=== PATIENT | male | born 1940 | race Caucasian/White ===

== ENCOUNTER 2019-11-17 10:37 | Outpatient (REF) | payer MEDICARE, SELFPAY ==
--- NOTE | 2019-11-17 10:36 | CT_ITS ---
EXAMINATION: CT LUMBAR SPINE WITHOUT CONTRAST CLINICAL INFORMATION: Spinal stenosis. COMPARISON: None available. TECHNIQUE: Multidetector CT acquisition of the lumbar spine is obtained without contrast. This CT examination was performed using dose optimization techniques as appropriate, variously including the following: *Automated exposure control *Adjustment of mA and/or kV according to patient size (this includes techniques or standardized protocols for targeted exams where dose is matched to indication/reason for exam; i.e. extremities or head) *Use of iterative reconstruction technique FINDINGS: There are 5 nonrib-bearing lumbar-type vertebral bodies. There is grade 1 retrolisthesis of T12 on L1 and L1 on L2. There is a rightward convex scoliotic curvature of the upper lumbar spine and a leftward convex scoliotic curvature at the lumbosacral junction. The vertebral body heights are maintained. There is severe disc volume loss at L4-L5 and L5-S1. There is moderate disc volume loss at L2-L3. There is vacuum phenomenon at all lumbar levels and at the lower thoracic levels. There are no acute fractures and there are no acute subluxations. Degenerative endplate changes throughout the lumbar spine. No suspicious intraosseous lesions. There is bilateral perinephric stranding. There is aortoiliac atherosclerotic calcification. L1-L2: There is grade 1 retrolisthesis. Diffuse annular disc bulge and mild bilateral facet arthropathy. There is no central canal stenosis. There is mild foraminal encroachment bilaterally. L2-L3: There is a diffuse annular disc bulge and there is severe bilateral facet arthropathy and ligamentum flavum thickening. Findings in concert result in suspected moderate to severe central canal stenosis as well as severe bilateral subarticular zone stenosis and mild bilateral foraminal encroachment. L3-L4: Diffuse annular disc bulge and severe bilateral facet arthropathy and ligamentum flavum thickening. Findings in concert result in suspected severe central canal stenosis and mild to moderate right foraminal stenosis. L4-L5: Diffuse disc osteophyte complex and severe bilateral facet arthropathy and ligamentum flavum thickening. Findings in concert result in suspected moderate to severe central canal stenosis, severe bilateral subarticular zone stenosis, and severe right foraminal stenosis. L5-S1: There is a broad-based central disc protrusion that likely results in mass effect on the traversing S1 nerve roots within the subarticular zones bilaterally and mild narrowing of the central canal. Disc osteophyte and facet arthropathy result in severe bilateral foraminal stenosis. IMPRESSION: - Lumbar scoliosis superimposed on advanced multilevel degenerative disc disease and facet arthropathy. - Advanced spondylitic changes result in suspected severe central canal stenosis at L3-L4 and moderate to severe central canal stenosis and severe bilateral subarticular zone stenosis at L2-L3 and L4-L5. At L5-S1, a broad-based central disc protrusion likely in mass effect on the traversing S1 nerve roots within the subarticular zones bilaterally. Severe right foraminal stenosis at L4-L5 and severe bilateral foraminal stenosis at L5-S1.
== END 2019-11-17 10:38 | disposition home or self-care (01) ==
LOC: HO.CT 10:37
PROVIDERS: PCP Internal Medicine; Visit Provider Internal Medicine
DX: M48.062 Spinal stenosis, lumbar region with neurogenic claudication (principal)
CPT/HCPCS: 72131

== ENCOUNTER 2019-12-05 11:14 | Outpatient (REF) | payer MEDICARE, SELFPAY ==
[2019-12-05 13:55] LABS: Glucose Urine UA NEG (NEG); Leukocyte Esterase Urine NEG (NEG); Nitrite Urine NEG (NEG); PH 5.5 (5.0-8.0); Urine Blood NEG (NEG); Urine Ketones NEG (NEG); Urine Protein NEG (NEG-TRACE)
[2019-12-05 14:06] LABS: Appearance Urine CLEAR; Color Urine YELLOW
== END 2019-12-05 11:15 | disposition home or self-care (01) ==
LOC: HO.HMGCLDS 11:14
PROVIDERS: PCP Internal Medicine; Visit Provider Internal Medicine
DX: R35.0 Frequency of micturition (principal)
CPT/HCPCS: 81003; 87086

== ENCOUNTER 2019-12-28 08:49 | Outpatient (REF) | payer MEDICARE, SELFPAY ==
[2019-12-28 11:32] LABS: Hemoglobin 13.9 g/dl (14.0-18.0); Mean Corpuscular HGB Conc 33.1 g/dl (31.0-36.0); Mean Corpuscular Hemoglobin 34.1 pg (27.0-33.0); Mean Corpuscular Volume 102.9 fL (80-98); Mean Platelet Volume 10.7 fL (9.4-12.4); Platelet Count 179 X10*3/uL (160-400); Red Blood Count 4.08 X10*6/uL (4.60-5.80); Red Cell Distribution Width 14.5 % (11.0-16.0); White Blood Count 6.1 X10*3/uL (4.8-10.8)
[2019-12-28 12:25] LABS: Anion Gap 14 (12-20); Blood Urea Nitrogen 23 mg/dL (9-16); Calcium 8.6 mg/dL (8.4-10.2); Carbon Dioxide 25 mmol/L (22-29); Chloride 106 mmol/L (96-108); Estimated Glomerular Filt Rate 58; Glucose Random 98 mg/dL (60-115); Potassium 4.3 mmol/l (3.3-5.1); Sodium 141 mmol/L (135-145)
== END 2019-12-28 08:50 | disposition home or self-care (01) ==
LOC: HO.HMGCLDS 08:49
PROVIDERS: PCP Internal Medicine; Visit Provider Nurse Practitioner Family
DX: Z79.01 Long term (current) use of anticoagulants (principal)
CPT/HCPCS: 36415; 80048; 85027

== ENCOUNTER → 2020-01-31 09:10 | Outpatient (REF) | payer MEDICARE, SELFPAY ==
--- NOTE | 2020-01-31 09:30 | CA_ITS ---
Transthoracic Echocardiogram Patient (Last, First, Middle): Chilango Castaneda G Gender: Male Date of : 1940 Age: 79 Procedure Date: 01/31/2020 Procedure Type: Transthoracic Echocardiogram Location: OP Height: 177.8 cm Weight: 95.26 kg BSA: 2.13 m2 Heart Rate: bpm BP: 124 / 70 mmHg Otr Driver: Referring MD: Alvaro Marinelli MD Poultry Farmer Meat: Nato Ridley MD Symptoms: I48.0 PAF, I42.9 CMP, R60.0 EDEMA I51.9 DIASTOLIC DYSFUNCTIO Study Quality: Fair ECG Rhythm: Sinus Conclusions: - 1. Normal LV systolic function with impaired relaxation filling pattern 2. Mildly dilated left atrium 3. Trivial aortic regurgitation 4. Normal RV systolic pressure 5. No pericardial effusion Findings Left Ventricle Normal left ventricular size, thickness, and systolic function. The visually estimated ejection fraction is between 60-65%. Spectral Doppler is indicative of an impaired relaxation filling pattern. E/E prime ratio is between 8 and 15 consistent with indeterminate filling pressures. Right Ventricle Normal right ventricular cavity size and systolic function. Atria The left atrium is mildly dilated. There is no evidence of interatrial shunt. The right atrium is likely dilated. Aortic Valve Normal aortic valve structure and function. There is no aortic valve stenosis. There is trace (trivial) aortic valve regurgitation. Mitral Valve Likely normal mitral valve structure and function. There is trace mitral valve regurgitation. There is no mitral valve stenosis. Pulmonic Valve The pulmonic valve was not well visualized. Tricuspid Valve The right ventricular systolic pressure is normal. The right ventricular systolic pressure is 13 mmHg. There is no evidence of pulmonary hypertension. Great Vessels All visible segments of the aorta are normal in size. The pulmonary artery was not well visualized. Venous The inferior vena cava is normal in size. Pericardium/Pleural There is no evidence of pericardial effusion. Prior Study Comparison Changes noted compared to prior study dated: 07/13/2018. Diastolic function seems to have improved Measurements 2D Linear Measurements IVSd: 1.09 0.6-0.9/0.6-1.0 cm LVIDd: 5.30 3.9-5.3/4.2-5.9 cm LVIDd Index: 2.49 2.4-3.2/2.2-3.1 cm/m2 LVIDs: 3.41 2.0-3.6 cm LVPWd: 1.09 0.7-1.1 cm Ao Root: 3.60 2.1-3.5 cm LA Diam: 5.00 2.7-3.8/3.0-4.0 cm LAIDs Index: 2.35 1.5-2.3 cm/m2 LV Mass: 363.79 67-162/88-224 g LV Mass Index: 170.79 43-95/49-115 g/m2 LVOT Diam: 2.30 3.0+(-)1.3 cm 2D Systolic Function EF 4C: 72.00 >55% EF 2C: 67.00 >55% EF BiP: 70.60 >55% Mitral Valve MV Pk E: 0.81 MV PK A: 1.13 MV Decel Time: 248.00 E/A: 0.70 E'Lateral: 9.28 E'Medial: 7.74 E/E' Med: 10.40 E/E' Lat: 8.70 PHT: 73.00 MVA PHT: 3.01 Decel [place]: 3.25 Aortic Valve AoV Pk Nathanael: 1.67 AoV Mn Nathanael: 1.04 AoV VTI: 0.42 AoV Pk Grad: 11.00 Aov Mn Grad: 5.00 CHARITO Cont.VTI: 2.55 LVOT LVOT Pk Nathanael: 1.04 LVOT Mn Nathanael: 0.66 LVOT VTI: 0.26 LVOT Pk Grad: 4.00 LVOT Mn Grad: 2.00 LVOT Diam: 2.30 LVOT Area: 4.15 Diastolic Function MV Pk E: 0.81 MV Pk A: 1.13 E/A: 0.70 E'Medial: 7.74 E/E' Med: 10.40 E' Laterial: 9.28 E/E' Lat: 8.70 Tricuspid Valve TR Pk Nathanael: 1.58 TR Pk Grad: 10.00 RA Press: 3.00 RVSP: 13.00 Great Vessels Aorta Ao Root-2D: 3.60 2.0-3.7 cm Ao Asc: 4.00 2.1-3.4 cm Pulmonary Valve PV Pk Nathanael: 1.10 Peak PV Grad: 5.00 Updated in Other Vendor System with Status of Final Nato Ridley MD electronically signed on 02/01/2020 2:35:52 PM with status of Final
== END ==
LOC: HO.CARD 09:10
PROVIDERS: Visit Provider Internal Medicine
DX: I48.0 Paroxysmal atrial fibrillation (principal); I42.9 Cardiomyopathy, unspecified; R60.0 Localized edema; I51.9 Heart disease, unspecified
CPT/HCPCS: 93306

== ENCOUNTER → 2020-03-05 08:47 | Outpatient (BNVA) | payer MEDICARE, SELFPAY | PROVIDERS: PCP Internal Medicine; Visit Provider Internal Medicine | DX: I48.0 Paroxysmal atrial fibrillation (principal); I42.8 Other cardiomyopathies; I10 Essential (primary) hypertension; I51.89 Other ill-defined heart diseases; R60.0 Localized edema; Z51.81 Encounter for therapeutic drug level monitoring; Z79.899 Other long term (current) drug therapy | CPT/HCPCS: 93005; 99212 ==

== ENCOUNTER 2020-03-06 07:46 | Outpatient (REF) | payer MEDICARE, SELFPAY ==
[2020-03-06 11:12] LABS: MANUAL DIFF FLAG NO
[2020-03-06 11:15] LABS: Basophils Percent Auto 0.6 % (0-2); Eosinophils Absolute Auto 0.1 X10*3/uL (0.0-0.4); Hematocrit 43.3 % (42-52); Hemoglobin 14.9 g/dl (14.0-18.0); Imm Gran Abs Auto 0.03 X10*3/uL (0.00-0.03); Imm Gran Pct Auto 0.6 % (0.0-0.4); Lymphocytes Absolute Auto 1.7 X10*3/uL (1.2-4.9); Lymphocytes Percent Auto 32.9 % (20-40); Mean Corpuscular HGB Conc 34.4 g/dl (31.0-36.0); Mean Corpuscular Hemoglobin 35.1 pg (27.0-33.0); Mean Corpuscular Volume 102.1 fL (80-98); Mean Platelet Volume 10.4 fL (9.4-12.4); Monocytes Absolute Auto 0.5 X10*3/uL (0.1-1.2); Monocytes Percent Auto 9.6 % (2-11); Neutrophils Absolute Auto 2.8 X10*3/uL (2.0-8.3); Neutrophils Percent Auto 55.3 % (45-73); Platelet Count 137 X10*3/uL (160-400); Red Blood Count 4.24 X10*6/uL (4.60-5.80); Red Cell Distribution Width 13.8 % (11.0-16.0); White Blood Count 5.1 X10*3/uL (4.8-10.8)
[2020-03-06 11:25] LABS: Alanine Aminotransferase 19 U/L (0-40); Albumin Level 4.1 g/dL (3.5-5.0); Alkaline Phosphatase 64 U/L (39-117); Anion Gap 12 (12-20); Aspartate Amino Transferase 17 U/L (5-37); Blood Urea Nitrogen 27 mg/dL (9-16); Calcium 9.1 mg/dL (8.4-10.2); Carbon Dioxide 28 mmol/L (22-29); Chloride 105 mmol/L (96-108); Cholesterol 177 mg/dL; Estimated Glomerular Filt Rate 49; Glucose Fasting 88 mg/dL (60-99); HDL Cholesterol 50 mg/dL; LDL Cholesterol Calculated 95 mg/dl; Potassium 4.4 mmol/l (3.3-5.1); Sodium 141 mmol/L (135-145); Total Protein 6.3 g/dL (6.5-8.0); Triglycerides 164 mg/dL
[2020-03-06 11:28] LABS: Glucose Urine UA NEG (NEG); Leukocyte Esterase Urine NEG (NEG); Nitrite Urine NEG (NEG); Urine Blood NEG (NEG); Urine Ketones NEG (NEG); Urine Protein NEG (NEG-TRACE)
[2020-03-06 11:29] LABS: Appearance Urine CLEAR; Color Urine YELLOW
[2020-03-06 11:32] LABS: Estimated Average Glucose 97 mg/dL
[2020-03-06 11:49] LABS: Prostate Specific Antigen Scr 4.35 ng/mL (<0.05-4.0)
[2020-03-06 12:09] LABS: Creatinine Urine 110.52 mg/dL; Microalbumin Urine < 5.0 mg/L
== END 2020-03-06 07:47 | disposition home or self-care (01) ==
LOC: HO.HMGCLDS 07:46
PROVIDERS: PCP Internal Medicine; Visit Provider Internal Medicine
DX: Z00.00 Encounter for general adult medical examination without abnormal findings (principal); D69.6 Thrombocytopenia, unspecified; R79.89 Other specified abnormal findings of blood chemistry; I10 Essential (primary) hypertension; R73.03 Prediabetes; R97.20 Elevated prostate specific antigen [PSA]; Z86.79 Personal history of other diseases of the circulatory system; Z12.5 Encounter for screening for malignant neoplasm of prostate
CPT/HCPCS: 36415; 80053; 80061; 81003; 82043; 83036; 84153; 85025

== ENCOUNTER → 2020-08-20 08:08 | Outpatient (BNVA) | payer MEDICARE, SELFPAY | PROVIDERS: PCP Internal Medicine; Referring Provider Internal Medicine; Visit Provider Internal Medicine | DX: I48.0 Paroxysmal atrial fibrillation (principal); I42.8 Other cardiomyopathies; I11.0 Hypertensive heart disease with heart failure; R60.0 Localized edema; Z51.81 Encounter for therapeutic drug level monitoring; Z79.899 Other long term (current) drug therapy | CPT/HCPCS: 93005; 99212 ==

== ENCOUNTER 2020-09-19 10:22 | Outpatient (REF) | payer MEDICARE, SELFPAY ==
[2020-09-19 10:57] LABS: Blood Urea Nitrogen 20 mg/dL (9-16); Estimated Glomerular Filt Rate 52
== END 2020-09-19 10:23 | disposition home or self-care (01) ==
LOC: HO.LNP 10:22
PROVIDERS: Visit Provider Internal Medicine
DX: R79.9 Abnormal finding of blood chemistry, unspecified (principal)
CPT/HCPCS: 82565; 84520

== ENCOUNTER → 2021-02-11 08:08 | Outpatient (BNVA) | payer MEDICARE, SELFPAY | PROVIDERS: PCP Internal Medicine; Referring Provider Internal Medicine; Visit Provider Internal Medicine | DX: I42.8 Other cardiomyopathies (principal); I10 Essential (primary) hypertension; I51.89 Other ill-defined heart diseases; R60.0 Localized edema | CPT/HCPCS: 93005; 99212 ==

== ENCOUNTER 2021-03-20 11:13 | Outpatient (REF) | payer MEDICARE, SELFPAY ==
[2021-03-20 11:18] LABS: MANUAL DIFF FLAG NO
[2021-03-20 12:01] LABS: Basophils Percent Auto 0.3 % (0-2); Eosinophils Absolute Auto 0.1 X10*3/uL (0.0-0.4); Eosinophils Percent Auto 1.7 % (0-4); Hematocrit 42.7 % (42.0-52.0); Hemoglobin 14.3 g/dl (14.0-18.0); Imm Gran Abs Auto 0.04 X10*3/uL (0.00-0.03); Imm Gran Pct Auto 0.7 % (0.0-0.4); Lymphocytes Absolute Auto 2.1 X10*3/uL (1.2-4.9); Lymphocytes Percent Auto 35.3 % (20-40); Mean Corpuscular HGB Conc 33.5 g/dl (31.0-36.0); Mean Corpuscular Volume 101.4 fL (80.0-98.0); Mean Platelet Volume 10.8 fL (9.4-12.4); Monocytes Absolute Auto 0.5 X10*3/uL (0.1-1.2); Monocytes Percent Auto 8.3 % (2-11); Neutrophils Absolute Auto 3.2 x10*3/uL (2.0-8.3); Neutrophils Percent Auto 53.7 % (45-73); Platelet Count 151 X10*3/uL (160-400); Red Blood Count 4.21 X10*6/uL (4.60-5.80); Red Cell Distribution Width 13.2 % (11.0-16.0)
[2021-03-20 12:12] LABS: Estimated Average Glucose 100 mg/dL; Hemoglobin A1c % 5.1 %
[2021-03-20 12:13] LABS: Appearance Urine CLEAR; Color Urine YELLOW; Glucose Urine UA NEG (NEG); Leukocyte Esterase Urine NEG (NEG); Nitrite Urine NEG (NEG); PH 6.5 (5.0-8.0); Specific Gravity - Urine 1.015 (1.005-1.025); Urine Blood NEG (NEG); Urine Ketones NEG (NEG); Urine Protein NEG (NEG-TRACE)
[2021-03-20 12:17] LABS: Alanine Aminotransferase 17 U/L (0-40); Albumin Level 3.8 g/dL (3.5-5.0); Alkaline Phosphatase 88 U/L (39-117); Anion Gap 12 (12-20); Aspartate Amino Transferase 17 U/L (5-37); Bilirubin Total 0.9 mg/dL (0.0-1.0); Blood Urea Nitrogen 25 mg/dL (9-16); Calcium 8.9 mg/dL (8.4-10.2); Carbon Dioxide 27 mmol/L (22-29); Chloride 106 mmol/L (96-108); Cholesterol 173 mg/dL; Estimated Glomerular Filt Rate 51; Glucose Fasting 98 mg/dL (60-99); HDL Cholesterol 46 mg/dL; LDL Cholesterol Calculated 103 mg/dl; Potassium 4.1 mmol/L (3.3-5.1); Sodium 141 mmol/L (135-145); Triglycerides 124 mg/dL
[2021-03-20 12:41] LABS: Creatinine Urine 134.04 mg/dL; Microalbumin Urine < 5.0 mg/L
[2021-03-20 13:07] LABS: PSA,Total (Free>4and<10) 4.08 ng/mL (0.00-4.00)
[2021-03-24 12:51] LABS: Free Prostate Spec Ag 0.9 ng/mL; Percent Free Prostate Spec Ag 24 % (calc) (>25); Prostate Specific Ag Total 3.8 ng/mL (< OR = 4.0)
== END 2021-03-20 11:14 | disposition home or self-care (01) ==
LOC: HO.LNP 11:13
PROVIDERS: Visit Provider Internal Medicine
DX: Z00.00 Encounter for general adult medical examination without abnormal findings (principal); Z12.5 Encounter for screening for malignant neoplasm of prostate; D69.6 Thrombocytopenia, unspecified; I10 Essential (primary) hypertension; R73.03 Prediabetes; R97.20 Elevated prostate specific antigen [PSA]
CPT/HCPCS: 80053; 80061; 81003; 82043; 83036; 84153; 84154; 85025

== ENCOUNTER → 2021-08-12 08:08 | Outpatient (BNVA) | payer MEDICARE, SELFPAY | PROVIDERS: PCP Internal Medicine; Referring Provider Internal Medicine; Visit Provider Internal Medicine | DX: I48.0 Paroxysmal atrial fibrillation (principal); I42.8 Other cardiomyopathies; I11.9 Hypertensive heart disease without heart failure; R60.0 Localized edema; Z79.01 Long term (current) use of anticoagulants; Z79.899 Other long term (current) drug therapy | CPT/HCPCS: 93005; 99212 ==

== ENCOUNTER → 2021-11-25 08:47 | Outpatient (BNVA) | payer MEDICARE, SELFPAY | PROVIDERS: PCP Internal Medicine; Referring Provider Internal Medicine; Visit Provider Internal Medicine | DX: R00.1 Bradycardia, unspecified (principal); R94.31 Abnormal electrocardiogram [ECG] [EKG] | CPT/HCPCS: 93005 ==

== ENCOUNTER → 2021-12-22 07:21 | Outpatient (REF) | payer MEDICARE, SELFPAY ==
--- NOTE | 2021-12-22 07:32 | HM_ITS ---
Conclusion: 1. Patient was monitored for total period of 3 days 2. Baseline was normal sinus rhythm with average heart rate of 45 beats per minute 3. Frequent sinus bradycardia with 82% of time heart rate below 60 beats per minute with lowest heart rate of 30 beats per minute during sleep hours 4. Multiple pauses with longest pause of 3.2 seconds noted at 05:34 on day 4 5. Rare ectopy 6. No patient reported symptoms MTDD
== END ==
LOC: HO.CARD 07:21
PROVIDERS: PCP Internal Medicine; Visit Provider Internal Medicine
DX: I48.0 Paroxysmal atrial fibrillation (principal); R00.1 Bradycardia, unspecified
CPT/HCPCS: 93242

== ENCOUNTER → 2022-02-24 08:26 | Outpatient (BNVA) | payer MEDICARE, SELFPAY | PROVIDERS: PCP Internal Medicine; Referring Provider Internal Medicine; Visit Provider Internal Medicine | DX: I48.0 Paroxysmal atrial fibrillation (principal); Z51.81 Encounter for therapeutic drug level monitoring; I42.8 Other cardiomyopathies; I10 Essential (primary) hypertension; R60.0 Localized edema; Z79.899 Other long term (current) drug therapy; Z79.01 Long term (current) use of anticoagulants | CPT/HCPCS: 93005; 99212 ==

== ENCOUNTER 2022-03-19 11:25 | Outpatient (REF) | payer MEDICARE, SELFPAY ==
[2022-03-19 11:32] LABS: MANUAL DIFF FLAG NO
[2022-03-19 12:10] LABS: Basophils Percent Auto 0.5 % (0-2); Eosinophils Absolute Auto 0.2 X10*3/uL (0.0-0.4); Eosinophils Percent Auto 2.9 % (0-4); Hematocrit 43.3 % (42.0-52.0); Hemoglobin 14.7 g/dl (14.0-18.0); Imm Gran Abs Auto 0.03 X10*3/uL (0.00-0.03); Imm Gran Pct Auto 0.5 % (0.0-0.4); Lymphocytes Percent Auto 35.7 % (20-40); Mean Corpuscular HGB Conc 33.9 g/dl (31.0-36.0); Mean Corpuscular Hemoglobin 32.7 pg (27.0-33.0); Mean Corpuscular Volume 96.4 fL (80.0-98.0); Mean Platelet Volume 11.2 fL (9.4-12.4); Monocytes Absolute Auto 0.5 X10*3/uL (0.1-1.2); Monocytes Percent Auto 8.8 % (2-11); Neutrophils Absolute Auto 2.9 x10*3/uL (2.0-8.3); Neutrophils Percent Auto 51.6 % (45-73); Platelet Count 130 X10*3/uL (160-400); Red Blood Count 4.49 X10*6/uL (4.60-5.80); Red Cell Distribution Width 13.4 % (11.0-16.0); White Blood Count 5.6 X10*3/uL (4.8-10.8)
[2022-03-19 12:26] LABS: Alanine Aminotransferase 12 U/L (0-40); Albumin Level 3.8 g/dL (3.5-5.0); Alkaline Phosphatase 106 U/L (39-117); Anion Gap 13 (12-20); Aspartate Amino Transferase 14 U/L (5-37); Bilirubin Total 1.1 mg/dL (0.0-1.0); Blood Urea Nitrogen 24 mg/dL (9-16); Calcium 8.9 mg/dL (8.4-10.2); Carbon Dioxide 25 mmol/L (22-29); Chloride 107 mmol/L (96-108); Cholesterol 154 mg/dL; Estimated Glomerular Filt Rate 57; Glucose Fasting 99 mg/dL (60-99); HDL Cholesterol 48 mg/dL; LDL Cholesterol Calculated 91 mg/dl; Sodium 141 mmol/L (135-145); Total Protein 6.1 g/dL (6.5-8.0); Triglycerides 79 mg/dL
[2022-03-19 12:41] LABS: PSA,Total (Free>4and<10) 1.98 ng/mL (0.00-4.00)
[2022-03-19 12:44] LABS: Appearance Urine Clear; Color Urine Yellow; Glucose Urine UA Negative (Negative); Leukocyte Esterase Urine Negative (Negative); Nitrite Urine Negative (Negative); Specific Gravity - Urine 1.015 (1.005-1.025); Urine Blood Negative (Negative); Urine Ketones Negative (Negative); Urine Protein Negative (Neg-Trace)
[2022-03-19 12:51] LABS: Bacteria Urine None Seen (None Seen); Hyaline Casts Urine 0-2 /LPF (0-2); RBC Urine 0-2 /HPF (0-2); Squamous Epithelial Cell Urine 0-2 /HPF (0-2); WBC Urine 0-5 /HPF (0-5)
[2022-03-19 12:54] LABS: Estimated Average Glucose 97 mg/dL
[2022-03-19 13:36] LABS: Creatinine Urine 106.98 mg/dL; Microalbumin Urine < 5.0 mg/L
== END 2022-03-19 11:26 | disposition home or self-care (01) ==
LOC: HO.LNP 11:25
PROVIDERS: Visit Provider Internal Medicine
DX: Z00.00 Encounter for general adult medical examination without abnormal findings (principal); I10 Essential (primary) hypertension; D69.6 Thrombocytopenia, unspecified; R73.09 Other abnormal glucose; R97.20 Elevated prostate specific antigen [PSA]; Z12.5 Encounter for screening for malignant neoplasm of prostate
CPT/HCPCS: 80053; 80061; 81001; 82043; 83036; 84153; 85025

== ENCOUNTER → 2022-05-21 08:11 | Outpatient (BNVA) | payer MEDICARE, SELFPAY | PROVIDERS: PCP Internal Medicine; Referring Provider Internal Medicine; Visit Provider Internal Medicine | DX: R94.31 Abnormal electrocardiogram [ECG] [EKG] (principal) | CPT/HCPCS: 93005 ==

== ENCOUNTER 2022-08-27 08:09 | Outpatient (AMB) | payer MEDICARE, SELFPAY ==
[2022-08-27 08:16] VITALS: BP 122/72; PULSE 94; BMI 34.2
--- NOTE | 2022-08-27 08:16 | A.OFFVIS_ITS ---
Intake Vital Signs 08/27/22 08:16 Height 5 ft 3 in Weight 193 lb 1.999 oz BMI 34.2 BP 122/72 Blood Pressure Location Lt brachial Position Sitting Pulse 94 Intake Visit Reasons: 6 mth fu with ekg Intake Note: 6 month follow up w/ EKG Projects Manager Required: No Accompanied by: Self / Same As Patient Allergies Penicillins [PCN] Allergy (Unknown, Verified 08/27/22 08:26) RASH Sulfamethoxazole-TMP DS Allergy (Unknown, Uncoded 08/27/22 08:26) rash Medication List - Last Reconciled 08/27/22 by Alvaro Marinelli MD allopurinol 300 mg PO DAILY amlodipine 5 mg PO DAILY doxazosin 2 mg PO BEDTIME dronedarone (Multaq) 400 mg PO BID finasteride 5 mg PO DAILY furosemide 80 mg (2 x 40 mg) PO DAILY irbesartan 300 mg PO DAILY rivaroxaban (Xarelto) 15 mg PO QPM HPI HPI Comments History of Present Illness Details Chilango returns for follow-up regarding atrial fibrillation. Overall, generally getting along fine from cardiac. No new issues. No chest pain or palpitations or in fact anything cardiac related. Breathing seems fine too. [facility] Medical History (Updated 11/25/21 @ 16:25 by Alvaro Marinelli MD) Current use of correction anticoagulation Diastolic dysfunction Essential hypertension Localized edema Nonischemic cardiomyopathy PAF (paroxysmal atrial fibrillation) Surgical History (Updated 08/27/22 @ 08:28 by Azucena Duke) History of back surgery History of cardioversion (~2015) Family History Father CHF (congestive heart failure) Mother Cancer Social History Alcohol intake: never Patient Tobacco Use Status: Never used Tobacco Review of Systems Const Denies weakness ENT Denies dizziness Card Denies chest pain, Denies chest pain with activity, Denies syncope, Denies rapid heart rate, Denies pedal edema, Denies edema, Denies leg edema, Denies lightheadedness, Denies palpitations, Denies dyspnea, Denies dyspnea on exertion and Denies orthopnea Resp Denies cough, Denies dyspnea and Denies dyspnea on exertion GI Denies hematochezia and Denies change in stool character Musc Denies abnormal gait, Denies muscle cramps, Denies muscle weakness, Denies numbness, Denies radiating pain into limb and Denies tingling Neuro Denies abnormal gait, Denies dizziness, Denies syncope, Denies numbness, Denies tingling and Denies weakness Endo Denies palpitations Physical Exam Vital Signs: Last Vital Signs Pulse 94 08/27/22 08:16 BP 122/72 08/27/22 08:16 BMI result Body Mass Index 34.2 Const General: comfortable and no acute distress Orientation/consciousness: patient oriented x3 HEENT Other: Unremarkable Head: Yes normal to inspection Neck Neck: Yes normal visual inspection Chest Chest palpation & inspection: normal inspection of the chest Resp Auscultation: clear to auscultation bilaterally Cardio Palpation: normal PMI Heart sounds: S1 normal heart sound present, S2 normal heart sound present, no gallops, no murmurs and no rubs GI Palpation (GI): Soft to palpation Back/Spine/Pelvis Other: unremarkable Skin General skin exam: no rashes or lesions noted Neuro General: patient oriented x3 Extrem General: Yes normal to inspection Psych Mental Status: mental status grossly normal Office Procedures EKG Details: EKG today with atrial flutter, 94/min; PVC vs aberrant conduction. 59251-[id number], Complete Assessment & Plan Assessment & Plan (1) PAF (paroxysmal atrial fibrillation): Code(s): I48.0 - Paroxysmal atrial fibrillation Plan: Today, he is in atrial flutter by EKG. Clinically, he has got absolutely no symptoms. We can stop the Multaq. Probably try rate control with beta- blockers. Dog avoid lowering the blood pressure too much, hold off on the amlodipine. If there is any symptoms of heart failure in the future, may need to consider cardioversion again. If able, he would rather avoid it. Otherwise, continue Xarelto. We can use 20 mg dose. Last year for is 57. (2) Encounter for monitoring anti-arrhythmic therapy: Code(s): Z51.81 - Encounter for therapeutic drug level monitoring; Z79.899 - Other correction (current) drug therapy Plan: Stop Multaq. Discussed with patient. (3) Nonischemic cardiomyopathy: Code(s): I42.8 - Other cardiomyopathies Plan: Most recent echocardiogram with LVEF of 60-65%. In the past, it has been lowish into the 30s. 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 Last stress test is from 2017. At that time, perfusion imaging showed no ischemia. Probable small old infarct apical inferior wall. He does not have any heart failure symptoms or signs. Now that he is back in atrial flutter, will need to monitor the cardiac function. (4) Essential hypertension: Code(s): I10 - Essential (primary) hypertension Plan: Hold amlodipine. Start Toprol-XL. If blood pressure goes up, may have to reintroduce a small dose of amlodipine. (5) Localized edema: Code(s): R60.0 - Localized edema Plan: Suspected venous insufficiency. Seems stable. No swelling today. Orders: Orders ECG 3 day holter monitor 4 Weeks I48.0 - Paroxysmal atrial fibrillation Medications: New metoprolol succinate ER (Toprol XL) 50 mg PO DAILY 90 tabs 3RF rivaroxaban (Xarelto) must administer with evening meal 20 mg PO QPM 90 tabs 3RF I48.0 - Paroxysmal atrial fibrillation Discontinued rivaroxaban (Xarelto) Discontinued Reason: Doctor's Order 15 mg PO QPM 90 tabs 3RF dronedarone (Multaq) Discontinued Reason: Doctor's Order 400 mg PO BID 60 tabs 5RF Coding Level of Care Code Est Pt Level 4 (78671) Diagnoses PAF (paroxysmal atrial fibrillation) I48.0 Encounter for monitoring anti-arrhythmic therapy Z51.81; Z79.899 Nonischemic cardiomyopathy I42.8 Essential hypertension I10 Localized edema R60.0 CPT Codes EKG - CPT: 22489-[id number], Complete ([id number])
== END 2022-08-27 08:45 | disposition home or self-care (01) ==
PROVIDERS: Visit Provider Internal Medicine
DX: I48.0 Paroxysmal atrial fibrillation (principal); Z51.81 Encounter for therapeutic drug level monitoring; Z79.899 Other long term (current) drug therapy; I42.8 Other cardiomyopathies; I10 Essential (primary) hypertension; R60.0 Localized edema
CPT/HCPCS: 93010; 99214

== ENCOUNTER → 2022-08-27 08:09 | Outpatient (BNVA) | payer MEDICARE, SELFPAY | PROVIDERS: Visit Provider Internal Medicine | DX: I48.0 Paroxysmal atrial fibrillation (principal); I42.8 Other cardiomyopathies; I10 Essential (primary) hypertension; R60.0 Localized edema; Z79.01 Long term (current) use of anticoagulants | CPT/HCPCS: 93005; 99212 ==

== ENCOUNTER → 2022-09-09 09:22 | Outpatient (REF) | payer MEDICARE, SELFPAY ==
--- NOTE | 2022-09-09 09:26 | HM_ITS ---
Conclusion: 1. Patient was monitored for total period of 3 days 2. Baseline is atrial fibrillation with average heart of 93 beats per minute 3. No significant pauses noted 4. Frequent mostly isolated PVCs noted with total burden of 14.5% 5. There was 6 salvos of nonsustained VT noted longest lasting 5 beats and the fastest at 163 beats per minute 6. No patient reported symptoms MTDD
== END ==
LOC: HO.CARD 09:22
PROVIDERS: PCP Internal Medicine; Visit Provider Internal Medicine
DX: I48.0 Paroxysmal atrial fibrillation (principal)
CPT/HCPCS: 93242

== ENCOUNTER → 2022-09-09 09:26 | Outpatient (BNV) | payer MEDICARE, SELFPAY | PROVIDERS: PCP Internal Medicine; Visit Provider Internal Medicine Cardiovascular Disease | DX: I49.3 Ventricular premature depolarization (principal) | CPT/HCPCS: 93244 ==

== ENCOUNTER 2022-12-07 08:10 | Outpatient (AMB) | payer MEDICARE, SELFPAY ==
--- NOTE | 2022-12-07 08:25 | MHC.OFFVIS ---
Intake Vital Signs 12/07/22 08:28 Height 5 ft 3 in Weight 194 lb 14.218 oz BMI 34.5 BP 118/60 Blood Pressure Location Lt brachial Position Sitting Pulse 85 Intake Visit Reasons: 3 month follow up Intake Note: 3 month follow up Lead Php Developer Required: No Accompanied by: Self / Same As Patient Allergies Penicillins [PCN] Allergy (Unknown, Verified 12/07/22 08:28) RASH Sulfamethoxazole-TMP DS Allergy (Unknown, Uncoded 12/07/22 08:28) rash Medication List - Last Reconciled 12/07/22 by Alvaro Marinelli MD allopurinol 300 mg PO DAILY doxazosin 2 mg PO BEDTIME finasteride 5 mg PO DAILY furosemide 80 mg (2 x 40 mg) PO DAILY irbesartan 300 mg PO DAILY metoprolol succinate ER (Toprol XL) 50 mg PO DAILY rivaroxaban (Xarelto) 20 mg PO QPM HPI HPI Comments History of Present Illness Details Chilango returns for follow-up regarding atrial fibrillation. He states that he is doing okay. No complaints like angina or shortness of breath or in fact anything cardiac sounding. Some nonspecific tiredness. 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 Surgical History History of back surgery History of cardioversion (~2015) Family History Father CHF (congestive heart failure) Mother Cancer Social History Alcohol intake: never Patient Tobacco Use Status: Never used Tobacco Review of Systems Const Denies weakness ENT Denies dizziness Card Denies chest pain, Denies chest pain with activity, Denies syncope, Denies rapid heart rate, Denies pedal edema, Denies edema, Denies leg edema, Denies lightheadedness, Denies palpitations, Denies dyspnea, Denies dyspnea on exertion and Denies orthopnea Resp Denies cough, Denies dyspnea and Denies dyspnea on exertion GI Denies hematochezia and Denies change in stool character Musc Denies abnormal gait, Denies muscle cramps, Denies muscle weakness, Denies numbness, Denies radiating pain into limb and Denies tingling Neuro Denies abnormal gait, Denies dizziness, Denies syncope, Denies numbness, Denies tingling and Denies weakness Endo Denies palpitations Physical Exam Vital Signs: Last Vital Signs Pulse 85 12/07/22 08:28 BP 118/60 12/07/22 08:28 BMI result Body Mass Index 34.5 Const General: comfortable and no acute distress Orientation/consciousness: patient oriented x3 HEENT Other: Unremarkable Head: Yes normal to inspection Neck Neck: Yes normal visual inspection Chest Chest palpation & inspection: normal inspection of the chest Resp Auscultation: clear to auscultation bilaterally Cardio Palpation: normal PMI Heart sounds: S1 normal heart sound present, S2 normal heart sound present, no gallops, no murmurs and no rubs GI Palpation (GI): Soft to palpation Back/Spine/Pelvis Other: unremarkable Skin General skin exam: no rashes or lesions noted Neuro General: patient oriented x3 Extrem General: Yes normal to inspection Psych Mental Status: mental status grossly normal Assessment & Plan Assessment & Plan (1) Persistent atrial fibrillation: Code(s): I48.19 - Other persistent atrial fibrillation Plan: Failed Multaq. Continue beta-blockers. We will reassess heart rate control with a Holter monitor. Continue anticoagulation with Xarelto. (2) Nonischemic cardiomyopathy: Code(s): I42.8 - Other cardiomyopathies Plan: Most recent echocardiogram with LVEF of 60-65%. In the past, it has been lowish into the 30s. 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 Last stress test is from 2017. At that time, perfusion imaging showed no ischemia. Probable small old infarct apical inferior wall. He does not have any heart failure symptoms or signs. (3) Essential hypertension: Code(s): I10 - Essential (primary) hypertension Plan: Stable. No changes. (4) Localized edema: Code(s): R60.0 - Localized edema Plan: Suspected venous insufficiency. Seems stable. No swelling today. Orders: Orders ECG 3 day holter monitor Today I48.91 - Unspecified atrial fibrillation CA echo transthoracic complete Today I48.19 - Other persistent atrial fibrillation Coding Level of Care Code Est Pt Level 4 (67086) Diagnoses Persistent atrial fibrillation I48.19 Nonischemic cardiomyopathy I42.8 Essential hypertension I10 Localized edema R60.0
[2022-12-07 08:28] VITALS: BP 118/60; PULSE 85; BMI 34.5
== END 2022-12-07 08:44 | disposition home or self-care (01) ==
PROVIDERS: PCP Internal Medicine; Visit Provider Internal Medicine
DX: I48.19 Other persistent atrial fibrillation (principal); I42.8 Other cardiomyopathies; I10 Essential (primary) hypertension; R60.0 Localized edema
CPT/HCPCS: 99214

== ENCOUNTER → 2022-12-07 08:10 | Outpatient (BNVA) | payer MEDICARE, SELFPAY | PROVIDERS: PCP Internal Medicine; Visit Provider Internal Medicine | DX: I48.19 Other persistent atrial fibrillation (principal); I42.8 Other cardiomyopathies; I10 Essential (primary) hypertension; R60.0 Localized edema | CPT/HCPCS: 99212 ==

== ENCOUNTER → 2022-12-30 07:48 | Outpatient (REF) | payer MEDICARE, SELFPAY ==
--- NOTE | 2022-12-30 07:52 | HM_ITS ---
* Total monitoring time 3 days. * Underlying rhythm is atrial fibrillation. Average ventricular rate 79/Min. Range 48 to 132/Min. Most rates are in acceptable range. * Frequent PVCs with a burden of 10%. Evidence of couplets, triplets, bigeminy, trigeminy. 5 brief runs. Longest 11 beats. Monomorphic. * No significant pauses or AV blocks. * No patient markers or events in diary. MTDD
--- NOTE | 2022-12-30 07:52 | CA_ITS ---
Transthoracic Echocardiogram Patient (Last, First, Middle): Chilango Castaneda G Gender: Male Date of : 1940 Age: 82 Procedure Date: 12/30/2022 Procedure Type: Transthoracic Echocardiogram Location: OP Height: 172.72 cm Weight: 88.45 kg BSA: 2.02 m2 Heart Rate: bpm School Guard: SB Referring MD: Alvaro Marinelli MD Symptoms: I48.19 - Other persistent atrial fibrillation Study Quality: Fair but adequate ECG Rhythm: Atrial Fibrillation Conclusions: - The left ventricular systolic function is mildly decreased. The calculated ejection fraction is 44% by biplane method. - Moderately increased right ventricular cavity size. There is mildly decreased right ventricular systolic function. - No obvious valvular pathology seen on this study. - There is mild dilatation of the ascending aorta measuring 4.10 cm. Findings Left Ventricle Mildly increased left ventricular cavity size. The left ventricular systolic function is mildly decreased. The calculated ejection fraction is 44% by biplane method. There is mild global hypokinesis. Diastolic function is indeterminate on the basis of available data. There is mild septal asymmetric hypertrophy. Right Ventricle Moderately increased right ventricular cavity size. There is mildly decreased right ventricular systolic function. Atria The left atrium is moderately dilated. The right atrium is normal in size. Aortic Valve There is a normal trileaflet aortic valve. There is mild calcification of the aortic valve. There is no aortic valve stenosis. There is no aortic valve regurgitation. Mitral Valve The mitral valve appears normal. There is trace mitral valve regurgitation. There is no mitral valve stenosis. Pulmonic Valve The pulmonic valve is likely normal. Tricuspid Valve There is trace tricuspid valve regurgitation. There is no evidence of pulmonary hypertension. Great Vessels There is mild dilatation of the ascending aorta measuring 4.10 cm. Venous The inferior vena cava was not well visualized. Pericardium/Pleural There is a trivial pericardial effusion. Prior Study Comparison Changes noted compared to prior study dated: 01/31/2020. Decrease in LVEF. Recommendations, Care & Conclusions No obvious valvular pathology seen on this study. Measurements 2D Linear Measurements IVSd: 1.11 0.6-0.9/0.6-1.0 cm LVIDd: 5.75 3.9-5.3/4.2-5.9 cm LVIDd Index: 2.85 2.4-3.2/2.2-3.1 cm/m2 LVIDs: 4.51 2.0-3.6 cm LVPWd: 0.88 0.7-1.1 cm LA Diam: 5.50 2.7-3.8/3.0-4.0 cm LAIDs Index: 2.72 1.5-2.3 cm/m2 LV Mass: 284.89 67-162/88-224 g LV Mass Index: 141.04 43-95/49-115 g/m2 LVOT Diam: 2.30 3.0+(-)1.3 cm 2D Systolic Function EF 4C: 35.30 >55% EF 2C: 50.20 >55% EF BiP: 43.90 >55% Mitral Valve MV Pk E: 1.07 Aortic Valve AoV Pk Nathanael: 1.03 AoV Pk Grad: 4.00 CHARITO: 3.17 LVOT LVOT Pk Nathanael: 0.79 LVOT Mn Nathanael: 0.54 LVOT VTI: 0.14 LVOT Pk Grad: 2.00 LVOT Mn Grad: 1.00 LVOT Diam: 2.30 LVOT Area: 4.15 Diastolic Function MV Pk E: 1.07 Right Ventricle TAPSE (mm): 14.70 TVS' Nathanael: 9.70 Tricuspid Valve TR Pk Nathanael: 2.25 TR Pk Grad: 20.00 Great Vessels Aorta Sinus of Valsalva: 3.70 2.0-3.5 cm Ao Asc: 4.10 2.1-3.4 cm Pulmonary Veins Pulm Vein S/D 0.60 Pulmonary Valve PV Pk Nathanael: 0.78 Peak PV Grad: 2.00 Updated in Other Vendor System with Status of Final Alvaro Marinelli MD electronically signed on 12/30/2022 1:47:32 PM with status of Final
== END ==
LOC: HO.CARD 07:48
PROVIDERS: PCP Internal Medicine; Visit Provider Internal Medicine
DX: I48.19 Other persistent atrial fibrillation (principal)
CPT/HCPCS: 93242; 93306

== ENCOUNTER → 2022-12-30 07:52 | Outpatient (BNV) | payer MEDICARE, SELFPAY | PROVIDERS: PCP Internal Medicine; Visit Provider Internal Medicine | DX: I48.19 Other persistent atrial fibrillation (principal) | CPT/HCPCS: 93244; 93306 ==

== ENCOUNTER 2023-01-06 12:22 | Outpatient (AMB) | payer MEDICARE, SELFPAY ==
--- NOTE | 2023-01-06 12:39 | A.OFFVIS_ITS ---
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 Accompanied by: Self / Same As Patient Allergies Penicillins [PCN] Allergy (Unknown, Verified 01/06/23 12:42) RASH Sulfamethoxazole-TMP DS Allergy (Unknown, Uncoded 01/06/23 12:42) rash Medication List - Last Reconciled 01/06/23 by Alvaro Marinelli MD allopurinol 300 mg PO DAILY amlodipine 5 mg PO DAILY doxazosin 2 mg PO BEDTIME finasteride 5 mg PO DAILY furosemide 80 mg (2 x 40 mg) PO DAILY irbesartan 300 mg PO DAILY metoprolol succinate ER (Toprol XL) 50 mg PO DAILY rivaroxaban (Xarelto) 20 mg PO QPM HPI HPI Comments History of Present Illness Details Chilango returns for follow-up regarding atrial fibrillation. He states that he is doing okay. No complaints like angina or shortness of breath or in fact anything cardiac sounding. [facility] Medical History (Updated 12/07/22 @ 08:51 by Alvaro Marinelli MD) Persistent atrial fibrillation Diastolic dysfunction Localized edema Essential hypertension Nonischemic cardiomyopathy Current use of long-term anticoagulation Surgical History History of back surgery History of cardioversion (~2015) Family History Father CHF (congestive heart failure) Mother Cancer Social History Alcohol intake: never Patient Tobacco Use Status: Never used Tobacco Review of Systems Const Denies weakness ENT Denies dizziness Card Denies chest pain, Denies chest pain with activity, Denies syncope, Denies rapid heart rate, Denies pedal edema, Denies edema, Denies leg edema, Denies palpitations, Denies dyspnea, Denies dyspnea on exertion and Denies orthopnea Resp Denies cough, Denies dyspnea and Denies dyspnea on exertion GI Denies hematochezia and Denies change in stool character Musc Denies abnormal gait, Denies muscle cramps, Denies muscle weakness, Denies numbness, Denies radiating pain into limb and Denies tingling Neuro Denies abnormal gait, Denies dizziness, Denies syncope, Denies numbness, Denies tingling and Denies weakness Endo Denies palpitations Physical Exam Vital Signs: Last Vital Signs Pulse 53 01/06/23 12:41 BP 102/56 L 01/06/23 12:41 BMI result Body Mass Index 34.0 Const General: comfortable and no acute distress Orientation/consciousness: patient oriented x3 HEENT Other: Unremarkable Head: Yes normal to inspection Neck Neck: Yes normal visual inspection Chest Chest palpation & inspection: normal inspection of the chest Resp Auscultation: clear to auscultation bilaterally Cardio Palpation: normal PMI Heart sounds: S1 normal heart sound present, S2 normal heart sound present, no gallops, no murmurs and no rubs GI Palpation (GI): Soft to palpation Back/Spine/Pelvis Other: unremarkable Skin General skin exam: no rashes or lesions noted Neuro General: patient oriented x3 Extrem Other: Trace edema General: Yes normal to inspection Psych Mental Status: mental status grossly normal Assessment & Plan Assessment & Plan (1) Persistent atrial fibrillation: Code(s): I48.19 - Other persistent atrial fibrillation Plan: Failed Multaq. Continue beta-blockers. Continue anticoagulation. Discussed about another cardioversion, but he is not interested. He would rather not do it at this time. He states he will tell us definitively next time. (2) Nonischemic cardiomyopathy: Code(s): I42.8 - Other cardiomyopathies Plan: Most recent echocardiogram with LVEF of 44%. Prior to that, 60-65%. Few years back, it was as low in the 30s. Cardiomyopathy related probably atrial fibrillation. Not known to have any obstructive CAD and he does not have any angina either. Clinically, no overt heart failure. As above, if and when agreeable can consider cardioversion which should hopefully help in recovery of LVEF. (3) Essential hypertension: Code(s): I10 - Essential (primary) hypertension Plan: Stable. No changes. (4) Localized edema: Code(s): R60.0 - Localized edema Plan: Suspected venous insufficiency. Seems stable. Orders: Orders CA echo limited 4 Months I42.8 - Other cardiomyopathies Coding Level of Care Code Est Pt Level 4 (96114) Diagnoses Persistent atrial fibrillation I48.19 Nonischemic cardiomyopathy I42.8 Essential hypertension I10 Localized edema R60.0
[2023-01-06 12:41] VITALS: BP 102/56; PULSE 53; BMI 34.0
== END 2023-01-06 12:57 | disposition home or self-care (01) ==
PROVIDERS: PCP Internal Medicine; Visit Provider Internal Medicine
DX: I48.19 Other persistent atrial fibrillation (principal); I42.8 Other cardiomyopathies; I10 Essential (primary) hypertension; R60.0 Localized edema
CPT/HCPCS: 99214

== ENCOUNTER → 2023-01-06 12:22 | Outpatient (BNVA) | payer MEDICARE, SELFPAY | PROVIDERS: PCP Internal Medicine; Visit Provider Internal Medicine | DX: I48.19 Other persistent atrial fibrillation (principal); I42.8 Other cardiomyopathies; I10 Essential (primary) hypertension; R60.0 Localized edema | CPT/HCPCS: 99212 ==

== ENCOUNTER 2023-03-22 10:59 | Outpatient (REF) | payer MEDICARE, SELFPAY ==
[2023-03-22 11:04] LABS: MANUAL DIFF FLAG NO
[2023-03-22 11:17] LABS: Appearance Urine Clear; Color Urine Yellow; Glucose Urine UA Negative (Negative); Leukocyte Esterase Urine Negative (Negative); Nitrite Urine Negative (Negative); PH 6.5 (5.0-9.0); Urine Blood Negative (Negative); Urine Ketones Negative (Negative); Urine Protein Negative (Neg-Trace)
[2023-03-22 11:21] LABS: Basophils Absolute Auto 0.1 X10*3/uL (0.0-0.2); Basophils Percent Auto 0.8 % (0-2); Eosinophils Absolute Auto 0.2 X10*3/uL (0.0-0.4); Eosinophils Percent Auto 2.9 % (0-4); Hematocrit 45.2 % (42.0-52.0); Hemoglobin 15.3 g/dl (14.0-18.0); Imm Gran Abs Auto 0.07 X10*3/uL (0.00-0.03); Imm Gran Pct Auto 1.1 % (0.0-0.4); Lymphocytes Absolute Auto 2.4 X10*3/uL (1.2-4.9); Lymphocytes Percent Auto 36.9 % (20-40); Mean Corpuscular HGB Conc 33.8 g/dl (31.0-36.0); Mean Corpuscular Hemoglobin 34.2 pg (27.0-33.0); Mean Corpuscular Volume 100.9 fL (80.0-98.0); Mean Platelet Volume 11.1 fL (9.4-12.4); Monocytes Absolute Auto 0.5 X10*3/uL (0.1-1.2); Monocytes Percent Auto 8.3 % (2-11); Neutrophils Absolute Auto 3.3 x10*3/uL (2.0-8.3); Platelet Count 119 X10*3/uL (160-400); Red Blood Count 4.48 X10*6/uL (4.60-5.80); Red Cell Distribution Width 13.6 % (11.0-16.0); White Blood Count 6.5 X10*3/uL (4.8-10.8)
[2023-03-22 11:23] LABS: Bacteria Urine None Seen (None Seen); Hyaline Casts Urine 0-2 /LPF (0-2); RBC Urine 0-2 /HPF (0-2); Squamous Epithelial Cell Urine 0-2 /HPF (0-2); WBC Urine 0-5 /HPF (0-5)
[2023-03-22 11:27] LABS: Alanine Aminotransferase 14 U/L (0-40); Albumin Level 3.6 g/dL (3.5-5.0); Alkaline Phosphatase 88 U/L (39-117); Anion Gap 11 (12-20); Aspartate Amino Transferase 14 U/L (5-37); Bilirubin Total 0.9 mg/dL (0.0-1.0); Blood Urea Nitrogen 20 mg/dL (9-16); Calcium 8.7 mg/dL (8.4-10.2); Carbon Dioxide 27 mmol/L (22-29); Chloride 110 mmol/L (96-108); Cholesterol 151 mg/dL (<200); Estimated Glomerular Filt Rate > 60; Glucose Fasting 99 mg/dL (60-99); HDL Cholesterol 47 mg/dL (>40); LDL Cholesterol Calculated 90 mg/dL (<100); Potassium 4.3 mmol/L (3.3-5.1); Sodium 144 mmol/L (135-145); Total Protein 6.3 g/dL (6.5-8.0); Triglycerides 71 mg/dL (<150)
[2023-03-22 11:29] LABS: Estimated Average Glucose 91 mg/dL; Hemoglobin A1c % 4.8 % (<6.0)
[2023-03-22 11:51] LABS: PSA,Total (Free>4and<10) 0.95 ng/mL (0.00-4.00)
[2023-03-22 12:41] LABS: Creatinine Urine 125.95 mg/dL
== END 2023-03-22 11:00 | disposition home or self-care (01) ==
LOC: HO.LNP 10:59
PROVIDERS: Visit Provider Internal Medicine
DX: I10 Essential (primary) hypertension (principal); R73.09 Other abnormal glucose; R97.20 Elevated prostate specific antigen [PSA]; Z12.5 Encounter for screening for malignant neoplasm of prostate
CPT/HCPCS: 80053; 80061; 81001; 82043; 82570; 83036; 84153; 85025

== ENCOUNTER 2023-04-20 11:18 | Outpatient (REF) | payer MEDICARE, SELFPAY ==
[2023-04-20 11:21] LABS: MANUAL DIFF FLAG NO
[2023-04-20 11:39] LABS: Basophils Percent Auto 0.4 % (0-2); Eosinophils Absolute Auto 0.1 X10*3/uL (0.0-0.4); Eosinophils Percent Auto 1.7 % (0-4); Hematocrit 47.6 % (42.0-52.0); Hemoglobin 16.1 g/dl (14.0-18.0); Imm Gran Abs Auto 0.05 X10*3/uL (0.00-0.03); Imm Gran Pct Auto 0.6 % (0.0-0.4); Lymphocytes Absolute Auto 2.6 X10*3/uL (1.2-4.9); Lymphocytes Percent Auto 31.7 % (20-40); Mean Corpuscular HGB Conc 33.8 g/dl (31.0-36.0); Mean Corpuscular Volume 100.4 fL (80.0-98.0); Mean Platelet Volume 10.8 fL (9.4-12.4); Monocytes Absolute Auto 0.5 X10*3/uL (0.1-1.2); Monocytes Percent Auto 6.6 % (2-11); Neutrophils Absolute Auto 4.8 x10*3/uL (2.0-8.3); Platelet Count 111 X10*3/uL (160-400); Red Blood Count 4.74 X10*6/uL (4.60-5.80); Red Cell Distribution Width 12.8 % (11.0-16.0); White Blood Count 8.2 X10*3/uL (4.8-10.8)
== END 2023-04-20 11:19 | disposition home or self-care (01) ==
LOC: HO.LNP 11:18
PROVIDERS: Visit Provider Internal Medicine
DX: D69.6 Thrombocytopenia, unspecified (principal)
CPT/HCPCS: 85025

== ENCOUNTER → 2023-05-06 08:04 | Outpatient (REF) | payer MEDICARE, SELFPAY ==
--- NOTE | 2023-05-06 08:07 | CA_ITS ---
Transthoracic Echocardiogram Patient (Last, First, Middle): Chilango Castaneda G Gender: Male Date of : 1940 Age: 82 Procedure Date: 05/06/2023 Procedure Type: Transthoracic Echocardiogram Location: OP Height: 175. cm Weight: 86.18 kg BSA: 2.02 m2 Heart Rate: 102 bpm BP: 130 / 70 mmHg Tube Handler: JORGE Samano MD: Alvaro Marinelli MD Life Science Research Assistant: Nato Ridley MD Symptoms: I42.8 - Other cardiomyopathies Study Quality: Fair. Limited by order ECG Rhythm: Atrial Fibrillation Conclusions: - Mildly dilated left ventricle with normal LV ejection fraction 55-60% Findings Left Ventricle Mildly increased left ventricular cavity size. The left ventricular systolic function is normal. The visually estimated ejection fraction is between 55 60%. Diastolic function is indeterminate on the basis of available data. Prior Study Comparison Changes noted compared to prior study dated: 12/30/2022. LV ejection fraction is measured to be within normal range on this study Measurements 2D Linear Measurements IVSd: 0.93 0.6-0.9/0.6-1.0 cm LVIDd: 6.00 3.9-5.3/4.2-5.9 cm LVIDd Index: 2.97 2.4-3.2/2.2-3.1 cm/m2 LVIDs: 3.92 2.0-3.6 cm LVPWd: 1.15 0.7-1.1 cm LA Diam: 5.30 2.7-3.8/3.0-4.0 cm LAIDs Index: 2.62 1.5-2.3 cm/m2 LV Mass: 324.18 67-162/88-224 g LV Mass Index: 160.48 43-95/49-115 g/m2 LVOT Diam: 2.20 3.0+(-)1.3 cm 2D Systolic Function EF 4C: 59.20 >55% EF 2C: 57.60 >55% EF BiP: 58.20 >55% Mitral Valve MV Pk E: 0.95 MV Decel Time: 212.00 E'Lateral: 7.62 E'Medial: 7.40 E/E' Med: 12.90 E/E' Lat: 12.50 PHT: 62.00 MVA PHT: 3.55 Decel [place]: 4.48 LVOT LVOT Pk Nathanael: 1.41 LVOT Mn Nathanael: 0.96 LVOT VTI: 0.26 LVOT Pk Grad: 8.00 LVOT Mn Grad: 4.00 LVOT Diam: 2.20 LVOT Area: 3.80 Diastolic Function MV Pk E: 0.95 E'Medial: 7.40 E/E' Med: 12.90 E' Laterial: 7.62 E/E' Lat: 12.50 Updated in Other Vendor System with Status of Final Nato Ridley MD electronically signed on 05/07/2023 1:58:06 PM with status of Final
== END ==
LOC: HO.CARD 08:04
PROVIDERS: PCP Internal Medicine; Visit Provider Internal Medicine
DX: I42.8 Other cardiomyopathies (principal)
CPT/HCPCS: 93308

== ENCOUNTER → 2023-05-06 08:07 | Outpatient (BNV) | payer MEDICARE, SELFPAY | PROVIDERS: PCP Internal Medicine; Visit Provider Internal Medicine Cardiovascular Disease | DX: I42.8 Other cardiomyopathies (principal) | CPT/HCPCS: 93308 ==

== ENCOUNTER 2023-05-13 07:54 | Outpatient (AMB) | payer MEDICARE, SELFPAY ==
--- NOTE | 2023-05-13 08:41 | MHC.OFFVIS ---
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 Accompanied by: Self / Same As Patient Allergies Penicillins [PCN] Allergy (Unknown, Verified 05/13/23 08:43) RASH Sulfamethoxazole-TMP DS Allergy (Unknown, Uncoded 05/13/23 08:43) rash Medication List - Last Reconciled 05/13/23 by Alvaro Marinelli MD allopurinol 300 mg PO DAILY amlodipine 5 mg PO DAILY doxazosin 2 mg PO BEDTIME finasteride 5 mg PO DAILY furosemide 80 mg (2 x 40 mg) PO DAILY irbesartan 300 mg PO DAILY metoprolol succinate ER (Toprol XL) 50 mg PO DAILY rivaroxaban (Xarelto) 20 mg PO QPM HPI HPI Comments History of Present Illness Details Chilango returns for follow-up regarding atrial fibrillation. According to him, no concerns like angina or shortness of breath or palpitations or in fact anything cardiac sounding at all. He seems to be getting along fine. [facility] Medical History (Updated 12/07/22 @ 08:51 by Alvaro Marinelli MD) Persistent atrial fibrillation Diastolic dysfunction Localized edema Essential hypertension Nonischemic cardiomyopathy Current use of half-way anticoagulation Surgical History History of back surgery History of cardioversion (~2015) Family History Father CHF (congestive heart failure) Mother Cancer Social History Alcohol intake: never Patient Tobacco Use Status: Never used Tobacco Review of Systems Const All systems reviewed & are unremarkable except as noted in HPI and below Reports as per HPI and Reports no additional complaints Eyes Reports as per HPI and Denies no additional complaints ENT Denies no additional complaints and Reports as per HPI Card Reports as per HPI, Reports no additional complaints, Denies acrocyanosis, Denies chest pain, Denies leg edema, Denies lightheadedness, Denies palpitations and Denies dyspnea Resp Reports as per HPI, Denies no additional complaints and Denies dyspnea GI Reports as per HPI and Denies no additional complaints Reports no additional complaints and Reports as per HPI Musc Reports no additional complaints and Reports as per [facility] Skin/Breast Reports system reviewed and no additional complaints, except as documented Neuro Reports no additional complaints and Reports as per HPI Psych Reports no additional complaints and Reports as per HPI Endo Reports no additional complaints, Reports as per HPI and Denies palpitations Kevin/Lymph Reports no additional complaints and Reports as per HPI Aller/Immun Reports no additional complaints and Reports as per HPI Physical Exam Vital Signs: Last Vital Signs Pulse 56 05/13/23 08:43 BP 150/62 H 05/13/23 08:43 BMI result Body Mass Index 35.5 Const General: comfortable and no acute distress Orientation/consciousness: patient oriented x3 HEENT Other: Unremarkable Head: Yes normal to inspection Neck Neck: Yes normal visual inspection Chest Chest palpation & inspection: normal inspection of the chest Resp Auscultation: clear to auscultation bilaterally Cardio Palpation: normal PMI Heart sounds: S1 normal heart sound present, S2 normal heart sound present, no gallops, no murmurs and no rubs GI Palpation (GI): Soft to palpation Back/Spine/Pelvis Other: unremarkable Skin General skin exam: no rashes or lesions noted Neuro General: patient oriented x3 Extrem General: Yes normal to inspection Psych Mental Status: mental status grossly normal Assessment & Plan Assessment & Plan (1) Persistent atrial fibrillation: Code(s): I48.19 - Other persistent atrial fibrillation Plan: Failed Multaq. Continue beta-blockers. Continue anticoagulation. Check Holter for adequacy of rate control. Patient not inclined towards another cardioversion. (2) Nonischemic cardiomyopathy: Code(s): I42.8 - Other cardiomyopathies Plan: In the most recent echocardiogram, LVEF is 55-60%. Prior to that, variable readings. It was 44% but before that in the normal range. Several years ago, in the 30s. Could be cardiomyopathy related to atrial fibrillation/tachycardia mediated. Improvement could be because of better rate control. Clinically, does not have any active heart failure symptoms or signs. (3) Essential hypertension: Code(s): I10 - Essential (primary) hypertension Plan: Borderline high blood pressure today but he states BP at PCP's office last week was completely normal. No changes made today. (4) Localized edema: Code(s): R60.0 - Localized edema Plan: Suspected venous insufficiency. Seems stable. Orders: Orders ECG 3 day holter monitor Today I48.19 - Other persistent atrial fibrillation Coding Level of Care Code Est Pt Level 4 (93594) Diagnoses Persistent atrial fibrillation I48.19 Nonischemic cardiomyopathy I42.8 Essential hypertension I10 Localized edema R60.0
[2023-05-13 08:43] VITALS: BP 150/62; PULSE 56; BMI 35.5
== END 2023-05-13 09:15 | disposition home or self-care (01) ==
PROVIDERS: PCP Internal Medicine; Visit Provider Internal Medicine
DX: I48.19 Other persistent atrial fibrillation (principal); I42.8 Other cardiomyopathies; I10 Essential (primary) hypertension; R60.0 Localized edema
CPT/HCPCS: 99214

== ENCOUNTER → 2023-05-13 07:54 | Outpatient (BNVA) | payer MEDICARE, SELFPAY | PROVIDERS: PCP Internal Medicine; Visit Provider Internal Medicine | DX: I48.19 Other persistent atrial fibrillation (principal); I42.8 Other cardiomyopathies; I10 Essential (primary) hypertension; R60.0 Localized edema | CPT/HCPCS: 99212 ==

== ENCOUNTER → 2023-05-21 09:05 | Outpatient (REF) | payer MEDICARE, SELFPAY ==
--- NOTE | 2023-05-21 09:08 | HM_ITS ---
Conclusion: 1. Patient was monitored for total period of 3 days 2. Baseline was atrial fibrillation with average heart of 79 beats per minute with good rate control 3. No significant pauses noted 4. Frequent wide complex is noted which could represent aberrant conduction versus PVCs 5. No patient reported events MTDD
== END ==
LOC: HO.CARD 09:05
PROVIDERS: PCP Internal Medicine; Visit Provider Internal Medicine
DX: I48.19 Other persistent atrial fibrillation (principal)
CPT/HCPCS: 93242

== ENCOUNTER → 2023-05-21 09:08 | Outpatient (BNV) | payer MEDICARE, SELFPAY | PROVIDERS: PCP Internal Medicine; Visit Provider Internal Medicine Cardiovascular Disease | DX: I48.91 Unspecified atrial fibrillation (principal) | CPT/HCPCS: 93244 ==

== ENCOUNTER → 2023-06-30 07:43 | Outpatient (REF) | payer MEDICARE, SELFPAY ==
--- NOTE | ~2023-06-30 | NM_ITS ---
Myocardial perfusion study Indication: Precordial chest pain to evaluate for myocardial ischemia Technique: The patient was brought in for a Lexiscan perfusion study on 06/30/2023. Patient performed low-level exercise and was injected 0.4 mg of Lexiscan intravenously. Within a minute of injection, 30 mCi of sestamibi was given intravenously. Images were obtained using the SPECT gamma camera interlaced with the gating device. Images were obtained in supine position. Resting perfusion study was performed on 07/01/2023. Patient was administered 30 mCi of sestamibi intravenously at rest. Images were then obtained in supine position. Images obtained with and without CT attenuation. Total DLP 104 mGy-cm. Images were processed with the software and compared side to side in short axis, horizontal long axis and vertical long axis views. Findings: The stress perfusion study showed non attenuated images show severely reduced uptake in the small area of inferoapical and apical segment of the LV myocardium. There is also mildly reduced uptake in the distal lateral wall of the LV myocardium. Remainder of the LV myocardium is normally perfused. Attenuated corrected images show moderately reduced uptake in the inferoapical and adjacent apical wall of the LV myocardium.. The gated study shows low normal LV systolic function with calculated LVEF of 50%. LV cavity is mildly to moderately dilated size. The gated study shows normal wall thickening and contraction of segments. Resting study shows no significant change in perfusion pattern compared to stress perfusion study. Gating at rest reveals normal systolic wall motion with ejection fraction at 41%. The findings are consistent with fixed inferoapical and apical defect without any clear reversibility suggestive of possible transmural infarct of that segment. Severe ischemia is also likely.. NM/NM cardiolite stress test Impression: 1. Myocardial perfusion imaging study shows small area of fixed inferoapical and apical defect consistent with nontransmural infarct 2. Gated LVEF is 50% 3. Transient ischemic dilatation not present but LV cavity is dilated EKG is nondiagnostic for ischemia
--- NOTE | 2023-06-30 07:47 | CA_ITS ---
Acquisition Time: 2023-06-30 07:49:29 Total Exercise Time: 00:02:00 Test Indications: AFIB Medications: SEE H Protocol: LEXISCAN Max HR: 104 BPM 77% of Pred: 135 BPM Max BP: 142/088 mmHG Max Work Load: 1.0 METS Pharmacological stress test with Lexiscan injection while sitting, without anginal symptoms, with isolated PVCs, ventricular bigeminy and cuplets, with normotensive response to injection, with nondiagnoisitic EKGs. Aminophylline 75mg IVP given to reverse Lexiscan. Nuclear images pending. Test reviewed with Dr. Dumont. Referred By: Alvaro Marinelli Overread By: Lona Bishop
== END ==
LOC: HO.CARD 07:43
PROVIDERS: PCP Internal Medicine; Visit Provider Internal Medicine
DX: R07.2 Precordial pain (principal); I20.9 Angina pectoris, unspecified
CPT/HCPCS: 78452; 93017; A9500; J0280; J2785

== ENCOUNTER → 2023-06-30 07:47 | Outpatient (BNV) | payer MEDICARE, SELFPAY | PROVIDERS: PCP Internal Medicine; Visit Provider Nurse Practitioner | DX: R07.2 Precordial pain (principal) | CPT/HCPCS: 78452; 93016; 93018 ==

== ENCOUNTER 2023-08-04 13:22 | Outpatient (AMB) | payer MEDICARE, SELFPAY ==
[2023-08-04 13:50] VITALS: BP 138/78; PULSE 48; BMI 34.4
--- NOTE | 2023-08-04 13:50 | MHC.OFFVIS ---
Vital Signs 08/04/23 13:50 Height 5 ft 3 in Weight 194 lb 0.108 oz BMI 34.4 BP 138/78 Blood Pressure Location Lt brachial Position Sitting Pulse 48 L Pulse Source Pulse Oximeter Intake Visit Reasons: 4 mth fu/ abnormal stress test Allergies Penicillins [PCN] Allergy (Unknown, Verified 05/13/23 08:43) RASH Sulfamethoxazole-TMP DS Allergy (Unknown, Uncoded 05/13/23 08:43) rash Medication List - Last Reconciled 08/04/23 by Alvaro Marinelli MD allopurinol 300 mg PO DAILY amlodipine 5 mg PO DAILY doxazosin 2 mg PO BEDTIME finasteride 5 mg PO DAILY furosemide 80 mg (2 x 40 mg) PO DAILY irbesartan 300 mg PO DAILY metoprolol succinate ER 50 mg PO DAILY rivaroxaban (Xarelto) 20 mg PO QPM HPI Comments Details: Chilango returns for follow-up regarding atrial fibrillation. He states he is feeling fine. No specific complaints. [facility] Medical History (Updated 08/04/23 @ 14:05 by Alvaro Marinelli MD) Persistent atrial fibrillation Diastolic dysfunction Localized edema Essential hypertension Nonischemic cardiomyopathy Current use of skilled nursing anticoagulation Surgical History History of back surgery History of cardioversion (~2015) Family History Father CHF (congestive heart failure) Mother Cancer Social History Alcohol intake: never Patient Tobacco Use Status: Never used Tobacco Review of Systems Const Denies weakness ENT Denies dizziness Card Denies chest pain, Denies chest pain with activity, Denies syncope, Denies rapid heart rate, Denies pedal edema, Denies edema, Denies leg edema, Denies lightheadedness, Denies palpitations, Denies dyspnea, Denies dyspnea on exertion and Denies orthopnea Resp Denies cough, Denies dyspnea and Denies dyspnea on exertion GI Denies hematochezia and Denies change in stool character Musc Denies abnormal gait, Denies muscle cramps, Denies muscle weakness, Denies numbness, Denies radiating pain into limb and Denies tingling Neuro Denies abnormal gait, Denies dizziness, Denies syncope, Denies numbness, Denies tingling and Denies weakness Endo Denies palpitations Physical Exam Vital Signs: Last Vital Signs Pulse 48 L 08/04/23 13:50 BP 138/78 08/04/23 13:50 BMI result Body Mass Index 34.4 Const General: comfortable and no acute distress Orientation/consciousness: patient oriented x3 HEENT Other: Unremarkable Head: Yes normal to inspection Neck Neck: Yes normal visual inspection Chest Chest palpation & inspection: normal inspection of the chest Resp Auscultation: clear to auscultation bilaterally Cardio Palpation: normal PMI Heart sounds: S1 normal heart sound present, S2 normal heart sound present, no gallops, no murmurs and no rubs GI Palpation (GI): Soft to palpation Back/Spine/Pelvis Other: unremarkable Skin General skin exam: no rashes or lesions noted Neuro General: patient oriented x3 Extrem General: Yes normal to inspection Psych Mental Status: mental status grossly normal Office Procedures EKG Details: EKG with atrial fibrillation at a rate of 89/Min; PVCs noted. [id number], Complete Assessment & Plan Assessment & Plan (1) Persistent atrial fibrillation: Code(s): I48.19 - Other persistent atrial fibrillation Category: Medical Plan: Failed Multaq. Continue beta-blockers. Continue anticoagulation. Holter shows adequate rate control. Patient not inclined towards another cardioversion. (2) PVC (premature ventricular contraction): Code(s): I49.3 - Ventricular premature depolarization Category: Medical Plan: Frequent PVCs on Holter. [place] of 29%. As burden is very high and he has a propensity for cardiomyopathy, try Amiodarone to reduce the burden. Baseline TSH. We will reassess PVC burden on Holter in 3 months or so. EKG in two weeks. (3) Nonischemic cardiomyopathy: Code(s): I42.8 - Other cardiomyopathies Category: Medical Plan: In the most recent echocardiogram, LVEF is 55-60%. Prior to that, variable readings. It was 44% but before that in the normal range. Several years ago, in the 30s. Could be cardiomyopathy related to atrial fibrillation/tachycardia mediated. Improvement could be because of better rate control. In the perfusion imaging study, small fixed inferior apical/apical defect thought to be from nontransmural infarct. Clinically, does not have any active heart failure symptoms or signs. (4) Essential hypertension: Code(s): I10 - Essential (primary) hypertension Category: Medical Plan: No changes made today. Stable. (5) Localized edema: Code(s): R60.0 - Localized edema Category: Medical Plan: Suspected venous insufficiency. Seems stable. Orders: Orders TSH reflex Free T4 Today I48.0 - Paroxysmal atrial fibrillation ECG 3 day holter monitor 3 Months I48.19 - Other persistent atrial fibrillation, I49.3 - Ventricular premature depolarization Medications: New amiodarone 400 mg (2 x 200 mg) PO BID 56 tabs 0RF 2 weeks amiodarone Start after 2 weeks loading dose. 200 mg PO DAILY 90 tabs 3RF 90 days Coding Level of Care Code Est Pt Level 4 (61101) Diagnoses Persistent atrial fibrillation I48.19 PVC (premature ventricular contraction) I49.3 Nonischemic cardiomyopathy I42.8 Essential hypertension I10 Localized edema R60.0 CPT Codes EKG - CPT: 33022-[id number], Complete ([id number])
== END 2023-08-04 14:41 | disposition home or self-care (01) ==
PROVIDERS: PCP Internal Medicine; Visit Provider Internal Medicine
DX: I48.19 Other persistent atrial fibrillation (principal); I49.3 Ventricular premature depolarization; I42.8 Other cardiomyopathies; I10 Essential (primary) hypertension; R60.0 Localized edema
CPT/HCPCS: 93010; 99214

== ENCOUNTER → 2023-08-04 13:22 | Outpatient (BNVA) | payer MEDICARE, SELFPAY | PROVIDERS: PCP Internal Medicine; Visit Provider Internal Medicine | DX: I48.19 Other persistent atrial fibrillation (principal); I48.0 Paroxysmal atrial fibrillation; I49.3 Ventricular premature depolarization; I42.8 Other cardiomyopathies; I10 Essential (primary) hypertension; R60.0 Localized edema | CPT/HCPCS: 93005; 99212 ==

== ENCOUNTER 2023-08-18 09:35 | Outpatient (AMB) | payer MEDICARE, SELFPAY ==
--- NOTE | 2023-08-18 10:07 | AM.OFFVISNUR ---
Intake Visit Reasons: ekg Allergies Penicillins [PCN] Allergy (Unknown, Verified 05/13/23 08:43) RASH Sulfamethoxazole-TMP DS Allergy (Unknown, Uncoded 05/13/23 08:43) rash Nursing Note PT IS IS HERE FOR NURSE VISIT WITH EKG EKG LEFT ON ROUNDING DR LINDA BUTLER FOR REVIEW Office Procedures EKG [id number], Complete
== END 2023-08-18 10:11 | disposition home or self-care (01) ==
PROVIDERS: PCP Internal Medicine; Visit Provider Internal Medicine
DX: R94.31 Abnormal electrocardiogram [ECG] [EKG] (principal)
CPT/HCPCS: 93010

== ENCOUNTER → 2023-08-18 09:35 | Outpatient (BNVA) | payer MEDICARE, SELFPAY | PROVIDERS: PCP Internal Medicine; Visit Provider Internal Medicine | DX: I48.19 Other persistent atrial fibrillation (principal) | CPT/HCPCS: 93005 ==

== ENCOUNTER → 2023-11-01 07:39 | Outpatient (REF) | payer MEDICARE, SELFPAY ==
--- NOTE | 2023-11-01 08:00 | HM_ITS ---
* Total monitoring time 3 days. * Underlying rhythm is atrial flutter with an average rate of 65/Min. * Rare PVCs. * No significant pauses or high-grade AV blocks. * No patient markers or diary events. MTDD
[2023-11-01 09:12] LABS: TSH reflex Free T4 1.43 uIU/mL (0.32-4.0)
== END ==
LOC: HO.CARD 07:39
PROVIDERS: PCP Internal Medicine; Visit Provider Internal Medicine
DX: I49.3 Ventricular premature depolarization (principal); I48.0 Paroxysmal atrial fibrillation
CPT/HCPCS: 36415; 84443; 93242

== ENCOUNTER → 2023-11-01 08:00 | Outpatient (BNV) | payer MEDICARE, SELFPAY | PROVIDERS: PCP Internal Medicine; Visit Provider Internal Medicine | DX: I48.92 Unspecified atrial flutter (principal) | CPT/HCPCS: 93244 ==

== ENCOUNTER 2023-11-08 10:06 | Outpatient (AMB) | payer MEDICARE, SELFPAY ==
--- NOTE | 2023-11-08 10:17 | MHC.OFFVIS ---
Vital Signs 11/08/23 10:18 Height 5 ft 3 in Weight 198 lb 6.656 oz BMI 35.1 BP 142/62 H Blood Pressure Location Lt brachial Position Sitting Pulse 44 L Pulse Source Pulse Oximeter Intake Visit Reasons: 3 mth f/up s/p holter Recruitment And Outreach Assistant Required: No Accompanied by: Self / Same As Patient Allergies Penicillins [PCN] Allergy (Unknown, Verified 05/13/23 08:43) RASH Sulfamethoxazole-TMP DS Allergy (Unknown, Uncoded 05/13/23 08:43) rash Medication List - Last Reconciled 11/08/23 by Alvaro Marinelli MD allopurinol 300 mg PO DAILY amiodarone 200 mg PO DAILY 90 days amlodipine 5 mg PO DAILY doxazosin 2 mg PO BEDTIME finasteride 5 mg PO DAILY furosemide 40 mg PO DAILY PRN irbesartan 300 mg PO DAILY metoprolol succinate ER 50 mg PO DAILY rivaroxaban (Xarelto) 20 mg PO QPM HPI Comments Details: Chilango returns for follow-up regarding atrial fibrillation. He states he is feeling fine. No specific complaints. 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 Surgical History History of back surgery History of cardioversion (~2015) Family History Father CHF (congestive heart failure) Mother Cancer Social History Alcohol intake: never Patient Tobacco Use Status: Never used Tobacco Review of Systems Const Denies chills, Denies fatigue, Denies fever(s), Denies weight gain and Denies weight loss ENT Denies dizziness Card Denies chest pain, Denies leg edema, Denies lightheadedness, Denies palpitations, Reports dyspnea on exertion, Denies orthopnea and Denies other Resp Denies cough and Reports dyspnea on exertion GI Denies hematochezia and Denies change in stool character Musc Denies abnormal gait, Denies muscle weakness, Denies numbness, Denies radiating pain into limb and Denies tingling Neuro Denies abnormal gait, Denies dizziness, Denies numbness and Denies tingling Endo Denies fatigue and Denies palpitations Physical Exam Vital Signs: Last Vital Signs Pulse 44 L 11/08/23 10:18 BP 142/62 H 11/08/23 10:18 BMI result Body Mass Index 35.1 Const General: comfortable and no acute distress Orientation/consciousness: patient oriented x3 HEENT Other: Unremarkable Head: Yes normal to inspection Neck Neck: Yes normal visual inspection Chest Chest palpation & inspection: normal inspection of the chest Resp Auscultation: clear to auscultation bilaterally Cardio Palpation: normal PMI Heart sounds: S1 normal heart sound present, S2 normal heart sound present, no gallops, no murmurs and no rubs GI Palpation (GI): Soft to palpation Back/Spine/Pelvis Other: unremarkable Skin General skin exam: no rashes or lesions noted Neuro General: patient oriented x3 Extrem Other: 1+ edema General: Yes normal to inspection Psych Mental Status: mental status grossly normal Office Procedures EKG Details: EKG with sinus bradycardia, 37/Min; no significant ST-T changes; low-voltage QRS; [place] [id number], Complete Assessment & Plan Assessment & Plan (1) Persistent atrial fibrillation: Code(s): I48.19 - Other persistent atrial fibrillation Category: Medical Plan: Previously failed Multaq. Was on beta-blockers but amiodarone was started rather for high PVC burden. In the recent Holter he was on atrial flutter but today, he is in sinus bradycardia. We can just keep on amiodarone only and stop the metoprolol. Repeat EKG in 1 week due to sinus bradycardia. Possibly smaller dose of beta-aubrey. Continue anticoagulation. (2) PVC (premature ventricular contraction): Code(s): I49.3 - Ventricular premature depolarization Category: Medical Plan: In a prior Holter, PVC burden of almost 29%. He was started on amiodarone. May continue that. In the most recent Holter, seems improved. (3) Nonischemic cardiomyopathy: Code(s): I42.8 - Other cardiomyopathies Category: Medical Plan: In the most recent echocardiogram, LVEF is 55-60%. Prior to that, variable readings. It was 44% but before that in the normal range. Several years ago, in the 30s. Could be cardiomyopathy related to atrial fibrillation/tachycardia mediated. Improvement could be because of better rate control. In the perfusion imaging study, small fixed inferior apical/apical defect thought to be from nontransmural infarct. Clinically, does not have any active heart failure symptoms or signs. (4) Essential hypertension: Code(s): I10 - Essential (primary) hypertension Category: Medical Plan: Continue current meds. (5) Localized edema: Code(s): R60.0 - Localized edema Category: Medical Plan: Suspected venous insufficiency. Seems stable. Medications: Changed From furosemide 80 mg (2 x 40 mg) PO DAILY 180 tabs 1RF To furosemide 40 mg PO DAILY PRN Coding Level of Care Code Est Pt Level 4 (65231) Diagnoses Persistent atrial fibrillation I48.19 PVC (premature ventricular contraction) I49.3 Nonischemic cardiomyopathy I42.8 Essential hypertension I10 Localized edema R60.0 CPT Codes EKG - CPT: 99420-[id number], Complete ([id number])
[2023-11-08 10:18] VITALS: BP 142/62; PULSE 44; BMI 35.1
== END 2023-11-08 10:41 | disposition home or self-care (01) ==
PROVIDERS: PCP Internal Medicine; Visit Provider Internal Medicine
DX: I48.19 Other persistent atrial fibrillation (principal); I49.3 Ventricular premature depolarization; I42.8 Other cardiomyopathies; I10 Essential (primary) hypertension; R60.0 Localized edema
CPT/HCPCS: 93010; 99214

== ENCOUNTER → 2023-11-08 10:06 | Outpatient (BNVA) | payer MEDICARE, SELFPAY | PROVIDERS: PCP Internal Medicine; Visit Provider Internal Medicine | DX: I48.19 Other persistent atrial fibrillation (principal); I49.3 Ventricular premature depolarization; I42.8 Other cardiomyopathies; I10 Essential (primary) hypertension; R60.0 Localized edema | CPT/HCPCS: 93005; 99212 ==

== ENCOUNTER → 2023-11-15 08:05 | Outpatient (BNVA) | payer MEDICARE, SELFPAY | PROVIDERS: PCP Internal Medicine; Visit Provider Internal Medicine ==

== ENCOUNTER 2024-02-23 07:53 | Outpatient (AMB) | payer MEDICARE, SELFPAY ==
--- OUTSIDE RECORDS SUMMARY | 2024-02-23 07:55 | XMS_ITS | Data Portability ---
Author Organization [facility] Pain [facility], PAIN OFFICE Address [address] [facility] [address] [place] [address] Care Team Providers Care Client Relation Specialist Name Role Phone JACKIE VIGIL Primary Care Provider JOSE NOLASCO Referring Provider Assessment Encounter Date Assessment Date Assessment LastModified by Organization Details LastModified Time 11/17/2022 11/17/2022 Chilango Castaneda is a 82 year old man with low back pain radiating into both lower extremities. He is S/P Lumbar decompression bilateral L3-5 in 08/2021 . On exam ,he has pain on flexion. MRI Lumbar spine shows Spondylotic and degenerative disc changes of the lumbar spine are present . He is here for a repeat Lumbar epidural steroid injection at L5-S1 level under fluoroscopic guidance . The risks and benefits of the procedure were discussed in detail. He wishes to proceed. He is on Xarelto and he can restart tomorrow. He will follow up in three months as needed. [email or web address] Not available 11/17/2022 14:50:39 01/12/2023 01/12/2023 Chilango Castaneda is a 82 year old man with left sided low back pain . He is S/P Lumbar decompression bilateral L3-5 in 08/2021 . On exam ,he has pain on flexion. MRI Lumbar spine shows Spondylotic and degenerative disc changes of the lumbar spine are present . He is here for a left sacroiliac joint injection under fluoroscopic guidance . The risks and benefits of the procedure were discussed in detail. He wishes to proceed. He is on Xarelto and he can restart tomorrow. He will follow up as needed. [email or web address] Not available 01/12/2023 16:30:16 04/06/2023 04/06/2023 Chilango Castaneda is a 82 year old man with left sided low back pain . He is S/P Lumbar decompression bilateral L3-5 in 08/2021 . On exam ,he has pain on flexion. MRI Lumbar spine shows Spondylotic and degenerative disc changes of the lumbar spine are present . He is here for a left sacroiliac joint injection under fluoroscopic guidance . The risks and benefits of the procedure were discussed in detail. He wishes to proceed. He is on Xarelto and he can restart tomorrow. He will follow up as needed. [email or web address] Not available 04/06/2023 14:18:32 07/21/2023 07/21/2023 Chilango Castaneda is a 83 year old man with left sided low back pain . He is S/P Lumbar decompression bilateral L3-5 in 08/2021 . On exam ,he has pain on flexion. MRI Lumbar spine shows Spondylotic and degenerative disc changes of the lumbar spine are present . He is here for a left sacroiliac joint injection under fluoroscopic guidance . The risks and benefits of the procedure were discussed in detail. He wishes to proceed. He is on Xarelto and he can restart tomorrow. He will follow up as needed. His heart rate is 37-44/min. 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 [email or web address] Not available 07/21/2023 14:05:47 10/27/2023 10/27/2023 Chilango Castaneda is a 83 year old man with left sided low back pain . He is S/P Lumbar decompression bilateral L3-5 in 08/2021 . On exam ,he has pain on flexion. MRI Lumbar spine shows Spondylotic and degenerative disc changes of the lumbar spine are present . He is here for a bilateral sacroiliac joint injection under fluoroscopic guidance . The risks and benefits of the procedure were discussed in detail. He wishes to proceed. He is on Xarelto and he can restart tomorrow. He will follow up as needed. [email or web address] Not available 10/27/2023 14:29:22 Plan of Treatment Reminders Order Date Submit Date Provider Last Modified By Organization Details Last Modified Time Details Appointments PROCEDURE 2024 02:30P M Gelacio dao MD Not available Not available Not available Lab None recorded. Referral None recorded. Procedures None recorded. Surgeries None recorded. Imaging None recorded. Medication Orders None recorded. Patient TargetsNo targets recorded. Patient InstructionsNo instructions recorded. Reason for Referral None Reported. Problems Name Problem SNOMED Code Status Onset Date Resolution Date Notes Provider Name and Address Organization Details Recorded Time Spinal stenosis of lumbar region 29502868 Active Gelacio dao MD [address] , [address], [place], [address], [place] [facility] 0 12:43:58 Lumbosacral spondylosis without myelopathy 91602087 Active Gelacio dao MD [address] , [address], [place], [address], [place] [facility] 0 12:43:52 Lumbosacral radiculopathy 6851497 Active Gelacio dao MD [address] [facility] , [address], [place], [address], [place] [facility] 0 12:43:45 Degeneration of lumbar intervertebral disc 59486525 Active Gelacio dao MD [address] , [address], [place], [address], [place] [facility] 0 12:43:39 Problem Notes None recorded. Procedures Surgical History Date Name Laterality Status Provider Name and Address Organization Details Recorded Time 10/27/19 24 Sacroiliac Joint Steroid Injections, using Fluoroscopy completed Gelacio Brandon MD [address] , [address], [place], [address], [place] [facility] 10/27/2023 14:28:18 07/21/19 24 Sacroiliac Joint Steroid Injections, using Fluoroscopy completed Gelacio Brandon MD [address] , [address], [place], [address], [place] [facility] 07/21/2023 14:04:50 04/06/19 24 Sacroiliac Joint Steroid Injections, using Fluoroscopy completed Gelacio Brandon MD [address] , [address], [place], [address], [place] [facility] 04/06/2023 14:20:11 01/13/20 23 Sacroiliac Joint Steroid Injections, using Fluoroscopy completed Gelacio Brandon MD [address] , [address], [place], [address], [place] [facility] 01/12/2023 16:28:52 11/18/19 23 Lumbar Epidural steroid injection under fluoroscopic guidance completed Gelacio Brandon MD [address] , [address], [place], [address], [place] [facility] 11/17/2022 14:51:27 08/13/19 23 Lumbar Epidural steroid injection under fluoroscopic guidance completed Gelacio Brandon MD [address] , [address], [place], [address], [place] [facility] 08/12/2022 14:25:49 08/09/19 22 Back Surgery completed Gelacio Brandon MD [address] , [address], [place], [address], [place] [facility] 07/20/2022 14:13:28 06/11/19 22 Lumbar Epidural steroid injection under fluoroscopic guidance completed Gelacio Brandon MD [address] , [address], [place], [address], [place] [facility] 2021 14:03:14 04/23/19 22 Lumbar median branch block under fluroscopic guidance completed Gelacio Brandon MD [address] , [address], [place], [address], [place] [facility] 04/22/2021 10:48:55 02/06/20 21 Lumbar Epidural steroid injection under fluoroscopic guidance completed Gelacio Brandon MD [address] , [address], [place], [address], [place] [facility] 02/05/2021 14:32:09 10/24/19 21 Lumbar Epidural steroid injection under fluoroscopic guidance completed Gelacio Brandon MD [address] , [address], [place], [address], [place] [facility] 10/23/2020 09:22:59 07/18/19 21 Lumbar Epidural steroid injection under fluoroscopic guidance completed Gelacio Brandon MD [address] [facility] , [address], [place], [address], [facility] 07/17/2020 10:24:07 04/17/19 21 Lumbar Epidural steroid injection under fluoroscopic guidance completed Gelacio Brandon MD [address] [facility] [address], [place], [address], [facility] 04/16/2020 09:56:53 01/16/20 20 Lumbar Epidural steroid injection under fluoroscopic guidance completed Gelacio Brandon MD [address] [facility] , [address], [place], [address], [facility] 01/16/2020 16:07:28 Imaging Results None recorded. Procedure Notes None recorded. Medical Equipment None Reported. Allergies Allergen ID Allergen Name Allergen Category Reaction Reaction Severity Criticality Documentation Date Start Date Code Code System Note Provider Name and Address Organization Details Recorded Time 79554 Medicinal product containin g penicilli n and acting as antibacte rial agent (product) medicatio n rash Not available Not available 12/22/2019 33715 05 SNOMED Gelacio dao MD [address] [facility] , [address], [place], [address], [facility] 0 10:42:41 Medications Name Sig Start Date Stop Date Status Note LastModified by Organization Details LastModified Time furosemid e 40 mg tablet TAKE 2 TABLETS BY MOUTH EVERY DAY active Not Available Not Available No t Available doxycycli ne hyclate 100 mg capsule TAKE 1 CAPSULE BY MOUTH TWICE DAILY WITH FOOD X5 DAYS 04/16 completed Not Available Not Available Not Available tizanidin e 4 mg tablet TAKE 1 TABLET BY MOUTH 3 TIMES A DAY 07/20 completed Not Available Not Available Not Available amiodaron e 200 mg tablet TAKE 1 TABLET BY MOUTH EVERY DAY, STARTING AFTER 2 WEEKS LOADING DOSE active Not Available Not Available No t Available metoprolo l succinate ER 50 mg tablet,ex tended release 24 hr TAKE 1 TABLET BY MOUTH EVERY DAY active Not Available Not Available No t Available hydrocodo ne 5 mg-acetam inophen 325 mg tablet TAKE 1 TABLET BY MOUTH 4 TIMES A DAY, NEEDED FOR SEVERE PAIN 07/20 completed Not Available Not Available Not Available clobetaso l 0.05 % topical cream APPLY TO AFFECTED AREA OF ECZEMA 2 TIMES A DAY active Not Available Not Available No t Available amlodipin e 5 mg tablet TAKE 1 TABLET BY MOUTH EVERY DAY active Not Available Not Available No t Available triamcino lone acetonide 0.1 % topical cream 07/17 completed Not Available Not Available Not Available amlodipin e 10 mg tablet TAKE 1 TABLET BY MOUTH EVERY DAY 07/20 completed Calcium Channel Saranya. For HTN and angina Not Available Not Available Not Available dexametha sone 2 mg tablet TAKE 1 TABLET BY MOUTH 3 TIMES A DAY FOR 3 DAYS 01/15 completed Not Available Not Available Not Available valsartan 320 mg tablet 07/20 completed Antihype rtensive medicati on. HTN Not Available Not Available Not Available gabapenti n 300 mg capsule Take 1 capsule every day by oral route at bedtime for 30 days. 07/20 completed Anticonv ulsant and treats nerve pain. Not Available Not Available Not Available allopurin ol 300 mg tablet TAKE 1 TABLET BY MOUTH EVERY DAY active Not Available Not Available No t Available mupirocin 2 % topical ointment 10/19 completed Not Available Not Available Not Available metoprolo l succinate ER 25 mg tablet,ex tended release 24 hr TAKE 1/2 TABLET BY MOUTH EVERY DAY 11/17 completed Not Available Not Available Not Available finasteri de 5 mg tablet TAKE 1 TABLET BY MOUTH EVERY DAY active Not Available Not Available No t Available irbesarta n 300 mg tablet TAKE 1 TABLET BY MOUTH EVERY DAY active Not Available Not Available No t Available doxazosin 2 mg tablet TAKE 1 TABLET BY MOUTH EVERYDAY AT BEDTIME active Not Available Not Available No t Available cyclobenz aprine 5 mg tablet TAKE 1 TABLET AT BEDTIME NEEDED TWICE A DAY 10 DAYS 01/15 completed Not Available Not Available Not Available nitrofura ntoin monohydra te/macroc rystals 100 mg capsule TAKE ONE CAPSULE BY MOUTH TWICE A DAY X 7 DAYS 07/20 completed Not Available Not Available Not Available pregabali n 75 mg capsule Take 1 capsule twice a day by oral route for 30 days. 07/20 completed Treats nerve and muscle pain; fibromya lgia Not Available Not Available Not Available Multaq 400 mg tablet TAKE 1 TABLET BY MOUTH TWICE A DAY active Not Available Not Available No t Available Xarelto 15 mg tablet TAKE 1 TABLET BY MOUTH EVERY EVENING 01/12 completed Not Available Not Available Not Available Xarelto 20 mg tablet TAKE 1 TABLET BY MOUTH EVERY EVENING MUST ADMINIST ER WITH EVENING MEAL active Not Available Not Available No t Available Fluarix Quad (PF) 60 mcg (15 mcg x 4)/0.5 mL IM syringe 12/21 completed Not Available Not Available Not Available Fluad Quad (65yr up)(PF) 60 mcg (15 mcg x 4)/0.5mL IM syringe PHARMACY ADMINIST ERED 12/21 completed Not Available Not Available Not Available Vitals Date Recorded Body height Heart rate Oxygen saturation Oxygen saturation in Arterial blood by Pulse oximetry Systolic blood pressure Diastolic blood pressure Provider Name and Address Organization Details Last Updated DateTime 3 177.8 cm 44 /min 97 % 97 % 125 mm[Hg] 67 mm[Hg] Gelacio dao MD [facility] , [address], [place], [address], [place] [facility] 3 14:27:24 Date Recorded Body height Heart rate Oxygen saturation Oxygen saturation in Arterial blood by Pulse oximetry Systolic blood pressure Diastolic blood pressure Provider Name and Address Organization Details Last Updated DateTime 3 177.8 cm 82 /min 97 % 97 % 120 mm[Hg] 67 mm[Hg] Destiny Nicholson PA - [facility] 3 14:26:05 Date Recorded Body height Oxygen saturation Oxygen saturation in Arterial blood by Pulse oximetry Heart rate Systolic blood pressure Diastolic blood pressure Provider Name and Address Organization Details Last Updated DateTime 4 177.8 cm 97 % 97 % 64 /min 122 mm[Hg] 56 mm[Hg] Destiny Nicholson [facility] 4 13:54:33 Date Recorded Body height Oxygen saturation Oxygen saturation in Arterial blood by Pulse oximetry Heart rate Systolic blood pressure Diastolic blood pressure Provider Name and Address Organization Details Last Updated DateTime 4 177.8 cm 97 % 97 % 42 /min 138 mm[Hg] 58 mm[Hg] Maricel navas [place] - [facility] 4 13:32:24 Date Recorded Body height Heart rate Oxygen saturation Oxygen saturation in Arterial blood by Pulse oximetry Systolic blood pressure Diastolic blood pressure Provider Name and Address Organization Details Last Updated DateTime 4 177.8 cm 74 /min 99 % 99 % 113 mm[Hg] 66 mm[Hg] Anika Vaughn [facility] 4 14:06:34 Social History Question Answer Notes LastModified by Organizat ion Details LastModified Time Tobacco Smoking Status Never Smoker Gelacio Brandon MD [address] , [address], [place], [address], [place] [facility] 12/22/2019 10:48:57 What Is Your Level Of Alcohol Consumption? None Information not available 12/22/2019 Which Illicit Or Recreational Drugs Have You Used? None Information not available 12/22/2019 Education 2 Year College Information not available 12/22/2019 What Is Your Occupation? Retired [employer] Information not available 12/22/2019 Live Alone Or With Others? With Others Information not available 12/22/2019 Marital Status Informati on not available 12/22/2019 Sex: Unknown Functional Status None recorded. Mental Status None recorded. Family History Relationship Description Onset Age of this Age Resolved Age Notes LastModified by Organization Details LastModified Time Father Heart disease [email or web address] Not available 12/09 10:48:15 Mother Malignant neoplastic disease Uterus [email or web address] Not available 12/09 10:48:42 Medical History Condition Response Hypertension Y Past Encounters Encounter ID Performer Location Encounter Start Date Encounter Closed Date Diagnosis/Indication Diagnosis SNOMED-CT Code Diagnosis ICD10 Code Diagnosis Note [id number] Gelacio Brandon MD PAIN OFFICE [address] [place] [address] 12/22/2019 10:26:41 12/22/2019 12:54:56 Spinal stenosis of lumbar region 51042244 M48.061 Lumbosacra l spondylosis without myelopathy 21542534 M47.817 Lumbosacra l radiculopathy 8408510 M54.17 Degenerati on of lumbar intervertebral disc 38226627 M51.36 [id number] Gelacio Brandon MD [facility] [address] [facility] [place] [address] 01/16/2020 15:30:08 01/16/2020 16:18:00 Spinal stenosis of lumbar region 55837654 M48.061 Lumbosacra l spondylosis without myelopathy 92833046 M47.817 Lumbosacra l radiculopathy 6078401 M54.17 Degenerati on of lumbar intervertebral disc 03511615 M51.36 [id number] Gelacio Brandon MD [facility] PA[facility] [address] [facility] [place] [address] 02/15/2020 08:55:41 02/15/2020 09:35:48 Spinal stenosis of lumbar region 43761032 M48.061 Lumbosacra l spondylosis without myelopathy 09279817 M47.817 Lumbosacra l radiculopathy 8288198 M54.17 Degenerati on of lumbar intervertebral disc 37018514 M51.36 [id number] Gelacio Brandon MD [facility] PA[facility] [address] [facility] [place] [address] 04/16/2020 08:51:32 04/16/2020 10:00:18 Spinal stenosis of lumbar region 67415372 M48.061 Lumbosacra l spondylosis without myelopathy 87890837 M47.817 Lumbosacra l radiculopathy 8414476 M54.17 Degenerati on of lumbar intervertebral disc 33268734 M51.36 [id number] Gelacio Brandon MD [facility] [address] [facility] [place] [address] 07/17/2020 08:52:47 07/17/2020 11:00:32 Spinal stenosis of lumbar region 38953897 M48.061 Lumbosacra l spondylosis without myelopathy 83524420 M47.817 Lumbosacra l radiculopathy 6918515 M54.17 Degenerati on of lumbar intervertebral disc 08357217 M51.36 [id number] Gelacio Brandon MD [facility] [address] [place] [address] 08/16/2020 09:32:35 08/16/2020 09:41:40 Spinal stenosis of lumbar region 94586399 M48.061 Lumbosacra l spondylosis without myelopathy 14585090 M47.817 Lumbosacra l radiculopathy 1150672 M54.17 Degenerati on of lumbar intervertebral disc 03939754 M51.36 [id number] Gelacio Brandon MD PAIN OFFICE [address] [place] [address] 10/23/2020 08:52:07 10/23/2020 11:25:37 Spinal stenosis of lumbar region 11984494 M48.061 Lumbosacra l spondylosis without myelopathy 67506493 M47.817 Lumbosacra l radiculopathy 5879370 M54.17 Degenerati on of lumbar intervertebral disc 41195690 M51.36 [id number] Gelacio Brandon MD PAIN OFFICE [address] [place] [address] 02/05/2021 12:44:25 02/05/2021 14:38:17 Spinal stenosis of lumbar region 46373813 M48.061 Lumbosacra l spondylosis without myelopathy 29107332 M47.817 Lumbosacra l radiculopathy 5909599 M54.17 Degenerati on of lumbar intervertebral disc 18081516 M51.36 [id number] Gelacio Brandon MD [facility] [address] [place] [address] 04/22/2021 10:15:07 04/22/2021 11:14:54 Spinal stenosis of lumbar region 13745568 M48.061 Lumbosacra l spondylosis without myelopathy 73892323 M47.817 Lumbosacra l radiculopathy 7463958 M54.17 Degenerati on of lumbar intervertebral disc 91368385 M51.36 [id number] Gelacio Brandon MD PAIN OFFICE [address] [place] [address] 2021 13:12:15 2021 15:44:49 Spinal stenosis of lumbar region 47829159 M48.061 Lumbosacra l spondylosis without myelopathy 00764328 M47.817 Lumbosacra l radiculopathy 1036668 M54.17 Degenerati on of lumbar intervertebral disc 19688725 M51.36 [id number] Gelacio Brandon MD [facility] [address] [place] [address] 07/20/2022 13:52:43 07/21/2022 11:02:56 Spinal stenosis of lumbar region 84481219 M48.061 Lumbosacra l spondylosis without myelopathy 42060610 M47.817 Lumbosacra l radiculopathy 2632150 M54.17 Degenerati on of lumbar intervertebral disc 76513491 M51.36 Lumbar post-laminectomy syndrome 237784142 M96.1 [id number] Gelacio Brandon MD PAIN OFFICE [address] [place] [address] 08/12/2022 13:41:25 08/12/2022 16:11:11 Spinal stenosis of lumbar region 36930706 M48.061 Lumbosacra l spondylosis without myelopathy 81826337 M47.817 Lumbosacra l radiculopathy 3715523 M54.17 Degenerati on of lumbar intervertebral disc 02526667 M51.36 Lumbar post-laminectomy syndrome 493064143 M96.1 [id number] Gelacio Brandon MD PAIN OFFICE [address] [place] [address] 11/17/2022 14:12:49 11/17/2022 15:29:44 Spinal stenosis of lumbar region 23539018 M48.061 Lumbosacra l spondylosis without myelopathy 78674932 M47.817 Lumbosacra l radiculopathy 2808919 M54.17 Degenerati on of lumbar intervertebral disc 83164644 M51.36 Lumbar post-laminectomy syndrome 591304099 M96.1 [id number] Gelacio Brandon MD [facility] [address] [facility] [place] [address] 01/12/2023 14:15:32 01/12/2023 16:57:12 Lumbar post-laminectomy syndrome 827285935 M96.1 Inflammati on of sacroiliac joint 61815950 M46.1 [id number] Gelacio Brandon MD [facility] [address] [facility] [place] [address] 04/06/2023 13:47:13 04/06/2023 16:05:21 Lumbar post-laminectomy syndrome 568447568 M96.1 Inflammati on of sacroiliac joint 09692158 M46.1 [id number] Gelacio Brandon MD [facility] PA[facility] [address] [facility] [place] [address] 07/21/2023 13:12:16 07/21/2023 15:50:06 Lumbar post-laminectomy syndrome 377288337 M96.1 Inflammati on of sacroiliac joint 54755422 M46.1 [id number] Gelacio Brandon MD [facility] [address] [place] [address] 10/27/2023 13:52:49 10/27/2023 16:08:33 Lumbar post-laminectomy syndrome 559372294 M96.1 Inflammati on of sacroiliac joint 27208366 M46.1 Health Concerns Section Related Observation LastModified by Organization Detai ls LastModified Time None Recorded Concern Status LastModified by Organization Details LastModified Time None Recorded Advance Directives Directive None Recorded Payers Encounter Date Sequence Insurance Name Policy Number Policy Jhaveri Covered Member ID Jhaveri Member ID Guarantor Name 11/17/2022 1 [employer] MED[employer]ARE ADV[employer]AGE PLAN (MEDICARE REPLACEMENT HMO) [id number] 1 Chilango Castaneda [id number] Chilango Castaneda 01/12/2023 1 [employer] MED[employer]AGE PLAN (MEDICARE REPLACEMENT HMO) [id number] 1 Chilango Castaneda [id number] Chilango Castaneda 04/06/2023 1 [employer]AGE PLAN (MEDICARE REPLACEMENT HMO) [id number] 1 Chilango Castaneda [id number] Chilango Castaneda 07/21/2023 1 [employer] MED[employer]AGE PLAN (MEDICARE REPLACEMENT HMO) [id number] 1 Chilango Castaneda [id number] Chilango Castaneda 10/27/2023 1 [employer]AGE PLAN (MEDICARE REPLACEMENT HMO) [id number] 1 Chilango Dunneney [id number] Chilango Castaneda Notes Date Note Type Note Provider Name and Address Organization Details Recorded Time 11/17/2022 text/html He is here today for a lumbar epidural steroid injection under fluoroscopic guidance. He has stopped Xarelto three days prior to the procedure Gelacio Brandon MD [address] [facility] , [address], [place], [address], [place] [facility] 11/17/2022 16:22:21 01/12/2023 text/html He is here for a left sacroiliac joint injection under fluoroscopic guidance Gelacio Brandon MD [address] [facility] , [address], [place], [address], [place] [facility] 01/13/2023 08:46:43 04/06/2023 text/html He is here for a left sacroiliac joint injection under fluoroscopic guidance. He had one month of 90% pain relief with last injection with a slow return of pain. He does home bicycling and sees Jose Kelvin regularly for maintenance PT Gelacio Brandon MD [address] [facility] , [address], [place], [address], [place] [facility] 04/06/2023 16:17:13 07/21/2023 text/html He is here for a left sacroiliac joint injection under fluoroscopic guidance. He had one month of 90% pain relief with last injection with a slow return of pain. 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
--- NOTE | 2024-02-23 08:18 | A.OFFVIS_ITS ---
Vital Signs 02/23/24 08:19 Height 5 ft 3 in Weight 205 lb 0.478 oz BMI 36.3 BP 146/60 H Blood Pressure Location Lt brachial Position Sitting Pulse 43 L Intake Visit Reasons: 3 mth f/up Certified Registered Dental Assistant Required: No Accompanied by: Self / Same As Patient Allergies Penicillins [PCN] Allergy (Unknown, Verified 05/13/23 08:43) RASH Sulfamethoxazole-TMP DS Allergy (Unknown, Uncoded 05/13/23 08:43) rash Medication List - Last Reconciled 02/23/24 by Alvaro Marinelli MD allopurinol 300 mg PO DAILY amiodarone 200 mg PO DAILY 90 days amlodipine 5 mg PO DAILY doxazosin 2 mg PO BEDTIME finasteride 5 mg PO DAILY furosemide 80 mg PO DAILY irbesartan 300 mg PO DAILY metoprolol succinate ER (Toprol XL) 25 mg PO DAILY rivaroxaban (Xarelto) 20 mg PO QPM HPI Comments Details: Chilango returns for follow-up regarding atrial fibrillation. No specific concerns. He does not have any anginal symptoms of shortness of breath or in fact anything concerning. Longstanding leg swelling just about the same as before. 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 Surgical History History of back surgery History of cardioversion (~2015) Family History Father CHF (congestive heart failure) Mother Cancer Social History Alcohol intake: never Patient Tobacco Use Status: Never used Tobacco Review of Systems Const Denies chills, Denies fatigue, Denies fever(s), Denies weight gain and Denies weight loss ENT Denies dizziness Card Denies chest pain, Reports leg edema, Denies lightheadedness, Denies palpitations, Denies dyspnea on exertion, Denies orthopnea and Denies other Resp Denies cough and Denies dyspnea on exertion GI Denies hematochezia and Denies change in stool character Musc Denies abnormal gait, Denies muscle weakness, Denies numbness, Denies radiating pain into limb and Denies tingling Neuro Denies abnormal gait, Denies dizziness, Denies numbness and Denies tingling Endo Denies fatigue and Denies palpitations Physical Exam Vital Signs: Last Vital Signs Pulse 43 L 02/23/24 08:19 BP 146/60 H 02/23/24 08:19 BMI result Body Mass Index 36.3 Const General: comfortable and no acute distress Orientation/consciousness: patient oriented x3 HEENT Other: Unremarkable Head: Yes normal to inspection Neck Neck: Yes normal visual inspection Chest Chest palpation & inspection: normal inspection of the chest Resp Auscultation: clear to auscultation bilaterally Cardio Palpation: normal PMI Heart sounds: S1 normal heart sound present, S2 normal heart sound present, no gallops, no murmurs and no rubs GI Palpation (GI): Soft to palpation Back/Spine/Pelvis Other: unremarkable Skin General skin exam: no rashes or lesions noted Neuro General: patient oriented x3 Extrem Other: 1-2+ edema General: Yes normal to inspection Psych Mental Status: mental status grossly normal Office Procedures EKG Details: EKG with sinus bradycardia at 43/Min; sinus arrhythmias; low-voltage QRS c omplexes; IA interval 202 milliseconds; [place]. [id number], Complete Assessment & Plan Assessment & Plan (1) Persistent atrial fibrillation: Code(s): I48.19 - Other persistent atrial fibrillation Category: Medical Plan: Previously failed Multaq. Was on beta-blockers but Amiodarone was started rather for high PVC burden. In the recent Holter he was on atrial flutter but then converted to sinus bradycardia. Continue Amiodarone. As he is still bradycardic, stopped the beta-blockers completely. Continue anticoagulation. (2) PVC (premature ventricular contraction): Code(s): I49.3 - Ventricular premature depolarization Category: Medical Plan: In a prior Holter, PVC burden of almost 29%. He was started on amiodarone. May continue that. In the most recent Holter, seems improved. (3) Nonischemic cardiomyopathy: Code(s): I42.8 - Other cardiomyopathies Category: Medical Plan: In the most recent echocardiogram, LVEF is 55-60%. Prior to that, variable readings. It was 44% but before that in the normal range. Several years ago, in the 30s. Could be cardiomyopathy related to atrial fibrillation/tachycardia mediated. Improvement could be because of better rate control. In the perfusion imaging study, small fixed inferior apical/apical defect thought to be from nontransmural infarct. He has some leg swelling that is likely multifactorial. Otherwise, no clinical symptoms or signs of congestive heart failure. (4) Essential hypertension: Code(s): I10 - Essential (primary) hypertension Category: Medical Plan: Run slightly on the higher side. On irbesartan 300 mg daily. He is also on some amlodipine but difficult to increase dose as he also has leg swelling. Due to bradycardia, can not use beta-blockers. (5) Localized edema: Code(s): R60.0 - Localized edema Category: Medical Plan: Suspected venous insufficiency. Less likely heart failure. He has states that he is taking Lasix 40 mg x 2 tablets daily. He can take an extra tablet in the afternoon. Check labs. With compression stockings apparently he gets a rash. Try foot elevation. Orders: Orders B Type Natriuretic Peptide Today R60.0 - Localized edema Basic Metabolic Panel Today R60.0 - Localized edema TSH reflex Free T4 Today I48.19 - Other persistent atrial fibrillation, R60.0 - Localized edema Coding Level of Care Code Est Pt Level 4 (46890) Diagnoses Persistent atrial fibrillation I48.19 PVC (premature ventricular contraction) I49.3 Nonischemic cardiomyopathy I42.8 Essential hypertension I10 Localized edema R60.0 CPT Codes EKG - CPT: 61513-[id number], Complete ([id number])
[2024-02-23 08:19] VITALS: BP 146/60; PULSE 43; BMI 36.3
== END 2024-02-23 08:40 | disposition home or self-care (01) ==
PROVIDERS: PCP Internal Medicine; Visit Provider Internal Medicine
DX: I48.19 Other persistent atrial fibrillation (principal); I49.3 Ventricular premature depolarization; I42.8 Other cardiomyopathies; I10 Essential (primary) hypertension; R60.0 Localized edema
CPT/HCPCS: 93010; 99214

== ENCOUNTER 2024-02-23 07:53 | Outpatient (REF) | payer MEDICARE, SELFPAY ==
[2024-02-23 10:06] LABS: B Type Natriuretic Peptide 126 pg/mL (<100)
[2024-02-23 10:12] LABS: Anion Gap 10 (12-20); Blood Urea Nitrogen 26 mg/dL (9-16); Calcium 8.7 mg/dL (8.4-10.2); Carbon Dioxide 24 mmol/L (22-29); Chloride 112 mmol/L (96-108); Estimated Glomerular Filt Rate > 60; Glucose Random 97 mg/dL (60-115); Potassium 4.1 mmol/L (3.3-5.1); Sodium 142 mmol/L (135-145)
[2024-02-23 10:21] LABS: TSH reflex Free T4 1.03 uIU/mL (0.32-4.0)
== END 2024-02-23 07:54 | disposition home or self-care (01) ==
LOC: HO.LAB 07:53
PROVIDERS: PCP Internal Medicine; Visit Provider Internal Medicine
DX: R60.0 Localized edema (principal); I48.19 Other persistent atrial fibrillation
CPT/HCPCS: 36415; 80048; 83880; 84443; 93005; 99212

== ENCOUNTER 2024-03-28 11:15 | Outpatient (REF) | payer MEDICARE, SELFPAY ==
[2024-03-28 11:25] LABS: MANUAL DIFF FLAG NO
[2024-03-28 11:36] LABS: Appearance Urine Clear; Color Urine Yellow; Glucose Urine UA Negative (Negative); Leukocyte Esterase Urine Negative (Negative); Nitrite Urine Negative (Negative); Urine Blood Negative (Negative); Urine Ketones Negative (Negative); Urine Protein Negative (Neg-Trace)
[2024-03-28 11:39] LABS: Bacteria Urine None Seen (None Seen); Basophils Percent Auto 0.4 % (0-2); Eosinophils Absolute Auto 0.1 X10*3/uL (0.0-0.4); Eosinophils Percent Auto 1.6 % (0-4); Hematocrit 42.7 % (42.0-52.0); Hemoglobin 14.8 g/dl (14.0-18.0); Hyaline Casts Urine 0-2 /LPF (0-2); Imm Gran Abs Auto 0.02 X10*3/uL (0.00-0.03); Imm Gran Pct Auto 0.4 % (0.0-0.4); Lymphocytes Absolute Auto 1.8 X10*3/uL (1.2-4.9); Lymphocytes Percent Auto 32.3 % (20-40); Mean Corpuscular HGB Conc 34.7 g/dl (31.0-36.0); Mean Corpuscular Hemoglobin 34.2 pg (27.0-33.0); Mean Corpuscular Volume 98.6 fL (80.0-98.0); Mean Platelet Volume 10.9 fL (9.4-12.4); Monocytes Absolute Auto 0.4 X10*3/uL (0.1-1.2); Monocytes Percent Auto 7.6 % (2-11); Neutrophils Absolute Auto 3.3 x10*3/uL (2.0-8.3); Neutrophils Percent Auto 57.7 % (45-73); Platelet Count 100 X10*3/uL (160-400); RBC Urine 0-2 /HPF (0-2); Red Blood Count 4.33 X10*6/uL (4.60-5.80); Red Cell Distribution Width 13.1 % (11.0-16.0); Squamous Epithelial Cell Urine 0-2 /HPF (0-2); WBC Urine 0-5 /HPF (0-5); White Blood Count 5.6 X10*3/uL (4.8-10.8)
[2024-03-28 12:12] LABS: Creatinine Urine 133.89 mg/dL; Microalbumin Urine < 5.0 mg/L
[2024-03-28 12:21] LABS: Estimated Average Glucose 100 mg/dL; Hemoglobin A1C 123.1322 umol/L; Hemoglobin A1c % 5.1 % (<6.0); Total Hemoglobin (HGBA1C) 3771.3889 umol/L
[2024-03-28 12:27] LABS: PSA,Total (Free>4and<10) 1.15 ng/mL (0.00-4.00)
--- OUTSIDE RECORDS SUMMARY | 2024-03-28 12:31 | XMS_ITS ---
Author Organization [facility] Address [address] [place] [address] Care Team Providers Care Waiter/Waitress Third Class Name Role Phone Gorge Mahmood MD Primary Care Provider Nida Carnes [phone] Camacho Medications Medication SIG (Take, Route, Frequency, Duration) Notes Start Date End Date Status Finasteride 5 MG 1 tablet Orally Once a day Active Amlodipine & Diet Manage Prod 5 mg Active Doxazosin Mesylate 2 MG 1 tablet Orally Once a day for 30 day(s) Active Allopurinol 300 MG 1 tablet Orally Once a day for 30 day(s) Active Xarelto 20 MG 1 tablet Orally Once a day Active Metoprolol Succinate 50 MG 1 capsule Orally Once a day Not-Taking Irbesartan 300 MG 1 tablet Orally Once a day Active Amiodarone HCl 200 MG 1 tablet Orally On ce a day Active Furosemide 40mg Active Losartan Potassium N ot-Taking Encounters Encounter Location Date Provider Diagnosis [facility] [address] [place] [address] 02/25/2024 Nida Lilly Plan Of Treatment Next Appt Details Provider Name:Nida serrano, 04/26/2024 09:00:00 AM, [address] [place], [address], Progress Notes * Chilango CASTANEDADOB: [birth year] (83 yo M)Acc No.[id number]:02/25/2024 Progress Note Patient:?Chilango CASTANEDA Provider:?Nida Lilly DPM :1940???Age:83 Y???Sex:Male Nahum e:02/25/2024 Address:[address] [place], [place] Pcp:Gorge Mahmood MD Subjective: * Chief Complaints: * ???1. Dr Camacho. * HPI: ???At Risk footcare:?Pt States Last PCP Visit:?Date?11/09/2023 * Medical History:? * Medications:?Taking Irbesart an 300 MG Tablet 1 tablet Orally Once [...] day , Not-Taking/PRN Losartan Potassium Objective: * Vitals:? Assessment: Plan: * Treatment: * Images: * The named appointment provid er may or may not be the originator of this progress note, and it is not deemed complete until electronically signed by the appointment provider. Sign off status: Pending * Provider:?Nida Lilly DPM Date:? Generated for Danial montez/[place]/eTransmitting on:?03/28/2024 12:31 PM EST History and Physical Notes * HPI (History of Present Illness) Category Sub-Category Detail Notes Category Not es At Risk footcare Pt States Last PCP Visit: Date: 4
--- OUTSIDE RECORDS SUMMARY | 2024-03-28 12:31 | XMS_ITS | Patient Health Record ---
[facility] Address [address] [facility] [place] [address] [address] Team Prov[address] Care [address] Usher Name Role Phone Gorge Mahmood MD Primary Care Provider Nida Carnes Unavailable [phone] Allergies Allergen (clinical drug ingredient) Drug/Non Drug Allergy documented on EMR Reaction Allergy Type Onset Date Status Penicillin rash Drug Allergy Active Reason For Referral No Information Medications Medication SIG (Take, Route, Frequency, Duration) Notes Start Date End Date Status Finasteride 5 MG 1 tablet Orally Once a day Active Amlodipine & Diet Manage Prod 5 mg Active Doxazosin Mesylate 2 MG 1 tablet Orally Once a day for 30 day(s) Active Allopurinol 300 MG 1 tablet Orally Once a day for 30 day(s) Active Metoprolol Succinate 50 MG 1 capsule Orally Once a day Not-Taking Irbesartan 300 MG 1 tablet Orally Once a day Active Amiodarone HCl 200 MG 1 tablet Orally On ce a day Active Furosemide 40mg Active Losartan Potassium N ot-Taking Xarelto 20 MG 1 tablet Orally Once a day Active Social History Tobacco Use: Social History Observation Description Date Details (start date - stop date) Never Smoker NA - NA Tobacco Use/Smoking Question Answer Notes Are you a: nonsmoker Alcohol Screen Question Answer Notes Did you have a drink containing alcohol in the p ast year? No Points 0 Interpretation Negative Tobacco use other than smoking: Question Answer Notes Are you an other tobacco user? No Problems Problem Type SNOMED Code ICD Code Onset Dates Problem Status W/U Status Risk Notes Problem Atherosclerosis of [place] artery of both lower extremities, with unspecified presence of clinical manifestation (I70.203) Active confirmed Vital Signs Blood pressure diastolic 82 mm Hg 12/03/2023 Height 5 ft 9 in in 12/03/2023 Blood pressure systolic 170 mm Hg 12/03/2023 Weight 190 lbs 12/03/2023 BMI 28.06 kg/m2 12/03/2023 Encounters Encounter Location Date Provider Diagnosis [address] [address] 09/15/2023 Nida Perica Pain in left foot M79.672 ; Metatarsalgia, left foot M77.42 ; Atherosclerosis of [place] artery of both lower extremities, with unspecified presence of clinical manifestation I70.203 ; Tinea unguium B35.1 ; Pain in right toe(s) M79.674 ; Pain in left toe(s) M79.675 and Pain in left ankle and joints of left foot M25.[address] [facility] [address] 12/03/2023 Nida Perica Pain in left foot M79.672 ; Metatarsalgia, left foot M77.42 ; Atherosclerosis of [place] artery of both lower extremities, with unspecified presence of clinical manifestation I70.203 ; Tinea unguium B35.1 ; Pain in right toe(s) M79.674 ; Pain in left toe(s) M79.675 and Pain in left ankle and joints of left foot M25.572 Assessments Encounter Date Diagnosis (ICD Code) Assessment Notes Treatment Notes Treatment Clinical Notes Section Notes 09/15/2023 Metatarsalgia, left foot (ICD-10 - M77.42) 09/15/2023 Pain in left foot (ICD-10 - M79.672) 12/03/2023 Pain in left foot (ICD-10 - M79.672) 09/15/2023 Atherosclerosis of [place] artery of both lower extremities, with unspecified presence of clinical manifestation (ICD-10 - I70.203) 12/03/2023 Metatarsalgia, left foot (ICD-10 - M77.42) 09/15/2023 Tinea unguium (ICD-10 - B35.1) 12/03/2023 Atherosclerosis of [place] artery of both lower extremities, with unspecified presence of clinical manifestation (ICD-10 - I70.203) 12/03/2023 Tinea unguium (ICD-10 - B35.1) 09/15/2023 Pain in right toe(s) (ICD-10 - M79.674) 12/03/2023 Pain in right toe(s) (ICD-10 - M79.674) 09/15/2023 Pain in left toe(s) (ICD-10 - M79.675) 09/15/2023 Pain in left ankle and joints of left foot (ICD-10 - M25.572) 12/03/2023 Pain in left toe(s) (ICD-10 - M79.675) 12/03/2023 Pain in left ankle and joints of left foot (ICD-10 - M25.572) Plan Of Treatment Next Appt Details Provider Name:Nida serrano, 04/26/2024 09:00:00 AM, [address] [place], [address], Insurance Providers Payer Name Payer Address Payer Phone Subscriber Number Group Number Insured Name Patient Relationship to Insured Coverage Start Date Coverage End Date [employer] [place] [employer]age [facility] [address] [place] [address] [id number] Chilango Castaneda Self - patient is the insured Medical (General) History Medical History History ICD Code Back,Hip,and Knee pain Gout Heart disease High blood pressure Psoriasis/eczema Surgical History Surgery Date(Month/Year) spine surgery 2021 appendectomy
--- OUTSIDE RECORDS SUMMARY | 2024-03-28 12:32 | XMS_ITS | Data Portability ---
Author Organization [facility] Address [address] [facility] [place] [address] Care Team Providers Care Section Leader Name Role Phone JACKIE VIGIL Primary Care Provider [phone] JOSE NOLASCO Referring Provider Assessment Encounter Date Assessment Date Assessment LastModified by Organization Details LastModified Time 01/12/2023 01/12/2023 Chilango Castaneda is a 82 [...] rate is 37-44/min. 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 [email or web address] Not available 07/21/2023 [...] as needed. [email or web address] Not available 10/27/2023 14:29:22 03/07/2024 03/07/2024 Chilango Castaneda is a 83 year old man with low back pain [...] three months as needed. [email or web address] Not available 03/07/2024 14:43:14 Plan of Treatment Reminders Order Date Submit [...] Recorded Time Spinal stenosis of lumbar region 96786385 Active Gelacio dao MD [address] , [address], [place], [address], [place] [facility] 0 12:43:58 Lumbosacral spondylosis without myelopathy 03496921 Active Gelacio dao MD [address] [facility] , [address], [place], [address], [place] [facility] 0 12:43:52 Lumbosacral radiculopathy 8689119 Active Gelacio dao MD [address] [facility] [facility] , [address], [place], [address], [place] [facility] 0 12:43:45 Degeneration of lumbar intervertebral disc 06484808 Active Gelacio dao MD [address] [facility] , [address], [place], [address], [place] [facility] 0 12:43:39 Problem Notes None recorded. Procedures Surgical History Date Name Laterality Status Provider Name and Address Organization Details Recorded Time 03/07/19 25 Lumbar Epidural steroid injection under fluoroscopic guidance completed Gelacio Brandon MD [address] , [address], [place], [address], [place] [facility] 03/07/2024 14:42:43 10/27/19 24 Sacroiliac Joint Steroid Injections, using Fluoroscopy completed Gelacio Brandon MD [address] , [address], [place], [address], [place] [facility] 10/27/2023 14:28:18 07/21/19 24 Sacroiliac Joint Steroid Injections, using Fluoroscopy completed Gelacio Brandon MD [address] , [address], [place], [address], [place] [facility] 07/21/2023 14:04:50 04/06/19 24 Sacroiliac Joint Steroid Injections, using Fluoroscopy completed Gelacio Brandon MD [address] , [address], [place], [address], [place] [facility] 04/06/2023 14:20:11 01/13/20 23 Sacroiliac Joint Steroid Injections, using Fluoroscopy completed Gelacio Brandon MD [address] , [address], [place], [address], [place] [facility] 01/12/2023 16:28:52 11/18/19 23 Lumbar Epidural steroid injection under fluoroscopic guidance completed Gelacio Brandon MD [address] , [address], [place], [address], [place] [facility] 11/17/2022 14:51:27 08/13/19 23 Lumbar Epidural steroid injection under fluoroscopic guidance completed Gelacio Brandon MD [address] , [address], [place], [address], [place] [facility] 08/12/2022 14:25:49 08/09/19 22 Back Surgery completed Gelacio Brandon MD [address] , [address], [place], [address], [place] [facility] 07/20/2022 14:13:28 06/11/19 22 Lumbar Epidural steroid injection under fluoroscopic guidance completed Gelacio Brandon MD [address] , [address], [place], [address], [place] [facility] 2021 14:03:14 04/23/19 22 Lumbar median branch block under fluroscopic guidance completed Gelacio Brandno MD [address] , [address], [place], [address], [place] [facility] 04/22/2021 10:48:55 02/06/20 21 Lumbar Epidural steroid injection under fluoroscopic guidance completed Gelacio Brandon MD [address] , [address], [place], [address], [place] [facility] 02/05/2021 14:32:09 10/24/19 21 Lumbar Epidural steroid injection under fluoroscopic guidance completed Gelacio Brandon MD [address] , [address], [place], [address], [facility] - Pain Management 10/23/2020 09:22:59 07/18/19 21 Lumbar Epidural steroid injection under fluoroscopic guidance completed Gelacio Brandon MD [address] , [address], [place], [address], [facility] - Pain Management 07/17/2020 10:24:07 04/17/19 21 Lumbar Epidural steroid injection under fluoroscopic guidance completed Gelacio Brandon MD [address] , [address], [place], [address], [facility] - Pain Management 04/16/2020 09:56:53 01/16/20 20 Lumbar Epidural steroid injection under fluoroscopic guidance completed Gelacio Brandon MD [address] [facility] , [address], [place], [address], [facility] - Pain Management 01/16/2020 16:07:28 Imaging Results None recorded. Procedure Notes None recorded. Medical Equipment None Reported. Allergies Allergen ID Allergen Name Allergen Category Reaction Reaction Severity Criticality Documentation Date Start Date Code Code System Note Provider Name and Address Organization Details Recorded Time 02214 Product containin g penicilli n (product) medicatio n rash Not available Not available 12/22/2019 17939 8001 SNOMED Gelacio dao MD [address] [facility] [facility] , [address], [place], [address], [facility] - Pain Management 0 10:42:41 Medications Name Sig [...] e 200 mg tablet TAKE 1 TABLET (200 MG) BY MOUTH DAILY. START AFTER 2 WEEKS LOADING DOSE. active Not Available Not Available No t Available metoprolo l succinate ER 50 mg tablet,ex tended release 24 hr TAKE 1 TABLET BY MOUTH EVERY DAY 03/07 completed Not Available Not Available Not Available hydrocodo ne 5 mg-acetam inophen 325 mg tablet TAKE 1 TABLET BY MOUTH 4 TIMES A DAY, NEEDED FOR SEVERE PAIN 07/20 completed Not Available Not Available Not Available clobetaso l 0.05 % topical cream APPLY TO AFFECTED AREA OF ECZEMA TWICE DAILY active Not Available Not Available No t [...] TAKE 1 TABLET BY MOUTH EVERY DAY 03/07 completed Not Available Not Available Not Available [...] % 120 mm[Hg] 67 mm[Hg] Destiny Nicholson [place] [facility] 3 14:26:05 Date [...] % 113 mm[Hg] 66 mm[Hg] Anika Vaughn [facility] 4 14:06:34 Date Recorded Body height Heart rate Oxygen saturation Oxygen saturation in Arterial blood by Pulse oximetry Systolic blood pressure Diastolic blood pressure Provider Name and Address Organization Details Last Updated DateTime 5 177.8 cm 77 /min 95 % 95 % 134 mm[Hg] 67 mm[Hg] Destiny Nicholson [facility] 5 14:21:39 Social History Question Answer Notes LastModified by Organizat ion Details LastModified Time Tobacco Smoking Status Never Smoker Gelacio Brandon MD [address] , [address], [place], [address], [facility] - Pain Management 12/22/2019 10:48:57 What Is Your Level Of Alcohol Consumption? None Information not available 12/22/2019 Which Illicit Or Recreational Drugs Have You Used? None Information not available 12/22/2019 Education 2 Year College Information not available 12/22/2019 What Is Your Occupation? Retired [employer] Information not available 12/22/2019 Live Alone Or [...] SNOMED-CT Code Diagnosis ICD10 Code Diagnosis Note [id number] Gelacio Brandon MD PAIN OFFICE [address] [place] [address] 12/22/2019 10:26:41 12/22/2019 12:54:56 Spinal stenosis of lumbar region 04210778 M48.061 Lumbosacra l spondylosis without myelopathy 30023278 M47.817 Lumbosacra l radiculopathy 8998907 M54.17 Degenerati on of lumbar intervertebral disc 43079886 M51.36 00028 Gelacio Brandon MD PAIN OFFICE [address] [place] [address] 01/16/2020 15:30:08 01/16/2020 16:18:00 Spinal stenosis of lumbar region 15243549 M48.061 Lumbosacra l spondylosis without myelopathy 93898372 M47.817 Lumbosacra l radiculopathy 7979943 M54.17 Degenerati on of lumbar intervertebral disc 55454476 M51.36 73865 Gelacio Brandon MD PAIN OFFICE [address] [place] [address] 02/15/2020 08:55:41 02/15/2020 09:35:48 Spinal stenosis of lumbar region 69528759 M48.061 Lumbosacra l spondylosis without myelopathy 36151458 M47.817 Lumbosacra l radiculopathy 1808409 M54.17 Degenerati on of lumbar intervertebral disc 77654875 M51.36 97517 Gelacio Brandon MD PAIN OFFICE [address] [place] [address] 04/16/2020 08:51:32 04/16/2020 10:00:18 Spinal stenosis of lumbar region 76632883 M48.061 Lumbosacra l spondylosis without myelopathy 93794622 M47.817 Lumbosacra l radiculopathy 2599312 M54.17 Degenerati on of lumbar intervertebral disc 45741392 M51.36 52052 Gelacio Brandon MD PAIN OFFICE [address] [place] [address] 07/17/2020 08:52:47 07/17/2020 11:00:32 Spinal stenosis of lumbar region 66649072 M48.061 Lumbosacra l spondylosis without myelopathy 25716518 M47.817 Lumbosacra l radiculopathy 8830607 M54.17 Degenerati on of lumbar intervertebral disc 91575698 M51.36 71205 Gelacio Brandon MD [facility] PA[facility] OFF[facility] [address] [facility] [place] [address] 08/16/2020 09:32:35 08/16/2020 09:41:40 Spinal stenosis of lumbar region 18304789 M48.061 Lumbosacra l spondylosis without myelopathy 30795343 M47.817 Lumbosacra l radiculopathy 7905504 M54.17 Degenerati on of lumbar intervertebral disc 93268573 M51.36 22590 Gelacio Brandon MD PAIN OFFICE [address] [place] [address] 10/23/2020 08:52:07 10/23/2020 11:25:37 Spinal stenosis of lumbar region 89232110 M48.061 Lumbosacra l spondylosis without myelopathy 58036611 M47.817 Lumbosacra l radiculopathy 6989453 M54.17 Degenerati on of lumbar intervertebral disc 87896566 M51.36 78909 Gelacio Brandon MD PAIN OFFICE [address] [place] [address] 02/05/2021 12:44:25 02/05/2021 14:38:17 Spinal stenosis of lumbar region 98704359 M48.061 Lumbosacra l spondylosis without myelopathy 80678921 M47.817 Lumbosacra l radiculopathy 5447334 M54.17 Degenerati on of lumbar intervertebral disc 41328560 M51.36 77728 Gelacio Brandon MD [facility] PAIN OFFICE [address] [place] [address] 04/22/2021 10:15:07 04/22/2021 11:14:54 Spinal stenosis of lumbar region 94548536 M48.061 Lumbosacra l spondylosis without myelopathy 42457109 M47.817 Lumbosacra l radiculopathy 5547310 M54.17 Degenerati on of lumbar intervertebral disc 13749042 M51.36 05627 Gelacio Brandon MD [facility] PA[facility] OFFICE [address] [facility] [address] 2021 13:12:15 2021 15:44:49 Spinal stenosis of lumbar region 15665358 M48.061 Lumbosacra l spondylosis without myelopathy 99039673 M47.817 Lumbosacra l radiculopathy 7495274 M54.17 Degenerati on of lumbar intervertebral disc 26061547 M51.36 45589 Gelacio Brandon MD [facility] PAIN OFFICE [address] [facility] [place] [address] 07/20/2022 13:52:43 07/21/2022 11:02:56 Spinal stenosis of lumbar region 56518807 M48.061 Lumbosacra l spondylosis without myelopathy 47186784 M47.817 Lumbosacra l radiculopathy 7482825 M54.17 Degenerati on of lumbar intervertebral disc 22132117 M51.36 Lumbar post-laminectomy syndrome 012018903 M96.1 14241 Gelacio Brandon MD [facility] PA[facility] OFF[facility] [address] [facility] [place] [address] 08/12/2022 13:41:25 08/12/2022 16:11:11 Spinal stenosis of lumbar region 25990228 M48.061 Lumbosacra l spondylosis without myelopathy 85586940 M47.817 Lumbosacra l radiculopathy 7700159 M54.17 Degenerati on of lumbar intervertebral disc 44972324 M51.36 Lumbar post-laminectomy syndrome 644264012 M96.1 70001 Gelacio Brandon MD [facility] PAIN OFF[facility] [address] [facility] [place] [address] 11/17/2022 14:12:49 11/17/2022 15:29:44 Spinal stenosis of lumbar region 91109303 M48.061 Lumbosacra l spondylosis without myelopathy 03869205 M47.817 Lumbosacra l radiculopathy 9596898 M54.17 Degenerati on of lumbar intervertebral disc 34929125 M51.36 Lumbar post-laminectomy syndrome 553784542 M96.1 81858 Gelacio Brandon MD [facility] PAIN OFF[facility] [address] [place] [address] 01/12/2023 14:15:32 01/12/2023 16:57:12 Lumbar post-laminectomy syndrome 550339965 M96.1 Inflammati on of sacroiliac joint 56410924 M46.1 28176 Gelacio Brandon MD [facility] PAIN OFF[facility] [address] [place] [address] 04/06/2023 13:47:13 04/06/2023 16:05:21 Lumbar post-laminectomy syndrome 121295937 M96.1 Inflammati on of sacroiliac joint 01344663 M46.1 95451 Gelacio Brandon MD [facility] PAIN OFFICE [address] [place] [address] 07/21/2023 13:12:16 07/21/2023 15:50:06 Lumbar post-laminectomy syndrome 259147886 M96.1 Inflammati on of sacroiliac joint 40908631 M46.1 11889 Gelacio Brandon MD [facility] PAIN OFFICE [address] [place] [address] 10/27/2023 13:52:49 10/27/2023 16:08:33 Lumbar post-laminectomy syndrome 498749744 M96.1 Inflammati on of sacroiliac joint 11020498 M46.1 38352 Gelacio Brandon MD [facility] PAIN OFFICE [address] [place] [address] 03/07/2024 14:14:46 03/07/2024 14:54:15 Spinal stenosis of lumbar region 09636695 M48.061 M48.062 Lumbosacra l spondylosis without myelopathy 02388710 M47.817 Lumbosacra l radiculopathy 4083666 M54.17 Degenerati on of lumbar intervertebral disc 19831019 M51.362 Lumbar post-laminectomy syndrome 260262815 M96.1 Health Concerns Section Related Observation LastModified by Organization Detai ls LastModified Time None Recorded Concern Status LastModified by Organization Details LastModified Time None Recorded Advance Directives Directive None Recorded Payers Encounter Date Sequence Insurance Name Policy Number Policy Jhaveri Covered Member ID Jhaveri Member ID Guarantor Name 01/12/2023 1 [employer] - MEDICARE ADVANTAGE PLAN (MEDICARE REPLACEMENT HMO) [id number] 1 Chilango Castaneda [id number] Chilango Castaneda 04/06/2023 1 [facility] MEDICARE ADVANTAGE PLAN (MEDICARE REPLACEMENT HMO) [id number] 1 Chilango Castaneda [id number] Chilango Castaneda 07/21/2023 1 [employer] - MEDICARE ADVANTAGE PLAN (MEDICARE REPLACEMENT HMO) [id number] 1 Chilango Castaneda [id number] Chilango Dunneney 10/27/2023 1 [facility] MEDICARE ADVANTAGE PLAN (MEDICARE REPLACEMENT HMO) [id number] 1 Chilango Dunneney [id number] Chilango Dunneney 03/07/2024 1 [facility] MEDICARE ADVANTAGE PLAN (MEDICARE REPLACEMENT HMO) [id number] 1 Chilango Dunneney [id number] Chilango Castaneda Notes Date Note Type Note Provider Name and Address Organization Details Recorded Time 01/12/2023 text/html He is here for a left sacroiliac joint injection under fluoroscopic guidance Gelacio Brandon MD [address] [place] [address] , [address], [address], [place] [facility] 01/13/2023 08:46:43 04/06/2023 text/html He is here for a left sacroiliac joint injection under fluoroscopic guidance. He had one month of 90% pain relief with last injection with a slow return of pain. He does home bicycling and sees Jose Nolasco regularly for maintenance PT Gelacio Brandon MD [address] [place] [address] , [facility] [address], [place], [address], [place] [facility] 04/06/2023 16:17:13 07/21/2023 text/html He is here for a left sacroiliac joint injection under fluoroscopic guidance. He had one month of 90% pain relief with last injection with a slow return of pain. 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 , [address], [place], [address], [facility] Pain Management 07/22/2023 08:35:00 10/27/2023 text/html He is here for a bilateral sacroiliac joint injection under fluoroscopic guidance Gelacio Brandon MD [address] [facility] , [address], [place], [address], [facility] Pain Management 10/27/2023 16:17:49 03/07/2024 text/html He is here today for a lumbar epidural steroid injection under fluoroscopic guidance. He has stopped Xarelto three days prior to the procedure Gelacio Brandon MD [address] [facility] , [address], [place], [address], [facility] - Pain Management 03/07/2024 15:19:39
--- OUTSIDE RECORDS SUMMARY | 2024-03-28 12:32 | XMS_ITS ---
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 Name Role Phone Gorge Mahmood Primary Care Provider REASON FOR VISIT HDF Immunizations Vaccine Route Administration Date Status Comme nts Influenza High Dose IM Intramuscular 11/29/2023 Administer ed Encounters Encounter Location Date Provider Diagnosis Gorge Mahmood MD [address] [place] [phone] 11/29/2023 Gorge Mahmood Encounter for administration of vaccine Z23 Assessments Encounter Date Diagnosis (ICD Code) Assessment Notes Treatment Notes Treatment Clinical Notes Section Notes 11/29/2023 Encounter for administration of vaccine (ICD-10 - Z23) Plan Of Treatment Next Appt Details Provider Name:Gorge anaya, 04/04/2024 08:30:00 AM, [address], Suite [facility], [place], [place], [id number], Progress Notes * Chilango CASTANEDA GDOB: [birth year] (83 yo M)Acc No.[id number]:11/29/2023 Progress Note Patient:?Chilango Castaneda Provider:?Gorge Mahmood MD :1940???Age:83 Y???Sex:Male Nahum e:11/29/2023 Address:[address] [place] [address] Jorge [facility] Subjective: * Chief Complaints: * ???HDF * Medical History:? * Surgical History:? * Hospitalization/Major Diagno stic Procedure:? * Medications:? Objective: Assessment: * Assessment: 1.?Encounter for administrat ion of vaccine - Z23 (Primary)? Plan: * Treatment: * Immunizations:? Influenza High Dose : 0.5 mL (Dose No:1) (Route: Intramuscular) given by Shannan Alcaraz on Left Deltoid * Procedure Codes:?80892 FLU V ACC PRSV FREE INC [id number] ADMN FLU VAC NO FEE SCHED SAME DAY * * Sign off status: Completed true * Provider:?Gorge Mahmood MD Date:?1 Generated for Danial montez/[place]/eTransmitting on:?03/28/2024 12:31 PM EST
--- OUTSIDE RECORDS SUMMARY | 2024-03-28 12:32 | XMS_ITS ---
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 Name Role Phone Gorge Mahmood Primary Care Provider Results Component Value Reference Range Notes Complete Blood Count Auto Di ff (Not yet reviewed by provider) Interpretation: Performing Lab:[facility], [address] [place] [phone] Notes/Report: White Blood Count 5.6 4.8-10.8 X10*3/uL Red Blood Count 4.33 4.60-5.80 X10*6/uL Hemoglobin 14.8 14.0-18.0 g/dl Hematocrit 42.7 42.0-52.0 % Mean Corpuscular Volume 98.6 80.0-98.0 fL Mean Corpuscular Hemoglobin 34.2 27.0-33.0 pg Mean Corpuscular HGB Conc 34.7 31.0-36.0 g/dl Red Cell Distribution Width 13.1 11.0-16.0 % Platelet Count 100 160-400 X10*3/uL Mean Platelet Volume 10.9 9.4-12.4 fL Neutrophils Percent Auto 57.7 45-73 % Imm Gran Pct Auto 0.4 0.0-0.4 % Lymphocytes Percent Auto 32.3 20-40 % Monocytes Percent Auto 7.6 2-11 % Eosinophils Percent Auto 1.6 0-4 % Basophils Percent Auto 0.4 0-2 % NRBC Pct Auto 0.0 0.0-0.2 /100WBC Neutrophils Absolute Auto 3.3 2.0-8.3 x10*3/u L Imm Gran Abs Auto 0.02 0.00-0.03 X10*3/uL Lymphocytes Absolute Auto 1.8 1.2-4.9 X10*3/u L Monocytes Absolute Auto 0.4 0.1-1.2 X10*3/uL Eosinophils Absolute Auto 0.1 0.0-0.4 X10*3/u L Basophils Absolute Auto 0.0 0.0-0.2 X10*3/uL NRBC Abs Auto 0.000 0.0-0.012 X10*3/uL PSA,Total (Free>4and<10) (No t yet reviewed by provider) Interpretation: Performing Lab:[address] [phone] Notes/Report: PSA,Total (Free>4and<10) 1.15 0.00-4.00 ng/mL A Free PSA was not performed: The percentage of Free PSA can be used to enhance the differentiation of prostate cancer from benign prostatic disease in subjects whose PSA levels are between 4.0 and 10.0 ng/mL. For subjects whose PSA levels are below 4.0 or above 10.0 ng/mL, the risk of prostate cancer is determined on the basis of the PSA alone. Therefore the % Free PSA is recommended only for those subjects whose PSA levels are between 4.0 and 10.0 ng/mL. PSA methodology: Merino Alinity i Chemiluminescent Microparticle Immunoassay (CMIA) Microalbumin, Random (Not ye t reviewed by provider) Interpretation: Performing Lab:[address] [phone] Notes/Report: Creatinine Urine 133.89 Microalbumin Urine < 5.0 Microalbum/Creatinine Ratio Ur TNP <30 ug/mg cr Unable to calculate albumin/creatinine ratio due to low microalbumin or creatinine result. Hemoglobin A1c (Not yet revi ewed by provider) Interpretation: Performing Lab:[facility], [address] [place] [phone] Notes/Report: Hemoglobin A1c % 5.1 <6.0 % Hemoglobin A1C Reference Range Adults: 4.8 - 6.0 % Non diabetic: < 6.0 % Goal: < 7.0 % Additional Action Suggested: > 8.0 % Note: Hemoglobin A1c results are invalid for patients with abnormal amounts of HbF. Blood transfusions may impact the HbA1c concentration in the patient sample. Estimated Average Glucose 100 eAG = Estimated average glucose which is %A1C expressed as average glucose, using the formula of the O3Y-Lynndos Average Glucose study (ADAG), Diabetes Care, Vol.31,#8, 2007 UA ClnCatch+Micro w/rflx Cul t (Not yet reviewed by provider) Interpretation: Performing Lab:[facility], [address] [place] [phone] Notes/Report: [id number] Urine, Clean Catch Color Urine Yellow Appearance Urine Clear PH 6.0 5.0-9.0 Glucose Urine UA Negative Negative mg/dL Urine Blood Negative Negative Specific [place] - Urine 1.020 1.005-1.025 Urine Protein Negative Neg-Trace mg/dL Urine Ketones Negative Negative mg/dL Nitrite Urine Negative Negative Leukocyte Esterase Urine Negative Negative RBC Urine 0-2 0-2 /HPF WBC Urine 0-5 0-5 /HPF Squamous Epithelial Cell Urine 0-2 0-2 /HPF Bacteria Urine None Seen None Seen Hyaline Casts Urine 0-2 0-2 /LPF REASON FOR VISIT yearly fasting labs Encounters Encounter Location Date Provider Diagnosis Gorge Mahmood MD [address] [place] [address] Drive [address] [place], [place] [phone] 03/28/2024 Gorge Mahmood Blood tests for rout ine general physical examination Z00.00 ; Thrombocytopenia D69.6 ; Prediabetes R73.09 and Elevated PSA R97.20 Assessments Encounter Date Diagnosis (ICD Code) Assessment Notes Treatment Notes Treatment Clinical Notes Section Notes 03/28/2024 Blood tests for routine general physical examination (ICD-10 - Z00.00) 03/28/2024 Thrombocytopenia (ICD-10 - D69.6) 03/28/2024 Prediabetes (ICD-10 - R73.09) 03/28/2024 Elevated PSA (ICD-10 - R97.20) Plan Of Treatment Pending Test Test Name Order Date Complete Blood Count Auto Diff Comprehensive [place]. Panel Fast 5 Lipid Panel 03/28/2024 PSA,Total (Free>4and<10) 03/28/2024 Microalbumin, Random 03/28/2024 Hemoglobin A1c 03/28/2024 UA ClnCatch+Micro w/rflx Cult 03/28/2024 Next Appt Details Provider Name:Gorge Boothe ier, 04/04/2024 08:30:00 AM, [address] [place] [address], [address], [place], [place], [id number], Progress Notes * Chilango CASTANEDA GDOB: [birth year] (83 yo M)Acc No.[id number]:03/28/2024 Progress Note Patient:?CASTANEDAChilango Alexys Provider:?Gorge Mahmood MD :1940???Age:83 Y???Sex:Male Nahum e:03/28/2024 Address:[address] [place], [place] [phone] Subjective: * Chief Complaints: * ???1. Yearly fasting labs. * Medical History:? Objective: * Vitals:? Assessment: * Assessment: 1.?Blood tests for routine g eneral physical examination - Z00.00 (Primary)???2.?Thrombocytopenia - D69.6???3.?Prediabetes - R73.09???4.?Elevated PSA - R97.20??? Plan: * Treatment: 2.?Thrombocytopenia?LAB: Complete Blood Count Auto Diff (Collection Date & Time - 03/28/2024 08:00 AM) ?LAB: [facility] [place]. Panel Fast ?LAB: Lipid Panel ?LAB: PSA,Total (Free>4and<10) (Collection Date & Time - 03/28/2024 08:00 AM) ?LAB: Microalbumin, Random (Collection Date & Time - 03/28/2024 08:00 AM) ?LAB: Hemoglobin A1c (Collection Date & Time - 03/28/2024 08:00 AM) ?LAB: UA ClnCatch+Micro w/rflx Cult (Collection Date & Time - 03/28/2024 08:00 AM) 3.?Prediabetes?LAB: Complete Blood Count Auto Diff (Collection Date & Time - 03/28/2024 08:00 AM) ?LAB: [facility] [place]. Panel Fast ?LAB: Lipid Panel ?LAB: PSA,Total (Free>4and<10) (Collection Date & Time - 03/28/2024 08:00 AM) ?LAB: Microalbumin, Random (Collection Date & Time - 03/28/2024 08:00 AM) ?LAB: Hemoglobin A1c (Collection Date & Time - 03/28/2024 08:00 AM) ?LAB: UA ClnCatch+Micro w/rflx Cult (Collection Date & Time - 03/28/2024 08:00 AM) 4.?Elevated PSA?LAB: Complete Blood Count Auto Diff (Collection Date & Time - 03/28/2024 08:00 AM) ?LAB: [facility] [place]. Panel Fast ?LAB: Lipid Panel ?LAB: PSA,Total (Free>4and<10) (Collection Date & Time - 03/28/2024 08:00 AM) ?LAB: Microalbumin, Random (Collection Date & Time - 03/28/2024 08:00 AM) ?LAB: Hemoglobin A1c (Collection Date & Time - 03/28/2024 08:00 AM) ?LAB: UA ClnCatch+Micro w/rflx Cult (Collection Date & Time - 03/28/2024 08:00 AM) * Procedure Codes:?12099 VENIP UNCT, ROUTINE* * * The named appointment provid er may or may not be the originator of this progress note, and it is not deemed complete until electronically signed by the appointment provider. Sign off status: Pending * Provider:?Gorge Mahmood MD Date:?0 03/28/2024 Generated for Danial montez/[place] on:?03/28/2024 12:32 PM EST
--- OUTSIDE RECORDS SUMMARY | 2024-03-28 12:32 | XMS_ITS ---
Author Organization Gorge Mahmood MD Address [address] [place], [place] [phone] Care Team Providers Care Conservation Or Heritage Architect Name Role Phone Gorge Mahmood Primary Care Provider [phone] Allergies Allergen (clinical drug ingredient) Drug/Non Drug Allergy documented on EMR Reaction Allergy Type Onset Date Status sulfamethoxazole / trimethoprim Sulfamethoxazole- Trimethoprim swelling and redness Drug Allergy Active penicillin (uncoded) rash Allergy Active REASON FOR VISIT 6 month Medications Medication SIG (Take, Route, Frequency, Duration) Notes Start Date End Date Status Ibuprofen 800 MG 1 tablet Orally Thre e times a day for 30 day(s) 10/27/2011 Not-Taking Triamcinolone Acetonide 0.1 % APPLY TWICE DAILY TO TRUNK,ARMS,AND LEGS *APPLY MOISTURIZER AFTER *AVOID FACE/GROIN* External for 25 Not-Taking Cortisporin 0.5-0.5-81867 1 application to affected area Externally Twice a day for 30 days 01/10/2015 Not-Taking dexAMETHasone 2 MG TAKE 1 TABLET BY GUILLERMINA THREE TIMES A DAY FOR 5 DAYS Oral Three times a day for 3 days 11/13/2019 Not-Takin g Cyclobenzaprine HCl 5 MG 1 tablet at bed time as needed Orally twice a day for 10 days 11/13/2019 Not-Taking amLODIPine Besylate 5 MG TAKE 1 TABLET B Y MOUTH EVERY DAY Active Furosemide 40 MG [id number] alternating with 2 tablets Orally Once a day Active Amiodarone HCl 200 MG 1 tablet Orally On ce a day Active Irbesartan 300 MG TAKE [address] [facility] EVERY DAY for 30 Not-Taking Allopurinol 300 MG TAKE [address] [facility] EVERY DAY for 90 Active Xarelto 20 MG 1 tablet with food Orally Once a day 01/10/2015 Active Finasteride 5 MG 1 tablet Orally Once a day Active Doxazosin Mesylate 2 MG 1 tablet Orally Once a day for 30 day(s) Active Problems Problem Type SNOMED Code ICD Code Onset Dates Problem Status W/U Status Risk Notes Problem [id number] PVC's (premature ventricular contractions) (I49.3) Active confirmed Vital Signs Blood pressure systolic 118 mm Hg 09/30/19 24 Blood pressure diastolic 60 mm Hg 024 Height 68.25 in 09/30/2023 Weight 202 lbs 09/30/2023 BMI 30.49 kg/m2 09/30/2023 weight is up 12 pounds since 04-02-23 Encounters Encounter Location Date Provider Diagnosis Gorge Mahmood MD [address] [place] [address] [address] [place], [place] [phone] 09/30/2023 Gorge Mahmood PVC's (premature ventricular contractions) I49.3 and Essential hypertension I10 Assessments Encounter Date Diagnosis (ICD Code) Assessment Notes Treatment Notes Treatment Clinical Notes Section Notes 09/30/2023 PVC's (premature ventricular contractions) (ICD-10 - I49.3) was started on amiodorone 09/30/2023 Essential hypertension (ICD-10 - I10) doing well on meds, will continue current regiment Plan Of Treatment Medication Medication Name Sig Start Date Stop Date Notes amLODIPine Besylate 5 MG TAKE 1 TABLET BY MOUTH EVERY DAY Furosemide 40 MG [id number] alternating with 2 tablets Orally Once a day Amiodarone HCl 200 MG 1 tablet Orally Once a day Treatment Notes Assessment Notes PVC's (premature ventricular contraction s) was started on amiodorone Essential hypertension doing well on med s, will continue current regiment Next Appt Details Provider Name:Gorge Boothe ier, 04/04/2024 08:30:00 AM, [address], [address], [place], [id number], Progress Notes * Chilango CASTANEDA GDOB: [birth year] (83 yo M)Acc No.[id number]:09/30/2023 Progress Notes Patient:?Chilango Castaneda Provider:?Gorge Mahmood MD :1940???Age:83 Y???Sex:Male Nahum e:09/30/2023 [facility] Subjective: * Chief Complaints: * ???6 month * HPI: ???Symptom(s):? patient is a 83 yo male here for 6month follow up visit, still with swelling in feet. * ROS:?General/Constitutional:?Denies?Chills.?Denies?Fatigue.?Denies?Fever.?Denies?Headache.?ENT:?Patient denies?decreased sense of smell , any loss of taste , sore throat.?Denies?Sore throat.?Respiratory:?Denies?Cough.?Denies?Shortness of breath at rest.?Denies?Shortness of breath with exertion.?Cardiovascular:?Denies?Chest pain at rest.?Denies?Chest pain with exertion.?Denies?Dizziness.?Admits?Palpitations.?Admits?Shortness of breath.?Gastrointestinal:?Denies?Diarrhea.?Denies?Nausea.?Musculoskeletal:?Patient denies?muscle aches.?Peripheral Vascular:?Patient denies?red and blue toes.? * Medical History:? * Surgical History:? * Hospitalization/Major Diagno stic Procedure:? * Medications:?TakingAmiodaron e HCl 200 MG Tablet 1 tablet Orally Once a dayDoxazosin Mesylate 2 MG Tablet 1 tablet Orally Once a dayFurosemide 40 MG Tablet [id number] alternating with 2 tablets Orally Once a dayFinasteride 5 MG Tablet 1 tablet Orally Once a dayXarelto 20 MG Tablet 1 tablet with food Orally Once a dayamLODIPine Besylate 5 MG Tablet TAKE 1 TABLET BY MOUTH EVERY DAY Allopurinol 300 MG Tablet TAKE 1 TABLET BY MOUTH EVERY DAY Taking Amiodarone HCl 200 MG Tablet 1 tablet Orally Once a dayTaking Doxazosin Mesylate 2 MG Tablet 1 tablet Orally Once a dayTaking Furosemide 40 MG Tablet [id number] alternating with 2 tablets Orally Once a dayTaking Finasteride 5 MG Tablet 1 tablet Orally Once a dayTaking Xarelto 20 MG Tablet 1 tablet with food Orally Once a dayTaking amLODIPine Besylate 5 MG Tablet TAKE 1 TABLET BY MOUTH EVERY DAY Taking Allopurinol 300 MG Tablet TAKE 1 TABLET BY MOUTH EVERY DAY Not-Taking/PRNIrbesartan 300 MG Tablet TAKE 1 TABLET BY MOUTH EVERY DAY Triamcinolone Acetonide 0.1 % Cream APPLY TWICE DAILY TO TRUNK,ARMS,AND LEGS *APPLY MOISTURIZER AFTER *AVOID FACE/GROIN* External Cortisporin 0.5-0.5-05520 Cream 1 application to affected area Externally Twice a dayCyclobenzaprine HCl 5 MG Tablet 1 tablet at bedtime as needed Orally twice a daydexAMETHasone 2 MG Tablet TAKE 1 TABLET BY MOUTH THREE TIMES A DAY FOR 5 DAYS Oral Three times a dayIbuprofen 800 MG Tablet 1 tablet Orally Three times a dayMedication List reviewed and reconciled with the patientNot-Taking/PRN Irbesartan 300 MG Tablet TAKE 1 TABLET BY MOUTH EVERY DAY Not-Taking/PRN Triamcinolone Acetonide 0.1 % Cream APPLY TWICE DAILY TO TRUNK,ARMS,AND LEGS *APPLY MOISTURIZER AFTER *AVOID FACE/GROIN* External Not-Taking/PRN Cortisporin 0.5-0.5-17517 Cream 1 application to affected area Externally Twice a dayNot-Taking/PRN Cyclobenzaprine HCl 5 MG Tablet 1 tablet at bedtime as needed Orally twice a dayNot-Taking/PRN dexAMETHasone 2 MG Tablet TAKE 1 TABLET BY MOUTH THREE TIMES A DAY FOR 5 DAYS Oral Three times a dayNot- Taking/PRN Ibuprofen 800 MG Tablet 1 tablet Orally Three times a dayMedication List reviewed and reconciled with the patient * Allergies:?penicillin: rashS ulfamethoxazole-Trimethoprim: swelling and rednessyes[Allergies Verified] Objective: * Vitals:?Ht: 68.25, Wt:202, B MT:30.49, BP:118/60 weight is up 12 pounds since 04-02-23. * Examination: ???General Examination: ?GENERAL APPEARANCE:? alert, well hydrated, in no distress , male.?HEAD:? normocephalic.?SKIN:? good turgor.?HEART:? no murmurs, rubs, gallops, regular rate and rhythm.?LUNGS:? no wheezes, rales, rhonchi, good air movement, clear to auscultation bilaterally.?EXTREMITIES:? 3+ pitting edema lower extremities.? Assessment: * Assessment: 1.?PVC's (premature ventricu lar contractions) - I49.3 (Primary)?2.?Essential hypertension - I10? Plan: * Treatment: 2.?Essential hypertension? Continue Furosemide Tablet, 40 MG, [id number] alternating with 2 tablets, Orally, Once a day;?Continue amLODIPine Besylate Tablet, 5 MG, TAKE 1 TABLET BY MOUTH EVERY DAY.?? Notes: doing well on meds, will continue current regiment.?? * Procedure Codes:? * * Sign off status: Completed true * Provider:?Gorge Mahmood MD Date:?0 09/30/2023 Generated for Danial montez/[place]/Sonyaitting on:?03/28/2024 12:32 PM EST History and Physical Notes * HPI (History of Present Illness) Category Sub-Category Detail Notes Category Not es Symptom(s) patient is a 83 yo male here for 6month follow up visit, still with swelling in feet. Examination Category Sub-Category Detail Notes Category Not es General Examination GENERAL APPEARANCE: alert, w ell hydrated, in no distress , male HEAD: normocephalic HEART: no murmurs, rubs, ga llops, regular rate and rhythm LUNGS: no wheezes, rales, r honchi, good air movement, clear to auscultation bilaterally SKIN: good turgor EXTREMITIES: 3+ pitting edema low er extremities
--- OUTSIDE RECORDS SUMMARY | 2024-03-28 12:33 | XMS_ITS | Continuity of Care Document ---
Author Organization [facility] Pain Managem ent, PAIN OFFICE Address [address] [facility] [place] [address] Care Team Providers Care Geophysics Teacher Name Role Phone MUSADAVIDN Primary Care Provider [phone] JOSE NOLASCO Referring Provider Assessment Encounter Date Assessment Date Assessment LastModified by Organization Details LastModified Time 03/07/2024 03/07/2024 Chilango Castaneda is a 83 [...] Recorded Time Spinal stenosis of lumbar region 64207223 Active Gelacio dao MD [address] [facility] , [address], [place], [address], [place] [facility] 0 12:43:58 Lumbosacral spondylosis without myelopathy 41749449 Active Gelacio dao MD [address] [facility] , [address], [place], [address], [place] [facility] 0 12:43:52 Lumbosacral radiculopathy 6183572 Active Gelacio dao MD [address] [facility] , [address], [place], [address], [place] [facility] 0 12:43:45 Degeneration of lumbar intervertebral disc 91990043 Active Gelacio dao MD [address] [facility] , [address], [place], [address], [place] [facility] 0 12:43:39 Problem Notes None recorded. Procedures Surgical History Date Name Laterality Status Provider Name and Address Organization Details Recorded Time 03/07/19 25 Lumbar Epidural steroid injection under fluoroscopic guidance completed Gelacio Brandon MD [address] [facility] , [address], [place], [address], [place] [facility] 03/07/2024 14:42:43 10/27/19 24 Sacroiliac Joint Steroid Injections, using Fluoroscopy completed Gelacio Brandon MD [address] [facility] , [address], [place], [address], [place] [facility] 10/27/2023 14:28:18 07/21/19 24 Sacroiliac Joint Steroid Injections, using Fluoroscopy completed Gelacio Brandon MD [address] [facility] , [address], [place], [address], [place] [facility] 07/21/2023 14:04:50 04/06/19 24 Sacroiliac Joint Steroid Injections, using Fluoroscopy completed Gelacio Brandon MD [address] [facility] , [address], [place], [address], [place] [facility] 04/06/2023 14:20:11 01/13/20 23 Sacroiliac Joint Steroid Injections, using Fluoroscopy completed Gelacio Brandon MD [address] [facility] , [address], [place], [address], [place] [facility] 01/12/2023 16:28:52 11/18/19 23 Lumbar Epidural steroid injection under fluoroscopic guidance completed Gelacio Brandon MD [address] , [address], [place], [address], [place] [facility] 11/17/2022 14:51:27 08/13/19 23 Lumbar Epidural steroid injection under fluoroscopic guidance completed Gelacio Brandon MD [address] [facility] , [address], [place], [address], [place] [facility] 08/12/2022 14:25:49 08/09/19 22 Back Surgery completed Gelacio Brandon MD [address] [facility] , [address], [place], [address], [place] [facility] 07/20/2022 14:13:28 06/11/19 22 Lumbar Epidural steroid injection under fluoroscopic guidance completed Gelacio Brandon MD [address] [facility] , [address], [place], [address], [place] [facility] 2021 14:03:14 04/23/19 22 Lumbar median branch block under fluroscopic guidance completed Gelacio Brandon MD [address] [facility] , [address], [place], [address], [place] [facility] 04/22/2021 10:48:55 02/06/20 21 Lumbar Epidural steroid injection under fluoroscopic guidance completed Gelacio Brandon MD [address] [facility] , [address], [place], [address], [place] [facility] 02/05/2021 14:32:09 10/24/19 21 Lumbar Epidural steroid injection under fluoroscopic guidance completed Gelacio Brandon MD [address] [facility] , [address], [place], [address], [place] [facility] 10/23/2020 09:22:59 07/18/19 21 Lumbar Epidural steroid injection under fluoroscopic guidance completed Gelacio Brandon MD [address] [facility] , [address], [place], [address], [place] [facility] 07/17/2020 10:24:07 04/17/19 21 Lumbar Epidural steroid injection under fluoroscopic guidance completed Gelacio Brandon MD [address] [facility] [address], [place], [address], [facility] Pain Management 04/16/2020 09:56:53 01/16/20 20 Lumbar Epidural steroid injection under fluoroscopic guidance completed Gelacio Brandon MD [address] [facility] , [address], [place], [address], [facility] Pain Management 01/16/2020 16:07:28 Imaging Results None recorded. Procedure Notes None recorded. Medical Equipment None Reported. Allergies Allergen ID Allergen Name Allergen Category Reaction Reaction Severity Criticality Documentation Date Start Date Code Code System Note Provider Name and Address Organization Details Recorded Time 38655 Product containin g penicilli n (product) medicatio n rash Not available Not available 12/22/2019 57990 8001 SNOMED Gelacio dao MD [address] [facility] , [address], [place], [address], [facility] Pain Management 0 10:42:41 Medications Name Sig [...] % 134 mm[Hg] 67 mm[Hg] Destiny Nicholson [place] [facility] 5 14:21:39 Social History Question Answer Notes LastModified by Organizat ion Details LastModified Time Tobacco Smoking Status Never Smoker Gelacio Brandon MD [address] [place] [address] , [address], [place], [address] [place] [facility] 12/22/2019 10:48:57 What Is Your Level Of Alcohol Consumption? None Information not available 12/22/2019 Which Illicit Or Recreational Drugs Have You Used? None Information not available 12/22/2019 Education 2 Year College Information not available 12/22/2019 What Is Your Occupation? Retired [employer] Information not available 12/22/2019 Live Alone [...] SNOMED-CT Code Diagnosis ICD10 Code Diagnosis Note [id number] Gelacio Brandon MD PAIN OFFICE [address] [facility],[address] [place] [address] 03/07/2024 14:14:46 03/07/2024 14:54:15 Spinal stenosis of lumbar region 84336732 M48.061 M48.062 Lumbosacra l spondylosis without myelopathy 08272738 M47.817 Lumbosacra l radiculopathy 2569907 M54.17 Degenerati on of lumbar intervertebral disc 46620822 M51.362 Lumbar post-laminectomy syndrome 963208376 M96.1 Health Concerns Section Related Observation LastModified by Organization Detai ls LastModified Time None Recorded Concern Status LastModified by Organization Details LastModified Time None Recorded Payers Encounter Date Sequence Insurance Name Policy Number Policy Jhaveri Covered Member ID Jhaveri Member ID Guarantor Name 03/07/2024 1 [employer] - MEDICARE ADVANTAGE PLAN (MEDICARE REPLACEMENT HMO) [id number] 1 Chilango Castaneda [id number] Chilango Castaneda Notes Date Note Type Note Provider Name and Address Organization Details Recorded Time 03/07/2024 text/html He is here today for a lumbar epidural steroid injection under fluoroscopic guidance. He has stopped Xarelto three days prior to the procedure Gelacio Brandon MD [address] , [address], [place], [address], [facility] Pain Management 03/07/2024 15:19:39
--- OUTSIDE RECORDS SUMMARY | 2024-03-28 12:33 | XMS_ITS ---
Author Organization [facility] CenteriatrGeorge [facility]alkar lydia Tutor Key Address [address] [facility] [place] [address] Care Team Providers Care Customer Support Manager Name Role Phone Timoteo SERRA, Gorge Primary Care Provider Nida Carnes Unavailable [phone] Allergies Allergen (clinical drug ingredient) Drug/Non Drug Allergy documented on EMR Reaction Allergy Type Onset Date Status Penicillin rash Drug Allergy Active REASON FOR VISIT Pcp-08/01, At Risk Footcare, Painful Nail(s) aggravated by shoes and causing difficulty standing/walking., Foot pain Medications Medication SIG (Take, Route, Frequency, Duration) Notes Start Date End Date Status Amiodarone HCl 200 MG 1 tablet Orally On ce a day Active Finasteride 5 MG 1 tablet Orally Once a day Active Amlodipine & Diet Manage Prod 5 mg Active Doxazosin Mesylate 2 MG 1 tablet Orally Once a day for 30 day(s) Active Allopurinol 300 MG 1 tablet Orally Once a day for 30 day(s) Active Losartan Potassium N ot-Taking Xarelto 20 MG 1 tablet Orally Once a day Active Furosemide 40mg Active Metoprolol Succinate 50 MG 1 capsule Orally Once a day Active Irbesartan 300 MG 1 tablet Orally Once [...] W/U Status Risk Notes Problem Atherosclerosis of nikolai artery of both lower extremities, with unspecified presence of clinical manifestation (I70.203) Active confirmed Vital Signs Height 5 ft 9 in in 09/15/2023 Weight 190 lbs 09/15/2023 BMI 28.06 kg/m2 09/15/2023 Blood pressure systolic 170 mm Hg 09/15/19 24 Blood pressure diastolic 82 mm Hg 024 Encounters Encounter Location Date Provider Diagnosis [facility] [address] [place] [address] 09/15/2023 Nida Lilly Pain in left foot M79.672 ; Metatarsalgia, left foot M77.42 ; Atherosclerosis of nikolai artery of both lower extremities, with unspecified presence of clinical manifestation I70.203 ; Tinea unguium B35.1 ; Pain in right toe(s) M79.674 ; Pain in left toe(s) M79.675 and Pain in left ankle and joints of left foot M25.572 Assessments Encounter Date Diagnosis (ICD Code) Assessment Notes Treatment Notes Treatment Clinical Notes Section Notes 09/15/2023 Pain in left foot (ICD-10 - M79.672) 09/15/2023 Metatarsalgia, left foot (ICD-10 - M77.42) 09/15/2023 Atherosclerosis of nikolai artery of both lower extremities, with unspecified presence of clinical manifestation (ICD-10 - I70.203) 09/15/2023 Tinea unguium (ICD-10 - B35.1) 09/15/2023 Pain in right toe(s) (ICD-10 - M79.674) 09/15/2023 Pain in left toe(s) (ICD-10 - M79.675) 09/15/2023 Pain in left ankle and joints of left foot (ICD-10 - M25.572) Plan Of Treatment Next Appt Details Follow Up: 2 Months, Reason: Provider Name:Nida serrano, 04/26/2024 09:00:00 AM, [address] [place], [address], Procedure Notes * Category Sub-Category Detail Notes Debride Nail 6-10 Nail debridement Nail debridem ent performed extensively to reduce/remove overall nail length, girth, thickness, subungual debris, and necrotic tissue, by manual and electrical means through the use of a nail nipper and/or dremel, to more viable healthy nail plate or bed tissue 6-10. Silver nitrate used for any petechial bleeding as necessary. Patient chooses, no pharmaceutical tx (26446) Keratoma Treatment Parring or Cutting o f Benign Hyperkeratotic Lesion(s) 10320 ( 2-4 Lesions ) - The Benign hyperkeratotic lesions, as described above were pared, and/or cut utilizing a sterile 15 blade, tissue nippers, and/or dremel, Q8 Progress Notes * Chilango CASTANEDADOB: [birth year] (83 yo M)Acc No.[id number]:09/15/2023 Progress Notes Patient:?Chilango Castaneda Provider:?Nida Lilly DPM :1940???Age:83 Y???Sex:Male Nahum e:09/15/2023 Address:[address] [place] [address], [facility]. [id number] Pcp:Gorge Mahmood MD Subjective: * Chief Complaints: * ???Pcp-08/01At Risk Footcare Painful Nail(s) aggravated by shoes and causing difficulty standing/walking.Foot pain * HPI: ???At Risk footcare:?Pt States Last PCP Visit:?Date?07/21/2023 ???Foot Pain:?Location:?Bottom, Forefoot, LEFT.?Course:?worse.?Treatments:?rest/alter normal daily activity.? * ROS:?General/Constitutional:?Nausea?denies.?Vomiting?denies.?Hunger Thirst?denies.?Loss appetite?denies.?Chills?denies.?Fatigue?denies.?Fever?denies.?Night Sweats?denies.?Unexplained weight loss?denies.?Unexplained weight gain?denies.?HEENTM:?Dentures?denies.?Dizziness?denies.?Glasses/contacts?denies.?Retinopathy?de nies.?Blurred/double vision?denies.?TMJ?denies.?Discharge/drainage?denies.?Implants?denies.?Sore throat?denies.?Dental implants?denies.?Hard of hearing ?denies.?Difficulty chewing/swallowing/speaking?denies.?Nose bleeds?denies.?Sore mouth?denies.?Respiratory:?On Oxygen?denies.?Pneumonia/pleurisy?denies.?Bronchitis?denies.?Emphysema?denies.?C oughing?denies.?Cough blood?denies.?Shortness of breath?denies.?Wheezing?denies.?Cardiovascular:?Pacemaker?denies.?MVP?denies.?WPW?denies.?CHF?denies.?Heart attack?denies.?Septal defect?denies.?Rapid beat?denies.?Chest pain ?denies.?Atrial Fib.?admits.?Murmur/Palpitations?denies.?Gastrointestinal:?Hemorrhoids?denies.?Stomach/Abdominal pain?denies.?Dark blood stool?denies.?Irritable bowel ?denies.?Constipation?denies.?Diarrhea?denies.?Hematology:?Swelling?denies.?Clots?denies.?Varicose Veins?denies.?Bruising?denies.?Bleeding problem?denies.?Genitourinary:?Blood urine?denies.?Frequent/Painfu/urination/bladder control?denies.?Kidney stones?denies.?Infection (UTI)?denies.?Nephropathy?denies.?sex trans dis (STD)?denies.?Prostate?denies.?Musculoskeletal:?Hammertoes?denies.?Bunions?denies.?Back Pain?admits.?Muscle Cramps/ Resting?denies.?Muscle cramps / walking?denies.?Generalized aches and pains?denies.?Weakness?denies.?Integ.:?Lopez?denies.?Scars?denies.?Corns/calluses?admits.?Ingrown nails?denies.?Painful nails?denies.?Open Sores?denies.?Rashes?denies.?Neurologic:?Difficulty sleeping?denies.?Brain disorder?denies.?Numbness?denies.?Balance trouble?denies.?Confusion?denies.?Fainting/blackouts?denies.?Tingling?denies.?Tr emors?denies.? * Medical History:? * Surgical History:?spine surg bernadette 2appendectomy * Hospitalization/Major Diagno stic Procedure:?Denies Past Hospitalization * Family History:?Mother: dece ased, cancer.? * Social History:?Tobacco Use:?Tobacco Use/Smoking?Are you a:?nonsmoker ?Tobacco use other than smoking?Are you an other tobacco user??No ???Drugs/Alcohol:?Drugs?Have you used drugs other than those for medical reasons in the past 12 months??No ?Alcohol Screen?Did you have a drink containing alcohol in the past year??No ?Points?0 ?Interpretation?Negative ???Miscellaneous:?Caffeine: yes, frequency:, 2-3 cups per day. ?Children: yes. ?no Exercise. ?Marital status: . ?Occupation: Retired. * Medications:?TakingMetoprolo l Succinate 50 MG Capsule ER 24 Hour Sprinkle 1 capsule Orally Once a dayIrbesartan 300 MG Tablet 1 tablet Orally Once a dayAmiodarone HCl 200 MG Tablet 1 tablet Orally Once a dayFinasteride 5 MG Tablet 1 tablet Orally Once a dayAmlodipine & Diet Manage Prod , Notes: 5 mgDoxazosin Mesylate 2 MG Tablet 1 tablet Orally Once a dayAllopurinol 300 MG Tablet 1 tablet Orally Once a dayXarelto 20 MG Tablet 1 tablet Orally Once a dayFurosemide , Notes: 40mgTaking Metoprolol Succinate 50 MG Capsule ER 24 Hour Sprinkle 1 capsule Orally Once a dayTaking Irbesartan 300 MG Tablet 1 tablet Orally Once a dayTaking Amiodarone HCl 200 MG Tablet 1 tablet Orally Once a dayTaking Finasteride 5 MG Tablet 1 tablet Orally Once a dayTaking Amlodipine & Diet Manage Prod , Notes: 5 mgTaking Doxazosin Mesylate 2 MG Tablet 1 tablet Orally Once a dayTaking Allopurinol 300 MG Tablet 1 tablet Orally Once a dayTaking Xarelto 20 MG Tablet 1 tablet Orally Once a dayTaking Furosemide , Notes: 40mgNot-Taking/PRNLosartan Potassium Medication List reviewed and reconciled with the patientNot-Taking/PRN Losartan Potassium Medication List reviewed and reconciled with the patient * Allergies:?Penicillin: rashy es[Allergies Verified] Objective: * Vitals:?Ht: 5 ft 9 in, Wt:19 0, BMI:28.06, Shoe size:9.5, BP: 170/82 mm Hg. * Examination: ???Vascular: ?DP PULSES:? 0/4, B/L.?PT PULSES:? 0/4, B/L.?CAPILLARY FILL TIME:? delayed, all digits, B/L.?SKIN TEMPERTURE GRADIENT OF THE LOWER EXTERMITIES:? decreased, cool to cool, proximal to distal, B/L.?HAIR GROWTH/TEXTURE/ELASTICITY/TURGOR:? decreased, B/L.?CLAUDICATION:?denies, B/L.?REST PAIN:?denies, B/L.?Nails: ?NAILS are:? Elongated, overgrown, dystrophic, lytic, greater than 3mm thick, discolored and friable with crumbly malodorous subungual debris, with pain on palpation, 1-5 B/L.?Dermatologic: ?SKIN FINDINGS:? Skin exam reveals Keratotic lesion(s) located at, SUB MTH (s), 5, Left, Heel(s), , B/L.?Orthopedic: ?MUSCLE STRENGTH:?5/5 all groups in a symmetrical fashion, B/L.?MPJ PATHOLOGY:? Plantarflexed MT/MPJ, Atrophied anterior fat pad, 5th, LEFT.?Neurological: ?SENSORY:?Neurological exam reveals intact sensorium, pain sensation normal, vibration sensation intact, pinprick sensation is normal in the lower extremities, Pt denies, anesthesia, burning, paresthesia, tingling, B/L.?TINEL'S COMPRESSION:? Negative tarsal tunnel, brian pedis, and medial calcaneal nerves, Left.?General Examination: ?GENERAL APPEARANCE:?Reveals a pleasant, alert, well nourished, well- developed, well hydrated individual, who demonstrates proper attention to hygiene/body habitus, and is in no acute distress, Pt serves as own historian for office visit today.?ORIENTED:?person, place, and time.?Neuroma Pain: ?PALPATION:?No interspace pain noted on palpation, LEFT.? Assessment: * Assessment: 1.?Metatarsalgia, left foot - M77.42 (Primary)?2.?Pain in left foot - M79.672?3.?Atherosclerosis of nikolai artery of both lower extremities, with unspecified presence of clinical manifestation - I70.203?4.?Tinea unguium - B35.1?5.?Pain in right toe(s) - M79.674?6.?Pain in left toe(s) - M79.675?7.?Pain in left ankle and joints of left foot - M25.572? Plan: * Treatment: * Procedures:?Debride Nail 6-10:?Nail debridement?Nail debridement performed extensively to reduce/remove overall nail length, girth, thickness, subungual debris, and necrotic tissue, by manual and electrical means through the use of a nail nipper and/or dremel, to more viable healthy nail plate or bed tissue 6-10. Silver nitrate used for any petechial bleeding as necessary. Patient chooses, no pharmaceutical tx ([id number]).?Keratoma Treatment:?Parring or Cutting of Benign Hyperkeratotic Lesion(s)?73714 ( 2-4 Lesions ) - The Benign hyperkeratotic lesions, as described above were pared, and/or cut utilizing a sterile 15 blade, tissue nippers, and/or dremel, Q8.? * Procedure Codes:?18616 DEBRI DE NAIL, 6 OR MORE, Modifiers: XS 77509 TRIM SKIN LESIONS, 2 TO 4, Modifiers: XS , Q8 * Preventive Medicine:? ??Counseling:?Discussion:?-03: Office or other outpatient visit for the evaluation and management of a new patient, which required a medically appropriate history and/or examination and LOW level of DECISION MAKING for: 1 STABLE ACUTE UNCOMPLICATED PROBLEM, 2 OR MORE MINOR PROBLEMS, OR 1 STABLE CHRONIC PROBLEM, THAT POSE(S) A LOW RISK FOR MORBIDITY/MORTALITY. The visit on the day of the encounter encompassed interpreting the data and educating the patient as to the nature of their condition, treatment options available according to their individual PMH, meds, allergies, and overall health/living conditions, as well as any potential risks or complications that may occur from a failure to adhere to, and participate in, the recommended course of therapy. The discussion included a complete verbal, and/or written explanation of the examination results, any x-rays taken, the proposed diagnosis, and outline of the treatment plan. A schedule for future care needs was also explained. The patient verbalized an understanding of the instructions at this time and agreed to be an active participant in their treatment. If the patient should think of any questions or concerns after the visit, I have encouraged the patient to call the office.?Metatarsalgea:?I explained to the patient the possible etiologies of their Metatarsalgea Foot pain, including foot type/shoegear/activity level/exercise routine and the risks/benefits of all the different treatment options for pain including: No treatment at all, Rest, Ice, NSAIDs(only if well tolerated after meals), New/supportive Shoegear, Strappings and Tapings, Foot/Ankle AFO Bracing, Stretching exercises, Deep Tissue Massage, Arch support/shoe inserts, Custom orthoses, Topical analgesics including Aspercream/Voltaren gel, Physical Therapy, Cortisone injection therapy, EPAT/ESWT. Advantages and disadvantages of each option were discussed and the patients questions re: shoegear, custom vs prefabricated inserts, activity level, PO vs Topical medications (and their respective potential complications/drug interactions/side effects), and consistency in home treatment regimens for optimal success were answered to their verbally confirmed satisfaction.?Orthotics:?I explained to the patient the benefits of OT use. I explained that orthoses are medically necessary to decrease the foot pain through proper mechanical control, support of their foot.?P.R.I.C.E.:?The patient was counseled on the use of P.R.I.C.E. and NSAIDS (if well tolerated) to aid in the recovery from their painful condition.?Shoe Gear Counseling:?The patient and I reviewed the types of shoes they should be wearing. My recommendation included obtaining a well-fitted shoe with a good supportive, non-foldable nor twistable sole, plenty of toe/room for the forefoot, and proper arch support. Based on todays examination, I recommended the patient look for new shoes, by having their feet professionally measured. We discussed that generally the best time of the day for a shoe fitting is the afternoon. Different shoes types and brands to best match the patients occupation and vocation were discussed. Specific brand selection will be up to the patient, their individual foot condition/deformities, and fit. The patient and I reviewed the standard new shoe break in period by wearing them for a few hours a day while checking for redness or sores as wear time is increased. The patient verbally confirmed to understanding the information discussed.? * Follow Up:?2 Months * Images: * Sign off status: Completed true * Provider:Jarad Lilly, DPZach Date:?08/2023 Generated for Danial montez/[place]/eTransmitting on:?03/28/2024 12:32 PM EST History and Physical Notes * HPI (History of Present Illness) Category Sub-Category Detail Notes Category Not es At Risk footcare Pt States Last PCP Visit: Date: 4 Foot Pain Location: Bottom, Forefoot, LEFT Course: worse Treatments: rest/alter normal da martha activity Examination Category Sub-Category Detail Notes Category Not es Neuroma Pain PALPATION: No interspace pain noted on palpation, LEFT Neurological SENSORY: Neurological exa m reveals intact sensorium, pain sensation normal, vibration sensation intact, pinprick sensation is normal in the lower extremities, Pt denies, anesthesia, burning, paresthesia, tingling, B/L TINEL'S COMPRESSION: Negative tarsal lonny agnes, brian pedis, and medial calcaneal nerves, Left Dermatologic SKIN FINDINGS: Skin exam reveal s Keratotic lesion(s) located at, SUB MTH (s), 5, Left, Heel(s), , B/L Orthopedic MPJ PATHOLOGY: Plantarflexed MT /MPJ, Atrophied anterior fat pad, 5th, LEFT MUSCLE STRENGTH: 5/5 all groups in a symmetrical fashion, B/L General Examination GENERAL APPEARANCE: Reveals a pleasant, alert, well nourished, well-developed, well hydrated individual, who demonstrates proper attention to hygiene/body habitus, and is in no acute distress, Pt serves as own historian for office visit today ORIENTED: person, place, and t arthur Vascular DP PULSES (B): 0/4, B/L PT PULSES (B): 0/4, B/L CAPILLARY FILL TIME: delayed, all digits , B/L TEMPERTURE GRADIENT (C): decreased, cool to cool, proximal to distal, B/L TROPHIC CONDITION-TEXTURE/ELASTICITY/TURGOR/HAIR GROWTH (B): decreased, B/L CLAUDICATION (C): denies, B/L REST PAIN: denies, B/L Nails NAILS are: Elongated, overg rown, dystrophic, lytic, greater than 3mm thick, discolored and friable with crumbly malodorous subungual debris, with pain on palpation, 1-5 B/L
--- OUTSIDE RECORDS SUMMARY | 2024-03-28 12:33 | XMS_ITS ---
Author Organization [facility] lydia Wales Address [address] [place] [address] Care Team Providers Care Breakfast Supervisor Name Role Phone Timoteo SERRA, Gorge Primary Care Provider Nida Carnes Unavailable [phone] Allergies Allergen (clinical drug ingredient) Drug/Non Drug Allergy documented on EMR Reaction Allergy Type Onset Date Status Penicillin rash Drug Allergy Active REASON FOR VISIT At Risk Footcare, Painful Nail(s) aggravated by shoes and causing difficulty standing/walking., Foot pain Medications Medication SIG (Take, Route, Frequency, Duration) Notes Start Date End Date Status Furosemide 40mg Active Xarelto 20 MG 1 tablet Orally Once a day Active Allopurinol 300 MG 1 tablet Orally Once a day for 30 day(s) Active Doxazosin Mesylate 2 MG 1 tablet Orally Once a day for 30 day(s) Active Losartan Potassium N ot-Taking Amlodipine & Diet Manage Prod 5 mg Active Irbesartan 300 MG 1 tablet Orally Once a day Active Metoprolol Succinate 50 MG 1 capsule Orally Once a day Not-Taking Finasteride 5 MG 1 tablet Orally Once a day Active Amiodarone HCl 200 MG 1 tablet Orally On ce a day Active Social History Tobacco Use: [...] Are you an other tobacco user? No Vital Signs Height 5 ft 9 in in 12/03/2023 Weight 190 lbs 12/03/2023 BMI 28.06 kg/m2 12/03/2023 Blood pressure systolic 170 mm Hg 12/03/19 24 Blood pressure diastolic 82 mm Hg 024 Encounters Encounter Location Date Provider Diagnosis [facility] [address] [address] 12/03/2023 Nida Lilly Pain in left foot M79.672 ; Metatarsalgia, left foot M77.42 ; Atherosclerosis of [place] artery of both lower extremities, with unspecified presence of clinical manifestation I70.203 ; Tinea unguium B35.1 ; Pain in right toe(s) M79.674 ; Pain in left toe(s) M79.675 and Pain in left ankle and joints of left foot M25.572 Assessments Encounter Date Diagnosis (ICD Code) Assessment Notes Treatment Notes Treatment Clinical Notes Section Notes 12/03/2023 Pain in left foot (ICD-10 - M79.672) 12/03/2023 Metatarsalgia, left foot (ICD-10 - M77.42) 12/03/2023 Atherosclerosis of [place] band artery of both lower extremities, with unspecified presence of clinical manifestation (ICD-10 - I70.203) 12/03/2023 Tinea unguium (ICD-10 - B35.1) 12/03/2023 Pain in right toe(s) (ICD-10 - M79.674) 12/03/2023 Pain in left toe(s) (ICD-10 - M79.675) 12/03/2023 Pain in left ankle and joints of left foot (ICD-10 - M25.572) Plan Of Treatment Next Appt Details Follow Up: 2 Months, Reason: Provider Name:Nida serrano, 04/26/2024 09:00:00 AM, [address] [place] [address], [id number], Procedure Notes * Category Sub-Category Detail Notes [...] as necessary. Patient chooses, no pharmaceutical tx (33329) Keratoma Treatment Parring or Cutting o f Benign Hyperkeratotic Lesion(s) 42781 ( 2-4 Lesions ) - The Benign hyperkeratotic lesions, as described above were pared, and/or cut utilizing a sterile 15 blade, tissue nippers, and/or jg, Q8 Progress Notes * Chilango CASTANEDADOB: [birth year] (83 yo M)Acc No.[id number]:12/03/2023 Progress Note Patient:?Chilango Castaneda Provider:?Nida Lilly DPM :1940???Age:83 Y???Sex:Male Nahum e:12/03/2023 Address:[address] [place], [place] [id number] Pcp:Gorge Mahmood MD Subjective: * Chief Complaints: * ???At Risk FootcarePainful N ail(s) aggravated by shoes and causing difficulty standing/walking.Foot pain * HPI: ???At Risk footcare:?Pt States Last PCP Visit:?Date?11/09/2023 ???Foot Pain:?Location:?Bottom, Forefoot, LEFT.?Treatments:?rest/alter normal daily activity , change in shoes-New Balance , innersoles , padding.? * ROS:?General/Constitutional:?Nausea?denies.?Vomiting?denies.?Hunger Thirst?denies.?Loss appetite?denies.?Chills?denies.?Fatigue?denies.?Fever?denies.?Night Sweats?denies.?Unexplained weight loss?denies.?Unexplained weight gain?denies.?HEENTM:?Dentures?denies.?Dizziness?denies.?Glasses/contacts?denies.?Retinopathy?de nies.?Blurred/double vision?denies.?TMJ?denies.?Discharge/drainage?denies.?Implants?denies.?Sore throat?denies.?Dental implants?denies.?Hard of hearing ?denies.?Difficulty chewing/swallowing/speaking?denies.?Nose bleeds?denies.?Sore mouth?denies.?Respiratory:?On Oxygen?denies.?Pneumonia/pleurisy?denies.?Bronchitis?denies.?Emphysema?denies.?C oughing?denies.?Cough blood?denies.?Shortness of breath?denies.?Wheezing?denies.?Cardiovascular:?Pacemaker?denies.?MVP?denies.?WPW?denies.?CHF?denies.?Heart attack?denies.?Septal defect?denies.?Rapid beat?denies.?Chest pain ?denies.?Atrial Fib.?admits.?Murmur/Palpitations?denies.?Gastrointestinal:?Hemorrhoids?denies.?Stomach/Abdominal pain?denies.?Dark blood stool?denies.?Irritable bowel ?denies.?Constipation?denies.?Diarrhea?denies.?Hematology:?Swelling?denies.?Clots?denies.?Varicose Veins?denies.?Bruising?denies.?Bleeding problem?denies.?Genitourinary:?Blood urine?denies.?Frequent/Painfu/urination/bladder control?denies.?Kidney stones?denies.?Infection (UTI)?denies.?Nephropathy?denies.?sex trans dis (STD)?denies.?Prostate?denies.?Musculoskeletal:?Hammertoes?denies.?Bunions?denies.?Back Pain?admits.?Muscle Cramps/ Resting?denies.?Muscle cramps / walking?admits.?Generalized aches and pains?admits.?Weakness?denies.?Integ.:?Lopez?denies.?Scars?denies.?Corns/calluses?admits.?Ingrown nails?denies.?Painful nails?denies.?Open Sores?denies.?Rashes?denies.?Neurologic:?Difficulty sleeping?denies.?Brain disorder?denies.?Numbness?denies.?Balance trouble?denies.?Confusion?denies.?Fainting/blackouts?denies.?Tingling?denies.?Tr emors?denies.? * Medical History:? * Surgical History:?spine surg bernadette ppendectomy * Hospitalization/Major Diagno stic Procedure:?Denies Past Hospitalization [...] Exercise. ?Marital status: . ?Occupation: Retired. * Medications:?TakingIrbesarta n 300 MG Tablet 1 tablet Orally Once [...] Orally Once a dayFurosemide , Notes: 40mgTaking Irbesartan 300 MG Tablet 1 tablet Orally [...] Orally Once a dayTaking Furosemide , Notes: 40mgNot-Taking/PRNMetoprolol Succinate 50 MG Capsule ER 24 Hour Sprinkle 1 capsule Orally Once a dayLosartan Potassium Medication List reviewed and reconciled with the patientNot-Taking/PRN Metoprolol Succinate 50 MG Capsule ER 24 Hour Sprinkle 1 capsule Orally Once a dayNot-Taking/PRN Losartan Potassium Medication List reviewed and reconciled with the patient * Allergies:?Penicillin: rashy es[Allergies Verified] Objective: * Vitals:?Ht: 5 ft 9 in, Wt: 1 90, BMI: 28.06, Shoe size: 9.5, BP: 170/82 mm Hg, Wt-k.18 kg. * Examination: ???Vascular: ?DP PULSES(B):? 0/4, B/L.?PT PULSES(B):? 0/4, B/L.?CAPILLARY FILL TIME:? delayed, all digits, B/L.?TROPHIC CONDITION-TEXTURE/ELASTICITY/TURGOR/HAIR GROWTH(B):? decreased, B/L.?TEMPERTURE GRADIENT(C):? decreased, cool to cool, proximal to distal, B/L.?CLAUDICATION(C):?denies, B/L.?REST PAIN:?denies, B/L.?Nails: ?NAILS are:? Elongated, overgrown, dystrophic, lytic, greater than 3mm thick, discolored and friable with crumbly malodorous subungual debris, with pain on palpation, 1-5 B/L.?Dermatologic: ?SKIN FINDINGS:? Skin exam reveals Keratotic lesion(s) located at, SUB MTH (s), 5, Left, Heel(s), , B/L.?Orthopedic: ?MUSCLE STRENGTH:?5/5 all groups in a symmetrical fashion, B/L.?MPJ PATHOLOGY:? Plantarflexed MT/MPJ, Atrophied anterior fat pad, 5th, LEFT.?FOOTWEAR:?good condition, exhibit proper fit and accommodation for pedal deformities. OT were inspected and noted to be worn, but in good condition giving proper support at the present time.?Neurological: ?SENSORY:?Neurological exam reveals intact sensorium, pain sensation [...] noted on palpation, LEFT.? Assessment: * Assessment: 1.?Pain in left foot - M79.6 72?2.?Metatarsalgia, left foot - M77.42 (Primary)?3.?Atherosclerosis of [place] band artery of both lower extremities, with unspecified [...] as necessary. Patient chooses, no pharmaceutical tx (65378).?Keratoma Treatment:?Parring or Cutting of Benign Hyperkeratotic Lesion(s)?32700 ( 2-4 Lesions ) - The Benign hyperkeratotic lesions, as described above were pared, and/or cut utilizing a sterile 15 blade, tissue nippers, and/or dremel, Q8.? * Procedure Codes:?72994 DEBRI DE NAIL, 6 OR MORE, Modifiers: XS 64827 TRIM SKIN LESIONS, 2 TO 4, Modifiers: XS , Q8 * Preventive Medicine:? ??Counseling:?Discussion:?-13: Office or other outpatient visit for the evaluation and management of an established patient, which required a medically appropriate history [...] * Sign off status: Completed true * Provider:?Nida Lilly, DPZach Date:? Generated for Printi melida/[place]/eTransmitting on:?03/28/2024 12:32 PM EST History and Physical Notes * HPI (History of Present Illness) Category Sub-Category Detail Notes Category Not es At Risk footcare Pt States Last PCP Visit: Date: Foot Pain Location: Bottom, Forefoot, LEFT Treatments: rest/alter normal da martha activity , change in shoes-New Balance , innersoles , padding Examination Category Sub-Category Detail Notes Category Not [...] (s), 5, Left, Heel(s), , B/L Orthopedic FOOTWEAR: good condition, exhibit proper fit and accommodation for pedal deformities. OT were inspected and noted to be worn, but in good condition giving proper support at the present time MPJ PATHOLOGY: Plantarflexed MT/MPJ , Atrophied anterior fat pad, 5th, LEFT MUSCLE [...]
[2024-03-28 12:34] LABS: Alanine Aminotransferase 14 U/L (0-40); Albumin Level 3.6 g/dL (3.5-5.0); Alkaline Phosphatase 95 U/L (39-117); Anion Gap 12 (12-20); Aspartate Amino Transferase 18 U/L (5-37); Blood Urea Nitrogen 27 mg/dL (9-16); Calcium 8.4 mg/dL (8.4-10.2); Carbon Dioxide 23 mmol/L (22-29); Chloride 110 mmol/L (96-108); Cholesterol 143 mg/dL (<200); Estimated Glomerular Filt Rate 48; Glucose Fasting 97 mg/dL (60-99); HDL Cholesterol 56 mg/dL (>40); LDL Cholesterol Calculated 73 mg/dL (<100); Sodium 141 mmol/L (135-145); Total Protein 6.2 g/dL (6.5-8.0); Triglycerides 72 mg/dL (<150)
== END 2024-03-28 11:16 | disposition home or self-care (01) ==
LOC: HO.LNP 11:15
PROVIDERS: Visit Provider Internal Medicine
DX: Z00.00 Encounter for general adult medical examination without abnormal findings (principal); Z12.5 Encounter for screening for malignant neoplasm of prostate; D69.6 Thrombocytopenia, unspecified; R73.03 Prediabetes; R97.20 Elevated prostate specific antigen [PSA]; Z13.6 Encounter for screening for cardiovascular disorders
CPT/HCPCS: 80053; 80061; 81001; 82043; 82570; 83036; 84153; 85025

== ENCOUNTER 2024-06-20 09:48 | Outpatient (REF) | payer MEDICARE, SELFPAY ==
[2024-06-20 09:51] LABS: MANUAL DIFF FLAG NO
[2024-06-20 10:13] LABS: Basophils Percent Auto 0.4 % (0-2); Eosinophils Absolute Auto 0.1 X10*3/uL (0.0-0.4); Eosinophils Percent Auto 1.3 % (0-4); Hematocrit 42.1 % (42.0-52.0); Hemoglobin 14.4 g/dl (14.0-18.0); Imm Gran Abs Auto 0.06 X10*3/uL (0.00-0.03); Imm Gran Pct Auto 0.8 % (0.0-0.4); Lymphocytes Absolute Auto 2.1 X10*3/uL (1.2-4.9); Lymphocytes Percent Auto 27.5 % (20-40); Mean Corpuscular HGB Conc 34.2 g/dl (31.0-36.0); Mean Corpuscular Hemoglobin 34.4 pg (27.0-33.0); Mean Corpuscular Volume 100.5 fL (80.0-98.0); Mean Platelet Volume 11.1 fL (9.4-12.4); Monocytes Absolute Auto 0.5 X10*3/uL (0.1-1.2); Monocytes Percent Auto 6.7 % (2-11); Neutrophils Absolute Auto 4.9 x10*3/uL (2.0-8.3); Neutrophils Percent Auto 63.3 % (45-73); Platelet Count 124 X10*3/uL (160-400); Red Blood Count 4.19 X10*6/uL (4.60-5.80); Red Cell Distribution Width 13.3 % (11.0-16.0); White Blood Count 7.8 X10*3/uL (4.8-10.8)
--- OUTSIDE RECORDS SUMMARY | 2024-06-20 10:34 | XMS_ITS | Patient Health Record ---
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 Sheet Metal Worker Name Role Phone Gorge Mahmood MD Primary Care Provider Nida Carnes Unavailable [phone] Allergies Allergen (clinical drug ingredient) Drug/Non Drug [...] 1 capsule Orally Once a day Not-Taking Losartan Potassium N ot-Taking Amiodarone HCl 200 MG 1 tablet Orally On ce a day Active Irbesartan 300 MG 1 tablet Orally Once a day Active Amlodipine & Diet Manage Prod 5 mg Active Finasteride 5 MG 1 tablet Orally Once a day Active Allopurinol 300 MG 1 tablet Orally Once a day for 30 day(s) Active Doxazosin Mesylate 2 MG 1 tablet Orally Once a day for 30 day(s) Active Social History Tobacco Use: Social History Observation Description Date Details (start date - stop date) Never Smoker NA - NA Tobacco use other than smoking: Question Answer Notes Are you an other tobacco user? No Tobacco Control (Standard) Question Answer Notes Tobacco use: Nonsmoker Additional Findings: Tobacco non-user Current no nsmoker AUDIT-C (Standard) Question Answer Notes Did you have a drink containing alcohol in the p ast year? No Points 0 Interpretation Negative Problems Problem Type SNOMED Code ICD Code Onset Dates Problem Status W/U Status Risk Notes Problem Atherosclerosis of [place] artery of both lower extremities, with unspecified presence of clinical manifestation (I70.203) Active confirmed Vital Signs Blood pressure diastolic 80 mm Hg 04/26/2024 Height 5 ft 9 in in 04/26/2024 Blood pressure systolic 170 mm Hg 04/26/2024 Weight 195 lbs 04/26/2024 BMI 28.79 kg/m2 04/26/2024 Encounters Encounter Location Date Provider Diagnosis [address] [address] 09/15/2023 Nida Perica Pain in left foot M79.672 ; Metatarsalgia, left foot M77.42 ; Atherosclerosis of [place] artery of both lower extremities, with unspecified presence of clinical manifestation I70.203 ; Tinea unguium B35.1 ; Pain in right toe(s) M79.674 ; Pain in left toe(s) M79.675 and Pain in left ankle and joints of left foot M25.[address] [address] 12/03/2023 Nida Perica Pain in left foot M79.672 ; Metatarsalgia, left foot M77.42 ; Atherosclerosis of [place] artery of both lower extremities, with unspecified presence of clinical manifestation I70.203 ; Tinea unguium B35.1 ; Pain in right toe(s) M79.674 ; Pain in left toe(s) M79.675 and Pain in left ankle and joints of left foot M25.[address] [address] 04/26/2024 Nida Perica Pain in left foot M79.672 ; Metatarsalgia, left foot M77.42 ; Atherosclerosis of [place] artery of both lower extremities, with unspecified [...] Pain in left foot (ICD-10 - M79.672) 04/26/2024 Pain in left foot (ICD-10 - M79.672) 04/26/2024 Metatarsalgia, left foot (ICD-10 - M77.42) 09/15/2023 Atherosclerosis of [place] artery of both lower extremities, with unspecified presence of clinical manifestation (ICD-10 - I70.203) 12/03/2023 Metatarsalgia, left foot (ICD-10 - M77.42) 09/15/2023 Tinea unguium (ICD-10 - B35.1) 12/03/2023 Atherosclerosis of [place] artery of both lower extremities, with unspecified presence of clinical manifestation (ICD-10 - I70.203) 04/26/2024 Atherosclerosis of [place] artery of both lower extremities, with unspecified presence of clinical manifestation (ICD-10 - I70.203) 04/26/2024 Tinea unguium (ICD-10 - B35.1) 12/03/2023 Tinea unguium (ICD-10 - B35.1) 09/15/2023 Pain in right toe(s) (ICD-10 - M79.674) 12/03/2023 Pain in right toe(s) (ICD-10 - M79.674) 09/15/2023 Pain in left toe(s) (ICD-10 - M79.675) 04/26/2024 Pain in right toe(s) (ICD-10 - M79.674) 04/26/2024 Pain in left toe(s) (ICD-10 - M79.675) 09/15/2023 Pain in left ankle and joints of left foot (ICD-10 - M25.572) 12/03/2023 Pain in left toe(s) (ICD-10 - M79.675) 04/26/2024 Pain in left ankle and joints of left foot (ICD-10 - M25.572) 12/03/2023 Pain in left ankle and joints of left foot (ICD-10 - M25.572) Plan Of Treatment Next Appt Details Provider Name:Nida serrano, 07/26/2024 09:00:00 AM, [address] [place], [address], Insurance Providers Payer Name Payer Address Payer Phone Subscriber Number Group Number Insured Name Patient Relationship to Insured Coverage Start Date Coverage End Date [employer] [address] [place] [address] [id number] Chilango Castaneda Self - patient is the insured 4 Medical (General) History Medical History History ICD Code Back,Hip,and Knee pain Gout Heart disease High blood pressure Psoriasis/eczema Surgical History Surgery Date(Month/Year) spine surgery 2021 appendectomy
--- OUTSIDE RECORDS SUMMARY | 2024-06-20 10:35 | XMS_ITS ---
Author Organization [facility] lydia [place] Address [address] [facility] [place] [address] Care Team Providers Care Coke Worker Name Role Phone Timoteo SERRA, Gorge Primary Care Provider Nida Carnes Unavailable [phone] Allergies Allergen (clinical drug ingredient) Drug/Non Drug [...] a day Not-Taking Losartan Potassium N ot-Taking Allopurinol 300 MG 1 tablet Orally Once a day for 30 day(s) Active Amiodarone HCl 200 MG 1 tablet [...] ast year? No Points 0 Interpretation Negative Vital Signs Height 5 ft 9 in in 04/26/2024 Weight 195 lbs 04/26/2024 BMI 28.79 kg/m2 04/26/2024 Blood pressure systolic 170 mm Hg 04/27/19 25 Blood pressure diastolic 80 mm Hg 025 Encounters Encounter Location Date Provider Diagnosis [facility] [address] [place] [address] 04/26/2024 Nida Aiyanazach Pain in left foot M79.672 ; Metatarsalgia, left foot M77.42 ; Atherosclerosis of [place] artery of both lower extremities, with unspecified presence of clinical manifestation I70.203 ; Tinea unguium B35.1 ; Pain in right toe(s) M79.674 ; Pain in left toe(s) M79.675 and Pain in left ankle and joints of left foot M25.572 Assessments Encounter Date Diagnosis (ICD Code) Assessment Notes Treatment Notes Treatment Clinical Notes Section Notes 04/26/2024 Pain in left foot (ICD-10 - M79.672) 04/26/2024 Metatarsalgia, left foot (ICD-10 - M77.42) 04/26/2024 Atherosclerosis of [place] artery of both lower extremities, with unspecified presence of clinical manifestation (ICD-10 - I70.203) 04/26/2024 Tinea unguium (ICD-10 - B35.1) 04/26/2024 Pain in right toe(s) (ICD-10 - M79.674) 04/26/2024 Pain in left toe(s) (ICD-10 - M79.675) 04/26/2024 Pain in left ankle and joints of left foot (ICD-10 - M25.572) Plan Of Treatment Next Appt Details Follow Up: 2.5 Months, Reaso n: Provider Name:Nida serrano, 07/26/2024 09:00:00 AM, [address] [place], [address], Procedure Notes * Category Sub-Category Detail Notes Debride Nail 6-10 Nail debridement Due to the cl inical pathology outlined in the exam findings, performance of this nail treatment is medically necessary as its management by an unskilled/untrained nonprofessional would put this patients foot and overall health at risk. Therefore, debridement to affected nail(s), as described in exam ( TA, T1, T2, T3, T4, T5, T6, T7, T8, T9, ), was performed exclusively by the physician of record to reduce/remove overall nail length, girth, thickness, subungual debris, and necrotic tissue, by manual and/or electrical means through the use of a nail nipper and/or dremel-type horseradish grinder, to a more viable healthy nail plate or bed tissue 6-10 nails in total. Silver nitrate was used for any petechial bleeding as necessary. Definitive antifungal treatment options, both pharmaceutical and surgical, have been reviewed and discussed with the patient. The patient solely prefers the use of intermittent/as needed professional debridement services for their nail condition and understands the need for additional periodic treatments to maintain effectiveness in symptomatic relief - 83913 Keratoma Treatment Parring or Cutting o f Benign Hyperkeratotic Lesion(s) (-57) More than 4 Lesions - Due to the at risk nature of the patients medical condition as documented in the exam findings, performance of this keratoderma treatment is medically necessary as its management by an unskilled/untrained nonprofessional would put this patients foot and overall health at risk. Therefore, the benign hyperkeratotic lesions, ( 6 ) in total, locations as stated and described in the exam ( SUB MTH (s), 5, Heel(s), , B/L , Medial plantar,TA,T5), were pared, and/or cut utilizing a sterile 15 blade, tissue nippers, and/or power dremel instrumentation by the physician of record - 32914 Progress Notes * CASTANEDA, ChilangoDOB: 9 (83 yo M)Acc No.[id number]:04/26/2024 Progress Note Patient:?Chilango CASTANEDA Provider:?Nida Lilly DPM :1940???Age:83 Y???Sex:Male Nahum e:04/26/2024 Address:[address] [place], [place] [address] [facility]. [id number] Pcp:Gorge Mahmood MD Subjective: * Chief Complaints: [...] Medical History:? * Surgical History:?spine surg bernadette 2022appendectomy * Hospitalization/Major Diagno stic Procedure:?Denies Past Hospitalization * Family History:?Mother: dece ased, cancer.? * Social History:?Tobacco Use:?Tobacco use other than smoking?Are you an other tobacco user??No ?Tobacco Control (Standard)?Tobacco use:?Nonsmoker ?Additional Findings: Tobacco non-user?Current nonsmoker ???Drugs/Alcohol:?Drugs?Have you used drugs other than those for medical reasons in the past 12 months??No ???Miscellaneous:?Caffeine: yes, frequency:, 2-3 cups per day. ?Children: yes. ?Exercise: no. ?Marital status: . ?Occupation: Retired. ???Drug/Alcohol:?AUDIT-C (Standard)?Did you have a drink containing alcohol in the past year??No ?Points?0 ?Interpretation?Negative * Medications:?TakingIrbesarta n 300 MG Tablet 1 tablet Orally Once a day Amiodarone HCl 200 MG Tablet 1 tablet Orally Once a day Finasteride 5 MG Tablet 1 tablet Orally Once a day Amlodipine & Diet Manage Prod , Notes to Pharmacist: 5 mgDoxazosin Mesylate 2 MG Tablet 1 tablet Orally Once a day Allopurinol 300 MG Tablet 1 tablet Orally Once a day Xarelto 20 MG Tablet 1 tablet Orally Once a day Furosemide , Notes to Pharmacist: 40mgTaking Irbesartan 300 MG Tablet 1 tablet Orally Once a day Taking Amiodarone HCl 200 MG Tablet 1 tablet Orally Once a day Taking Finasteride 5 MG Tablet 1 tablet Orally Once a day Taking Amlodipine & Diet Manage Prod , Notes to Pharmacist: 5 mgTaking Doxazosin Mesylate 2 MG Tablet 1 tablet Orally Once a day Taking Allopurinol 300 MG Tablet 1 tablet Orally Once a day Taking Xarelto 20 MG Tablet 1 tablet Orally Once a day Taking Furosemide , Notes to Pharmacist: 40mgNot-Taking/PRNMetoprolol Succinate 50 MG Capsule ER 24 Hour Sprinkle 1 capsule Orally Once a day Losartan Potassium Medication List reviewed and reconciled with the patientNot-Taking/PRN Metoprolol Succinate 50 MG Capsule ER 24 Hour Sprinkle 1 capsule Orally Once a day Not-Taking/PRN Losartan Potassium Medication List reviewed and reconciled with the patient * Allergies:?Penicillin: rashy es[Allergies Verified] Objective: * Vitals:?Ht: 5 ft 9 in, Wt:19 5, BMI: 28.79, Shoe size:9.5, BP:170/80mm Hg, Wt-k.45 kg. * Examination: ???Vascular: ?DP PULSES (B):? 0/4, B/L.?PT PULSES (B):? 0/4, B/L.?CAPILLARY FILL TIME:? delayed, all digits, B/L.?TROPHIC CONDITION-TEXTURE/ELASTICITY/TURGOR/HAIR GROWTH (B):? decreased, B/L.?TEMPERTURE GRADIENT (C):? decreased, cool to cool, proximal to distal, B/L.?CLAUDICATION (C):?denies, B/L.?REST PAIN:?denies, B/L.?Nails: ?NAILS are:? Elongated, overgrown, dystrophic, lytic, greater than 3mm thick, discolored and friable with crumbly malodorous subungual debris, with pain on palpation, TA, T1, T2, T3, T4, T5, T6, T7, T8, T9.?Dermatologic: ?SKIN FINDINGS:? Skin exam reveals Keratotic lesion(s) located at, SUB MTH (s), 5, Heel(s), , B/L , Medial plantar,TA,T5.?Orthopedic: ?MUSCLE STRENGTH:?5/5 all groups in a symmetrical [...] Assessment: 1.?Pain in left foot - M79.6 72???2.?Metatarsalgia, left foot - M77.42 (Primary)???3.?Atherosclerosis of [place] artery of both lower extremities, with unspecified presence of clinical manifestation - I70.203???4.?Tinea unguium - B35.1 ??5.?Pain in right toe(s) - M79.674???6.?Pain in left toe(s) - M79.675???7.?Pain in left ankle and joints of left foot - M25.572??? Plan: * Treatment: * Procedures:?Debride Nail 6-10:?Nail debridement?Due to the clinical pathology outlined in the exam findings, performance of this nail treatment is medically necessary as its management by an unskilled/untrained nonprofessional would put this patients foot and overall health at risk. Therefore, debridement to affected nail(s), as described in exam ( TA, T1, T2, T3, T4, T5, T6, T7, T8, T9, ), was performed exclusively by the physician of record to reduce/remove overall nail length, girth, thickness, subungual debris, and necrotic tissue, by manual and/or electrical means through the use of a nail nipper and/or dremel-type horseradish grinder, to a more viable healthy nail plate or bed tissue 6- 10 nails in total. Silver nitrate was used for any petechial bleeding as necessary. Definitive antifungal treatment options, both pharmaceutical and surgical, have been reviewed and discussed with the patient. The patient solely prefers the use of intermittent/as needed professional debridement services for their nail condition and understands the need for additional periodic treatments to maintain effectiveness in symptomatic relief - 22746.?Keratoma Treatment:?Parring or Cutting of Benign Hyperkeratotic Lesion(s)?(-57) More than 4 Lesions - Due to the at risk nature of the patients medical condition as documented in the exam findings, performance of this keratoderma treatment is medically necessary as its management by an unskilled/untrained nonprofessional would put this patients foot and overall health at risk. Therefore, the benign hyperkeratotic lesions, ( 6 ) in total, locations as stated and described in the exam (?SUB MTH (s),?5,?Heel(s),?,?B/L?,?Medial plantar,TA,T5), were pared, and/or cut utilizing a sterile 15 blade, tissue nippers, and/or power dremel instrumentation by the physician of record - 64299.? * Procedure Codes:?14216 DEBRI DE NAIL, 6 OR MORE, Modifiers: XS 31055 TRIM SKIN LESIONS, OVER 4, Modifiers: XS , Q8 * Preventive [...] success were answered to their verbally confirmed satisfaction.? * Follow Up:?2.5 Months * Images: * Sign off status: Completed true * Provider:?Nida Lilly DPM Date:? Generated for Danial montez/[place] on:?06/20/2024 10:35 AM EDT History and Physical Notes * HPI (History of Present Illness) Category Sub-Category Detail Notes Category Not es At Risk footcare Pt States Last PCP Visit: Date: 4 Foot Pain Location: Bottom, Forefoot, LEFT Treatments: [...] lesion(s) located at, SUB MTH (s), 5, Heel(s), , B/L , Medial plantar,TA,T5 Orthopedic FOOTWEAR EVALUATION: good condit ion, exhibit proper fit and accommodation for pedal [...] malodorous subungual debris, with pain on palpation, TA, T1, T2, T3, T4, T5, T6, T7, T8, T9
--- OUTSIDE RECORDS SUMMARY | 2024-06-20 10:35 | XMS_ITS ---
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 Name Role Phone Goreg Mahmood Primary Care Provider REASON FOR VISIT [facility] Risk Codes 10/02 Encounters Encounter Location Date Provider Diagnosis Gorge Mahmood MD [address] [place] [phone] 04/24/2024 Gorge Mahmood Plan Of Treatment Next Appt Details Provider Name:Gorge anaya, 10/02/2024 09:00:00 AM, [address] [place] [address], [address] [facility], [place], [place], [phone], Provider Name:Gorge anaya, 03/30/2025 07:30:00 AM, [address] [place] [address], [address] [facility], [place], [place], [phone], Provider Name:Gorge anaya, 04/06/2025 08:30:00 AM, [address], [address], [place], [phone], Progress Notes * Chilango CASTANEDA GDOB: [birth year] (84 yo M)Acc No.[id number]:04/24/2024 Patient:?Chilango CASTANEDA :1940???Age:83 Y???Sex:Male Address:[address] [place] [address] [place] [address] * * Date:?
--- OUTSIDE RECORDS SUMMARY | 2024-06-20 10:35 | XMS_ITS | Patient Health Record ---
Author Organization Gorge Mahmood MD Address [address] [place], [place] [id number] Care Team Providers Care Skydiving Instructor Name Role Phone Gorge Mahmood Primary Care Provider [phone] Allergies Allergen (clinical drug ingredient) Drug/Non Drug Allergy documented on EMR Reaction Allergy Type Onset Date Status sulfamethoxazole / trimethoprim Sulfamethoxazole- Trimethoprim swelling and redness Drug Allergy Active penicillin (uncoded) rash Allergy Active Results Component Value Reference Range Notes Complete Blood Count Auto Di ff Reviewed date:03/30/2024 09:56:33 AM Interpretation: Performing Lab:[facility], [address] [place] [phone] Notes/Report: White Blood Count 5.6 4.8-10.8 X10*3/uL [...] X10*3/uL NRBC Abs Auto 0.000 0.0-0.012 X10*3/uL Comprehensive [place]. Panel Fa st Reviewed date:03/28/2024 05:01:16 PM Interpretation: Performing Lab:[facility], [address] [place] [phone] Notes/Report: Sodium 141 135-145 mmol/L Potassium 4.0 3.3-5.1 mmol/L Chloride 110 96-108 mmol/L Carbon Dioxide 23 22-29 mmol/L Anion Gap 12 12-20 Blood Urea Nitrogen 27 9-16 mg/dL Creatinine 1.40 0.5-1.4 mg/dL Estimated Glomerular Filt Rate 48 Chronic Kidney Disease: Estimated GFR < 60 mL/min/1.73m2 Severe Kidney Disease: Estimated GFR < 15 mL/min/1.73m2 Glucose Fasting 97 60-99 mg/dL Calcium 8.4 8.4-10.2 mg/dL Bilirubin Total 1.0 0.0-1.0 mg/dL Aspartate Amino Transferase 18 5-37 U/L Alanine Aminotransferase 14 0-40 U/L Total Protein 6.2 6.5-8.0 g/dL Albumin Level 3.6 3.5-5.0 g/dL Alkaline Phosphatase 95 39-117 U/L Lipid Panel Reviewed date:03/28/2024 12:36:21 PM Interpretation: Performing Lab:[facility], [address] [place] [phone] Notes/Report: Triglycerides 72 <150 mg/dL Desirable Triglyceride: less than 150 mg/dL Borderline High Triglyceride 150-199 mg/dL High Triglyceride: 200-499 mg/dL Very High Triglyceride: greater than or equal to 5OO mg/dL Cholesterol 143 <200 mg/dL Desirable Cholesterol: less than 200 mg/dL Borderline High Cholesterol: 200-239 mg/dL High Cholesterol: greater than 239 mg/dL LDL Cholesterol Calculated 73 <100 mg/dL Desirable LDL: less than 100 mg/dL Near Optimal/Above Optimal LDL: 110-129 mg/dL Borderline High LDL: 130-159 mg/dL High LDL: 160-189 mg/dL Very High LDL: greater than or equal to 190 mg/dL HDL Cholesterol 56 >40 mg/dL Desirable HDL: greater than 40 mg/dL Note: This HDL assay may give artificially low results in patients with liver disease. PSA,Total (Free>4and<10) Reviewed date:03/28/2024 12:38:01 PM Interpretation: Performing Lab:[facility], [address] [place] [phone] Notes/Report: PSA,Total (Free>4and<10) 1.15 0.00-4.00 ng/mL A [...] i Chemiluminescent Microparticle Immunoassay (CMIA) Microalbumin, Random Reviewed date:03/28/2024 12:37:41 PM Interpretation: Performing Lab:[facility], [address] [place] [phone] Notes/Report: Creatinine Urine 133.89 Microalbumin Urine < 5.0 Microalbum/Creatinine Ratio Ur TNP <30 ug/mg cr Unable to calculate albumin/creatinine ratio due to low microalbumin or creatinine result. Hemoglobin A1c Reviewed date:03/28/2024 12:44:45 PM Interpretation: Performing Lab:[facility], [address] [place] [phone] Notes/Report: Hemoglobin A1c % 5.1 <6.0 % [...] average glucose, using the formula of the U6Y-[place] Average Glucose study (ADAG), Diabetes Care, Vol.31,#8, Sep. 2007 UA ClnCatch+Micro w/rflx Cul t Reviewed date:03/28/2024 05:01:31 PM Interpretation: Performing Lab:[facility], [address] [place] [phone] Notes/Report: [id number] Urine, Clean Catch Color Urine Yellow Appearance Urine Clear PH 6.0 5.0-9.0 Glucose Urine UA Negative Negative mg/dL Urine Blood Negative Negative Specific [place] - Urine 1.020 1.005-1.025 Urine Protein Negative Neg-Trace mg/dL Urine Ketones Negative Negative mg/dL Nitrite Urine Negative Negative Leukocyte Esterase Urine Negative Negative RBC Urine 0-2 0-2 /HPF WBC Urine 0-5 0-5 /HPF Squamous Epithelial Cell Urine 0-2 0-2 /HPF Bacteria Urine None Seen None Seen Hyaline Casts Urine 0-2 0-2 /LPF Complete Blood Count Auto Di ff (Not yet reviewed by provider) Interpretation: Performing Lab:[facility], [address] [place] [phone] Notes/Report: White Blood Count 7.8 4.8-10.8 X10*3/uL Red Blood Count 4.19 4.60-5.80 X10*6/uL Hemoglobin 14.4 14.0-18.0 g/dl Hematocrit 42.1 42.0-52.0 % Mean Corpuscular Volume 100.5 80.0-98.0 fL Mean Corpuscular Hemoglobin 34.4 27.0-33.0 pg Mean Corpuscular HGB Conc 34.2 31.0-36.0 g/dl Red Cell Distribution Width 13.3 11.0-16.0 % Platelet Count 124 160-400 X10*3/uL Mean Platelet Volume 11.1 9.4-12.4 fL Neutrophils Percent Auto 63.3 45-73 % Imm Gran Pct Auto 0.8 0.0-0.4 % Lymphocytes Percent Auto 27.5 20-40 % Monocytes Percent Auto 6.7 2-11 % Eosinophils Percent Auto 1.3 0-4 % Basophils Percent Auto 0.4 0-2 % NRBC Pct Auto 0.0 0.0-0.2 /100WBC Neutrophils Absolute Auto 4.9 2.0-8.3 x10*3/u L Imm Gran Abs Auto 0.06 0.00-0.03 X10*3/uL Lymphocytes Absolute Auto 2.1 1.2-4.9 X10*3/u L Monocytes Absolute Auto 0.5 0.1-1.2 X10*3/uL Eosinophils Absolute Auto 0.1 0.0-0.4 X10*3/u L Basophils Absolute Auto 0.0 0.0-0.2 X10*3/uL NRBC Abs Auto 0.000 0.0-0.012 X10*3/uL Occult Blood, Stool, Guaiac (Not yet reviewed by provider) Interpretation:Negative Performing Lab: Notes/Report: Negative Occult Blood, Stool, Guaiac Neg NM cardiolite stress test Reviewed date:07/01/2023 07:14:27 PM Interpretation: Performing Lab: Notes/Report: [address] [address] Nuclear Medicine Report Signed Patient: Chilango Castaneda MR#: [id number] : 1940 Acct:[id number] Age/Sex: 83 / M ADM Date: 06/30/23 Loc: .CARD Attending Dr: Alvaro Pepper MD Ordering Physician: Alvaro Pepper MD Date of Service: 06/30/23 Procedure(s): NM cardiolite stress test Accession Number(s): [id number] cc: Gorge Mahmood MD; Alvaro Pepper MD Myocardial perfusion study Indication: Precordial chest pain to evaluate for myocardial ischemia Technique: The patient was brought in for a Lexiscan perfusion study on 06/30/2023. Patient performed low-level exercise and was injected 0.4 mg of Lexiscan intravenously. Within a minute of injection, 30 mCi of sestamibi was given intravenously. Images were obtained using the SPECT gamma camera interlaced with the gating device. Images were obtained in supine position. Resting perfusion study was performed on 07/01/2023. Patient was administered 30 mCi of sestamibi intravenously at rest. Images were then obtained in supine position. Images obtained with and without CT attenuation. Total DLP 104 mGy-cm. Images were processed with the software and compared side to side in short axis, horizontal long axis and vertical long axis views. Findings: The stress perfusion study showed non attenuated images show severely reduced uptake in the small area of inferoapical and apical segment of the LV myocardium. There is also mildly reduced uptake in the distal lateral wall of the LV myocardium. Remainder of the LV myocardium is normally perfused. Attenuated corrected images show moderately reduced uptake in the inferoapical and adjacent apical wall of the LV myocardium.. The gated study shows low normal LV systolic function with calculated LVEF of 50%. LV cavity is mildly to moderately dilated size. The gated study shows normal wall thickening and contraction of segments. Resting study shows no significant change in perfusion pattern compared to stress perfusion study. Gating at rest reveals normal systolic wall motion with ejection fraction at 41%. The findings are consistent with fixed inferoapical and apical defect without any clear reversibility suggestive of possible transmural infarct of that segment. Severe ischemia is also likely.. NM/ID cardiolite stress test Impression: 1. Myocardial perfusion imaging study shows small area of fixed inferoapical and apical defect consistent with nontransmural infarct 2. Gated LVEF is 50% 3. Transient ischemic dilatation not present but LV cavity is dilated EKG is nondiagnostic for ischemia Dictated By: Khai,Nato MD Signed By: <Electronically signed by Nato Ridley MD in OV> 07/01/23 1221 DD/ 0900 TD/TT: Welder Fitter: [address] [address] Nuclear Medicine Report Signed Patient: Chilango Castaneda MR#: [id number] : 1940 Acct:[id number] Age/Sex: 83 / M ADM Date: 06/30/23 Loc: .[facility] Attending Dr: Alvaro Pepper MD Ordering Physician: Alvaro Pepper MD Date of Service: 06/30/23 Procedure(s): NM cardiolite stress test Accession Number(s): [id number] cc: Gorge Mahmood MD; Alvaro Pepper MD Myocardial perfusion study Indication: Precordial chest angela n to evaluate for myocardial ischemia Technique: The patient was brought in for a Lexiscan perfusion study on 06/30/2023. Patient performed low-level exercise and was injected 0.4 mg of Lexiscan intravenously. Within a minute of injection, 30 mCi of sestamibi was given intravenously. Images were obtained using the SPECT gamma camera interlaced with the gating device. Images were obtained in supine position. Resting perfusion study was performed on 07/01/2023. Patient was administered 30 mCi of sestamibi intravenously at rest. Images were then obtained in supine position. Images obtained with and without CT attenuation. Total DLP 104 mGy-cm. Images were processe d with the software and compared side to side in short axis, horizont al long axis and vertical long axis views. Findings: The stress perfusion study showed non attenuated images show severely reduced uptake in th e small area of inferoapical and apical segment of the LV myocardium. There is also mildly reduced uptake in the distal lateral wall of the LV myocardium. Remainder of the LV myocardium is normally perfused. Attenuated corrected images show moderately reduced uptake in the inferoapical and adjacent apical wall of the LV myocardium.. The gat ed study shows low normal LV systolic function with calculated LVEF of 50%. LV cavity is mildly to moderately dilated size. The gated study show s normal wall thickening and contraction of segments. Resting study shows no significant change in perfusion pattern compared to stress perfusion study. Gating at rest reveals normal systolic wall motion with ejection fraction at 41%. The findings are consistent with fixed inferoapical and apical defect without any clear reversibility suggestive of possible transmural infarct of that segment. Severe ischemia is also likely.. NM/NM cardiolite stress test Impression: 1. Myocardial perfusion imaging study shows small area of fixed inferoapical and apical defect consistent with nontransmural infarct 2. Gated LVEF is 50% 3. Transient ischemi c dilatation not present but LV cavity is dilated EKG is nondiagnostic for ischemia Dictated By: Nato Ridley MD Signed By: <Electronically signed by Nato Ridley MD in OV> 07/01/23 1221 DD/ 0900 TD/TT: Welder Fitter: TSH reflex Free T4 Reviewed date:11/01/2023 12:34:29 PM Interpretation: Performing Lab:[facility], [address] [place] [phone] Notes/Report: TSH reflex Free T4 1.43 0.32-4.0 uIU/mL Basic Metabolic Panel Reviewed date:02/25/2024 02:48:48 PM Interpretation: Performing Lab:[facility], [address] [place] [phone] Notes/Report: Sodium 142 135-145 mmol/L Potassium 4.1 3.3-5.1 mmol/L Chloride 112 96-108 mmol/L Carbon Dioxide 24 22-29 mmol/L Anion Gap 10 12-20 Blood Urea Nitrogen 26 9-16 mg/dL Creatinine 1.13 0.5-1.4 mg/dL Estimated Glomerular Filt Rate > 60 Chronic Kidney Disease: Estimated GFR < 60 mL/min/1.73m2 Severe Kidney Disease: Estimated GFR < 15 mL/min/1.73m2 Glucose Random 97 60-115 mg/dL Calcium 8.7 8.4-10.2 mg/dL B Type Natriuretic Peptide Reviewed date:02/23/2024 10:11:20 AM Interpretation: Performing Lab:[facility], [address] [place] [phone] Notes/Report: B Type Natriuretic Peptide 126 <100 pg/mL For those patients who are being treated with Natrecor (nesiritide, recombinant BNP), BNP testing should be performed at least two hours post treatment in order to ensure that only endogenous levels of BNP are detected. TSH reflex Free T4 Reviewed date:02/24/2024 05:28:58 PM Interpretation: Performing Lab:[facility], [address] [place] [phone] Notes/Report: TSH reflex Free T4 1.03 0.32-4.0 uIU/mL Reason For Referral No Information Medications Medication SIG (Take, Route, Frequency, Duration) Notes Start Date End Date Status Xarelto 20 MG 1 tablet with food Orally Once a day 01/10/2015 Active Allopurinol 300 MG TAKE 1 TABLET BY GUILLERMINA TH EVERY DAY for 90 Active Doxazosin Mesylate 2 MG 1 tablet Orally Once a day for 30 day(s) Active Furosemide 40 MG [id number] alternating with 2 tablets Orally Once a day Active Finasteride 5 MG 1 tablet Orally Once a day Active amLODIPine Besylate 5 MG TAKE 1 TABLET B Y MOUTH EVERY DAY for 30 Active Irbesartan 300 MG TAKE 1 TABLET BY GUILLERMINA TH EVERY DAY for 30 Not-Taking Triamcinolone Acetonide 0.1 % APPLY TWICE DAILY TO TRUNK,ARMS,AND LEGS *APPLY MOISTURIZER AFTER *AVOID FACE/GROIN* External for 25 Not-Taking Cortisporin 0.5-0.5-14351 1 application to affected area Externally Twice a day for 30 days 01/10/2015 Not-Taking Ibuprofen 800 MG 1 tablet Orally Thre e times a day for 30 day(s) 10/27/2011 Not-Taking Amiodarone HCl 200 MG 1 tablet Orally On ce a day Active Cyclobenzaprine HCl 5 MG 1 tablet at bed time as needed Orally twice a day for 10 days 11/13/2019 Not-Taking dexAMETHasone 2 MG TAKE 1 TABLET BY GUILLERMINA TH THREE TIMES A DAY FOR 5 DAYS Oral Three times a day for 3 days 11/13/2019 Not-Jennifer whitman Immunizations Vaccine Route Administration Date Status Comme nts PPSV23 (Pnemovax) IM Intramuscular 04/04/2012 Administered Flu Vaccine IM Intramuscular 10/24/2012 Administered Prevnar 13 IM Intramuscular 10/31/2012 Administered Flu Vaccine IM Intramuscular 12/04/2013 Administered zFluzone Quadrivalent IM Intramuscular 12/07/2014 Administ ered Fluarix Quadrivalent IM Intramuscular 12/05/2015 Administe red Fluarix Quadrivalent IM Intramuscular 12/21/2016 Administe red PPSV23 (Pnemovax) IM Intramuscular 04/30/2017 Administered Fluarix Quadrivalent Unknown 12/20/2017 Administered Bi g Y Fluarix Quadrivalent Unknown 12/20/2018 Administered Bi g Y TDaP Unknown 09/05/2019 Administered [facility] Influ[facility] High Dose Unknown 10/30/2019 Administered [facility] Fluarix Quadrivalent Unknown 10/30/2019 Administered [facility] SARS-COV-2 Moderna Unknown 03/15/2020 Administered SARS-COV-2 Moderna Unknown 04/12/2020 Administered Influenza High Dose IM Intramuscular 11/21/2020 Administer ed SARS-COV-2 Moderna Unknown 12/05/2020 Administered Influenza High Dose IM Intramuscular 11/25/2021 Administer ed Influenza High Dose IM Intramuscular 11/02/2022 Administer ed Influenza High Dose IM Intramuscular 11/29/2023 Administer ed Social History Tobacco Use: Social History Observation Description Date Details (start date - stop date) Never Smoker NA - NA Tobacco Use/Smoking Question Answer Notes Patient is a nonsmoker Additional Findings: Tobacco Non-User Cu rrent non-smoker, currently using no form of tobacco Alcohol Screen Question Answer Notes Did you have a drink containing alcohol in the p ast year? No Points 0 Interpretation Negative Problems Problem Type SNOMED Code ICD Code Onset Dates Problem Status W/U Status Risk Notes Problem 798353024 Thrombocytopenia (D69.6) Active confirmed Problem 688436226 Body mass index (BMI) 33.0-33.9, adult (Z68.33) Active confirmed Problem 380740392 Tubular adenoma of colon (D12.6) Active confirmed Problem 207210018 Gastroesophageal reflux disease without esophagitis (K21.9) Active confirmed Problem 16877614 Essential hypertension (I10) Active confirmed Problem 9547691 Psoriasis (L40.9) Active confirmed Problem 2336776 Prediabetes (R73.09) Active confirmed Problem 393167728 History of gout (Z87.39) Active confirmed Problem 682544933296882 Carpal tunnel syndrome of right wrist (G56.01) Active confirmed Problem 18271355 Sciatica of left side (M54.32) Active confirmed Problem 790847019 History of atria l fibrillation (Z86.79) Active confirmed Problem 220448074 Elevated PSA (R97.20) Active confirmed Problem 352027774 BMI 33.0-33.9,ad ult (Z68.33) Active confirmed Problem 160794132 Temporary low platelet count (D69.6) Active confirmed Problem 557425814 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) Active confirmed Problem 473547061 PVC's (premature ventricular contractions) (I49.3) Active confirmed Problem 467513052 History of basal cell carcinoma (Z85.828) Active confirmed Vital Signs Blood pressure diastolic 70 mm Hg 04/04/2024 jody ght is down 1 pound since 09-30-23 Height 68.25 in 04/04/2024 weight is down 1 pound since 09-30-23 Blood pressure systolic 132 mm Hg 04/04/2024 weig ht is down 1 pound since 09-30-23 Weight 201 lbs 04/04/2024 weight is down 1 pound since 09-30-23 BMI 30.34 kg/m2 04/04/2024 weight is down 1 pound since 09-30-23 Encounters Encounter Location Date Provider Diagnosis Gorge Mahmood MD [address] [place] [id number] 03/28/2024 Gorge Mahmood Blood tests for rout ine general physical examination Z00.00 ; Thrombocytopenia D69.6 ; Prediabetes R73.09 and Elevated PSA R97.20 Gorge Mahmood MD [address] [place] [address] Drive [address] [place] [id number] 06/20/2024 Gorge Mahmood Thrombocytopenia, unspecified D69.6 Gorge Mahmood MD [address] [place] [id number] 09/30/2023 Gorge Mahmood PVC's (premature ventricular contractions) I49.3 and Essential hypertension I10 oGrge Mahmood MD [address] [place] [id number] 11/29/2023 Gorge Mahmood Encounter for administration of vaccine Z23 Gorge Mahmood MD [address] [place] [address] [address] [place] [id number] 04/04/2024 Gorge Mahmood Thrombocytopenia D69 .6 ; Annual physical exam Z00.00 ; Essential hypertension I10 ; History of atrial fibrillation Z86.79 ; Elevated PSA R97.20 ; Colon cancer screening Z12.11 and Depression screening Z13.31 Gorge Mahmood MD [address] [place] [address] Drive [address] [place], [place] [id number] 04/24/2024 Gorge Mahmood Assessments Encounter Date Diagnosis (ICD Code) Assessment Notes Treatment Notes Treatment Clinical Notes Section Notes 03/28/2024 Blood tests for routine general physical examination (ICD-10 - Z00.00) 06/20/2024 Thrombocytopenia, unspecified (ICD-10 - D69.6) 09/30/2023 PVC's (premature ventricular contractions) (ICD-10 - I49.3) was started on amiodorone 09/30/2023 Essential hypertension (ICD-10 - I10) doing well on meds, will continue current regiment 11/29/2023 Encounter for administration of vaccine (ICD-10 - Z23) 04/04/2024 Thrombocytopenia (ICD-10 - D69.6) stable, will continue to monitor 04/04/2024 Annual physical exam (ICD-10 - Z00.00) labs reviewed and discussed with patient 03/28/2024 Thrombocytopenia (ICD-10 - D69.6) 04/04/2024 Essential hypertension (ICD-10 - I10) stable, will continue current regiment 03/28/2024 Prediabetes (ICD-10 - R73.09) 04/04/2024 History of atrial fibrillation (ICD-10 - Z86.79) is doing well. had been in afib 6 months ago, will continue current egiment anf will continue to monitor 03/28/2024 Elevated PSA (ICD-10 - R97.20) 04/04/2024 Elevated PSA (ICD-10 - R97.20) has returned to normal, will continue to monitor 04/04/2024 Colon cancer screening (ICD-10 - Z12.11) guaiac negative 04/04/2024 Depression screening (ICD-10 - Z13.31) negative screen Plan Of Treatment Pending Test Test Name Order Date Electrocardiogram (EKG) 02/26/2017 Electrocardiogram (EKG) 03/09/2019 Occult Blood, Stool, Guaiac 04/04/2024 CT LUMBAR SPINE NO CONTRAST 11/13/2019 MRI LUMBAR SPINE NO CONTRAST 01/09/2021 Complete Blood Count Auto Diff 05/13/202 5 Next Appt Details Provider Name:Gorge Boothe ier, 10/02/2024 09:00:00 AM, [address], [address], [place], [place], [phone], Provider Name:Gorge Boothe ier, 03/30/2025 07:30:00 AM, [address], [address], [place], [place], [phone], Provider Name:Gorge Boothe ier, 04/06/2025 08:30:00 AM, [address], [address], [place], [place], [phone], Insurance Providers Payer Name Payer Address Payer Phone Subscriber Number Group Number Insured Name Patient Relationship to Insured Coverage Start Date Coverage End Date [employer] PLAN [address] [place] [phone] [id number] Chilango Castaneda Self - patient is the insured MEDICARE [employer] [facility] [address] [place] [address] [id number] Chilango Castaneda Self - patient is the insured Medical (General) History Medical History History ICD Code Gout hypertension, benign psoriasis tia prostatism Colonoscopy ; colonos copy 06/04/14 - no need for further testing per Dr. Ely CREATININE CLEARANCE 54 Surgical History Surgery Date(Month/Year) DC Cardioversion 02/2015
--- OUTSIDE RECORDS SUMMARY | 2024-06-20 10:35 | XMS_ITS ---
Author Organization [facility] Address [address] [place] [address] Care Team Providers Care Inventory Control Analyst Name Role Phone Gorge Mahmood MD Primary Care Provider Nida Carnes [phone] Camacho Medications Medication [...] ot-Taking Encounters Encounter Location Date Provider Diagnosis [facility] [address] [place] [address] 02/25/2024 Nida Lilly Plan Of Treatment Next Appt Details Provider Name:Nida serrano, 07/26/2024 09:00:00 AM, [address] [place], [address], Progress Notes * Chilango CASTANEDADOB: [birth year] (84 yo M)Acc No.[id number]:02/25/2024 Progress Note Patient:?Chilango CASTANEDA Provider:?Nida Lilly DPM :1940???Age:83 Y???Sex:Male Nahum e:02/25/2024 Address:[place], [id number] Pcp:Gorge Mahmood MD Subjective: * Chief Complaints: [...] Lilly DPM Date:? Generated for Danial montez/[place]/eTransmitting on:?06/20/2024 10:34 AM EDT History and Physical Notes * HPI (History of Present Illness) Category Sub-Category Detail Notes Category Not es At Risk footcare Pt States Last PCP Visit: Date: 4
--- OUTSIDE RECORDS SUMMARY | 2024-06-20 10:36 | XMS_ITS ---
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 Name Role Phone Gorge Mahmood Primary Care Provider Results Component Value Reference Range Notes Complete Blood Count Auto Di ff (Not yet reviewed by provider) Interpretation: Performing Lab:[facility], [address] [place] [phone] Notes/Report: White Blood Count 7.8 4.8-10.8 X10*3/uL [...] X10*3/uL NRBC Abs Auto 0.000 0.0-0.012 X10*3/uL REASON FOR VISIT thrombocytopenia Encounters Encounter Location Date Provider Diagnosis Gorge Mahmood MD [address] [place] [id number] 06/20/2024 Gorge Mahmood Thrombocytopenia, unspecified D69.6 Assessments Encounter Date Diagnosis (ICD Code) Assessment Notes Treatment Notes Treatment Clinical Notes Section Notes 06/20/2024 Thrombocytopenia , unspecified (ICD-10 - D69.6) Plan Of Treatment Pending Test Test Name Order Date Complete Blood Count Auto Diff Next Appt Details Provider Name:Gorge anaya, 10/02/2024 09:00:00 AM, [address] [place] [address], [address], [phone], Provider Name:Gorge anaya, 03/30/2025 07:30:00 AM, [address] [place] [address], [phone], Provider Name:Gorge anaya, 04/06/2025 08:30:00 AM, [address] [place] [address], [id number], Progress Notes * Chilango CASTANEDA GDOB: [birth year] (84 yo M)Acc No.[id number]:06/20/2024 Progress Note Patient:?Chilango CASTANEDA Provider:?Gorge Mahmood MD :1940???Age:84 Y???Sex:Male Nahum e:06/20/2024 Address:[address] [place], [place] [address]Jorge [facility] Subjective: * Chief Complaints: * ???1. Thrombocytopenia. * Medical History:? Objective: * Vitals:? Assessment: * Assessment: 1.?Thrombocytopenia, unspeci fied - D69.6 (Primary)??? Plan: * Treatment: * Procedure Codes:?72454 VENIP UNCT, ROUTINE* * * The named appointment provid er may or may not be the originator of this progress note, and it is not deemed complete until electronically signed by the appointment provider. Sign off status: Pending * Provider:?Gorge Mahmood MD Date:?0 06/20/2024 Generated for Danial montez/[place]/eTransmitting on:?06/20/2024 10:35 AM EDT
--- OUTSIDE RECORDS SUMMARY | 2024-06-20 10:36 | XMS_ITS | Data Portability ---
Author Organization [place] [facility] Address [address] [facility] [place] [address] Care Team Providers Care Beadworker Name Role Phone JACKIE VIGIL Primary Care Provider [phone] JOSE NOLASCO Referring Provider [phone] Assessment Encounter Date Assessment Date Assessment LastModified by Organization Details LastModified Time 04/06/2023 04/06/2023 Chilango Castaneda is a 82 [...] rate is 37-44/min. He is seeing his alteration specialist in two weeks. [email or web address] Not available 07/21/2023 [...] as needed. [email or web address] Not available 03/07/2024 14:43:14 06/06/2024 06/06/2024 Chilango Castaneda is a 83 year old [...] three months as needed. [email or web address] Not available 06/06/2024 14:43:50 Plan of Treatment Reminders Order Date Submit Date Provider Last Modified By Organization Details Last Modified Time Details Appointments PROCEDURE 2024 02:00P Zach dao MD Not available Not available Not [...] Recorded Time Spinal stenosis of lumbar region 13130398 Active Gelacio dao MD [address] , [address], [place], [place], [address], [place] [facility] 0 12:43:58 Lumbosacral spondylosis without myelopathy 79840396 Active Gelacio dao MD [address] [facility] , [address], [place], [place], [address], [place] [facility] 0 12:43:52 Lumbosacral radiculopathy 5233489 Active Gelacio dao MD [address] [facility] , [address], [place], [place], [address], [place] [facility] 0 12:43:45 Degeneration of lumbar intervertebral disc 26616835 Active Gelacio dao MD [address] [facility] , [address], [place], [place], [address], [place] [facility] 0 12:43:39 Problem Notes None recorded. Procedures Surgical History Date Name Laterality Status Provider Name and Address Organization Details Recorded Time 06/07/19 25 Lumbar Epidural steroid injection under fluoroscopic guidance completed Gelacio Brandon MD [address] , [address], [place], [address], [place] [facility] 06/06/2024 14:44:29 03/07/19 25 Lumbar Epidural steroid injection under fluoroscopic guidance completed Gelacio Brandon MD [address] , [address], [place], [address], [place] [facility] 03/07/2024 14:42:43 10/27/19 24 Sacroiliac Joint Steroid Injections, using Fluoroscopy completed Gelacio Brandon MD [address] , [address], [place], [address], [place] [facility] 10/27/2023 14:28:18 07/21/19 24 Sacroiliac Joint Steroid Injections, using Fluoroscopy completed Gelacio Brandon MD [address] [facility] , [address], [place], [address], [place] [facility] 07/21/2023 14:04:50 04/06/19 24 Sacroiliac Joint Steroid Injections, using Fluoroscopy completed Gelacio Brandon MD [address] [facility] , [address], [place], [address], [place] [facility] 04/06/2023 14:20:11 01/13/20 23 Sacroiliac Joint Steroid Injections, using Fluoroscopy completed Gelacio Brandon MD [address] [facility] , [address], [place], [address], [place] [facility] 01/12/2023 16:28:52 11/18/19 23 Lumbar Epidural steroid injection under fluoroscopic guidance completed [facility] , [address], [place], [address], [place] [facility] 11/17/2022 14:51:27 08/13/19 23 Lumbar Epidural steroid injection under fluoroscopic guidance completed Gelacio Brandon MD [address] [facility] , [address], [place], [address], [place] [facility] 08/12/2022 14:25:49 08/09/19 22 Back Surgery completed Gelacio Bradnon MD [address] [facility] , [address], [place], [address], [place] [facility] 07/20/2022 14:13:28 06/11/19 22 Lumbar Epidural steroid injection under fluoroscopic guidance completed Gelacio Brandon MD [address] [facility] , [address], [place], [address], [place] [facility] 2021 14:03:14 04/23/19 22 Lumbar median branch block under fluroscopic guidance completed Gelacio Brandon MD [address] [facility] , [address], [place], [address], [place] [facility] 04/22/2021 10:48:55 02/06/20 21 Lumbar Epidural steroid injection under fluoroscopic guidance completed Gelacio Brandon MD [address] [facility] , [address], [place], [address], [place] [facility] 02/05/2021 14:32:09 10/24/19 21 Lumbar Epidural steroid injection under fluoroscopic guidance completed Gelacio Brandon MD [address] [facility] , [address], [place], [address], [place] [facility] 10/23/2020 09:22:59 07/18/19 21 Lumbar Epidural steroid injection under fluoroscopic guidance completed Gelacio Brandon MD [address] [facility] , [address], [place], [address], [place] [facility] 07/17/2020 10:24:07 04/17/19 21 Lumbar Epidural steroid injection under fluoroscopic guidance completed Gelacio Brandon MD [address] [facility] , [address], [place], [address], [place] [facility] 04/16/2020 09:56:53 01/16/20 20 Lumbar Epidural steroid injection under fluoroscopic guidance completed Gelacio Brandon MD [address] [facility] , [address], [place], [address], [place] [facility] 01/16/2020 16:07:28 Imaging Results None recorded. Procedure Notes None recorded. Medical Equipment None Reported. Allergies Allergen ID Allergen Name Allergen Category Reaction Reaction Severity Criticality Documentation Date Start Date Code Code System Note Provider Name and Address Organization Details Recorded Time 99983 Product containin g penicilli n (product) medicatio n rash Not available Not available 12/22/2019 08894 8001 SNOMED Gelacio dao MD [address] [facility] , [address], [place], [address], [place] [facility] 0 10:42:41 Medications Name [...] APPLY TO AFFECTED AREA OF [place] TWICE A DAY active Not Available Not [...] Not Available Vitals Date Recorded Body height Oxygen saturation Oxygen saturation in Arterial blood by Pulse oximetry Heart rate Systolic blood pressure Diastolic blood pressure Provider Name and Address Organization Details Last Updated DateTime 4 177.8 cm 97 % 97 % 64 /min 122 mm[Hg] 56 mm[Hg] Destiny Nicholson [place] [facility] 4 13:54:33 Date Recorded Body height Pain severity - 0-10 verbal numeric rating [Score] - Reported Oxygen saturation Oxygen saturation in Arterial blood by Pulse oximetry Heart rate Systolic blood pressure Diastolic blood pressure Provider Name and Address Organization Details Last Updated DateTime 4 177.8 cm 10 97 % 97 % 42 /min 138 mm[Hg] 58 mm[Hg] Maricel navas [place] [facility] 4 13:32:24 Date Recorded Body height Heart rate Oxygen saturation Oxygen saturation in Arterial blood by Pulse oximetry Pain severity - 0-10 verbal numeric rating [Score] - Reported Systolic blood pressure Diastolic blood pressure Provider Name and Address Organization Details Last Updated DateTime 4 177.8 cm 74 /min 99 % 99 % 9 113 mm[Hg] 66 mm[Hg] Anika Vaughn [place] [facility] 4 14:06:34 Date Recorded Body height Heart rate Oxygen saturation Oxygen saturation in Arterial blood by Pulse oximetry Systolic blood pressure Diastolic blood pressure Provider Name and Address Organization Details Last Updated DateTime 5 177.8 cm 77 /min 95 % 95 % 134 mm[Hg] 67 mm[Hg] Destiny Nicholson [place] [facility] 5 14:21:39 Date Recorded Body height Heart rate Oxygen saturation Oxygen saturation in Arterial blood by Pulse oximetry Systolic blood pressure Diastolic blood pressure Provider Name and Address Organization Details Last Updated DateTime 5 177.8 cm 79 /min 98 % 98 % 118 mm[Hg] 61 mm[Hg] Destiny Nicholson [place] [facility] 5 14:22:15 Social History Question Answer Notes LastModified by [employer] Details LastModified Time Tobacco Smoking Status Never Smoker Gelacio Brandon MD [facility] [address] [facility] , [address], [place], [address], [place] [facility] 12/22/2019 10:48:57 Which Illicit Or Recreational Drugs Have You Used? None Information not available 12/22/2019 Education 2 Year College Information not available 12/22/2019 Live Alone Or With Others? With Others Information not available 12/22/2019 Marital Status Informati on not available 12/22/2019 Sex: Unknown Functional Status Question Answer Note LastModified by [employer] Details LastModified Time What is your level of alcohol consumption? None Information not available 12/22/2019 What is your occupation? Retired [employer] Information not available 12/22/2019 Mental Status None recorded. Family History Relationship [...] SNOMED-CT Code Diagnosis ICD10 Code Diagnosis Note [id number] Gelacio Brandon MD PAIN OFFICE [address] [place] [address] 12/22/2019 10:26:41 12/22/2019 12:54:56 Spinal stenosis of lumbar region 98665087 M48.061 Lumbosacra l spondylosis without myelopathy 19365837 M47.817 Lumbosacra l radiculopathy 4044042 M54.17 Degenerati on of lumbar intervertebral disc 15864658 M51.36 41497 Gelacio Brandon MD PAIN OFFICE [address] [place] [address] 01/16/2020 15:30:08 01/16/2020 16:18:00 Spinal stenosis of lumbar region 64127074 M48.061 Lumbosacra l spondylosis without myelopathy 59460925 M47.817 Lumbosacra l radiculopathy 7529406 M54.17 Degenerati on of lumbar intervertebral disc 24841700 M51.36 20895 Gelacio Brandon MD PAIN OFFICE [address] [place] [address] 02/15/2020 08:55:41 02/15/2020 09:35:48 Spinal stenosis of lumbar region 63141356 M48.061 Lumbosacra l spondylosis without myelopathy 46194358 M47.817 Lumbosacra l radiculopathy 6018957 M54.17 Degenerati on of lumbar intervertebral disc 89866711 M51.36 50748 Gelacio Brandon MD PAIN OFFICE [address] [place] [address] 04/16/2020 08:51:32 04/16/2020 10:00:18 Spinal stenosis of lumbar region 00442285 M48.061 Lumbosacra l spondylosis without myelopathy 40709367 M47.817 Lumbosacra l radiculopathy 2178051 M54.17 Degenerati on of lumbar intervertebral disc 00138014 M51.36 85964 Gelacio Brandon MD [facility] [address] [place] [address] 07/17/2020 08:52:47 07/17/2020 11:00:32 Spinal stenosis of lumbar region 40290066 M48.061 Lumbosacra l spondylosis without myelopathy 15809190 M47.817 Lumbosacra l radiculopathy 6698825 M54.17 Degenerati on of lumbar intervertebral disc 26119928 M51.36 61803 Gelacio Brandon MD PAIN OFFICE [address] [place] [address] 08/16/2020 09:32:35 08/16/2020 09:41:40 Spinal stenosis of lumbar region 41328537 M48.061 Lumbosacra l spondylosis without myelopathy 36709654 M47.817 Lumbosacra l radiculopathy 0217837 M54.17 Degenerati on of lumbar intervertebral disc 15402807 M51.36 66821 Gelacio Brandon MD PAIN OFFICE [address] [place] [address] 10/23/2020 08:52:07 10/23/2020 11:25:37 Spinal stenosis of lumbar region 44036120 M48.061 Lumbosacra l spondylosis without myelopathy 38241118 M47.817 Lumbosacra l radiculopathy 4493217 M54.17 Degenerati on of lumbar intervertebral disc 32092222 M51.36 22219 Gelacio Brandon MD [facility] [address] [place] [address] 02/05/2021 12:44:25 02/05/2021 14:38:17 Spinal stenosis of lumbar region 00478957 M48.061 Lumbosacra l spondylosis without myelopathy 02522263 M47.817 Lumbosacra l radiculopathy 7931222 M54.17 Degenerati on of lumbar intervertebral disc 46055893 M51.36 10455 Gelacio Brandon MD [facility] [address] [place] [address] 04/22/2021 10:15:07 04/22/2021 11:14:54 Spinal stenosis of lumbar region 42165484 M48.061 Lumbosacra l spondylosis without myelopathy 90799647 M47.817 Lumbosacra l radiculopathy 2627375 M54.17 Degenerati on of lumbar intervertebral disc 13918661 M51.36 44357 Gelacio Brandon MD [facility] [address] [place] [address] 2021 13:12:15 2021 15:44:49 Spinal stenosis of lumbar region 48728266 M48.061 Lumbosacra l spondylosis without myelopathy 50680036 M47.817 Lumbosacra l radiculopathy 7331866 M54.17 Degenerati on of lumbar intervertebral disc 38580205 M51.36 53419 Gelacio Brandon MD [facility] [address] [place] [address] 07/20/2022 13:52:43 07/21/2022 11:02:56 Spinal stenosis of lumbar region 80570883 M48.061 Lumbosacra l spondylosis without myelopathy 39946656 M47.817 Lumbosacra l radiculopathy 3051312 M54.17 Degenerati on of lumbar intervertebral disc 33613234 M51.36 Lumbar post-laminectomy syndrome 712716380 M96.1 31858 Gelacio Brandon MD [facility] [address] [place] [address] 08/12/2022 13:41:25 08/12/2022 16:11:11 Spinal stenosis of lumbar region 98104238 M48.061 Lumbosacra l spondylosis without myelopathy 85641404 M47.817 Lumbosacra l radiculopathy 4770365 M54.17 Degenerati on of lumbar intervertebral disc 88546826 M51.36 Lumbar post-laminectomy syndrome 747258508 M96.1 54965 Gelacio Brandon MD [facility] [address] [place] [address] 11/17/2022 14:12:49 11/17/2022 15:29:44 Spinal stenosis of lumbar region 52609493 M48.061 Lumbosacra l spondylosis without myelopathy 89779803 M47.817 Lumbosacra l radiculopathy 3984395 M54.17 Degenerati on of lumbar intervertebral disc 31121328 M51.36 Lumbar post-laminectomy syndrome 651837613 M96.1 34057 Gelacio Brandon MD [facility] [address] [place] [address] 01/12/2023 14:15:32 01/12/2023 16:57:12 Lumbar post-laminectomy syndrome 105034603 M96.1 Inflammati on of sacroiliac joint 43322495 M46.1 03504 Gelacio Brandon MD [facility] [address] [place] [address] 04/06/2023 13:47:13 04/06/2023 16:05:21 Lumbar post-laminectomy syndrome 884108855 M96.1 Inflammati on of sacroiliac joint 62697971 M46.1 64796 Gelacio Brandon MD [facility] [address] [place] [address] 07/21/2023 13:12:16 07/21/2023 15:50:06 Lumbar post-laminectomy syndrome 048628193 M96.1 Inflammati on of sacroiliac joint 32797379 M46.1 68966 Gelacio Brandon MD [facility] [address] [place] [address] 10/27/2023 13:52:49 10/27/2023 16:08:33 Lumbar post-laminectomy syndrome 255890771 M96.1 Inflammati on of sacroiliac joint 66316409 M46.1 98130 Gelacio Brandon MD [facility] [address] [place] [address] 03/07/2024 14:14:46 03/07/2024 14:54:15 Spinal stenosis of lumbar region 48833147 M48.061 M48.062 Lumbosacra l spondylosis without myelopathy 79427962 M47.817 Lumbosacra l radiculopathy 7246271 M54.17 Degenerati on of lumbar intervertebral disc 79097104 M51.362 Lumbar post-laminectomy syndrome 315154298 M96.1 40039 Gelacio Brandon MD [facility] [address] [place] [address] 06/06/2024 14:13:47 06/06/2024 16:27:34 Spinal stenosis of lumbar region 78792033 M48.061 M48.062 Lumbosacra l spondylosis without myelopathy 96084580 M47.817 Lumbosacra l radiculopathy 2445368 M54.17 Degenerati on of lumbar intervertebral disc 31808330 M51.362 Lumbar post-laminectomy syndrome 253987505 M96.1 Health Concerns Section Related Observation LastModified by Organization Detai ls LastModified Time None Recorded Concern Status LastModified by Organization Details LastModified Time None Recorded Advance Directives Directive None Recorded Payers Encounter Date Sequence Insurance Name Policy Number Policy Jhaveri Covered Member ID Jhaveri Member ID Guarantor Name 04/06/2023 1 [employer] MED[employer]ARE ADVANTAGE PLAN (MEDICARE REPLACEMENT HMO) [id number] Chilango Castaneda [id number] Chilango Castaneda 07/21/2023 1 [employer] MEDIC[employer]VANTAGE PLAN (MEDICARE REPLACEMENT HMO) [id number] Chilango Castaneda [id number] Chilango Castaneda 10/27/2023 1 [employer]AGE PLAN (MEDICARE REPLACEMENT HMO) [id number] Chilango Castaneda [id number] Chilango Castaneda 03/07/2024 1 [employer] MED[employer]VANTAGE PLAN (MEDICARE REPLACEMENT HMO) [id number] Chilango Castaneda [id number] Chilango Castaneda 06/06/2024 1 [employer]AGE PLAN (MEDICARE REPLACEMENT HMO) [id number] Chilango Walshy [id number] Chilango Castaneda Notes Date Note Type Note Provider Name and Address Organization Details Recorded Time 04/06/2023 text/html He is here for a left sacroiliac joint injection under fluoroscopic guidance. He had one month of 90% pain relief with last injection with a slow return of pain. He does home bicycling and sees Jose Nolasco regularly for maintenance PT Gelacio Brandon MD [address] [facility] , [address], [place], [address], [place] [facility] 04/06/2023 16:17:13 07/21/2023 text/html He is here for a left sacroiliac joint injection under fluoroscopic guidance. He had one month of 90% pain relief with last injection with a slow return of pain. 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 He has stopped Xarelto three days prior to the procedure Gelacio Brandon MD [address] , [address], [place], [address], [place] [facility] 03/07/2024 15:19:39 06/06/2024 text/html He is here today for a lumbar epidural steroid injection under fluoroscopic guidance. He has stopped Xarelto three days prior to the procedure Gelacio Brandon MD [address] [facility] , [address], [place], [address], [place] [facility] 06/07/2024 15:44:23
--- OUTSIDE RECORDS SUMMARY | 2024-06-20 10:36 | XMS_ITS ---
Author Organization Gorge Mahmood MD Address [address] [place], [place] [id number] Care Team Providers Care Filling Operator Name Role Phone Gorge Mahmood Primary Care Provider Allergies Allergen (clinical drug ingredient) Drug/Non Drug Allergy documented on EMR Reaction Allergy Type Onset Date Status sulfamethoxazole / trimethoprim Sulfamethoxazole- Trimethoprim swelling and redness Drug Allergy Active penicillin (uncoded) rash Allergy Active Results Component Value Reference Range Notes Occult Blood, Stool, Guaiac (Not yet reviewed by provider) Interpretation:Negative Performing Lab: Notes/Report: Negative Occult Blood, Stool, Guaiac Neg REASON FOR VISIT annual visit Medications Medication SIG (Take, Route, Frequency, Duration) Notes Start Date End Date Status Furosemide 40 MG [id number] alternating with 2 tablets Orally Once a day Active amLODIPine Besylate 5 MG TAKE 1 TABLET B Y MOUTH EVERY DAY for 30 Active Ibuprofen 800 MG 1 tablet Orally Thre e times a day for 30 day(s) 10/27/2011 Not-Taking Amiodarone HCl 200 MG 1 tablet Orally On ce a day Active dexAMETHasone 2 MG TAKE 1 TABLET BY GUILLERMINA TH THREE TIMES A DAY FOR 5 DAYS Oral Three times a day for 3 days 11/13/2019 Not-Takin g Allopurinol 300 MG TAKE 1 TABLET BY GUILLERMINA TH EVERY DAY for 90 Active Irbesartan 300 MG TAKE 1 TABLET BY GUILLERMINA TH EVERY DAY for 30 Not-Taking Triamcinolone Acetonide 0.1 % APPLY TWICE DAILY TO TRUNK,ARMS,AND LEGS *APPLY MOISTURIZER AFTER *AVOID FACE/GROIN* External for 25 Not-Taking Cortisporin 0.5-0.5-79345 1 application to affected area Externally Twice a day for 30 days 01/10/2015 Not-Taking Cyclobenzaprine HCl 5 MG 1 tablet at bed time as needed Orally twice a day for 10 days 11/13/2019 Not-Taking Xarelto 20 MG 1 tablet with food Orally Once a day 01/10/2015 Active Doxazosin Mesylate 2 MG 1 tablet Orally Once a day for 30 day(s) Active Finasteride 5 MG 1 tablet Orally [...] No Points 0 Interpretation Negative Vital Signs Blood pressure systolic 132 mm Hg 04/04/19 25 Blood pressure diastolic 70 mm Hg 025 Height 68.25 in 04/04/2024 Weight 201 lbs 04/04/2024 BMI 30.34 kg/m2 04/04/2024 weight is down 1 pound since 09-30-23 Encounters Encounter Location Date Provider Diagnosis Gorge Mahmood MD [address] [place], [place] [phone] 04/04/2024 Gorge Mahmood Thrombocytopenia D69 .6 ; Annual physical exam Z00.00 ; Essential hypertension I10 ; History of atrial fibrillation Z86.79 ; Elevated PSA R97.20 ; Colon cancer screening Z12.11 and Depression screening Z13.31 Assessments Encounter Date Diagnosis (ICD Code) Assessment Notes Treatment Notes Treatment Clinical Notes Section Notes 04/04/2024 Thrombocytopenia (ICD-10 - D69.6) stable, will continue to monitor 04/04/2024 Annual physical exam (ICD-10 - Z00.00) labs reviewed and discussed with patient 04/04/2024 Essential hypertension (ICD-10 - I10) stable, will continue current regiment 04/04/2024 History of atrial fibrillation (ICD-10 - Z86.79) is doing well. had been in afib 6 months ago, will continue current egiment anf will continue to monitor 04/04/2024 Elevated PSA (ICD-10 - R97.20) has returned to normal, will continue to monitor 04/04/2024 Colon cancer screening (ICD-10 - Z12.11) guaiac negative 04/04/2024 Depression screening (ICD-10 - Z13.31) negative screen Plan Of Treatment Treatment Notes Assessment Notes Thrombocytopenia stable, will continu e to monitor Annual physical exam labs reviewed and d iscussed with patient Essential hypertension stable, will cont inue current regiment History of atrial fibrillation is doing well. had been in afib 6 months ago, will continue current egiment anf will continue to monitor Elevated PSA has returned to norm al, will continue to monitor Colon cancer screening guaiac negative Depression screening negative screen Pending Test Test Name Order Date Occult Blood, Stool, Guaiac 04/04/2024 Next Appt Details Follow Up: 6 Months, Reason: Provider Name:Gorge anaya, 10/02/2024 09:00:00 AM, [address] [place] [address], [address], [phone], Provider Name:Gorge anaya, 03/30/2025 07:30:00 AM, [address] [place] [address], [address], [phone], Provider Name:Gorge anaya, 04/06/2025 08:30:00 AM, [address] [place] [address], [address], [phone], Progress Notes * Chilango CASTANEDA GDOB: [birth year] (83 yo M)Acc No.[id number]:04/04/2024 Progress Notes Patient:?Chilango CASTANEDA Provider:?Gorge Mahmood MD :1940???Age:83 Y???Sex:Male Nahum e:04/04/2024 Address:[id number] Subjective: * Chief Complaints: * ???Annual visit * HPI: ???Depression Screening:?PHQ-9?Little interest or pleasure in doing things?Not at all,?Feeling down, depressed, or hopeless?Not at all,?Trouble falling or staying asleep, or sleeping too much?Not at all,?Feeling tired or having little energy?Not at all,?Poor appetite or overeating?Not at all,?Feeling bad about yourself or that you are a failure, or have let yourself or your family down?Not at all,?Trouble concentrating on things, such as reading the newspaper or watching television?Not at all,?Moving or speaking so slowly that other people could have noticed; or the opposite, being so fidgety or restless that you have been moving around a lot more than usual?Not at all,?Thoughts that you would be better off or of hurting yourself in some way?Not at all,?Total Score?0.?Interpretation and Intervention?Depression Screening Findings?Negative,?Follow-Up for Depression?: review of PHQ-9 found negative result, no follow-up needed.?Communication Needs:?Communication Needs?Does the patient have a hearing impairment?No,?Does the patient have a vision impairment??Yes,?If yes, what is the vision impairment??Glasses,?Does the patient have a cognition impairment??No.?Fall Risk:?History?Have you had any falls with injury in the past year??No,?Have you had two or more falls in the past year??No.?SDOH Questions:?SDOH Questions?In the past year have you been worried about losing housing??No,?In the past year have you or any family members you live with been unable to get any of the following when it was really needed? Check all that apply:?None.?Symptom(s):?patient is a 83 yo male here for annual visit with review of recent labs and follow up of chronic issues. * ROS:?General/Constitutional:?Patient denies?fatigue, headache.?Change in appetite?denies.?Chills?denies.?Fever?denies.?Ophthalmologic:?Blurred vision?denies.?Discharge?denies.?Pain?denies.?ENT:?Decreased hearing?denies.?Sore throat?denies.?Swollen glands?denies.?Endocrine:?Cold intolerance?denies.?Excessive thirst?denies.?Heat intolerance?denies.?Weight loss?denies.?Respiratory:?Cough?denies.?Shortness of breath at rest?denies.?Shortness of breath with exertion?denies.?Wheezing?denies.?Cardiovascular:?Chest pain at rest?denies.?Chest pain with exertion?denies.?Irregular heartbeat?denies.?Shortness of breath?denies.?Gastrointestinal:?Abdominal pain?denies.?Change in bowel habits?denies.?Diarrhea?denies.?Nausea?denies.?Rectal bleeding?denies.?Vomiting?denies .?Genitourinary:?Blood in urine?denies.?Difficulty urinating?denies.?Frequent urination?denies.?Musculoskeletal:?Patient denies?muscle aches.?Painful joints?denies.?Weakness?denies.?Peripheral Vascular:?Patient denies?red and blue toes.?Skin:?Dry skin?denies.?Itching?denies.?Denies?Mole(s),? changes in moles, new moles or any lesions of concern.?Denies?Photosensitivity.?Rash?denies.?Neurologic:?Dizziness?denies.?Fainting?denies.?Headache?denies.? * Medical History:? * Surgical History:? * Hospitalization/Major Diagno stic Procedure:? * Family History:?Father: dece ased 85 yrs, old age, coronary artery disease, diagnosed with CHF.?Mother: 35 yrs, cancer, family history unknown .?1 brother(s) , 1 sister(s) - healthy. 1 son(s) , 1 daughter(s) - healthy. .? Father CHF mothert ovarian cancer, No pertinent family medical history, Denies mental health/substance abuse family history, No pertinent family medical history, No pertinent family medical history. * Social History:?Tobacco Use:?Tobacco Use/Smoking?Patient is a?nonsmoker,?Additional Findings: Tobacco Non-User?Current non-smoker, currently using no form of tobacco.?Drugs/Alcohol:?Alcohol Screen?Did you have a drink containing alcohol in the past year??No,?Points?0,?Interpretation?Negative.?Miscellaneous:?Caffeine: yes, frequency:, 1-2 cups per day. Children: yes. Exercise: yes, goes to PT once a week and does bike, walking 15 minutes everyday stretching for half hour.. Housing: owning. Living with: spouse. Marital status: . Occupation: works part-time. Pets: none. Travel outside of the [place]: no. * Medications:?TakingDoxazosin Mesylate 2 MG Tablet 1 tablet Orally Once a day Finasteride 5 MG Tablet 1 tablet Orally Once a day Xarelto 20 MG Tablet 1 tablet with food Orally Once a day Allopurinol 300 MG Tablet TAKE 1 TABLET BY MOUTH EVERY DAY Amiodarone HCl 200 MG Tablet 1 tablet Orally Once a day Furosemide 40 MG Tablet [id number] alternating with 2 tablets Orally Once a day amLODIPine Besylate 5 MG Tablet TAKE 1 TABLET BY MOUTH EVERY DAY Taking Doxazosin Mesylate 2 MG Tablet 1 tablet Orally Once a day Taking Finasteride 5 MG Tablet 1 tablet Orally Once a day Taking Xarelto 20 MG Tablet 1 tablet with food Orally Once a day Taking Allopurinol 300 MG Tablet TAKE 1 TABLET BY MOUTH EVERY DAY Taking Amiodarone HCl 200 MG Tablet 1 tablet Orally Once a day Taking Furosemide 40 MG Tablet [id number] alternating with 2 tablets Orally Once a day Taking amLODIPine Besylate 5 MG Tablet TAKE 1 TABLET BY MOUTH EVERY DAY Not-Taking/PRNIrbesartan 300 MG Tablet TAKE 1 TABLET BY MOUTH EVERY DAY Triamcinolone Acetonide 0.1 % Cream APPLY TWICE DAILY TO TRUNK,ARMS,AND LEGS *APPLY MOISTURIZER AFTER *AVOID FACE/GROIN* External Cortisporin 0.5-0.5-17393 Cream 1 application to affected area Externally Twice a day Cyclobenzaprine HCl 5 MG Tablet 1 tablet at bedtime as needed Orally twice a day dexAMETHasone 2 MG Tablet TAKE 1 TABLET BY MOUTH THREE TIMES A DAY FOR 5 DAYS Oral Three times a day Ibuprofen 800 MG Tablet 1 tablet Orally Three times a day Not-Taking/PRN Irbesartan 300 MG Tablet TAKE 1 TABLET BY MOUTH EVERY DAY Not-Taking/PRN Triamcinolone Acetonide 0.1 % Cream APPLY TWICE DAILY TO TRUNK,ARMS,AND LEGS *APPLY MOISTURIZER AFTER *AVOID FACE/GROIN* External Not-Taking/PRN Cortisporin 0.5-0.5-05135 Cream 1 application to affected area Externally Twice a day Not-Taking/PRN Cyclobenzaprine HCl 5 MG Tablet 1 tablet at bedtime as needed Orally twice a day Not-Taking/PRN dexAMETHasone 2 MG Tablet TAKE 1 TABLET BY MOUTH THREE TIMES A DAY FOR 5 DAYS Oral Three times a day Not- Taking/PRN Ibuprofen 800 MG Tablet 1 tablet Orally Three times a day * Allergies:?penicillin: rashS ulfamethoxazole-Trimethoprim: swelling and rednessyes[Allergies Verified] Objective: * Vitals:?Ht: 68.25, Wt: 201, BMI:30.34, BP:132/70, Wt-k.17. weight is down 1 pound since 09-30-23. * ???Past Orders: ???Lab:Hemoglobin A1c (Order Date - 03/28/2024) (Collection Date & Time - 03/28/2024 08:00 AM) ? Value Reference Range ?Hemoglobin A1c % 5.1 <6. 0 - % ?Estimated Average Glucose 100 - mg/dL ???Lab:Microalbumin, Random (Order Date - 03/28/2024) (Collection Date & Time - 03/28/2024 08:00 AM) ? Value Reference Range ?Creatinine Urine 133.89 - m g/dL ?Microalbumin Urine < 5.0 - mg/L ?Microalbum Creatinine Ratio Ur TNP <30 - ug/mg cr ???Lab:PSA,Total (Free>4and< 10) (Order Date - 03/28/2024) (Collection Date & Time - 03/28/2024 08:00 AM) ? Value Reference Range ?PSA,Total (Free>4and<10) 1.15 0.00-4.00 - ng/mL ???Lab:Comprehensive [place]. P tha Fast (Order Date - 03/28/2024) (Collection Date & Time - 03/28/2024 08:00 AM) ? Value Reference Range ?Sodium 141 135-145 - mmo l/L ?Bilirubin Total 1.0 0.0- 1.0 - mg/dL ?Aspartate Amino Transferase 18 5-37 - U/L ?Alanine Aminotransferase 14 0-40 - U/L ?Total Protein 6.2 L 6.5-8. 0 - g/dL ?Albumin Level 3.6 3.5-5. 0 - g/dL ?Alkaline Phosphatase 95 39-117 - U/L ?Potassium 4.0 3.3-5.1 - mmol/L ?Chloride 110 H 96-108 - mm ol/L ?Carbon Dioxide 23 22-29 - mmol/L ?Anion Gap 12 12-20 - ?Blood Urea Nitrogen 27 H 9-16 - mg/dL ?Creatinine 1.40 0.5-1.4 - mg/dL ?Estimated Glomerular Filt Rate 48 - ?Glucose Fasting 97 60-9 9 - mg/dL ?Calcium 8.4 8.4-10.2 - m g/dL ???Lab:UA ClnCatch+Micro w/r flx Cult (Order Date - 03/28/2024) (Collection Date & Time - 03/28/2024 08:00 AM) ? Value Reference Range ?Color Urine Yellow - ?Appearance Urine Clear - ?PH 6.0 5.0-9.0 - ?Glucose Urine UA Negative Neg ative - mg/dL ?Urine Blood Negative Negative - ?Specific [place] - Urine 1.020 1.005-1.025 - ?Urine Protein Negative Neg-Tr carly - mg/dL ?Urine Ketones Negative Negati ve - mg/dL ?Nitrite Urine Negative Negati ve - ?Leukocyte Esterase Urine Negative Negative - ?RBC Urine 0-2 0-2 - /HPF ?WBC Urine 0-5 0-5 - /HPF ?Squamous Epithelial Cell Urine 0-2 0-2 - /HPF ?Bacteria Urine None Seen None Seen - ?Hyaline Casts Urine 0-2 0-2 - /LPF ???Lab:Lipid Panel (Order Da te 03/28/2024) (Collection Date & Time - 03/28/2024 08:00 AM) ? Value Reference Range ?Triglycerides 72 <150 - mg/dL ?Cholesterol 143 <200 - m g/dL ?LDL Cholesterol Calculated 73 <100 - mg/dL ?HDL Cholesterol 56 >40 - mg/dL ???Lab:Complete Blood Count Auto Diff (Order Date - 03/28/2024) (Collection Date & Time - 03/28/2024 08:00 AM) ? Value Reference Range ?White Blood Count 5.6 4. 8-10.8 - X10*3/uL ?Red Blood Count 4.33 L 4.60 -5.80 - X10*6/uL ?Hemoglobin 14.8 14.0-18.0 - g/dl ?Hematocrit 42.7 42.0-52.0 - % ?Mean Corpuscular Volume 98.6 H 80.0-98.0 - fL ?Mean Corpuscular Hemoglobin 34.2 H 27.0-33.0 - pg ?Mean Corpuscular HGB Conc 34.7 31.0-36.0 - g/dl ?Red Cell Distribution Width 13.1 11.0-16.0 - % ?Platelet Count 100 L 160-4 00 - X10*3/uL ?Mean Platelet Volume 10.9 9.4-12.4 - fL ?Neutrophils Percent Auto 57.7 45-73 - % ?Imm Gran Pct Auto 0.4 0. 0-0.4 - % ?Lymphocytes Percent Auto 32.3 20-40 - % ?Monocytes Percent Auto 7.6 2-11 - % ?Eosinophils Percent Auto 1.6 0-4 - % ?Basophils Percent Auto 0.4 0-2 - % ?NRBC Pct Auto 0.0 0.0-0. 2 - /100WBC ?Neutrophils Absolute Auto 3.3 2.0-8.3 - x10*3/uL ?Imm Gran Abs Auto 0.02 0. 00-0.03 - X10*3/uL ?Lymphocytes Absolute Auto 1.8 1.2-4.9 - X10*3/uL ?Monocytes Absolute Auto 0.4 0.1-1.2 - X10*3/uL ?Eosinophils Absolute Auto 0.1 0.0-0.4 - X10*3/uL ?Basophils Absolute Auto 0.0 0.0-0.2 - X10*3/uL ?NRBC Abs Auto 0.000 0.0-0. 012 - X10*3/uL * Examination: ???General Examination: ?GENERAL APPEARANCE:?well developed, well nourished, in no acute distress.?HEAD:?normocephalic, atraumatic.?EYES:?pupils equal, round, reactive to light and accommodation, sclera non-icteric.?EARS:?normal.?ORAL CAVITY:?mucosa moist.?THROAT:?clear.?NECK/THYROID:?neck supple, full range of motion, no cervical lymphadenopathy, no bruits.?SKIN:?warm and dry, no suspicious lesions.?HEART:?regular rate and rhythm, S1, S2 normal, no murmurs.?LUNGS:?clear to auscultation bilaterally.?ABDOMEN:?soft, nontender, nondistended, bowel sounds present, normal, no organomegaly , no masses palpable.?RECTAL EXAM:?normal tone, no external hemorrhoids, no masses palpable, prostate normal, stool guaiac negative.?MALE GENITOURINARY:?circumcised, no testicular mass, testes descended bilaterally.?EXTREMITIES:?no clubbing, cyanosis, or edema.?NEUROLOGIC:?nonfocal, motor strength normal upper and lower extremities, sensory exam intact.? Assessment: * Assessment: 1.?Annual physical exam - Z0 0.00 (Primary)???2.?Thrombocytopenia - D69.6???3.?Essential hypertension - I10???4.?History of atrial fibrillation - Z86.79???5.?Elevated PSA - R97.20???6.?Colon cancer screening - Z12.11???7.?Depression screening - Z13.31??? Plan: * Treatment: 2.?Thrombocytopenia? Notes: stable, will continue to monitor?? 3.?Essential hypertension? Notes: stable, will continue current regiment?? 4.?History of atrial fibrill ation? Notes: is doing well. had been in afib 6 months ago, will continue current egiment anf will continue to monitor?? 5.?Elevated PSA? Notes: has returned to normal, will continue to monitor?? 6.?Colon cancer screening?LAB: Occult Blood, Stool, Guaiac (Collection Date & Time - 04/04/2024)?Negative ? Value Reference Range ?Occult Blood, Stool, Guaiac Neg Notes: guaiac negative??7.?Depression screening? Notes: negative screen?? * Procedure Codes:?89333 TEST FOR BLOOD, FECES * Preventive Medicine:? ??Counseling:?Care goal follow-up plan:?Counseling for abnormal BMI provided?Yes,?Above Normal BMI Follow-up?Giving encouragement to exercise.? * Follow Up:?6 Months * * Sign off status: Completed true * Provider:?Gorge Mahmood MD Date:?0 04/04/2024 Generated for Danial montez/[place] on:?06/20/2024 10:35 AM EDT History and Physical Notes * HPI (History of Present Illness) Category Sub-Category Detail Notes Category Not es Symptom(s) patient is a 83 yo male here for annual visit with review of recent labs and follow up of chronic issues. Depression Screening PHQ-9 Little inte rest or pleasure in doing things: Not at all Feeling down, depressed, or hopeless: No t at all Trouble falling or staying asleep, or sl eeping too much: Not at all Feeling tired or having little energy: N ot at all Poor appetite or overeating: Not at all Feeling bad about yourself o r that you are a failure, or have let yourself or your family down: Not at all Trouble concentrating on thi ngs, such as reading the newspaper or watching television: Not at all Moving or speaking so slowly that other people could have noticed; or the opposite, being so fidgety or restless that you have been moving around a lot more than usual: Not at all Thoughts that you would be b vivek off or of hurting yourself in some way: Not at all Total Score: 0 Interpretation and Intervention Depression Ke cortez Findings: Negative Follow-Up for Depression: : review of PH Q-9 found negative result, no follow-up needed SDOH Questions SDOH Questions In the past year have you been worried about losing housing?: No In the past year have you or any family members you live with been unable to get any of the following when it was really needed? Check all that apply:: None Fall Risk History Have you had any falls with injury i n the past year?: No Have you had two or more falls in the st year?: No Communication Needs Communication Needs Does the patient have a hearing impairment: No Does the patient have a vision impairmen t?: Yes ?If yes, what is the vision impairment?: Glasses Does the patient have a cognition impair ment?: No Examination Category Sub-Category Detail Notes Category Not es General Examination GENERAL APPEARANCE: well dev eloped, well nourished, in no acute distress HEAD: normocephalic, atrau matic EYES: pupils equal, round, reactive to light and accommodation, sclera non- icteric EARS: normal THROAT: clear NECK/THYROID: neck supple, full ra nge of motion, no cervical lymphadenopathy, no bruits HEART: regular rate and rhy thm, S1, S2 normal, no murmurs LUNGS: clear to auscultatio n bilaterally ABDOMEN: soft, nontender, non distended, bowel sounds present, normal, no organomegaly , no masses palpable NEUROLOGIC: nonfocal, motor stre ngth normal upper and lower extremities, sensory exam intact SKIN: warm and dry, no merari picious lesions EXTREMITIES: no clubbing, cyanosi s, or edema MALE GENITOURINARY: circumcised, no test icular mass, testes descended bilaterally RECTAL EXAM: normal tone, no exte rnal hemorrhoids, no masses palpable, prostate normal, stool guaiac negative ORAL CAVITY: mucosa moist
--- OUTSIDE RECORDS SUMMARY | 2024-06-20 10:36 | XMS_ITS ---
Author Organization [facility] [place] Address [address] [place] [address] Care Team Providers Care Tenant Selector Name Role Phone Timoteo SERRA, Gorge Primary Care Provider Nida Carnes Unavailable [phone] Allergies Allergen (clinical drug ingredient) Drug/Non Drug [...] 024 Encounters Encounter Location Date Provider Diagnosis [facility] [address] [address] 12/03/2023 Nida Lilly Pain in left foot M79.672 ; Metatarsalgia, left foot M77.42 ; Atherosclerosis of [place] artery of both lower extremities, with unspecified [...] foot (ICD-10 - M77.42) 12/03/2023 Atherosclerosis of [place] artery of both lower extremities, with unspecified presence of clinical manifestation (ICD-10 - I70.203) 12/03/2023 Tinea unguium (ICD-10 - B35.1) 12/03/2023 Pain in right toe(s) (ICD-10 - M79.674) 12/03/2023 Pain in left toe(s) (ICD-10 - M79.675) 12/03/2023 Pain in left ankle and joints of left foot (ICD-10 - M25.572) Plan Of Treatment Next Appt Details Follow Up: 2 Months, Reason: Provider Name:Nida serrano, 07/26/2024 09:00:00 AM, [address] [place] [address], [phone], Procedure Notes * Category Sub-Category Detail Notes [...] as necessary. Patient chooses, no pharmaceutical tx (65201) Keratoma Treatment Parring or Cutting o f Benign Hyperkeratotic Lesion(s) 09303 ( 2-4 Lesions ) - The Benign hyperkeratotic lesions, as described above were pared, and/or cut utilizing a sterile 15 blade, tissue nippers, and/or jg, Q8 Progress Notes * Chilango CASTANEDADOB: [birth year] (83 yo M)Acc No.[id number]:12/03/2023 Progress Note Patient:?Chilango Castaneda Provider:?Nida Lilly DPM :1940???Age:83 Y???Sex:Male Nahum e:12/03/2023 Address:[address] [place], [place] [id number] Pcp:Gorge Mahmood MD Subjective: * Chief Complaints: [...] 72?2.?Metatarsalgia, left foot - M77.42 (Primary)?3.?Atherosclerosis of [place] artery of both lower extremities, with unspecified [...] as necessary. Patient chooses, no pharmaceutical tx (64315).?Keratoma Treatment:?Parring or Cutting of Benign Hyperkeratotic Lesion(s)?05439 ( 2-4 Lesions ) - The Benign hyperkeratotic lesions, as described above were pared, and/or cut utilizing a sterile 15 blade, tissue nippers, and/or dremel, Q8.? * Procedure Codes:?80193 DEBRI DE NAIL, 6 OR MORE, Modifiers: XS 60014 TRIM SKIN LESIONS, 2 TO 4, Modifiers: [...] off status: Completed true * Provider:?Nida Lilly, BREANNA Date:? Generated for Printi melida/[place]/eTransmitting on:?06/20/2024 10:35 AM EDT History and Physical [...] (s), 5, Left, Heel(s), , B/L Orthopedic FOOTWEAR EVALUATION: good condit ion, exhibit [...]
== END 2024-06-20 09:49 | disposition home or self-care (01) ==
LOC: HO.LNP 09:48
PROVIDERS: Visit Provider Internal Medicine
DX: D69.6 Thrombocytopenia, unspecified (principal)
CPT/HCPCS: 85025

== ENCOUNTER 2024-06-27 09:47 | Outpatient (AMB) | payer MEDICARE, SELFPAY ==
--- NOTE | 2024-06-27 10:00 | MHC.OFFVIS ---
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 He has had longstanding leg swelling which is pretty much unchanged. Otherwise, he is still working. No other major limitations. No clear-cut anginal-type symptoms. 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 anticoagulation Surgical History History of back surgery History of cardioversion (~2015) Family History Father CHF (congestive heart failure) Mother Cancer Social History Alcohol intake: never Patient Tobacco Use Status: Never used Tobacco Review of Systems Const Denies chills, Denies fatigue, Denies fever(s), Denies frequent falls, Denies weakness, Denies weight gain and Denies weight loss ENT Denies dizziness Card Denies chest pain, Reports leg edema, Denies lightheadedness, Denies palpitations, Reports dyspnea and Reports dyspnea on exertion Resp Denies cough, Reports dyspnea and Reports dyspnea on exertion GI Denies hematochezia Musc Denies abnormal gait, Denies muscle weakness, Denies numbness, Denies radiating pain into limb and Denies tingling Neuro Denies abnormal gait, Denies dizziness, Denies frequent falls, Denies numbness, Denies tingling and Denies weakness Endo Denies fatigue and Denies palpitations Physical Exam Vital Signs: Last Vital Signs Pulse 80 06/27/24 10:01 BP 120/72 06/27/24 10:01 BMI result Body Mass Index 35.2 Const General: comfortable and no acute distress Orientation/consciousness: patient oriented x3 HEENT Other: Unremarkable Head: Yes normal to inspection Neck Neck: Yes normal visual inspection Chest Chest palpation & inspection: normal inspection of the chest Resp Auscultation: clear to auscultation bilaterally Cardio Palpation: normal PMI Heart sounds: S1 normal heart sound present, S2 normal heart sound present, no gallops, no murmurs and no rubs GI Palpation (GI): Soft to palpation Back/Spine/Pelvis Other: unremarkable Skin General skin exam: no rashes or lesions noted Neuro General: patient oriented x3 Extrem Other: 1-2+ swelling lower extremities General: Yes normal to inspection Psych Mental Status: mental status grossly normal Assessment & Plan Assessment & Plan (1) Persistent atrial fibrillation: Code(s): I48.19 - Other persistent atrial fibrillation Category: Medical Plan: Previously failed Multaq. Was on beta-blockers but then Amiodarone was started rather for high PVC burden. In the last Holter he was in atrial flutter but then converted to sinus bradycardia. In today's EKG, he is in atrial flutter with controlled rate. Overall, suspect he is going in and out of atrial flutter/fibrillation and sinus bradycardia. No further changes. Continue anticoagulation. (2) PVC (premature ventricular contraction): Code(s): I49.3 - Ventricular premature depolarization Category: Medical Plan: In a prior Holter, PVC burden of almost 29%. He was started on amiodarone. May continue that. In the most recent Holter, seems improved. Stable thyroid function. (3) Nonischemic cardiomyopathy: Code(s): I42.8 - Other cardiomyopathies Category: Medical Plan: In the most recent echocardiogram, LVEF is 55-60%. Prior to that, variable readings. It was 44% but before that in the normal range. Several years ago, in the 30s. Could be cardiomyopathy related to atrial fibrillation/tachycardia mediated. Improvement could be because of better rate control. In the perfusion imaging study, small fixed inferior apical/apical defect thought to be from nontransmural infarct. He has some leg swelling that is likely multifactorial. Otherwise, no clinical symptoms or signs of congestive heart failure. (4) Essential hypertension: Code(s): I10 - Essential (primary) hypertension Category: Medical Plan: Has had elevated readings in the past but seems normal today. No changes made. (5) Localized edema: Code(s): R60.0 - Localized edema Category: Medical Plan: Suspected venous insufficiency. Less likely heart failure. Amlodipine may also have some contribution. He takes Lasix 40 mg x 2 tablets daily. He can try an extra 40 mg for a week or so and see if that helps. He will let us know if he plans to take it regularly. That case, we will need repeat lab work. With compression stockings, he gets a rash in his upper legs. Try foot elevation. Plan Discussion Notes We discussed the importance of amiodarone in controlling the heart rate. I informed the patient about potential adjustments in diuretics for peripheral edema and highlighted the possibility of skin irritation from compression stockings. The relevance of monitoring renal functionality due to diuretics was emphasized. We considered the edema's causes: varicose veins, medications like amlodipine. A full discussion on medication updates, lifestyle modifications, and monitoring was conducted. The patient's understanding of medication effects and compliance were confirmed. We scheduled a follow-up in four months to re-assess management efficacy. Patient was informed and verbally consented to the use of an ambient scribe for clinic note documentation during this visit. Patient Instructions: - Take an extra 40 mg tablet of furosemide in the afternoons x one week. - Avoid wearing compression stockings if they cause skin irritation. - Monitor your leg swelling and inform us of any changes. - May need follow up with blood work to monitor kidney function due to diuretics. - Return for follow-up in four months. - Contact us if symptoms worsen or if you have concerns. Coding Level of Care Code Est Pt Level 4 (65231) Complex EM visit Add On G2211 Diagnoses Persistent atrial fibrillation I48.19 PVC (premature ventricular contraction) I49.3 Nonischemic cardiomyopathy I42.8 Essential hypertension I10 Localized edema R60.0
[2024-06-27 10:01] VITALS: BP 120/72; PULSE 80; BMI 35.2
--- OUTSIDE RECORDS SUMMARY | 2024-06-27 10:47 | XMS_ITS ---
Author Organization [facility] Address [address] [place] [address] Care Team Providers Care Bearing Machine Operator Name Role Phone Gorge Mahmood MD Primary Care Provider Nida Carnes [phone] Camacho Medications Medication [...] ot-Taking Encounters Encounter Location Date Provider Diagnosis [facility] [address] [place] [address] 02/25/2024 Nida Lilly Plan Of Treatment Next Appt Details Provider Name:Nida serrano, 07/26/2024 09:00:00 AM, [address] [place], [address], Progress Notes * Chilango CASTANEDADOB: [birth year] (84 yo M)Acc No.[id number]:02/25/2024 Progress Note Patient:?Chilango CASTANEDA Provider:?Nida Lilly DPM :1940???Age:83 Y???Sex:Male Nahum e:02/25/2024 Address:[place], [place] Pcp:Gorge Mahmood MD Subjective: * Chief Complaints: [...] Lilly DPM Date:? Generated for Danial montez/[place]/eTransmitting on:?06/27/2024 10:47 AM EDT History and Physical Notes * HPI (History of Present Illness) Category Sub-Category Detail Notes Category Not es At Risk footcare Pt States Last PCP Visit: Date: 4
--- OUTSIDE RECORDS SUMMARY | 2024-06-27 10:47 | XMS_ITS | Patient Health Record ---
Author Organization Gorge Mahmood MD Address [address] [place], [place] [id number] Care Team Providers Care Auto Service Station Attendant Name Role Phone Gorge Mahmood Primary Care Provider Allergies Allergen (clinical drug ingredient) Drug/Non Drug Allergy documented on EMR Reaction Allergy Type Onset Date Status sulfamethoxazole / trimethoprim Sulfamethoxazole- Trimethoprim swelling and redness Drug Allergy Active penicillin (uncoded) rash Allergy Active Results Component Value Reference Range Notes Complete Blood Count Auto Di ff Reviewed date:03/30/2024 09:56:33 AM Interpretation: Performing Lab:[facility], [address] [place] [phone] Notes/Report: White Blood Count 5.6 4.8-10.8 X10*3/uL [...] NRBC Abs Auto 0.000 0.0-0.012 X10*3/uL Comprehensive [place]. Panel Fa st Reviewed date:03/28/2024 05:01:16 PM Interpretation: Performing Lab:[facility], [address] [place] [phone] Notes/Report: Sodium 141 135-145 mmol/L Potassium 4.0 [...] Panel Reviewed date:03/28/2024 12:36:21 PM Interpretation: Performing Lab:[facility], [address] [place] [phone] Notes/Report: Triglycerides 72 <150 mg/dL Desirable Triglyceride: [...] (Free>4and<10) Reviewed date:03/28/2024 12:38:01 PM Interpretation: Performing Lab:[facility], [address] [place] [phone] Notes/Report: PSA,Total (Free>4and<10) 1.15 0.00-4.00 ng/mL A [...] Random Reviewed date:03/28/2024 12:37:41 PM Interpretation: Performing Lab:[facility], [address] [place] [phone] Notes/Report: Creatinine Urine 133.89 Microalbumin Urine < 5.0 Microalbum/Creatinine Ratio Ur TNP <30 ug/mg cr Unable to calculate albumin/creatinine ratio due to low microalbumin or creatinine result. Hemoglobin A1c Reviewed date:03/28/2024 12:44:45 PM Interpretation: Performing Lab:[facility], [address] [place] [phone] Notes/Report: Hemoglobin A1c % 5.1 <6.0 % [...] average glucose, using the formula of the U9X-Oxghixx Average Glucose study (ADAG), Diabetes Care, Vol.31,#8, Sep. 2007 UA ClnCatch+Micro w/rflx Cul t Reviewed date:03/28/2024 05:01:31 PM Interpretation: Performing Lab:[address] [address] Notes/Report: [id number] 0800 Urine, Clean Catch Color Urine Yellow Appearance Urine Clear PH 6.0 5.0-9.0 Glucose Urine UA Negative Negative mg/dL Urine Blood Negative Negative Specific [place] - Urine 1.020 1.005-1.025 Urine Protein Negative Neg-Trace mg/dL Urine Ketones Negative Negative mg/dL Nitrite Urine Negative Negative Leukocyte Esterase Urine Negative Negative RBC Urine 0-2 0-2 /HPF WBC Urine 0-5 0-5 /HPF Squamous Epithelial Cell Urine 0-2 0-2 /HPF Bacteria Urine None Seen None Seen Hyaline Casts Urine 0-2 0-2 /LPF Complete Blood Count Auto Di ff Reviewed date:06/20/2024 12:51:23 PM Interpretation: Performing Lab:[facility], [address] [place] [phone] Notes/Report: White Blood Count 7.8 4.8-10.8 X10*3/uL [...] date:07/01/2023 07:14:27 PM Interpretation: Performing Lab: Notes/Report: [address] [address] Nuclear Medicine Report Signed Patient: Chilango Castaneda MR#: [id number] : 1940 Acct:[id number] Age/Sex: 83 / M ADM Date: 06/30/23 Loc: .CARD Attending Dr: Alvaro Pepper MD Ordering Physician: Alvaro Pepper MD Date of Service: 06/30/23 Procedure(s): NM cardiolite stress test Accession Number(s): [id number] cc: Gorge Mahmood MD; Alvaro Pepper MD [...] that segment. Severe ischemia is also likely.. NM/HI cardiolite stress test Impression: 1. Myocardial perfusion imaging study shows small area of fixed inferoapical and apical defect consistent with nontransmural infarct 2. Gated LVEF is 50% 3. Transient ischemic dilatation not present but LV cavity is dilated EKG is nondiagnostic for ischemia Dictated By: Nato Ridley MD Signed By: <Electronically signed by Nato Ridley MD in OV> 07/01/23 1221 DD/ 0900 TD/TT: Screen Print Operator: [address] [address] Nuclear Medicine Report Signed Patient: Chilango Castaneda MR#: [id number] : 1940 Acct:[id number] Age/Sex: 83 / M ADM Date: 06/30/23 Loc: [facility] Attending Dr: Alvaro Pepper MD Ordering Physician: Alvaro Pepper MD Date of Service: 06/30/23 Procedure(s): NM cardiolite stress test Accession Number(s): [id number] cc: Gorge Mahmood MD; Alvaro Pepper MD [...] in OV> 07/01/23 1221 DD/ 0900 TD/TT: Screen Print Operator: TSH reflex Free T4 Reviewed date:11/01/2023 12:34:29 PM Interpretation: Performing Lab:[facility], [address] [place] [phone] Notes/Report: TSH reflex Free T4 1.43 0.32-4.0 uIU/mL Basic Metabolic Panel Reviewed date:02/25/2024 02:48:48 PM Interpretation: Performing Lab:[facility], [address] [place] [phone] Notes/Report: Sodium 142 135-145 mmol/L Potassium 4.1 [...] Peptide Reviewed date:02/23/2024 10:11:20 AM Interpretation: Performing Lab:[facility], [address] [place] [phone] Notes/Report: B Type Natriuretic Peptide 126 <100 pg/mL For those patients who are being treated with Natrecor (nesiritide, recombinant BNP), BNP testing should be performed at least two hours post treatment in order to ensure that only endogenous levels of BNP are detected. TSH reflex Free T4 Reviewed date:02/24/2024 05:28:58 PM Interpretation: Performing Lab:[facility], [address] [place] [address], [place] [address] Notes/Report: TSH reflex Free T4 1.03 0.32-4.0 [...] for 30 day(s) Active Furosemide 40 MG t3cihtc alternating with 2 tablets Orally Once a [...] *AVOID FACE/GROIN* External for 25 Not-Taking Cortisporin 0.5-0.5-80455 1 application to affected area Externally Twice [...] Influenza High Dose Unknown 10/30/2019 Administered [facility] Fluarix Quadrivalent Unknown 10/30/2019 [facility] [...] Problem Status W/U Status Risk Notes Problem 406661245 Thrombocytopenia (D69.6) Active confirmed Problem 408406527 Body mass index (BMI) 33.0-33.9, adult (Z68.33) Active confirmed Problem 991988223 Tubular adenoma of colon (D12.6) Active confirmed Problem 661765563 Gastroesophageal reflux disease without esophagitis (K21.9) Active confirmed Problem 54519096 Essential hypertension (I10) Active confirmed Problem 2347730 Psoriasis (L40.9) Active confirmed Problem 0633089 Prediabetes (R73.09) Active confirmed Problem 985656332 History of gout (Z87.39) Active confirmed Problem 785647377887734 Carpal tunnel syndrome of right wrist (G56.01) Active confirmed Problem 22220497 Sciatica of left side (M54.32) Active confirmed Problem 564137751 History of atria l fibrillation (Z86.79) Active confirmed Problem 081343478 Elevated PSA (R97.20) Active confirmed Problem 114008012 BMI 33.0-33.9,ad ult (Z68.33) Active confirmed Problem 072810379 Temporary low platelet count (D69.6) Active confirmed Problem 843482196 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) Active confirmed Problem 111692972 PVC's (premature ventricular contractions) (I49.3) Active confirmed Problem 698026331 History of basal cell carcinoma (Z85.828) Active [...] Location Date Provider Diagnosis Gorge Mahmood MD [address] [place] [id number] 03/28/2024 Gorge Mahmood Blood tests for rout ine general physical examination Z00.00 ; Thrombocytopenia D69.6 ; Prediabetes R73.09 and Elevated PSA R97.20 Gorge Mahmood MD [address] [place] [id number] 06/20/2024 Gorge Mahmood Thrombocytopenia, unspecified D69.6 Gorge Mahmood MD [address] [place] [id number] 09/30/2023 Gorge Mahmood PVC's (premature ventricular contractions) I49.3 and Essential hypertension I10 Gorge Mahmood MD [address] [place] [id number] 11/29/2023 Gorge Mahmood Encounter for administration of vaccine Z23 Gorge Mahmood MD [address] [place] [address] Drive [address] [place] [id number] 04/04/2024 Gorge Mahmood Thrombocytopenia D69 .6 ; Annual physical exam Z00.00 ; Essential hypertension I10 ; History of atrial fibrillation Z86.79 ; Elevated PSA R97.20 ; Colon cancer screening Z12.11 and Depression screening Z13.31 Gorge Mahmood MD [address] [place], [place] [id number] 04/24/2024 Gorge Mahmood Assessments Encounter Date Diagnosis [...] 11/13/2019 MRI LUMBAR SPINE NO CONTRAST 01/09/2021 Next Appt Details Provider Name:Gorge Boothe ier, 10/02/2024 09:00:00 AM, [address], [address], [place], [place], [phone], Provider Name:Gorge Boothe ier, 03/30/2025 07:30:00 AM, [address], [address], [place], [place], [phone], Provider Name:Gorge Boothe ier, 04/06/2025 08:30:00 AM, [address], [address], [place], [place], [phone], Insurance Providers Payer Name Payer Address Payer Phone Subscriber Number Group Number Insured Name Patient Relationship to Insured Coverage Start Date Coverage End Date [employer]AN [address] [place] [phone] [id number] Chilango Castaneda Self - patient is the insured MEDICARE [facility] [address] [place] [address] [id number] Chilango Castaneda Self - patient is the insured Medical (General) History Medical History History ICD Code Gout hypertension, benign psoriasis tia prostatism Colonoscopy ; colonos copy 06/04/14 - no need for further testing per Dr. Ely CREATININE CLEARANCE 54 Surgical History Surgery Date(Month/Year) DC Cardioversion 02/2015
--- OUTSIDE RECORDS SUMMARY | 2024-06-27 10:47 | XMS_ITS | Patient Health Record ---
Author Organization [facility] Address [address] [facility] [place] [address] Care Team Providers Care White Shoe Examiner Name Role Phone Gorge Mahmood MD Primary Care Provider Nida Carnes Unavailable [phone] Allergies Allergen (clinical drug ingredient) Drug/Non Drug [...] W/U Status Risk Notes Problem Atherosclerosis of [place] artery of both lower extremities, with unspecified presence of clinical manifestation (I70.203) Active confirmed Vital Signs Blood pressure diastolic 80 mm Hg 04/26/2024 Height 5 ft 9 in in 04/26/2024 Blood pressure systolic 170 mm Hg 04/26/2024 Weight 195 lbs 04/26/2024 BMI 28.79 kg/m2 04/26/2024 Encounters Encounter Location Date Provider Diagnosis [address] [address] 09/15/2023 Nida Perica Pain in left foot M79.672 ; Metatarsalgia, left foot M77.42 ; Atherosclerosis of [place] artery of both lower extremities, with unspecified presence of clinical manifestation I70.203 ; Tinea unguium B35.1 ; Pain in right toe(s) M79.674 ; Pain in left toe(s) M79.675 and Pain in left ankle and joints of left foot M25.[address] [address] 12/03/2023 Nida Perica Pain in left foot M79.672 ; Metatarsalgia, left foot M77.42 ; Atherosclerosis of [place] artery of both lower extremities, with unspecified presence of clinical manifestation I70.203 ; Tinea unguium B35.1 ; Pain in right toe(s) M79.674 ; Pain in left toe(s) M79.675 and Pain in left ankle and joints of left foot M25.[address] [address] 04/26/2024 Nida Perica Pain in left foot M79.672 ; Metatarsalgia, left foot M77.42 ; Atherosclerosis of [place] artery of both lower extremities, with unspecified [...] foot (ICD-10 - M77.42) 09/15/[address] [place] artery of both lower extremities, with unspecified presence of clinical manifestation (ICD-10 - I70.203) 12/03/2023 Metatarsalgia, left foot (ICD-10 - M77.42) 09/15/2023 Tinea unguium (ICD-10 - B35.1) 12/03/[address] [place] artery of both lower extremities, with unspecified presence of clinical manifestation (ICD-10 - I70.203) 04/26/[address] [place] artery of both lower extremities, with unspecified [...] Provider Name:Nida serrano, 07/26/2024 09:00:00 AM, [address] [place], [address], Insurance Providers Payer Name Payer Address Payer Phone Subscriber Number Group Number Insured Name Patient Relationship to Insured Coverage Start Date Coverage End Date [employer] Advantage [address] [place] [address] [phone] [id number] Chilango Castaneda Self - patient is the insured 4 Medical (General) History Medical History History ICD Code Back,Hip,and Knee pain Gout Heart disease High blood pressure Psoriasis/eczema Surgical History Surgery Date(Month/Year) spine surgery 2021 appendectomy
--- OUTSIDE RECORDS SUMMARY | 2024-06-27 10:48 | XMS_ITS ---
Author Organization Gorge Mahmood MD Address [address] [place] [phone] Care Team Providers Care Mounted Police Officer Name Role Phone Gorge Mahmood Primary Care Provider REASON FOR VISIT HCC Risk Codes 10/02 Encounters Encounter Location Date Provider Diagnosis Gorge Mahmood MD [address] [place] [phone] 04/24/2024 Gorge Mahmood Plan Of Treatment Next Appt Details Provider Name:Gorge anaya, 10/02/2024 09:00:00 AM, [address] [place] [address], Suite [facility], [place], [place], [phone], Provider Name:Gorge anaya, 03/30/2025 07:30:00 AM, [address] [place] [address], Suite [facility], [place], [place], [phone], Provider Name:Gorge anaya, 04/06/2025 08:30:00 AM, [address], [address], [place], [phone], Progress Notes * Chilango CASTANEDA GDOB: [birth year] (84 yo M)Acc No.[id number]:04/24/2024 Patient:?Chilango CASTANEDA Alexys :1940???Age:83 Y???Sex:Male Address:[address] [place] [address] [place] [address] * true * Date:? Generated for Danial montez/[place]/eTransmitting on:?06/27/2024 10:47 AM EDT
--- OUTSIDE RECORDS SUMMARY | 2024-06-27 10:48 | XMS_ITS ---
Author Organization Gorge Mahmood MD Address [address] [place], [place] [id number] Care Team Providers Care Oil Burner Mechanic Name Role Phone Gorge Mahmood Primary Care [...] Date End Date Status Furosemide 40 MG b4ygyys alternating with 2 tablets Orally Once a [...] *AVOID FACE/GROIN* External for 25 Not-Taking Cortisporin 0.5-0.5-50918 1 application to affected area Externally Twice [...] Date Provider Diagnosis Gorge Mahmood MD [address] [place], [place] [phone] 04/04/2024 Gorge Mahmood Thrombocytopenia D69 .6 ; [...] Reason: Provider Name:Gorge anaya, 10/02/2024 09:00:00 AM, [address] [place] [address], [address], [phone], Provider Name:Gorge anaya, 03/30/2025 07:30:00 AM, [address] [place] [address], [address], [phone], Provider Name:Gorge anaya, 04/06/2025 08:30:00 AM, [address] [place] [address], [address], [phone], Progress Notes * Chilango CASTANEDA GDOB: [birth year] (83 yo M)Acc No.[id number]:04/04/2024 Progress Notes Patient:?Chilango CASTANEDA Provider:?Gorge Mahmood MD :1940???Age:83 Y???Sex:Male Nahum e:04/04/2024 Address:[id number] Subjective: * Chief Complaints: * ???Annual visit [...] Once a day Furosemide 40 MG Tablet [id number] alternating with 2 tablets Orally Once a [...] a day Taking Furosemide 40 MG Tablet u7rbfol alternating with 2 tablets Orally Once a day Taking amLODIPine Besylate 5 MG Tablet TAKE 1 TABLET BY MOUTH EVERY DAY Not-Taking/PRNIrbesartan 300 MG Tablet TAKE 1 TABLET BY MOUTH EVERY DAY Triamcinolone Acetonide 0.1 % Cream APPLY TWICE DAILY TO TRUNK,ARMS,AND LEGS *APPLY MOISTURIZER AFTER *AVOID FACE/GROIN* External Cortisporin 0.5-0.5-52004 Cream 1 application to affected area Externally [...] MOISTURIZER AFTER *AVOID FACE/GROIN* External Not-Taking/PRN Cortisporin 0.5-0.5-80051 Cream 1 application to affected area Externally [...] ?PSA,Total (Free>4and<10) 1.15 0.00-4.00 - ng/mL ???Lab:[facility] [place]. P tha Fast (Order Date - 03/28/2024) [...] mg/dL ?Urine Blood Negative Negative - ?Specific [place] - Urine 1.020 1.005-1.025 - ?Urine Protein [...] negative??7.?Depression screening? Notes: negative screen?? * Procedure Codes:?17168 TEST FOR BLOOD, FECES * Preventive Medicine:? ??Counseling:?Care goal follow-up plan:?Counseling for abnormal BMI provided?Yes,?Above Normal BMI Follow-up?Giving encouragement to exercise.? * Follow Up:?6 Months * * Sign off status: Completed true * Provider:?Gorge Mahmood MD Date:?0 04/04/2024 Generated for Danial montez/[place] on:?06/27/2024 10:48 AM EDT History and Physical Notes * [...]
--- OUTSIDE RECORDS SUMMARY | 2024-06-27 10:48 | XMS_ITS | Data Portability ---
Author Organization [place] [facility] Address [address] [facility] [place] [address] Care Team Providers Care Software Verification Engineer Name Role Phone JACKIE VIGIL Primary Care Provider JOSE NOLASCO Referring Provider [phone] Assessment Encounter Date Assessment Date Assessment LastModified [...] rate is 37-44/min. He is seeing his director of sustainability in two weeks. [email or web address] Not available 07/21/2023 [...] Recorded Time Spinal stenosis of lumbar region 06277913 Active Gelacio dao MD [address] , [address], [place], [place], [address], [place] [facility] 0 12:43:58 Lumbosacral spondylosis without myelopathy 88463311 Active Gelacio dao MD [address] [facility] , [address], [place], [place], [address], [place] [facility] 0 12:43:52 Lumbosacral radiculopathy 7049414 Active Gelacio dao MD [address] [facility] , [address], [place], [address], [place] [facility] 0 12:43:45 Degeneration of lumbar intervertebral disc 21103868 Active Gelacio dao MD [address] [facility] , [address], [place], [address], [place] [facility] 0 12:43:39 Problem Notes None recorded. Procedures Surgical History Date Name Laterality Status Provider Name and Address Organization Details Recorded Time 06/07/19 25 Lumbar Epidural steroid injection under fluoroscopic guidance completed Gelacio Brandon MD [address] , [address], [place], [address], [place] [facility] 06/06/2024 14:44:29 03/07/19 25 Lumbar Epidural steroid injection under fluoroscopic guidance completed Gelacio Brandon MD [address] , [address], [place], [address], [place] [facility] 03/07/2024 14:42:43 10/27/19 24 Sacroiliac Joint Steroid Injections, using Fluoroscopy completed Gelacio Brandon MD [address] , [address], [place], [address], [place] [facility] 10/27/2023 14:28:18 07/21/19 24 Sacroiliac Joint Steroid Injections, using Fluoroscopy completed Gelacio Brandon MD [address] [facility] , [address], [place], [address], [place] [facility] 07/21/2023 14:04:50 04/06/19 24 Sacroiliac Joint Steroid Injections, using Fluoroscopy completed Gelacio Brandon MD [address] [facility] , [address], [place], [address], [place] [facility] 04/06/2023 14:20:11 01/13/20 23 Sacroiliac Joint Steroid Injections, using Fluoroscopy completed Gelacio Brandon MD [address] [facility] , [address], [place], [address], [place] [facility] 01/12/2023 16:28:52 11/18/19 23 Lumbar Epidural steroid injection under fluoroscopic guidance completed Gelacio Brandon MD [address] [facility] [address], [place], [address], [place] [facility] 11/17/2022 14:51:27 08/13/19 23 Lumbar Epidural steroid injection under fluoroscopic guidance completed Gelacio Brandon MD [address] [facility] , [address], [place], [address], [place] [facility] 08/12/2022 14:25:49 08/09/19 22 Back Surgery completed Gelacio Brandon MD [address] [facility] , [address], [place], [address], [place] [facility] 07/20/2022 14:13:28 06/11/19 22 Lumbar Epidural steroid injection under fluoroscopic guidance completed Gelacio Brandon MD [address] [facility] , [address], [place], [address], [place] [facility] 2021 14:03:14 04/23/19 22 Lumbar median branch block under fluroscopic guidance completed Gelacio Brandon MD [address] [facility] , [address], [place], [address], [place] [facility] 04/22/2021 10:48:55 02/06/20 21 Lumbar Epidural steroid injection under fluoroscopic guidance completed Gelacio Brandon MD [address] [facility] , [address], [place], [address], [place] [facility] 02/05/2021 14:32:09 10/24/19 21 Lumbar Epidural steroid injection under fluoroscopic guidance completed Gelacio Brandon MD [address] [facility] , [address], [place], [address], [place] [facility] 10/23/2020 09:22:59 07/18/19 21 Lumbar Epidural steroid injection under fluoroscopic guidance completed Gelacio Brandon MD [address] [facility] [facility] , [address], [place], [address], [place] [facility] 07/17/2020 10:24:07 04/17/19 21 Lumbar Epidural steroid injection under fluoroscopic guidance completed Gelacio Brandon MD [address] [facility] , [address], [place], [address], [place] [facility] 04/16/2020 09:56:53 01/16/20 20 Lumbar Epidural steroid injection under fluoroscopic guidance completed Gelacio Brandon MD [address] [facility] , [address], [place], [address], [place] [facility] 01/16/2020 16:07:28 Imaging Results None recorded. Procedure Notes None recorded. Medical Equipment None Reported. Allergies Allergen ID Allergen Name Allergen Category Reaction Reaction Severity Criticality Documentation Date Start Date Code Code System Note Provider Name and Address Organization Details Recorded Time 98274 Product containin g penicilli n (product) medicatio n rash Not available Not available 12/22/2019 66552 8001 SNOMED Gelacio dao MD [address] [facility] , [address], [place], [address], [place] [facility] 0 10:42:41 [...] MOUTH EVERY DAY 07/20 completed Calcium Channel Sraanya. For HTN and angina Not Available Not [...] /min 122 mm[Hg] 56 mm[Hg] Destiny Nicholson [place] [facility] 4 13:54:33 Date Recorded Body height Oxygen saturation Oxygen saturation in Arterial blood by Pulse oximetry Heart rate Systolic blood pressure Diastolic blood pressure Provider Name and Address Organization Details Last Updated DateTime 4 177.8 cm 97 % 97 % 42 /min 138 mm[Hg] 58 mm[Hg] Maricel navas [place] [facility] 4 13:32:24 Date Recorded [...] Smoking Status Never Smoker Gelacio Brandon MD [address] [place] [address] , [address], [place], [address] [place] [facility] 12/22/2019 10:48:57 Which Illicit Or Recreational Drugs Have You Used? None Information not available 12/22/2019 Education 2 Year College Information not available 12/22/2019 Live Alone Or With Others? With Others Information not available 12/22/2019 Marital Status Informati on not available 12/22/2019 Sex: Unknown Functional Status Question Answer Note LastModified by Organizat ion Details LastModified Time What is your level of alcohol consumption? None Information not available 12/22/2019 What is your occupation? Retired [employer] Information not available 12/22/2019 Mental Status [...] SNOMED-CT Code Diagnosis ICD10 Code Diagnosis Note [id number] Gelacio Brandon MD [facility] [address] [employer] [address] [facility] [place] [address] 12/22/2019 10:26:41 12/22/2019 12:54:56 Spinal stenosis of lumbar region 17888177 M48.061 Lumbosacra l spondylosis without myelopathy 41622048 M47.817 Lumbosacra l radiculopathy 0757978 M54.17 Degenerati on of lumbar intervertebral disc 73463070 M51.36 66718 Gelacio Brandon MD [facility] [address] [employer] [address] [facility] [place] [address] 01/16/2020 15:30:08 01/16/2020 16:18:00 Spinal stenosis of lumbar region 75645108 M48.061 Lumbosacra l spondylosis without myelopathy 29580760 M47.817 Lumbosacra l radiculopathy 1796662 M54.17 Degenerati on of lumbar intervertebral disc 86006242 M51.36 35597 Gelacio Brandon MD [facility] [address] [employer] [address] [facility] [place] [address] 02/15/2020 08:55:41 02/15/2020 09:35:48 Spinal stenosis of lumbar region 37636337 M48.061 Lumbosacra l spondylosis without myelopathy 43778134 M47.817 Lumbosacra l radiculopathy 8622487 M54.17 Degenerati on of lumbar intervertebral disc 62679136 M51.36 37969 Gelacio Brandon MD [facility] [address] [employer] [address] [facility] [place] [address] 04/16/2020 08:51:32 04/16/2020 10:00:18 Spinal stenosis of lumbar region 75905379 M48.061 Lumbosacra l spondylosis without myelopathy 05268060 M47.817 Lumbosacra l radiculopathy 9726753 M54.17 Degenerati on of lumbar intervertebral disc 96744898 M51.36 93085 Gelacio Brandon MD [facility] [address] [employer] [address] [facility] [place] [address] 07/17/2020 08:52:47 07/17/2020 11:00:32 Spinal stenosis of lumbar region 43682184 M48.061 Lumbosacra l spondylosis without myelopathy 49158897 M47.817 Lumbosacra l radiculopathy 0209157 M54.17 Degenerati on of lumbar intervertebral disc 03380286 M51.36 83580 Gelacio Brandon MD [facility] [address] [employer] [address] [facility] [place] [address] 08/16/2020 09:32:35 08/16/2020 09:41:40 Spinal stenosis of lumbar region 79104194 M48.061 Lumbosacra l spondylosis without myelopathy 78190286 M47.817 Lumbosacra l radiculopathy 5976112 M54.17 Degenerati on of lumbar intervertebral disc 83388535 M51.36 94879 Gelacio Brandon MD PAIN OFFICE [address] [employer] [place] [address] 10/23/2020 08:52:07 10/23/2020 11:25:37 Spinal stenosis of lumbar region 59748950 M48.061 Lumbosacra l spondylosis without myelopathy 83441555 M47.817 Lumbosacra l radiculopathy 8277833 M54.17 Degenerati on of lumbar intervertebral disc 38875050 M51.36 11680 Gelacio Brandon MD [facility] [address] [employer] [address] [facility] [place] [address] 02/05/2021 12:44:25 02/05/2021 14:38:17 Spinal stenosis of lumbar region 97649943 M48.061 Lumbosacra l spondylosis without myelopathy 78535283 M47.817 Lumbosacra l radiculopathy 3166671 M54.17 Degenerati on of lumbar intervertebral disc 67321955 M51.36 10878 Gelacio Brandon MD [facility] [address] [employer] [address] [facility] [place] [address] 04/22/2021 10:15:07 04/22/2021 11:14:54 Spinal stenosis of lumbar region 12569381 M48.061 Lumbosacra l spondylosis without myelopathy 91377488 M47.817 Lumbosacra l radiculopathy 9430427 M54.17 Degenerati on of lumbar intervertebral disc 28260210 M51.36 83978 Gelacio Brandon MD PAIN OFFICE [address] [employer] [address] [place] [address] 2021 13:12:15 2021 15:44:49 Spinal stenosis of lumbar region 40593207 M48.061 Lumbosacra l spondylosis without myelopathy 71013846 M47.817 Lumbosacra l radiculopathy 5539309 M54.17 Degenerati on of lumbar intervertebral disc 85169430 M51.36 90465 Gelacio Brandon MD PAIN OFFICE [address] [employer] [address] [place] [address] 07/20/2022 13:52:43 07/21/2022 11:02:56 Spinal stenosis of lumbar region 67231348 M48.061 Lumbosacra l spondylosis without myelopathy 78626702 M47.817 Lumbosacra l radiculopathy 8919780 M54.17 Degenerati on of lumbar intervertebral disc 95400384 M51.36 Lumbar post-laminectomy syndrome 575122076 M96.1 74416 Gelacio Brandon MD PAIN OFFICE [address] [employer] [address] [place] [address] 08/12/2022 13:41:25 08/12/2022 16:11:11 Spinal stenosis of lumbar region 88048337 M48.061 Lumbosacra l spondylosis without myelopathy 26402564 M47.817 Lumbosacra l radiculopathy 2211685 M54.17 Degenerati on of lumbar intervertebral disc 71385504 M51.36 Lumbar post-laminectomy syndrome 434559323 M96.1 83932 Gelacio Brandon MD PAIN OFFICE [address] [employer] [address] [place] [address] 11/17/2022 14:12:49 11/17/2022 15:29:44 Spinal stenosis of lumbar region 80508296 M48.061 Lumbosacra l spondylosis without myelopathy 52677086 M47.817 Lumbosacra l radiculopathy 8245653 M54.17 Degenerati on of lumbar intervertebral disc 96554062 M51.36 Lumbar post-laminectomy syndrome 083288909 M96.1 86334 Gelacio Brandon MD [facility] [address] [facility] [place] [address] 01/12/2023 14:15:32 01/12/2023 16:57:12 Lumbar post-laminectomy syndrome 382229324 M96.1 Inflammati on of sacroiliac joint 28781638 M46.1 72804 Gelacio Brandon MD [facility] [address] [facility] [place] [address] 04/06/2023 13:47:13 04/06/2023 16:05:21 Lumbar post-laminectomy syndrome 825259535 M96.1 Inflammati on of sacroiliac joint 60589990 M46.1 44119 Gelacio Brandon MD [facility] [address] [facility] [place] [address] 07/21/2023 13:12:16 07/21/2023 15:50:06 Lumbar post-laminectomy syndrome 559541163 M96.1 Inflammati on of sacroiliac joint 53340420 M46.1 29840 Gelacio Brandon MD [facility] [address] [place] [address] 10/27/2023 13:52:49 10/27/2023 16:08:33 Lumbar post-laminectomy syndrome 452296606 M96.1 Inflammati on of sacroiliac joint 25980795 M46.1 10802 Gelacio Brandon MD [facility] [address] [employer] [address] [facility] [place] [address] 03/07/2024 14:14:46 03/07/2024 14:54:15 Spinal stenosis of lumbar region 81563253 M48.061 M48.062 Lumbosacra l spondylosis without myelopathy 57275156 M47.817 Lumbosacra l radiculopathy 2287144 M54.17 Degenerati on of lumbar intervertebral disc 52601376 M51.362 Lumbar post-laminectomy syndrome 007298733 M96.1 88360 Gelacio Brandon MD PAIN OFFICE [address] [place] [address] 06/06/2024 14:13:47 06/06/2024 16:27:34 Spinal stenosis of lumbar region 29777757 M48.061 M48.062 Lumbosacra l spondylosis without myelopathy 38232511 M47.817 Lumbosacra l radiculopathy 3822696 M54.17 Degenerati on of lumbar intervertebral disc 91396905 M51.362 Lumbar post-laminectomy syndrome 045518635 M96.1 Health Concerns Section Related Observation LastModified by Organization Detai ls LastModified Time None Recorded Concern Status LastModified by Organization Details LastModified Time None Recorded Advance Directives Directive None Recorded Payers Encounter Date Sequence Insurance Name Policy Number Policy Jhaveri Covered Member ID Jhaveri Member ID Guarantor Name 04/06/2023 1 [employer] - MEDICARE ADVANTAGE PLAN (MEDICARE REPLACEMENT HMO) [id number] Chilango Castaneda [id number] Chilango Castaneda 07/21/2023 1 [employer] - MEDICARE ADVANTAGE PLAN (MEDICARE REPLACEMENT HMO) [id number] Chilango Castaneda [id number] Chilango Castaneda 10/27/2023 1 [employer] - MEDICARE ADVANTAGE PLAN (MEDICARE REPLACEMENT HMO) [id number] Chilango Castaneda [id number] Chilango Castaneda 03/07/2024 1 [employer] - MEDICARE ADVANTAGE PLAN (MEDICARE REPLACEMENT HMO) [id number] Chilango Castaneda [id number] Chilango Castaneda 06/06/2024 1 [employer] - MEDIC[employer] ADVANTAGE PLAN (MEDICARE REPLACEMENT HMO) [id number] Chilango Castaneda [id number] Chilango Castaneda Notes Date Note Type Note Provider Name and Address Organization Details Recorded Time 04/06/2023 text/html He is here for a left sacroiliac joint injection under fluoroscopic guidance. He had one month of 90% pain relief with last injection with a slow return of pain. He does home bicycling and sees Jose Kelvin regularly for maintenance PT Gelacio Brandon MD [address] , [address], [place], [address], [place] [facility] 04/06/2023 16:17:13 07/21/2023 text/html He is here for a left sacroiliac joint injection under fluoroscopic guidance. He had one month of 90% pain relief with last injection with a slow return of pain. 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 He has stopped Xarelto three days prior to the procedure Gelacio Brandon MD [address] , [address], [place], [address], [place] [facility] 03/07/2024 15:19:39 06/06/2024 text/html He is here today for a lumbar epidural steroid injection under fluoroscopic guidance. He has stopped Xarelto three days prior to the procedure Gelacio Brandon MD [address] , [address], [place], [address], [place] [facility] 06/07/2024 15:44:23
--- OUTSIDE RECORDS SUMMARY | 2024-06-27 10:48 | XMS_ITS ---
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 Patient chooses, no pharmaceutical tx (75674) Keratoma Treatment Parring or Cutting o f Benign Hyperkeratotic Lesion(s) 39815 ( 2-4 Lesions ) - The Benign hyperkeratotic lesions, as described above were pared, and/or cut utilizing a sterile 15 blade, tissue nippers, and/or jg, Q8 Progress Notes * Chilango CASTANEDADOB: [birth year] (83 yo M)Acc No.[id number]:12/03/2023 Progress Note Patient:?Chilango Castaneda Provider:?Nida Lilly DPM :1940???Age:83 Y???Sex:Male Nahum e:12/03/2023 Address:[address] [place], [place] [phone] Pcp:Gorge Mahmood MD Subjective: * Chief Complaints: [...] 72?2.?Metatarsalgia, left foot - M77.42 (Primary)?3.?Atherosclerosis of apache artery of both lower extremities, with unspecified [...] as necessary. Patient chooses, no pharmaceutical tx (44800).?Keratoma Treatment:?Parring or Cutting of Benign Hyperkeratotic Lesion(s)?38815 ( 2-4 Lesions ) - The Benign hyperkeratotic lesions, as described above were pared, and/or cut utilizing a sterile 15 blade, tissue nippers, and/or dremel, Q8.? * Procedure Codes:?97031 DEBRI DE NAIL, 6 OR MORE, Modifiers: XS 95834 TRIM SKIN LESIONS, 2 TO 4, Modifiers: [...] Lilly, BREANNA Date:? Generated for Printi melida/[place]/eTransmitting on:?06/27/2024 10:48 AM EDT History and Physical [...]
--- OUTSIDE RECORDS SUMMARY | 2024-06-27 10:48 | XMS_ITS ---
Author Organization Gorge Mahmood MD Address [address] [place], [place] [id number] Care Team Providers Care Brick Setter Operator Name Role Phone Gorge Mahmood Primary Care Provider Results Component Value Reference Range Notes Complete Blood Count Auto Di ff Reviewed date:06/20/2024 12:51:23 PM Interpretation: Performing Lab:[facility], [address] [place] [id number] Notes/Report: White Blood Count 7.8 4.8-10.8 X10*3/uL [...] Location Date Provider Diagnosis Gorge Mahmood MD [address] [place] [phone] 06/20/2024 Gorge Mahmood Thrombocytopenia, unspecified D69.6 Assessments Encounter Date Diagnosis (ICD Code) Assessment Notes Treatment Notes Treatment Clinical Notes Section Notes 06/20/2024 Thrombocytopenia , unspecified (ICD-10 - D69.6) Plan Of Treatment Next Appt Details Provider Name:Gorge anaya, 10/02/2024 09:00:00 AM, [address] [place] [address], [address], [phone], Provider Name:Gorge anaya, 03/30/2025 07:30:00 AM, [address] [place] [address], [address], [phone], Provider Name:Gorge anaya, 04/06/2025 08:30:00 AM, [address] [place] [address], [phone], Progress Notes * Chilango CASTANEDA GDOB: [birth year] (84 yo M)Acc No.[id number]:06/20/2024 Progress Note Patient:?Chilango CASTANEDA Provider:?Gorge Mahmood MD :1940???Age:84 Y???Sex:Male Nahum e:06/20/2024 Address:[address] [place], [place] [phone] Subjective: * Chief Complaints: * ???1. Thrombocytopenia. * Medical History:? Objective: * Vitals:? Assessment: * Assessment: 1.?Thrombocytopenia, unspeci fied - D69.6 (Primary)??? Plan: * Treatment: * Procedure Codes:?52167 VENIP UNCT, ROUTINE* * * The named appointment provid er may or may not be the originator of this progress note, and it is not deemed complete until electronically signed by the appointment provider. Sign off status: Pending * Provider:?Gorge Mahmood MD Date:?0 06/20/2024 Generated for Danial montez/[place]/eTransmitting on:?06/27/2024 10:48 AM EDT
--- OUTSIDE RECORDS SUMMARY | 2024-06-27 10:48 | XMS_ITS ---
Author Organization [facility] lydia [place] Address [address] [facility] [place] [address] Care Team Providers Care Carbon Blocks Press Operator Name Role Phone Timoteo SERRA, Gorge Primary Care Provider Nida Carnes Unavailable [phone] Allergies Allergen (clinical drug ingredient) Drug/Non Drug [...] 025 Encounters Encounter Location Date Provider Diagnosis [facility] [place] [address] [place] [address] 04/26/2024 Nida Aiyanazach Pain in left foot M79.672 ; Metatarsalgia, left foot M77.42 ; Atherosclerosis of [place] artery of both lower extremities, with unspecified [...] foot (ICD-10 - M77.42) 04/26/2024 Atherosclerosis of [place] artery of both lower extremities, with unspecified [...] Provider Name:Nida serrano, 07/26/2024 09:00:00 AM, [address] [place], [address], Procedure Notes * Category Sub-Category Detail Notes [...] use of a nail nipper and/or dremel-type tool grinder operator surface, to a more viable healthy nail plate [...] to maintain effectiveness in symptomatic relief - 00148 Keratoma Treatment Parring or Cutting o f [...] instrumentation by the physician of record - 06088 Progress Notes * CASTANEDA, ChilangoDOB: 9 (83 yo M)Acc No.[id number]:04/26/2024 Progress Note Patient:?Chilango CASTANEDA Provider:?Nida Lilly DPM :1940???Age:83 Y???Sex:Male Nahum e:04/26/2024 Address:[address] [place], [place] [address]Jorge [id number] Pcp:Gorge Mahmood MD Subjective: * Chief Complaints: [...] 72???2.?Metatarsalgia, left foot - M77.42 (Primary)???3.?Atherosclerosis of [place] artery of both lower extremities, with unspecified [...] use of a nail nipper and/or dremel-type tool grinder operator surface, to a more viable healthy nail plate [...] to maintain effectiveness in symptomatic relief - 60330.?Keratoma Treatment:?Parring or Cutting of Benign Hyperkeratotic Lesion(s)?(-57) [...] instrumentation by the physician of record - 42914.? * Procedure Codes:?97431 DEBRI DE NAIL, 6 OR MORE, Modifiers: XS 44787 TRIM SKIN LESIONS, OVER 4, Modifiers: XS [...] Lilly DPM Date:? Generated for Danial montez/[place] on:?06/27/2024 10:47 AM EDT History and Physical [...]
== END 2024-06-27 10:24 | disposition home or self-care (01) ==
LOC: HO.HCS 09:47
PROVIDERS: PCP Internal Medicine; Visit Provider Internal Medicine
DX: I48.19 Other persistent atrial fibrillation (principal); I49.3 Ventricular premature depolarization; I42.8 Other cardiomyopathies; I10 Essential (primary) hypertension; R60.0 Localized edema
CPT/HCPCS: 93010; 99214; G2211

== ENCOUNTER → 2024-06-27 09:47 | Outpatient (BNVA) | payer MEDICARE, SELFPAY | PROVIDERS: PCP Internal Medicine; Visit Provider Internal Medicine | DX: I48.19 Other persistent atrial fibrillation (principal); I49.3 Ventricular premature depolarization; I42.8 Other cardiomyopathies; I10 Essential (primary) hypertension; R60.0 Localized edema; I48.92 Unspecified atrial flutter; I44.39 Other atrioventricular block; R94.31 Abnormal electrocardiogram [ECG] [EKG] | CPT/HCPCS: 93005; 99212 ==

== ENCOUNTER 2024-09-09 11:31 | Emergency (ER) | payer MEDICARE, SELFPAY ==
--- NOTE | ~2024-09-09 | CT_ITS ---
CLINICAL HISTORY: left lower back pain radiates to the LLQ. CT abdomen and pelvis without contrast Comparison: None provided Findings: Moderate-sized hiatal hernia. 4 mm nodule right lower lobe. Per Fleischner criteria: Low-risk patients: No routine follow-up required. High-risk patients: Optional CT at 12 months. Atelectasis. Trace pericardial effusion. Mildly distended gallbladder. Bilateral perinephric stranding, nonspecific. No urolithiasis. Small left renal sinus cysts. Mildly diffuse colonic mural thickening. There is peridiverticular inflammatory changes along the hepatic flexure concerning for diverticulitis. No bowel obstruction. Fat containing inguinal hernias. Prostatomegaly noted. Mildly distended bladder with scattered diverticuli. Mild mural thickening throughout the bladder, nonspecific. Osteopenia with diffuse multilevel spondylosis. Subacute/chronic appearing superior endplate fracture noted at T12 patchy heterogeneous sclerosis. Dextroscoliosis. IMPRESSION: 1. Hepatic flexure diverticulitis. 2. Additional findings as described. This document has been electronically signed by: Guy Núñez MD on 09/09/2024 17:38:51
--- NOTE | 2024-09-09 11:34 | ED.ABDPAIN ---
HPI - Abdominal Pain General Chief Complaint: Abdominal Pain Stated Complaint: abd and back pain Source: patient and family ( son) Mode of arrival: ambulatory Limitations: no limitations History of Present Illness ED Provider: DR. Pulido HPI narrative: 84-year-old male walked to the emergency department for evaluation of left lower back pain radiates to the left lower quadrant abdominal area pain started about 2 weeks ago seen by his PCP prescribed oxycodone and muscle relaxant with no relief, patient was seen last week at an urgent care diagnosed with constipation was given Colace, patient declined any history of low back injury, no history of strenuous activity or heavy lifting, no fever, no chills, never had intra-abdominal surgery in the past, last bowel movement was this morning described as loose stool but normal color with no blood, patient is passing flatus, no stool, no frequency urination, no hematuria. Related Data Home Medications ?Medication ?Instructions ?Recorded ?Confirmed allopurinol 300 mg tablet 300 mg PO DAILY 03/05/20 06/27/24 irbesartan 300 mg tablet 300 mg PO DAILY 03/05/20 06/27/24 doxazosin 2 mg tablet 2 mg PO BEDTIME 02/24/22 06/27/24 finasteride 5 mg tablet 5 mg PO DAILY 02/24/22 06/27/24 amlodipine 5 mg tablet 5 mg PO DAILY 01/06/23 06/27/24 Previous Rx's ?Medication ?Instructions ?Recorded rivaroxaban 20 mg tablet (Xarelto) 20 mg PO QPM #90 tabs 09/27/23 amiodarone 200 mg tablet 200 mg PO DAILY #90 tabs 05/15/24 furosemide 40 mg tablet 80 mg (2 x 40 mg) PO DAILY #180 05/15/24 tabs ciprofloxacin HCl 250 mg tablet 250 mg PO BID #14 tabs 09/09/24 (Cipro) lidocaine 4 % topical patch 1 patch topical DAILY PRN pain #5 09/09/24 ea metronidazole 250 mg tablet 250 mg PO Q12H #14 tabs 09/09/24 Allergies Allergy/AdvReac Type Severity Reaction Status Date / Time Penicillins (PCN) Allergy Unknown RASH Verified 09/09/24 11:37 Sulfamethoxazole-TMP DS Allergy Unknown rash Uncoded 09/09/24 11:37 Review of Systems Review of Systems All other systems are reviewed and are negative Constitutional: Reports as per HPI and Reports no additional constitutional complaints Eyes: Reports as per HPI and Reports no additional eye complaints Reports system reviewed and no additional complaints, except as documented Cardiovascular: Reports as per HPI and Reports no additional cardiovascular complaints Respiratory: Reports as per HPI and Reports no additional respiratory complaints Gastrointestinal: Reports as per HPI and Reports no additional gastrointestinal complaints Genitourinary: Reports no additional female genitourinary complaints Musculoskeletal: Reports no additional musculoskeletal complaints Skin/Breast: Reports system reviewed and no additional complaints, except as docu Psychiatric: Reports no additional psychiatric complaints Endocrine: Reports no additional endocrine complaints Hematologic/Lymphatic: Reports no additional hematologic/lymphatic complaints Allergic/Immunologic: Reports no additional allergic/immunologic complaints Reports system reviewed and no additional complaints, except as documented and Reports Abnormal speech present FOR[facility] Past Medical History Medical History Persistent atrial fibrillation Diastolic dysfunction Localized edema Essential hypertension Nonischemic cardiomyopathy Current use of skilled nursing anticoagulation Surgical History History of back surgery History of cardioversion (~2015) Family History Family History Father CHF (congestive heart failure) Mother Cancer Social History Social History Alcohol intake: never Patient Tobacco Use Status: Never used Tobacco Advance Directives: No Advance Directives Information Provided: No Do you have a plan to hurt others: No Plan Physical Exam ED Vital Signs: Vital Signs - 24 hr 09/09/24 11:35 09/09/24 16:37 Temperature 98.3 F 98.1 F Pulse Rate 79 96 Respiratory Rate 17 16 Blood Pressure 135/63 132/64 Pulse Oximetry 96 97 Oxygen Delivery Method Room Air Room Air BMI result Body Mass Index 30.3 Vital signs have been reviewed and appear to be correct. Blood pressure elevated. Heart rate normal. Respiratory rate normal. Temperature normal. Oxygen saturation normal. Appearance: Alert. Oriented X3. No acute distress. Head: Normal external exam. Normocephalic. Atraumatic. No Varghese signs noted. No raccoon eyes noted Eyes: PERRLA. EOMI. Conjunctiva and sclera normal. Eyelids normal. ENT: TM's Normal. Pharynx normal. Uvula midline. Moist mucous membranes. No trismus noted. No drooling noted. No muffled voice noted. Neck: Normal inspection. Neck supple. FROM. No adenopathy. Thyroid Normal. No meningeal signs. No neck mass noted. CVS: Normal heart rate and rhythm. Heart sound normal. No murmurs noted. Pulses normal throughout. Respiratory: No respiratory distress. Painless inspiration. Breath sounds normal. No wheezes/rales/rhonchi noted. Chest nontender. No accessory muscle usage noted or decreased air movement noted. Abdomen: Soft and nontender. Bowel sounds normal in all 4 quadrants. No distention noted. No organomegaly noted. No visible injury noted. Back: No CVA tenderness. Full range of motion noted. Skin: Skin warm and dry. Normal skin color. Normal skin turgor. No rashes/lesions/lacerations noted. Extremities: No lower extremity edema. Extremities exhibit normal range of motion. Extremities nontender. Neuro: Oriented X 3. Cranial nerve exam: II-XII are grossly intact No motor deficit. No sensory deficit. Reflexes normal. Course Course Course Narrative: This is an RME performed by Raheem Dick CNP: Additional HPI, ROS, PE not included below will be deferred to primary provider. Patient is an 84-year-old male who presents emergency department for evaluation 2w go saw PCP for possible muscle pull to the left buttock/ lower back?, however now he is having mid lower ABD pain. Has seen PCP multiple time by PCP in past week, states CT AP was denied by insurance. He is having non bloody diarrhea with this. Denies urinary symptoms Plan: serum labs, urinalysis Reevaluation(s) Reevaluation #1: 84-year-old male came in with left sacroiliitis, patient reported improvement with lidocaine patch in the past will prescribe lidocaine patch. CT abdomen and pelvis reveals accident to hepatic flexure diverticulitis with no complication will start the patient on Cipro /Flagyl. Rest and avoid strenuous activity. Follow-up with PCP. Time: 19:09 Medical Decision Making Differential Diagnosis Differential Diagnoses: The differential diagnosis associated with the presentation includes ( Sacroiliitis, left kidney stone, diverticular disease, colitis, severe anemia, electrolyte derangement) Admission/Observation Consideration of admission/observation: Escalation of care including admission/observation considered Lab Data MDM Lab Attestation statement: I reviewed the patient's lab results. 09/09/24 11:51 09/09/24 11:51 Labs: Lab Results 09/09/24 Range/Units 11:51 WBC 9.0 (4.8-10.8) X10*3/uL RBC 4.04 L (4.60-5.80) X10*6/uL Hgb 13.8 L (14.0-18.0) g/dl Hct 38.5 L (42.0-52.0) % MCV 95.3 (80.0-98.0) fL MCH 34.2 H (27.0-33.0) pg MCHC 35.8 (31.0-36.0) g/dl RDW 13.3 (11.0-16.0) % Plt Count 121 L (160-400) X10*3/uL MPV 10.4 (9.4-12.4) fL Immature Gran % (Auto) 0.4 (0.0-0.4) % Neut % (Auto) 82.8 H (45-73) % Lymph % (Auto) 10.0 L (20-40) % [place] % (Auto) 6.3 (2-11) % Eos % (Auto) 0.3 (0-4) % Baso % (Auto) 0.2 (0-2) % Lymph # (Auto) 0.9 L (1.2-4.9) X10*3/uL [place] # (Auto) 0.6 (0.1-1.2) X10*3/uL Eos # (Auto) 0.0 (0.0-0.4) X10*3/uL Baso # (Auto) 0.0 (0.0-0.2) X10*3/uL Abs Immat Gran (auto) 0.04 H (0.00-0.03) X10*3/uL Absolute Neuts (auto) 7.5 (2.0-8.3) x10*3/uL Absolute Nucleated RBC 0.000 (0.0-0.012) X10*3/uL Nucleated RBC % (auto) 0.0 (0.0-0.2) /100WBC Sodium 140 (135-145) mmol/L Potassium 3.3 (3.3-5.1) mmol/L Chloride 108 (96-108) mmol/L Carbon Dioxide 23 (22-29) mmol/L Anion Gap 12 (12-20) BUN 25 H (9-16) mg/dL Creatinine 1.47 H (0.5-1.4) mg/dL Estim Creat Clear Calc 39.3 Estimated GFR 45 Random Glucose 106 (60-115) mg/dL Calcium 8.6 (8.4-10.2) mg/dL Total Bilirubin 0.9 (0.0-1.0) mg/dL AST 21 (5-37) U/L ALT 10 (0-40) U/L Alkaline Phosphatase 110 (39-117) U/L Total Protein 6.3 L (6.5-8.0) g/dL Albumin 3.6 (3.5-5.0) g/dL Lipase 10 (8-78) U/L Independent Interpretation I performed an independent interpretation of an: CT Scan ( abdomen pelvis:1. Hepatic flexure diverticulitis. 2. Additional findings as described.) Radiology Impression Discussion of test interpretation with radiology: I have reviewed the radiologist's reading. Discharge Plan Discharge Clinical Impression: Sacroiliac pain, Diverticulitis Patient Disposition: Home, Self-Care Instructions: Diverticulitis (ED), Sacroiliitis (ED) Prescriptions: New metronidazole 250 mg tablet 250 mg PO Q12H Qty: 14 0RF ciprofloxacin HCl [Cipro] 250 mg tablet 250 mg PO BID Qty: 14 0RF lidocaine 4 % adhesive patch,medicated 1 patch topical DAILY PRN (Reason: pain) Qty: 5 0RF No Action Xarelto 20 mg tablet 20 mg PO QPM Qty: 90 3RF Rx Instructions: must administer with evening meal furosemide 40 mg tablet 80 mg PO DAILY Qty: 180 3RF amiodarone 200 mg tablet 200 mg PO DAILY Qty: 90 3RF irbesartan 300 mg tablet 300 mg PO DAILY allopurinol 300 mg tablet 300 mg PO DAILY doxazosin 2 mg tablet 2 mg PO BEDTIME finasteride 5 mg tablet 5 mg PO DAILY amlodipine 5 mg tablet 5 mg PO DAILY Referrals: Gorge Mahmood MD [Primary Care Provider, Medical] Print Language: Hungarian
[2024-09-09 11:35] VITALS: BP 135/63; PULSE 79; RESP 17; TEMP 36.8; O2SAT 96; BMI 30.3
[2024-09-09 12:03] LABS: MANUAL DIFF FLAG NO
[2024-09-09 12:15] LABS: Hematocrit 38.5 % (42.0-52.0); Hemoglobin 13.8 g/dl (14.0-18.0); Imm Gran Abs Auto 0.04 X10*3/uL (0.00-0.03); Imm Gran Pct Auto 0.4 % (0.0-0.4); Lymphocytes Absolute Auto 0.9 X10*3/uL (1.2-4.9); Mean Corpuscular HGB Conc 35.8 g/dl (31.0-36.0); Mean Corpuscular Hemoglobin 34.2 pg (27.0-33.0); Mean Corpuscular Volume 95.3 fL (80.0-98.0); NRBC Abs Auto 0.000 X10*3/uL (0.0-0.012); NRBC Pct Auto 0.0 /100WBC (0.0-0.2); Platelet Count 121 X10*3/uL (160-400); Red Blood Count 4.04 X10*6/uL (4.60-5.80); White Blood Count 9.0 X10*3/uL (4.8-10.8)
[2024-09-09 12:29] LABS: Alanine Aminotransferase 10 U/L (0-40); Albumin Level 3.6 g/dL (3.5-5.0); Alkaline Phosphatase 110 U/L (39-117); Anion Gap 12 (12-20); Aspartate Amino Transferase 21 U/L (5-37); Blood Urea Nitrogen 25 mg/dL (9-16); Calcium 8.6 mg/dL (8.4-10.2); Carbon Dioxide 23 mmol/L (22-29); Chloride 108 mmol/L (96-108); Creatinine Clr Calc Pharmacy 39.3; Estimated Glomerular Filt Rate 45; Lipase 10 U/L (8-78); Potassium 3.3 mmol/L (3.3-5.1); Sodium 140 mmol/L (135-145); Total Protein 6.3 g/dL (6.5-8.0)
--- OUTSIDE RECORDS SUMMARY | 2024-09-09 16:01 | XMS_ITS | Patient Health Record ---
Author Organization Gorge Mahmood MD Address [address] [place], [place] [id number] Care Team Providers Care Envelope Stuffer Name Role Phone Gorge Mahmood Primary Care Provider Allergies Allergen (clinical drug ingredient) Drug/Non Drug Allergy documented on EMR Reaction Allergy Type Onset Date Status sulfamethoxazole / trimethoprim Sulfamethoxazole- Trimethoprim swelling and redness Drug Allergy Active penicillin (uncoded) rash Allergy Active Results Component Value Reference Range Notes Complete Blood Count Auto Di ff Reviewed date:03/30/2024 09:56:33 AM Interpretation: Performing Lab:[facility], [address] [place] [phone] Notes/Report: White Blood Count 5.6 4.8-10.8 X10*3/uL [...] NRBC Abs Auto 0.000 0.0-0.012 X10*3/uL Comprehensive [place]. Panel Fa st Reviewed date:03/28/2024 05:01:16 PM Interpretation: Performing Lab:[facility], [address] [place] [phone] Notes/Report: Sodium 141 135-145 mmol/L Potassium 4.0 [...] Panel Reviewed date:03/28/2024 12:36:21 PM Interpretation: Performing Lab:[facility], [address] [place] [phone] Notes/Report: Triglycerides 72 <150 mg/dL Desirable Triglyceride: [...] (Free>4and<10) Reviewed date:03/28/2024 12:38:01 PM Interpretation: Performing Lab:[facility], [address] [place] [phone] Notes/Report: PSA,Total (Free>4and<10) 1.15 0.00-4.00 ng/mL A [...] Random Reviewed date:03/28/2024 12:37:41 PM Interpretation: Performing Lab:[facility], [address] [place] [phone] Notes/Report: Creatinine Urine 133.89 Microalbumin Urine < 5.0 Microalbum/Creatinine Ratio Ur TNP <30 ug/mg cr Unable to calculate albumin/creatinine ratio due to low microalbumin or creatinine result. Hemoglobin A1c Reviewed date:03/28/2024 12:44:45 PM Interpretation: Performing Lab:[facility], [address] [place] [phone] Notes/Report: Hemoglobin A1c % 5.1 <6.0 % [...] average glucose, using the formula of the [id number]-[id number] Average Glucose study (ADAG), Diabetes Care, Vol.31,#8, Sep. 2007 UA ClnCatch+Micro w/rflx Cul t Reviewed date:03/28/2024 05:01:31 PM Interpretation: Performing Lab:[address] [phone] Notes/Report: [id number] Urine, Clean Catch Color Urine Yellow Appearance Urine Clear PH 6.0 5.0-9.0 Glucose Urine UA Negative Negative mg/dL Urine Blood Negative Negative Specific [place] - Urine 1.020 1.005-1.025 Urine Protein Negative [...] ff Reviewed date:06/20/2024 12:51:23 PM Interpretation: Performing Lab:[facility], [address] [place] [phone] Notes/Report: White Blood Count 7.8 4.8-10.8 X10*3/uL [...] Notes/Report: Negative Occult Blood, Stool, Guaiac Neg TSH reflex Free T4 Reviewed date:11/01/2023 12:34:29 PM Interpretation: Performing Lab:[facility], [address] [place] [phone] Notes/Report: TSH reflex Free T4 1.43 0.32-4.0 uIU/mL Basic Metabolic Panel Reviewed date:02/25/2024 02:48:48 PM Interpretation: Performing Lab:[address] [phone] Notes/Report: Sodium 142 135-145 mmol/L Potassium 4.1 [...] Peptide Reviewed date:02/23/2024 10:11:20 AM Interpretation: Performing Lab:[address] [phone] Notes/Report: B Type Natriuretic Peptide 126 <100 pg/mL For those patients who are being treated with Natrecor (nesiritide, recombinant BNP), BNP testing should be performed at least two hours post treatment in order to ensure that only endogenous levels of BNP are detected. TSH reflex Free T4 Reviewed date:02/24/2024 05:28:58 PM Interpretation: Performing Lab:[address] [phone] Notes/Report: TSH reflex Free T4 1.03 0.32-4.0 uIU/mL Complete Blood Count Auto Di ff (Not yet reviewed by provider) Interpretation: Performing Lab:[address] [phone] Notes/Report: White Blood Count 9.0 4.8-10.8 X10*3/uL Red Blood Count 4.04 4.60-5.80 X10*6/uL Hemoglobin 13.8 14.0-18.0 g/dl Hematocrit 38.5 42.0-52.0 % Mean Corpuscular Volume 95.3 80.0-98.0 fL Mean Corpuscular Hemoglobin 34.2 27.0-33.0 pg Mean Corpuscular HGB Conc 35.8 31.0-36.0 g/dl Red Cell Distribution Width 13.3 11.0-16.0 % Platelet Count 121 160-400 X10*3/uL Mean Platelet Volume 10.4 9.4-12.4 fL Neutrophils Percent Auto 82.8 45-73 % Imm Gran Pct Auto 0.4 0.0-0.4 % Lymphocytes Percent Auto 10.0 20-40 % Monocytes Percent Auto 6.3 2-11 % Eosinophils Percent Auto 0.3 0-4 % Basophils Percent Auto 0.2 0-2 % NRBC Pct Auto 0.0 0.0-0.2 /100WBC Neutrophils Absolute Auto 7.5 2.0-8.3 x10*3/u L Imm Gran Abs Auto 0.04 0.00-0.03 X10*3/uL Lymphocytes Absolute Auto 0.9 1.2-4.9 X10*3/u L Monocytes Absolute Auto 0.6 0.1-1.2 X10*3/uL Eosinophils Absolute Auto 0.0 0.0-0.4 X10*3/u L Basophils Absolute Auto 0.0 0.0-0.2 X10*3/uL NRBC Abs Auto 0.000 0.0-0.012 X10*3/uL Comprehensive Met. Panel (No t yet reviewed by provider) Interpretation: Performing Lab:[facility], [address] [place] [phone] Notes/Report: Sodium 140 135-145 mmol/L Potassium 3.3 3.3-5.1 mmol/L Chloride 108 96-108 mmol/L Carbon Dioxide 23 22-29 mmol/L Anion Gap 12 12-20 Blood Urea Nitrogen 25 9-16 mg/dL Creatinine 1.47 0.5-1.4 mg/dL Creatinine Clr Calc Pharmacy 39.3 eGFR (calculated from the MDRD study equation) and eCrCl (calculated from the Cockcroft-Gault equation) are based on different parameters and may not yield comparable results. If eCrCl result is absurd, please check patient's height/weight. Estimated Glomerular Filt Rate 45 Chronic Kidney Disease: Estimated GFR < 60 mL/min/1.73m2 Severe Kidney Disease: Estimated GFR < 15 mL/min/1.73m2 Glucose Random 106 60-115 mg/dL Calcium 8.6 8.4-10.2 mg/dL Bilirubin Total 0.9 0.0-1.0 mg/dL Aspartate Amino Transferase 21 5-37 U/L Alanine Aminotransferase 10 0-40 U/L Total Protein 6.3 6.5-8.0 g/dL Albumin Level 3.6 3.5-5.0 g/dL Alkaline Phosphatase 110 39-117 U/L Lipase (Not yet reviewed by provider) Interpretation: Performing Lab:[facility], [address] [place] [phone] Notes/Report: Lipase 10 8-78 U/L Reason For Referral No Information Medications Medication SIG (Take, Route, Frequency, Duration) Notes Start Date End Date Status Furosemide 40 MG [id number] alternating with 2 tablets Orally Once a day Active amLODIPine Besylate 5 MG TAKE 1 TABLET BY MOUTH EVERY DAY for 30 Active oxyCODONE HCl 5 MG 1 tablet as needed Orally every 12 hours as needed. do not drive for 7 days Partial Fill upon Patient Request 08/28/2024 Not-Taking Cyclobenzaprine HCl 5 MG 1 tab Orally twice a day for 10 days 08/28/2024 Not-Taking Finasteride 5 MG 1 tablet Orally Once a day Active Cyclobenzaprine HCl 5 MG 1 tablet at bedtime as needed Orally twice a day for 10 days 11/13/2019 Not-Taking Xarelto 20 MG 1 tablet with food Orally Once a day 01/10/2015 Active dexAMETHasone 2 MG TAKE 1 TABLET BY MOUTH THREE TIMES A DAY FOR 5 DAYS Oral Three times a day for 3 days 11/13/2019 Not-Taking Allopurinol 300 MG TAKE 1 TABLET BY MOUTH EVERY DAY for 90 Active Ibuprofen 800 MG 1 tablet Orally Three times a day for 30 day(s) 10/27/2011 Not-Taking Amiodarone HCl 200 MG 1 tablet Orally Once a day Active Colace 100 MG 1 capsule as needed Orally Once a day Active Irbesartan 300 MG TAKE 1 TABLET BY MOUTH EVERY DAY for 30 Not-Taking Tylenol 8 Hour 650 MG 2 tablets as needed Orally every 8 hrs Active Triamcinolone Acetonide 0.1 % APPLY TWICE DAILY TO TRUNK,ARMS,AND LEGS *APPLY MOISTURIZER AFTER *AVOID FACE/GROIN* External for 25 Not-Taking Doxazosin Mesylate 2 MG 1 tablet Orally Once a day for 30 day(s) Active Cortisporin 0.5-0.5-27196 1 application to affected area Externally Twice a day for 30 days 01/10/2015 Not-Taking Immunizations Vaccine Route Administration Date Status Comme [...] Influenza High Dose Unknown 10/30/2019 Administered [facility] Fluarix Quadrivalent Unknown 10/30/2019 [facility] [...] Problem Status W/U Status Risk Notes Problem Sciatica (50364801) Sciatica (M54.30) Active confirmed Problem 901945312 Thrombocytopenia (D69.6) Active confirmed Problem Constipation (62822101) Constipation (K59.00) Active confirmed Problem 628704905 Body mass index (BMI) 33.0-33.9, adult (Z68.33) Active confirmed Problem 654976207 Tubular adenoma of colon (D12.6) Active confirmed Problem 082539678 Gastroesophageal reflux disease without esophagitis (K21.9) Active confirmed Problem 27351667 Essential hypertension (I10) Active confirmed Problem 4812322 Psoriasis (L40.9) Active confirmed Problem 3696078 Prediabetes (R73.09) Active confirmed Problem 432594982 History of gout (Z87.39) Active confirmed Problem 204594192806403 Carpal tunnel syndrome of right wrist (G56.01) Active confirmed Problem 54548096 Sciatica of left side (M54.32) Active confirmed Problem 719953275 History of atria l fibrillation (Z86.79) Active confirmed Problem 625349466 Elevated PSA (R97.20) Active confirmed Problem 965780340 BMI 33.0-33.9,ad ult (Z68.33) Active confirmed Problem 884977216 Temporary low platelet count (D69.6) Active confirmed Problem 496008650 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) Active confirmed Problem 562337722 PVC's (premature ventricular contractions) (I49.3) Active confirmed Problem 710805203 History of basal cell carcinoma (Z85.828) Active confirmed Vital Signs Blood pressure diastolic 64 mm Hg 09/04/2024 Height 68.25 in 09/04/2024 Blood pressure systolic 122 mm Hg 09/04/2024 Weight 204 lbs 09/04/2024 BMI 30.79 kg/m2 09/04/2024 Encounters Encounter Location Date Provider Diagnosis Gorge Mahmood MD [address] [place] [id number] 03/28/2024 Gorge Mahmood Blood tests for rout ine general physical examination Z00.00 ; Thrombocytopenia D69.6 ; Prediabetes R73.09 and Elevated PSA R97.20 Gorge Mahmood MD [address] [place] [id number] 06/20/2024 Gorge Mahmood Thrombocytopenia, unspecified D69.6 Gorge Mahmood MD [address] [place] [id number] 09/30/2023 Gorge Mahmood PVC's (premature ventricular contractions) I49.3 and Essential hypertension I10 Gorge Mahmood MD [address] [place] [id number] 11/29/2023 Gorge Mahmood Encounter for administration of vaccine Z23 Gorge Mahmood MD [address] [place] [id number] 04/04/2024 Gorge Mahmood Thrombocytopenia D69 .6 ; Annual physical exam Z00.00 ; Essential hypertension I10 ; History of atrial fibrillation Z86.79 ; Elevated PSA R97.20 ; Colon cancer screening Z12.11 and Depression screening Z13.31 Gorge Mahmood MD [address] [place] [id number] 08/28/2024 Gorge Mahmood Sciatica M54.30 and Leg edema R60.0 Gorge Mahmood MD [address] [place] [id number] 09/04/2024 Gorge Mahmood Sciatica M54.30 and Constipation K59.00 Gorge Mahmood MD [address] [id number] 04/24/2024 Gorge Mahmood MD [address] [id number] 08/28/2024 Gorge Mahmood Sciatica M54.30 Gorge Mahmood MD [address] [place] [id number] 08/31/2024 Gorge Mahmood MD [address] [id number] 09/07/2024 Gorge Mahmood Assessments Encounter Date Diagnosis (ICD [...] Z00.00) labs reviewed and discussed with patient 08/28/2024 Sciatica (ICD-10 - M54.30) 08/28/2024 Leg edema (ICD-10 - R60.0) increase furosemide to 2 twice a day 09/04/2024 Sciatica (ICD-10 - M54.30) still having a lot of pain. getting injections of spine every 3 months/ order will be faxed over to [facility] cs dept after PA 09/04/2024 Constipation (ICD-10 - K59.00) not taking any more oxycodone but will try dulcolax 08/28/2024 Sciatica (ICD-10 - M54.30) 03/28/2024 Thrombocytopenia (ICD-10 - D69.6) 04/04/2024 Essential [...] CONTRAST 01/09/2021 Complete Blood Count Auto Diff Comprehensive Met. Panel 09/09/2024 Lipase 09/09/2024 CT lumbar spine wo con 09/04/2024 Next Appt Details Provider Name:Gorge anaya, 10/02/2024 09:00:00 AM, [address] [place] [address], [address], [place], [place], [phone], Provider Name:Gorge anaya, 03/30/2025 07:30:00 AM, [address] [place] [address] Drive, [address], [place], [place], [phone], Provider Name:Gorge Boothe gabrielr, 04/06/2025 08:30:00 AM, [address], [address], [place], [id number], Insurance Providers Payer Name Payer Address Payer Phone Subscriber Number Group Number Insured Name Patient Relationship to Insured Coverage Start Date Coverage End Date [employer] [facility] [address] [place] [phone] [id number] Chilango Castaneda Self - patient is the insured MEDICARE [facility] [address] [place] [address] [id number] Chilango Castaneda Self - patient is the insured Medical (General) History Medical History History ICD Code Gout hypertension, benign psoriasis tia prostatism Colonoscopy ; colonos copy 06/04/14 - no need for further testing per Dr. Ely CREATININE CLEARANCE 54 Surgical History Surgery Date(Month/Year) DC Cardioversion 02/2015
--- OUTSIDE RECORDS SUMMARY | 2024-09-09 16:01 | XMS_ITS | Patient Health Record ---
Author Organization [facility] Address [address] [place] [address] Care Team Providers Care Rn Pain Management Name Role Phone Gorge Mahmood MD Primary Care Provider Bennie Jenkins [phone] Allergies Allergen (clinical drug ingredient) Drug/Non Drug Allergy documented on EMR Reaction Allergy Type Onset Date Status Penicillin Unknown Drug Allergy Active Reason For Referral No Information Medications Medication SIG (Take, Route, Fr equency, Duration) Notes Start Date End Date Status Valsartan 320 MG 1 tablet Orally Once a day Active Allopurinol 300 MG 1 tablet Orally Once a day Active Suprep Bowel Prep 1 kit as directed Oral ly as directed for 1 dose 03/24/2014 Active Problems Problem Type SNOMED Code ICD Code Onset Dates Problem Status W/U Status Risk Notes Problem Pre-surgery evaluation (323890920) Other specified pre-operative examination (V72.83) Active confirmed Problem Colon cancer screening (V76.51) Active confirmed Problem History of adenomatous polyp of colon (858278476) History of adenomatous polyp of colon (V12.72) Active confirmed Plan Of Treatment Future Test Test Name Order Date COLONOSCOPY 03/22/2014 Insurance Providers Payer Name Payer Address Payer Phone Subscriber Number Group Number Insured Name Patient Relationship to Insured Coverage Start Date Coverage End Date [facility] [address] [facility] [place] [phone] [id number] BREANA SINGH Self - patient is the insured Medical (General) History Medical History History ICD Code Tubular adenomas removed in 1993 and 2003--he had a negative colonoscopy in January of 2009, other than the finding of some diverticulosis and internal hemorrhoids hypertension Gout psoriasis TIA in the Denies NC,DM,CVA,Lung disease,renal dise ase Surgical History Surgery Date(Month/Year) appendectomy
--- OUTSIDE RECORDS SUMMARY | 2024-09-09 16:01 | XMS_ITS | Patient Health Record ---
Author Organization [facility] Address [address] [facility] [place] [address] Care Team Providers Care Vessel Liner Name Role Phone Gorge Mahmood MD Primary Care Provider Nida Carnes Unavailable [phone] Allergies Allergen (clinical drug ingredient) Drug/Non Drug Allergy documented on EMR Reaction Allergy Type Onset Date Status Penicillin rash Drug Allergy Active Reason For Referral No Information Medications Medication SIG (Take, Route, Frequency, Duration) Notes Start Date End Date Status Irbesartan 300 MG 1 tablet Orally Once [...] a day Not-Taking Losartan Potassium N ot-Taking Immunizations Vaccine Route Administration Date Status Comme nts Influenza Unknown 10/10/2023 Administered Social History Tobacco Use: Social History Observation [...] W/U Status Risk Notes Problem Atherosclerosis of [place] artery of both lower extremities, with unspecified presence of clinical manifestation (I70.203) Active confirmed Vital Signs Blood pressure diastolic 80 mm Hg 07/26/2024 Height 5 ft 9 in in 07/26/2024 Blood pressure systolic 170 mm Hg 07/26/2024 Weight 190 lbs 07/26/2024 BMI 28.06 kg/m2 07/26/2024 Encounters Encounter Location Date Provider Diagnosis [address] [address] 09/15/2023 Nida Perica Pain in left foot M79.672 ; Metatarsalgia, left foot M77.42 ; Atherosclerosis of [place] artery of both lower extremities, with unspecified presence of clinical manifestation I70.203 ; Tinea unguium B35.1 ; Pain in right toe(s) M79.674 ; Pain in left toe(s) M79.675 and Pain in left ankle and joints of left foot M25.[address] [address] 12/03/2023 Nida Perica Pain in left foot M79.672 ; Metatarsalgia, left foot M77.42 ; Atherosclerosis of [place] artery of both lower extremities, with unspecified presence of clinical manifestation I70.203 ; Tinea unguium B35.1 ; Pain in right toe(s) M79.674 ; Pain in left toe(s) M79.675 and Pain in left ankle and joints of left foot M25.[address] [address] 04/26/2024 Nida Perica Pain in left foot M79.672 ; Metatarsalgia, left foot M77.42 ; Atherosclerosis of [place] artery of both lower extremities, with unspecified presence of clinical manifestation I70.203 ; Tinea unguium B35.1 ; Pain in right toe(s) M79.674 ; Pain in left toe(s) M79.675 and Pain in left ankle and joints of left foot M25.[address] [address] 07/26/2024 Nida Perica Metatarsalgia, left foot M77.42 ; Subungual hematoma of left foot, initial encounter S90.222A ; Pain in left foot M79.672 ; Atherosclerosis of [place] artery of both lower extremities, with unspecified presence of clinical manifestation I70.203 ; Tinea unguium B35.1 ; Pain in right toe(s) M79.674 ; Pain in left toe(s) M79.675 and Pain in left ankle and joints of left foot M25.572 [facility] [address] [address] 07/26/2024 Nida Vijaya Assessments Encounter Date Diagnosis (ICD Code) Assessment Notes Treatment Notes Treatment Clinical Notes Section Notes 09/15/2023 Metatarsalgia, left foot (ICD-10 - M77.42) 09/15/2023 Pain in left foot (ICD-10 - M79.672) 12/03/2023 Pain in left foot (ICD-10 - M79.672) 04/26/2024 Pain in left foot (ICD-10 - M79.672) 07/26/2024 Metatarsalgia, left foot (ICD-10 - M77.42) 07/26/2024 Subungual hematoma of left foot, initial encounter (ICD-10 - S90.222A) 07/26/2024 Pain in left foot (ICD-10 - M79.672) 04/26/2024 Metatarsalgia, left foot (ICD-10 - M77.42) 09/15/2023 Atherosclerosis of [place] artery of both lower extremities, with unspecified presence of clinical manifestation (ICD-10 - I70.203) 12/03/2023 Metatarsalgia, left foot (ICD-10 - M77.42) 09/15/2023 Tinea unguium (ICD-10 - B35.1) 12/03/2023 Atherosclerosis of [place] artery of both lower extremities, with unspecified presence of clinical manifestation (ICD-10 - I70.203) 07/26/2024 Atherosclerosis of [place] artery of both lower extremities, with unspecified presence of clinical manifestation (ICD-10 - I70.203) 04/26/2024 Atherosclerosis of [place] artery of both lower extremities, with unspecified presence of clinical manifestation (ICD-10 - I70.203) 04/26/2024 Tinea unguium (ICD-10 - B35.1) 07/26/2024 Tinea unguium (ICD-10 - B35.1) 12/03/2023 Tinea unguium (ICD-10 - B35.1) 09/15/2023 Pain in right toe(s) (ICD-10 - M79.674) 12/03/2023 Pain in right toe(s) (ICD-10 - M79.674) 09/15/2023 Pain in left toe(s) (ICD-10 - M79.675) 04/26/2024 Pain in right toe(s) (ICD-10 - M79.674) 07/26/2024 Pain in right toe(s) (ICD-10 - M79.674) 07/26/2024 Pain in left toe(s) (ICD-10 - M79.675) 04/26/2024 Pain in left toe(s) (ICD-10 - M79.675) 09/15/2023 Pain in left ankle and joints of left foot (ICD-10 - M25.572) 12/03/2023 Pain in left toe(s) (ICD-10 - M79.675) 04/26/2024 Pain in left ankle and joints of left foot (ICD-10 - M25.572) 12/03/2023 Pain in left ankle and joints of left foot (ICD-10 - M25.572) 07/26/2024 Pain in left ankle and joints of left foot (ICD-10 - M25.572) Plan Of Treatment Next Appt Details Provider Name:Nida serrano, 10/25/2024 09:00:00 AM, [address] [facility], [place], [address], Insurance Providers Payer Name Payer Address Payer Phone Subscriber Number Group Number Insured Name Patient Relationship to Insured Coverage Start Date Coverage End Date [employer] [address] [place] [address] [phone] [id number] Chilango Castaneda Self - patient is the insured Medical (General) History Medical History History ICD Code Back,Hip,and Knee pain Gout Heart disease High blood pressure Psoriasis/eczema Surgical History Surgery Date(Month/Year) spine surgery 2021 appendectomy
[2024-09-09 16:37] VITALS: BP 132/64; PULSE 96; RESP 16; TEMP 36.7; O2SAT 97
[2024-09-09 19:18] VITALS: BP 132/64; PULSE 96; RESP 16; TEMP 36.7; O2SAT 97
== END 2024-09-09 19:18 | disposition home or self-care (01) ==
PROVIDERS: Nurse Practitioner Family; Emergency Provider Emergency Medicine; PCP Internal Medicine
DX: K57.32 Diverticulitis of large intestine without perforation or abscess without bleeding (principal); M53.3 Sacrococcygeal disorders, not elsewhere classified; M54.50 Low back pain, unspecified; R10.2 Pelvic and perineal pain; R10.32 Left lower quadrant pain; Z79.899 Other long term (current) drug therapy
CPT/HCPCS: 36415; 74176; 80053; 83690; 85025; 99283; 99284

== ENCOUNTER → 2024-09-09 15:57 | Outpatient (BNV) | payer MEDICARE, SELFPAY | PROVIDERS: Emergency Provider Emergency Medicine; PCP Internal Medicine; Visit Provider Radiology Diagnostic Radiology | DX: K57.32 Diverticulitis of large intestine without perforation or abscess without bleeding (principal) | CPT/HCPCS: 74176 ==

== ENCOUNTER 2024-09-22 08:58 | Emergency (ER) | payer MEDICARE, SELFPAY ==
--- NOTE | ~2024-09-22 | XR_ITS ---
EXAMINATION: XR CHEST CLINICAL INFORMATION: sob COMPARISON: None available. TECHNIQUE: 2 views of the chest were obtained. FINDINGS: No hyperinflation. No consolidation, pleural effusion or pneumothorax. Cardiomediastinal silhouette appears prominent with a round shape. Probable gasfield intrathoracic esophagus versus hiatal hernia. Multilevel thoracolumbar spondylosis.] Deformity thoracic spine. XR/XR chest 2V IMPRESSION: No acute airspace disease. Probable hypertensive cardiomyopathy. Probable hiatal hernia versus gastroesophageal reflux. Electronically signed by: Jax Kwok MD 09/22/2024 09:41 AM EDT
[2024-09-22 09:11] VITALS: BP 129/62; PULSE 76; RESP 18; TEMP 36.8; O2SAT 97; BMI 28.8
--- NOTE | 2024-09-22 09:15 | ECG_ITS ---
Test Reason : sob Blood Pressure : */* mmHG Vent. Rate : 78 BPM Atrial Rate : 234 BPM P-R Int : * ms QRS Dur : 90 ms QT Int : 482 ms P-R-T Axes : 72 -50 -70 degrees QTcB Int : 549 ms Atrial flutter with 3:1 A-V conduction Left axis deviation Low voltage QRS Possible Anterolateral infarct , age undetermined Prolonged QT Abnormal ECG When compared with ECG of 19-Feb-2015 09:46, Anterolateral infarct present Referred By: Generic ED Physician Electronically Signed By: Coy Dumont
[2024-09-22 09:33] LABS: MANUAL DIFF FLAG NO
[2024-09-22 09:36] LABS: Hematocrit 37.4 % (42.0-52.0); Hemoglobin 13.1 g/dl (14.0-18.0); Imm Gran Abs Auto 0.02 X10*3/uL (0.00-0.03); Imm Gran Pct Auto 0.4 % (0.0-0.4); Lymphocytes Absolute Auto 0.8 X10*3/uL (1.2-4.9); Mean Corpuscular HGB Conc 35.0 g/dl (31.0-36.0); Mean Corpuscular Hemoglobin 33.7 pg (27.0-33.0); Mean Corpuscular Volume 96.1 fL (80.0-98.0); NRBC Abs Auto 0.000 X10*3/uL (0.0-0.012); NRBC Pct Auto 0.0 /100WBC (0.0-0.2); Platelet Count 151 X10*3/uL (160-400); Red Blood Count 3.89 X10*6/uL (4.60-5.80); White Blood Count 4.6 X10*3/uL (4.8-10.8)
[2024-09-22 09:45] LABS: Anion Gap 16 (12-20); Blood Urea Nitrogen 18 mg/dL (9-16); Calcium 8.3 mg/dL (8.4-10.2); Carbon Dioxide 26 mmol/L (22-29); Chloride 104 mmol/L (96-108); Creatinine Clr Calc Pharmacy 51.1; Estimated Glomerular Filt Rate > 60; Potassium 3.3 mmol/L (3.3-5.1); Sodium 143 mmol/L (135-145)
[2024-09-22 09:52] LABS: B Type Natriuretic Peptide 64 pg/mL (<100); INTERNATIONAL NORM RATIO 2.5 (0.9-1.1); Prothrombin Time 28.3 SEC (10.9-12.4)
[2024-09-22 09:53] LABS: Troponin-I High Sensitivity 16.5 ng/L (<3.5-35.0)
[2024-09-22 10:10] LABS: Resp Syncy Virus RNA Qual PCR NEGATIVE (Negative); SARS COV2 PCR INHOUSE NEGATIVE (Negative)
--- OUTSIDE RECORDS SUMMARY | 2024-09-22 10:46 | XMS_ITS | Patient Health Record ---
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 Role Phone Gorge Mahmood Primary Care Provider Allergies Allergen (clinical drug ingredient) Drug/Non Drug Allergy documented on EMR Reaction Allergy Type Onset Date Status sulfamethoxazole / trimethoprim Sulfamethoxazole- Trimethoprim swelling and redness Drug Allergy Active penicillin (uncoded) rash Allergy Active Results Component Value Reference Range Notes Complete Blood Count Auto Di ff Reviewed date:03/30/2024 09:56:33 AM Interpretation: Performing Lab:[facility], [address] [place] [phone] Notes/Report: White Blood Count 5.6 4.8-10.8 X10*3/uL [...] 0.0-0.2 /100WBC Neutrophils Absolute Auto 3.3 2.0-8.3 x10*3/uL Imm Gran Abs Auto 0.02 0.00-0.03 X10*3/uL Lymphocytes Absolute Auto 1.8 1.2-4.9 X10*3/uL Monocytes Absolute Auto 0.4 0.1-1.2 X10*3/uL Eosinophils Absolute Auto 0.1 0.0-0.4 X10*3/uL Basophils Absolute Auto 0.0 0.0-0.2 X10*3/uL NRBC Abs Auto 0.000 0.0-0.012 X10*3/uL Comprehensive Proctor. Panel Fa st Reviewed date:03/28/2024 05:01:16 PM Interpretation: Performing Lab:[facility], [address] [place] [phone] Notes/Report: Sodium 141 135-145 mmol/L Potassium 4.0 [...] Panel Reviewed date:03/28/2024 12:36:21 PM Interpretation: Performing Lab:[facility], [address] [place] [address] Notes/Report: Triglycerides 72 <150 mg/dL Desirable Triglyceride: [...] (Free>4and<10) Reviewed date:03/28/2024 12:38:01 PM Interpretation: Performing Lab:[facility], [address] [place] [phone] Notes/Report: PSA,Total (Free>4and<10) 1.15 0.00-4.00 ng/mL A [...] Random Reviewed date:03/28/2024 12:37:41 PM Interpretation: Performing Lab:[facility], [address] [place] [phone] Notes/Report: Creatinine Urine 133.89 Microalbumin Urine < 5.0 Microalbum/Creatinine Ratio Ur TNP <30 ug/mg cr Unable to calculate albumin/creatinine ratio due to low microalbumin or creatinine result. Hemoglobin A1c Reviewed date:03/28/2024 12:44:45 PM Interpretation: Performing Lab:[facility], [address] [place] [address] Notes/Report: Hemoglobin A1c % 5.1 <6.0 % [...] average glucose, using the formula of the B6I-Rectjov Average Glucose study (ADAG), Diabetes Care, Vol.31,#8, Sep. 2007 UA ClnCatch+Micro w/rflx Cul t Reviewed date:03/28/2024 05:01:31 PM Interpretation: Performing Lab:[address] [address] Notes/Report: [id number] Urine, Clean Catch Color Urine Yellow Appearance Urine Clear PH 6.0 5.0-9.0 Glucose Urine UA Negative Negative mg/dL Urine Blood Negative Negative Specific [place] - Urine 1.020 1.005-1.025 Urine Protein Negative [...] ff Reviewed date:06/20/2024 12:51:23 PM Interpretation: Performing Lab:[facility], [address] [place] [phone] Notes/Report: White Blood Count 7.8 4.8-10.8 X10*3/uL [...] 0.0-0.2 /100WBC Neutrophils Absolute Auto 4.9 2.0-8.3 x10*3/uL Imm Gran Abs Auto 0.06 0.00-0.03 X10*3/uL Lymphocytes Absolute Auto 2.1 1.2-4.9 X10*3/uL Monocytes Absolute Auto 0.5 0.1-1.2 X10*3/uL Eosinophils Absolute Auto 0.1 0.0-0.4 X10*3/uL Basophils Absolute Auto 0.0 0.0-0.2 X10*3/uL NRBC Abs Auto 0.000 0.0-0.012 X10*3/uL Occult Blood, Stool, Guaiac (Not yet reviewed by provider) Interpretation:Negative Performing Lab: Notes/Report: Negative Occult Blood, Stool, Guaiac Neg TSH reflex Free T4 Reviewed date:11/01/2023 12:34:29 PM Interpretation: Performing Lab:[address] [address] Notes/Report: TSH reflex Free T4 1.43 0.32-4.0 uIU/mL Basic Metabolic Panel Reviewed date:02/25/2024 02:48:48 PM Interpretation: Performing Lab:[address] [address] Notes/Report: Sodium 142 135-145 mmol/L Potassium 4.1 [...] Peptide Reviewed date:02/23/2024 10:11:20 AM Interpretation: Performing Lab:[address] [address] Notes/Report: B Type Natriuretic Peptide 126 <100 pg/mL For those patients who are being treated with Natrecor (nesiritide, recombinant BNP), BNP testing should be performed at least two hours post treatment in order to ensure that only endogenous levels of BNP are detected. TSH reflex Free T4 Reviewed date:02/24/2024 05:28:58 PM Interpretation: Performing Lab:[address] [address] Notes/Report: TSH reflex Free T4 1.03 0.32-4.0 uIU/mL Complete Blood Count Auto Di ff Reviewed date:09/10/2024 01:45:04 PM Interpretation: Performing Lab:[address] [address] Notes/Report: White Blood Count 9.0 4.8-10.8 X10*3/uL [...] 0.0-0.2 /100WBC Neutrophils Absolute Auto 7.5 2.0-8.3 x10*3/uL Imm Gran Abs Auto 0.04 0.00-0.03 X10*3/uL Lymphocytes Absolute Auto 0.9 1.2-4.9 X10*3/uL Monocytes Absolute Auto 0.6 0.1-1.2 X10*3/uL Eosinophils Absolute Auto 0.0 0.0-0.4 X10*3/uL Basophils Absolute Auto 0.0 0.0-0.2 X10*3/uL NRBC Abs Auto 0.000 0.0-0.012 X10*3/uL Comprehensive Met. Panel Reviewed date:09/10/2024 01:45:24 PM Interpretation: Performing Lab:[facility], [address] [place] [phone] Notes/Report: Sodium 140 135-145 mmol/L Potassium 3.3 [...] g/dL Alkaline Phosphatase 110 39-117 U/L Lipase Reviewed date:09/10/2024 01:45:34 PM Interpretation: Performing Lab:[facility], [address] [place] [phone] Notes/Report: Lipase 10 8-78 U/L CT abdomen pelvis wo con Reviewed date:09/10/2024 01:44:11 PM Interpretation: Performing Lab: Notes/Report: [address] [place] [address] CT Scan Report Signed Patient: Chilango Castaneda MR#: [id number] : 1940 Acct:[id number] Age/Sex: 84 / M ADM Date: 09/09/24 Loc: HO.ED Attending Dr: Ordering Physician: Adi Pulido MD Date of Service: 09/09/24 Procedure(s): CT abdomen pelvis wo IV con Accession Number(s): [id number] cc: Gorge Mahmood MD; Adi Pulido MD Report Number: [id number]: Total DLP = 526.00 mGy-cm CLINICAL HISTORY: left lower back pain radiates to the LLQ. CT abdomen and pelvis without contrast Comparison: None provided Findings: Moderate-sized hiatal hernia. 4 mm nodule right lower lobe. Per Fleischner criteria: Low-risk patients: No routine follow-up required. High-risk patients: Optional CT at 12 months. Atelectasis. Trace pericardial effusion. Mildly distended gallbladder. Bilateral perinephric stranding, nonspecific. No urolithiasis. Small left renal sinus cysts. Mildly diffuse colonic mural thickening. There is peridiverticular inflammatory changes along the hepatic flexure concerning for diverticulitis. No bowel obstruction. Fat containing inguinal hernias. Prostatomegaly noted. Mildly distended bladder with scattered diverticuli. Mild mural thickening throughout the bladder, nonspecific. Osteopenia with diffuse multilevel spondylosis. Subacute/chronic appearing superior endplate fracture noted at T12 patchy heterogeneous sclerosis. Dextroscoliosis. IMPRESSION: 1. Hepatic flexure diverticulitis. 2. Additional findings as described. This document has been electronically signed by: Guy Núñez MD on 09/09/2024 17:38:51 Dictated By: Guy Núñez MD Signed By: <Electronically signed by Guy Núñez MD in OV> 09/09/241738 DD/ 37 TD/TT: 09/09/241737 Director Social Welfare: [place] [address] CT Scan Report Signed Patient: Cynthia Castaneda MR#: [id number] : 1940 Acct:[id number] Age/Sex: 84 / M ADM Date: 09/09/24 Loc: HO.ED Attending Dr: Ordering Physician: Adi Pulido MD Date of Service: 09/09/24 Procedure(s): CT abd omen pelvis wo IV con Accession Number(s): [id number] cc: Gorge Mahmood MD; Adi Pulido MD Report Number: [id number]: Total DLP = 526.00 mGy-cm CLINICAL HISTORY: le ft lower back pain radiates to the LLQ. CT abdomen and pelvi s without contrast Comparison: None provided Findings: Moderate-sized hiata l hernia. 4 mm nodule right lo wer lobe. Per Fleischner criteria: Low-risk patients: No routine follow-up required. High-risk patients: Optional CT at 12 months. Atelectasis. Trace pericardial effusion. Mildly distended gallbladder. Bilateral perinephri c stranding, nonspecific. No urolithiasis. Small left renal sinus cysts. Mildly diffuse colon ic mural thickening. There is peridiverticular inflammatory changes along the hepatic flexure concerning for diverticulitis. No bowel obstruction. Fat containing ingui nal hernias. Prostatomegaly noted. Mildly distended sneg dder with scattered diverticuli. Mild mural thickening throughout the bladd er, nonspecific. Osteopenia with diff use multilevel spondylosis. Subacute/chronic appearing superior endplate fracture noted at T12 patchy heterogeneous sclerosis. Dextroscoliosis. IMPRESSION: 1. Hepatic flexure diverticulitis. 2. Additional findin gs as described. This document has be en electronically signed by: Guy Núñez MD on 09/09/2024 17:38:51 Dictated By: Guy Núñez MD Signed By: <Electronically signed by Guy Núñez MD in OV> 09/09/24 173 DD/ 37 TD/TT: 09/09/241737 Director Social Welfare: Complete Blood Count Auto Di ff (Not yet reviewed by provider) Interpretation: Performing Lab:[facility], [address] [place] [phone] Notes/Report: White Blood Count 4.6 4.8-10.8 X10*3/uL Red Blood Count 3.89 4.60-5.80 X10*6/uL Hemoglobin 13.1 14.0-18.0 g/dl Hematocrit 37.4 42.0-52.0 % Mean Corpuscular Volume 96.1 80.0-98.0 fL Mean Corpuscular Hemoglobin 33.7 27.0-33.0 pg Mean Corpuscular HGB Conc 35.0 31.0-36.0 g/dl Red Cell Distribution Width 13.8 11.0-16.0 % Platelet Count 151 160-400 X10*3/uL Mean Platelet Volume 10.2 9.4-12.4 fL Neutrophils Percent Auto 69.8 45-73 % Imm Gran Pct Auto 0.4 0.0-0.4 % Lymphocytes Percent Auto 16.5 20-40 % Monocytes Percent Auto 12.3 2-11 % Eosinophils Percent Auto 0.6 0-4 % Basophils Percent Auto 0.4 0-2 % NRBC Pct Auto 0.0 0.0-0.2 /100WBC Neutrophils Absolute Auto 3.2 2.0-8.3 x10*3/uL Imm Gran Abs Auto 0.02 0.00-0.03 X10*3/uL Lymphocytes Absolute Auto 0.8 1.2-4.9 X10*3/uL Monocytes Absolute Auto 0.6 0.1-1.2 X10*3/uL Eosinophils Absolute Auto 0.0 0.0-0.4 X10*3/uL Basophils Absolute Auto 0.0 0.0-0.2 X10*3/uL NRBC Abs Auto 0.000 0.0-0.012 X10*3/uL Prothrombin Time INR (Not ye t reviewed by provider) Interpretation: Performing Lab:[address] [address] Notes/Report: Prothrombin Time 28.3 10.9-12.4 SEC INTERNATIONAL NORM RATIO 2.5 0.9-1.1 INTERNATIONAL NORMALIZED RATIO (INR) REFERENCE RANGES Reference Range For patients not on anticoagulant therapy: 0.9 - 1.1 INR ranges for oral anticoagulant therapy: For prevention and treatment of venous thrombosis and pulmonary embolism: 2.0 - 3.0 For acute myocardial infarction with aspirin therapy: 2.0 - 3.0 For acute myocardial infarction without aspirin therapy: 3.0 - 4.0 For patients with mechanical prosthetic heart valves: 2.5 - 3.5 Basic Metabolic Panel (Not y et reviewed by provider) Interpretation: Performing Lab:[address] [address] Notes/Report: Sodium 143 135-145 mmol/L Potassium 3.3 3.3-5.1 mmol/L Chloride 104 96-108 mmol/L Carbon Dioxide 26 22-29 mmol/L Anion Gap 16 12-20 Blood Urea Nitrogen 18 9-16 mg/dL Creatinine 1.14 0.5-1.4 mg/dL Creatinine Clr Calc Pharmacy 51.1 eGFR (calculated from the MDRD study equation) and eCrCl (calculated from the Cockcroft-Gault equation) are based on different parameters and may not yield comparable results. If eCrCl result is absurd, please check patient's height/weight. Estimated Glomerular Filt Rate > 60 Chronic Kidney Disease: Estimated GFR < 60 mL/min/1.73m2 Severe Kidney Disease: Estimated GFR < 15 mL/min/1.73m2 Glucose Random 94 60-115 mg/dL Calcium 8.3 8.4-10.2 mg/dL Troponin-I High Sensitivity (Not yet reviewed by provider) Interpretation: Performing Lab:[address] [address] Notes/Report: Troponin-I High Sensitivity 16.5 <3.5-35.0 ng/L The [place] high sensitivity Troponin-I results should be used in conjunction with other diagnostic information such as ECG, clinical observations and information, and patient symptoms to aid in the diagnosis of NE. B Type Natriuretic Peptide ( Not yet reviewed by provider) Interpretation: Performing Lab:[facility], [address] [place] [address] Notes/Report: B Type Natriuretic Peptide 64 <100 pg/mL SARS-CoV2/FLU/RSV (Not yet r eviewed by provider) Interpretation: Performing Lab:[address] [address] Notes/Report: Influenza A PCR NEGATIVE Negative Influenza B PCR NEGATIVE Negative Resp Syncy Virus RNA Qual PCR NEGATIVE Negative SARS COV2 PCR INHOUSE NEGATIVE Negative All test results must be correlated with clinical findings. Negative results do not preclude SARS-CoV2, influenza A virus, influenza B virus and/or RSV infection and should not be used as the sole basis for treatment or other patient management decisions. Negative results must be combined with clinical observations, patient history, and epidemiological information. This test has not been evaluated for monitoring treatment of infection. This test has been authorized by the FDA under an Emergency Use Authorization (EUA) for use by authorized laboratories. Testing performed on the [employer] GeneXpert utilizing real-time RT-PCR. All SARS CoV2 and positive influenza A/B results are reported to [facility]. XR chest 2V (Not yet reviewe d by provider) Interpretation: Performing Lab: Notes/Report: [address] [address] XRay Report Signed Patient: Chilango Castaneda MR#: [id number] : 1940 Acct:[id number] Age/Sex: 84 / M ADM Date: 09/22/24 Loc: .ED Attending Dr: Ordering Physician: Generic ED Physician Date of Service: 09/22/24 Procedure(s): XR chest 2V Accession Number(s): [id number] cc: Gorge Mahmood MD; Generic ED Physician EXAMINATION: XR CHEST CLINICAL INFORMATION: sob COMPARISON: None available. TECHNIQUE: 2 views of the chest were obtained. FINDINGS: No hyperinflation. No consolidation, pleural effusion or pneumothorax. Cardiomediastinal silhouette appears prominent with a round shape. Probable gasfield intrathoracic esophagus versus hiatal hernia. Multilevel thoracolumbar spondylosis.] Deformity thoracic spine. XR/XR chest 2V IMPRESSION: No acute airspace disease. Probable hypertensive cardiomyopathy. Probable hiatal hernia versus gastroesophageal reflux. Electronically signed by: Jax Kwok MD 09/22/2024 09:41 AM EDT RP Dictated By: Jax Garcia MD Signed By: <Electronically signed by Jax Kothari MD in OV> 09/22/24940 DD/ 7 TD/TT: 09/22/24932 Director Social Welfare: [place] [address] XRay Report Signed Patient: Cynthia Castaneda MR#: [id number] : 1940 Acct:[id number] Age/Sex: 84 / M ADM Date: 09/22/24 Loc: .ED Attending Dr: Ordering Physician: Generic ED Physician Date of Service: 09/22/24 Procedure(s): XR chest 2V Accession Number(s): [id number] cc: Gorge Mahmood MD; Generic ED Physician EXAMINATION: XR CHEST CLINICAL INFORMATION: sob COMPARISON: None available. TECHNIQUE: 2 views of the chest were obtained. FINDINGS: No hyperinflation. N o consolidation, pleural effusion or pneumothorax. Cardiomediastinal silhouette appears prominent with a round shape. Probable gasfield intrathoracic esophagus versus hiatal hernia. Multilevel thoracolu mbar spondylosis.] Deformity thoracic spine. X R/XR chest 2V IMPRESSION: No acute airspace disease. Probable hypertensiv e cardiomyopathy. Probable hiatal gibson ia versus gastroesophageal reflux. Electronically kiran d by: Jax Kwok MD 09/22/2024 09:41 AM EDT RP Dictated By: Jax Alas MD Signed By: <Electronically signed by Jax Kothari MD in OV> 09/22/24940 DD/ 7 TD/TT: 09/22/24932 Director Social Welfare: Reason For Referral No Information Medications Medication SIG (Take, Route, Frequency, Duration) Notes Start Date End Date Status Cortisporin 0.5-0.5-87495 1 application to affected area Externally Twice a day for 30 days 01/10/2015 Not-Taking Cyclobenzaprine HCl 5 MG 1 tab Orally twice a day for 10 days 08/28/2024 Not-Taking oxyCODONE HCl 5 MG 1 tablet as needed Orally every 12 hours as needed. do not drive for 7 days Partial Fill upon Patient Request 08/28/2024 Not-Taking Triamcinolone Acetonide 0.1 % APPLY TWICE DAILY TO TRUNK,ARMS,AND LEGS *APPLY MOISTURIZER AFTER *AVOID FACE/GROIN* External for 25 Not-Taking Irbesartan 300 MG TAKE 1 TABLET BY MOUTH EVERY DAY for 30 Not-Taking Amiodarone HCl 200 MG 1 tablet Orally Once a day Active Allopurinol 300 MG TAKE 1 TABLET BY MOUTH EVERY DAY for 90 Active Ibuprofen 800 MG 1 tablet Orally Three times a day for 30 day(s) 10/27/2011 Not-Taking amLODIPine Besylate 5 MG TAKE 1 TABLET BY MOUTH EVERY DAY for 30 Active Furosemide 40 MG [id number] alternating with 2 tablets Orally Once a day Active Doxazosin Mesylate 2 MG 1 tablet Orally Once a day for 30 day(s) Active Tylenol 8 Hour 650 MG 2 tablets as needed Orally every 8 hrs Active Xarelto 20 MG 1 tablet with food Orally Once a day 01/10/2015 Active dexAMETHasone 2 MG TAKE 1 TABLET BY MOUTH THREE TIMES A DAY FOR 5 DAYS Oral Three times a day for 3 days 11/13/2019 Not-Taking Finasteride 5 MG 1 tablet Orally Once a day Active Cyclobenzaprine HCl 5 MG 1 tablet at bedtime as needed Orally twice a day for 10 days 11/13/2019 Not-Taking Colace 100 MG 1 capsule as needed Orally Once a day Active Immunizations Vaccine Route Administration Date Status Comme [...] Influenza High Dose Unknown 10/30/2019 Administered [facility]ix Quadrivalent Unknown 10/30/2019 [facility] [...] Status W/U Status Risk Notes Problem Sciatica (39090964) Sciatica (M54.30) Active confirmed Problem Diverticulitis of colon (723948744) Diverticulitis large intestine (K57.32) Active confirmed Problem 388276686 Thrombocytopenia (D69.6) Active confirmed Problem Constipation (12563410) Constipation (K59.00) Active confirmed Problem 822419156 Body mass index (BMI) 33.0-33.9, adult (Z68.33) Active confirmed Problem 992776572 Tubular adenoma of colon (D12.6) Active confirmed Problem 768263738 Gastroesophageal reflux disease without esophagitis (K21.9) Active confirmed Problem 20866059 Essential hypertension (I10) Active confirmed Problem 9949719 Psoriasis (L40.9) Active confirmed Problem 0780146 Prediabetes (R73.09) Active confirmed Problem 584395968 History of gout (Z87.39) Active confirmed Problem 394676722324620 Carpal tunnel syndrome of right wrist (G56.01) Active confirmed Problem 76580676 Sciatica of left side (M54.32) Active confirmed Problem 510937210 History of atria l fibrillation (Z86.79) Active confirmed Problem 370786927 Elevated PSA (R97.20) Active confirmed Problem 781060344 BMI 33.0-33.9,ad ult (Z68.33) Active confirmed Problem 264783846 Temporary low platelet count (D69.6) Active confirmed Problem 774243778 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) Active confirmed Problem 590315476 PVC's (premature ventricular contractions) (I49.3) Active confirmed Problem 898773042 History of basal cell carcinoma (Z85.828) Active confirmed Vital Signs Blood pressure diastolic 60 mm Hg 09/18/2024 jody ght is down 3 pounds since 08-15-24 Height 68.25 in 09/18/2024 weight is down 3 pounds since 08-15-24 Blood pressure systolic 118 mm Hg 09/18/2024 weig ht is down 3 pounds since 08-15-24 Weight 201 lbs 09/18/2024 weight is down 3 pounds since 08-15-24 BMI 30.34 kg/m2 09/18/2024 weight is down 3 pounds since 08-15-24 Encounters Encounter Location Date Provider Diagnosis Gorge Mahmood MD [address] [place] [id number] 03/28/2024 Gorge Mahmood Blood tests for rout ine general physical examination Z00.00 ; Thrombocytopenia D69.6 ; Prediabetes R73.09 and Elevated PSA R97.20 Gorge Mahmood MD [address] [place] [id number] 06/20/2024 Gorge Mahmood Thrombocytopenia, unspecified D69.6 Gorge Mahmood MD [address] [place] [address] [id number] 09/18/2024 Gorge Mahmood Leg edema R60.0 ; Diverticulitis large intestine K57.32 and Sciatica M54.30 Gorge Mahmood MD [address] [place] [id number] 09/30/2023 Gorge Mahmood PVC's (premature ventricular contractions) I49.3 and Essential hypertension I10 Gorge Mahmood MD [address] [place] [id number] 11/29/2023 Gorge Mahmood Encounter for administration of vaccine Z23 Gorge Mahmood MD [address] [place] [address] [id number] 04/04/2024 Gorge Mahmood Thrombocytopenia D69 .6 ; Annual physical exam Z00.00 ; Essential hypertension I10 ; History of atrial fibrillation Z86.79 ; Elevated PSA R97.20 ; Colon cancer screening Z12.11 and Depression screening Z13.31 Gorge Mahmood MD [address] [place] [address] [id number] 08/28/2024 Gorge Mahmood Sciatica M54.30 and Leg edema R60.0 Gorge Mahmood MD [address] [place] [id number] 09/04/2024 Gorge Mahmood Sciatica M54.30 and Constipation K59.00 Gorge Mahmood MD [address] [place] [address] [id number] 04/24/2024 Gorge Mahmood MD [address] [place] [address] [id number] 08/28/2024 Gorge Mahmood Sciatica M54.30 Gorge Mahmood MD [address] [place] [address] [id number] 08/31/2024 Gorge Mahmood MD [address] [place] [address] [id number] 09/07/2024 Gorge Mahmood MD [address] [place] [address] [id number] 09/11/2024 Gorge Mahmood Assessments Encounter Date Diagnosis (ICD Code) Assessment Notes Treatment Notes Treatment Clinical Notes Section Notes 03/28/2024 Blood tests for routine general physical examination (ICD-10 - Z00.00) 06/20/2024 Thrombocytopenia, unspecified (ICD-10 - D69.6) 09/18/2024 Leg edema (ICD-10 - R60.0) will stop the amlodipine. bp is fine, will continue to monitor 09/18/2024 Diverticulitis large intestine (ICD-10 - K57.32) doing well 09/30/2023 PVC's (premature ventricular contractions) (ICD-10 - [...] months/ order will be faxed over to [facility] cs dept after PA 09/04/2024 Constipation (ICD-10 - K59.00) not taking any more oxycodone but will try dulcolax 08/28/2024 Sciatica (ICD-10 - M54.30) 03/28/2024 Thrombocytopenia (ICD-10 - D69.6) 09/18/2024 Sciatica (ICD-10 - M54.30) a little better. send back to pain maneagement/ patient will be calling to make his own appt 04/04/2024 Essential hypertension (ICD-10 - I10) stable, [...] CONTRAST 01/09/2021 Complete Blood Count Auto Diff Prothrombin Time INR 09/22/2024 Basic Metabolic Panel 09/22/2024 Troponin-I High Sensitivity 09/22/2024 B Type Natriuretic Peptide 09/22/2024 CT lumbar spine wo con 09/04/2024 XR chest 2V 09/22/2024 SARS-CoV2/FLU/RSV 09/22/2024 Next Appt Details Provider Name:Gorge Boothe ier, 12/25/2024 09:00:00 AM, [address] [place] [address], [address] [place] [address], [phone], Provider Name:Gorge Boothe ier, 03/30/2025 07:30:00 AM, [address] [place] [address], Suite [facility], [place], [place], [phone], Provider Name:Gorge Boothe ier, 04/06/2025 08:30:00 AM, [address] [place] [address], Suite [facility], [place], [place], [phone], Insurance Providers Payer Name Payer Address Payer Phone Subscriber Number Group Number Insured Name Patient Relationship to Insured Coverage Start Date Coverage End Date [employer] [facility] [address] [place] [phone] [id number] Chilango Castaneda Self - patient is the insured [employer] [address] [place] [address] [id number] Chilango Castaneda Self - patient is the insured Medical (General) History Medical History History ICD Code Gout hypertension, benign psoriasis tia prostatism Colonoscopy ; colonos copy 06/04/14 - no need for further testing per Dr. Ely CREATININE CLEARANCE 54 Surgical History Surgery Date(Month/Year) DC Cardioversion 02/2015
--- OUTSIDE RECORDS SUMMARY | 2024-09-22 10:46 | XMS_ITS | Patient Health Record ---
Author Organization [facility] Kosta lydia FeltonRew Address [address] [facility] [place] [address] Care Team Providers Care Tarp Repairer Name Role Phone Gorge Mahmood MD Primary Care Provider Nida Carnes Unavailable [phone] Allergies Allergen (clinical drug ingredient) Drug/Non Drug [...] W/U Status Risk Notes Problem Atherosclerosis of wiyot artery of both lower extremities, with unspecified presence of clinical manifestation (I70.203) Active confirmed Vital Signs Blood pressure diastolic 80 mm Hg 07/26/2024 Height 5 ft 9 in in 07/26/2024 Blood pressure systolic 170 mm Hg 07/26/2024 Weight 190 lbs 07/26/2024 BMI 28.06 kg/m2 07/26/2024 Encounters Encounter Location Date Provider Diagnosis [address] [address] 12/03/2023 Nida Perica Pain in left foot M79.672 ; Metatarsalgia, left foot M77.42 ; Atherosclerosis of wiyot artery of both lower extremities, with unspecified presence of clinical manifestation I70.203 ; Tinea unguium B35.1 ; Pain in right toe(s) M79.674 ; Pain in left toe(s) M79.675 and Pain in left ankle and joints of left foot M25.[address] [address] 04/26/2024 Nida Perica Pain in left foot M79.672 ; Metatarsalgia, left foot M77.42 ; Atherosclerosis of wiyot artery of both lower extremities, with unspecified presence of clinical manifestation I70.203 ; Tinea unguium B35.1 ; Pain in right toe(s) M79.674 ; Pain in left toe(s) M79.675 and Pain in left ankle and joints of left foot M25.[address] [address] 07/26/2024 Nida Perica Metatarsalgia, left foot M77.42 ; Subungual hematoma of left foot, initial encounter S90.222A ; Pain in left foot M79.672 ; Atherosclerosis of wiyot artery of both lower extremities, with unspecified presence of clinical manifestation I70.203 ; Tinea unguium B35.1 ; Pain in right toe(s) M79.674 ; Pain in left toe(s) M79.675 and Pain in left ankle and joints of left foot M25.[address] [address] 07/26/2024 Nida Lilly Assessments Encounter Date Diagnosis (ICD Code) Assessment [...] 04/26/2024 Metatarsalgia, left foot (ICD-10 - M77.42) 12/03/2023 Metatarsalgia, left foot (ICD-10 - M77.42) 12/03/2023 Atherosclerosis of wiyot artery of both lower extremities, with unspecified presence of clinical manifestation (ICD-10 - I70.203) 07/26/2024 Atherosclerosis of wiyot artery of both lower extremities, with unspecified presence of clinical manifestation (ICD-10 - I70.203) 04/26/2024 Atherosclerosis of wiyot artery of both lower extremities, with unspecified presence of clinical manifestation (ICD-10 - I70.203) 04/26/2024 Tinea unguium (ICD-10 - B35.1) 07/26/2024 Tinea unguium (ICD-10 - B35.1) 12/03/2023 Tinea unguium (ICD-10 - B35.1) 12/03/2023 Pain in right toe(s) (ICD-10 - M79.674) 04/26/2024 Pain in right toe(s) (ICD-10 - M79.674) 07/26/2024 Pain in right toe(s) (ICD-10 - M79.674) 07/26/2024 Pain in left toe(s) (ICD-10 - M79.675) 04/26/2024 Pain in left toe(s) (ICD-10 - M79.675) 12/03/2023 Pain in left toe(s) (ICD-10 - M79.675) 04/26/2024 Pain in left ankle and joints of left foot (ICD-10 - M25.572) 12/03/2023 Pain in left ankle and joints of left foot (ICD-10 - M25.572) 07/26/2024 Pain in left ankle and joints of left foot (ICD-10 - M25.572) Plan Of Treatment Next Appt Details Provider Name:Nida serrano, 10/25/2024 09:00:00 AM, [address] [place], [address], Insurance Providers Payer Name Payer Address Payer Phone Subscriber Number Group Number Insured Name Patient Relationship to Insured Coverage Start Date Coverage End Date [employer] [place] [employer] [facility] [address] [place] [address] [id number] Chilango Castaneda Self - patient is the insured 4 Medical (General) History Medical History History ICD Code Back,Hip,and Knee pain Gout Heart disease High blood pressure Psoriasis/eczema Surgical History Surgery Date(Month/Year) spine surgery 2021 appendectomy
--- OUTSIDE RECORDS SUMMARY | 2024-09-22 10:46 | XMS_ITS | Patient Health Record ---
Author Organization [facility] Address [address] [place] [address] Care Team Providers Care Volunteer Fire Fighter Name Role Phone Gorge Mahmood MD Primary Care Provider Bennie Jenkins [phone] Allergies Allergen (clinical drug ingredient) Drug/Non Drug [...] W/U Status Risk Notes Problem Pre-surgery evaluation (950519306) Other specified pre-operative examination (V72.83) Active confirmed Problem Colon cancer screening (329695211) Colon cancer screening (V76.51) Active confirmed Problem History of adenomatous polyp of colon (062211447) History of adenomatous polyp of colon (V12.72) Active confirmed Plan Of Treatment Future Test Test Name Order Date COLONOSCOPY 03/22/2014 Insurance Providers Payer Name Payer Address Payer Phone Subscriber Number Group Number Insured Name Patient Relationship to Insured Coverage Start Date Coverage End Date [facility] [address] [facility] [place] [phone] [id number] BREANA SINGH Self - patient is the insured Medical (General) History Medical History History ICD Code Tubular adenomas removed in 1993 and 2003--he had a negative colonoscopy in January of 2009, other than the finding of some diverticulosis and internal hemorrhoids hypertension Gout psoriasis TIA in the 1979's Denies SC,DM,CVA,Lung disease,renal dise ase Surgical History Surgery Date(Month/Year) appendectomy
[2024-09-22 11:15] VITALS: BP 128/60; PULSE 70; O2SAT 95
--- NOTE | 2024-09-22 11:17 | ED.ABDPAIN ---
HPI - Abdominal Pain General Chief Complaint: Abdominal Pain Stated Complaint: lower abd pain, diarrhea Time Seen by Provider: 09/22/24 11:08 Source: patient Mode of arrival: ambulatory Limitations: no limitations History of Present Illness ED Provider: HPI narrative: 84-year-old male was treated with dual antibiotic therapy in the beginning of this month, finished course of antibiotics about a week ago, presenting with postprandial abdominal discomfort relieved by loose stools and passing gas. No fevers or chills. No abdominal pain reported at this time and abdominal pain only worse during episodes as described. No dysuria, no hematuria no chest pain or shortness of breath. Related Data Home Medications ?Medication ?Instructions ?Recorded ?Confirmed allopurinol 300 mg tablet 300 mg PO DAILY 03/05/20 06/27/24 irbesartan 300 mg tablet 300 mg PO DAILY 03/05/20 06/27/24 doxazosin 2 mg tablet 2 mg PO BEDTIME 02/24/22 06/27/24 finasteride 5 mg tablet 5 mg PO DAILY 02/24/22 06/27/24 amlodipine 5 mg tablet 5 mg PO DAILY 01/06/23 06/27/24 Previous Rx's ?Medication ?Instructions ?Recorded rivaroxaban 20 mg tablet (Xarelto) 20 mg PO QPM #90 tabs 09/27/23 amiodarone 200 mg tablet 200 mg PO DAILY #90 tabs 05/15/24 furosemide 40 mg tablet 80 mg (2 x 40 mg) PO DAILY #180 05/15/24 tabs ciprofloxacin HCl 250 mg tablet 250 mg PO BID #14 tabs 09/09/24 (Cipro) lidocaine 4 % topical patch 1 patch topical DAILY PRN pain #5 09/09/24 ea metronidazole 250 mg tablet 250 mg PO Q12H #14 tabs 09/09/24 dicyclomine 20 mg tablet 20 mg PO QID abdominal pain #14 09/22/24 tabs Allergies Allergy/AdvReac Type Severity Reaction Status Date / Time Penicillins (PCN) Allergy Unknown RASH Verified 09/22/24 09:12 Sulfamethoxazole-TMP DS Allergy Unknown rash Uncoded 09/22/24 09:12 Review of Systems Constitutional: Reports as per [facility] Past Medical History Medical History Persistent atrial fibrillation Diastolic dysfunction Localized edema Essential hypertension Nonischemic cardiomyopathy Current use of correction anticoagulation Surgical History History of back surgery History of cardioversion (~2016) Family History Family History Father CHF (congestive heart failure) Mother Cancer Social History Social History Alcohol intake: never Patient Tobacco Use Status: Never used Tobacco Smoked in Last 30 Days: No Use of substances other than those prescribed or required for medical reasons: No Advance Directives: Yes Advance Directives Information Provided: Yes Advance Directives on File: No Do you have a plan to hurt others: No Plan Physical Exam ED Vital Signs: Vital Signs - 24 hr 09/22/24 09:11 09/22/24 11:15 Temperature 98.2 F Pulse Rate 76 70 Respiratory Rate 18 Blood Pressure 129/62 128/60 Pulse Oximetry 97 95 Oxygen Delivery Method Room Air Room Air BMI result Body Mass Index 28.8 Const Other: Gen: ?Overall well-appearing patient CV: RRR, no obvious murmurs appreciated Resp: ?No wheezing rales rhonchi no stridor moving air well Abd: ?Bowel sounds are present, no tenderness no rebound no rigidity MSK: FROM, strength 5/5 all extremities Skin: Warm, dry, intact, Neuro: ?Alert and oriented x3, moving upper and lower extremities symmetrically, no obvious facial asymmetry noted Medical Decision Making Medical Decision Making MDM Narrative: Abdominal exam is very much benign I did not feel that this is partially treated diverticulitis with complications that requires further imaging such as CT it, this is likely this bacterial sepsis due to antibiotic therapy, patient is not able to provide a stool sample at this time but I did discuss testing for C diff colitis. Blood work reassuring, no evidence for dehydration, renal function is slightly better than before, no evidence for increasing leukocytosis Differential Diagnosis Differential Diagnoses: The differential diagnosis associated with the presentation includes (Dehydration, electrolyte derangements, diverticulosis, diverticulitis, perforation, SBO, C diff colitis) Admission/Observation Consideration of admission/observation: Escalation of care including admission/observation considered 2022 Emergency Medicine Coding Guide from [employer] on 09/22/2024 All calculations should be rechecked by clinician prior to use RESULT SUMMARY: 5 Estimated Level of Service Problems: Moderate (4) Risk: High (5) Data: Extensive (5) NARRATIVE MDM: This patient's problem complexity is Moderate as patient: has a new undiagnosed problem with uncertain prognosis but that could be serious. This patient's risk is High due to: overall presentation requiring evaluation for a potentially High-risk process. This patient's data complexity is Extensive due to: -multiple tests ordered -independent interpretation of imaging or EKG INPUTS: Number and Complexity ?> 5 = 4: undiagnosed new problem, uncertain outcome (e) Risk level ?> 4 = High Tests ordered ?> 2 = 2 Tests results reviewed (excluding labs) ?> 1 = 1 Prior external notes reviewed ?> 0 = 0 Assessment requiring and independent historian ?> 0 = No Independent interpretation of tests ?> 1 = Yes Discussed management/test interpretation w/external professional ?> 0 = No Lab Data MDM Lab Attestation statement: I reviewed the patient's lab results. 09/22/24 09:22 09/22/24 09:22 Labs: Lab Results 09/22/24 Range/Units 09:22 WBC 4.6 L (4.8-10.8) X10*3/uL RBC 3.89 L (4.60-5.80) X10*6/uL Hgb 13.1 L (14.0-18.0) g/dl Hct 37.4 L (42.0-52.0) % MCV 96.1 (80.0-98.0) fL MCH 33.7 H (27.0-33.0) pg MCHC 35.0 (31.0-36.0) g/dl RDW 13.8 (11.0-16.0) % Plt Count 151 L (160-400) X10*3/uL MPV 10.2 (9.4-12.4) fL Immature Gran % (Auto) 0.4 (0.0-0.4) % Neut % (Auto) 69.8 (45-73) % Lymph % (Auto) 16.5 L (20-40) % [place] % (Auto) 12.3 H (2-11) % Eos % (Auto) 0.6 (0-4) % Baso % (Auto) 0.4 (0-2) % Lymph # (Auto) 0.8 L (1.2-4.9) X10*3/uL [place] # (Auto) 0.6 (0.1-1.2) X10*3/uL Eos # (Auto) 0.0 (0.0-0.4) X10*3/uL Baso # (Auto) 0.0 (0.0-0.2) X10*3/uL Abs Immat Gran (auto) 0.02 (0.00-0.03) X10*3/uL Absolute Neuts (auto) 3.2 (2.0-8.3) x10*3/uL Absolute Nucleated RBC 0.000 (0.0-0.012) X10*3/uL Nucleated RBC % (auto) 0.0 (0.0-0.2) /100WBC PT 28.3 H (10.9-12.4) SEC INR 2.5 H (0.9-1.1) Sodium 143 (135-145) mmol/L Potassium 3.3 (3.3-5.1) mmol/L Chloride 104 (96-108) mmol/L Carbon Dioxide 26 (22-29) mmol/L Anion Gap 16 (12-20) BUN 18 H (9-16) mg/dL Creatinine 1.14 (0.5-1.4) mg/dL Estim Creat Clear Calc 51.1 Estimated GFR > 60 Random Glucose 94 (60-115) mg/dL Calcium 8.3 L (8.4-10.2) mg/dL Troponin I High Sens 16.5 (<3.5-35.0) ng/L B-Natriuretic Peptide 64 (<100) pg/mL Influenza Type A (PCR) NEGATIVE (Negative) Influenza Type B (PCR) NEGATIVE (Negative) RSV RNA Qual (PCR) NEGATIVE (Negative) SARS-CoV-2 RNA (RT-PCR) NEGATIVE (Negative) Independent Interpretation I performed an independent interpretation of an: Plain X-Ray (My independent chest xray interpretation: Lungs: Lungs are clear bilaterally without evidence of focal consolidation, pleural effusion, or pneumothorax. Cardiac silhouette is unremarkable, no obvious mediastinal widening, no obvious bony abnormalities such as fractures. Impression: Normal chest X-r) Radiology Impression Discussion of test interpretation with radiology: I have reviewed the radiologist's reading. (IMPRESSION: No acute airspace disease. Probable hypertensive cardiomyopathy. Probable hiatal hernia versus gastroesophageal reflux.) Prescription Management I considered prescription management with: Pain Medication and Antibiotic Discharge Plan Discharge Clinical Impression: Loose bowel movement, Abdominal cramping Patient Disposition: Home, Self-Care Additional Instructions: Evaluated with the abdominal pain and cramping after food in the setting of recent antibiotic use, your vital signs are reassuring, physical examination specifically abdominal exam is completely benign, blood work without any evidence of dehydration or worsening infection, I reviewed your prior visit as well, I recommend taking Bentyl 30 minutes before any meals for the next 3 -4 days I recommend going to the pharmacy and picking up probiotics, Saccharomyces bouldarii and Lactobacillus rhamnosusGG has been shown in reducing antibiotic associated diarrhea and promoting good gut health, and I would recommend taking probiotics as well such as INULIN-both prebiotics and probiotics we will promote better gut health but it will take some time, for eating I would recommend soup, no fresh vegetables or fruit at this time, stay well hydrated and there was no evidence that you were dehydrated, you can include sour crowd, rice, yogurt all these also help with gut health and please follow up with the PCP for re-evaluation anything else that is concerning to come back to the ER however I would like you to be re-evaluated by PCP after ED visit. Prescriptions: New dicyclomine 20 mg tablet 20 mg PO QID Qty: 14 0RF Rx Instructions: Take 3 to 4 times a day 20 30 minutes before your meals No Action Xarelto 20 mg tablet 20 mg PO QPM Qty: 90 3RF Rx Instructions: must administer with evening meal furosemide 40 mg tablet 80 mg PO DAILY Qty: 180 3RF amiodarone 200 mg tablet 200 mg PO DAILY Qty: 90 3RF metronidazole 250 mg tablet 250 mg PO Q12H Qty: 14 0RF ciprofloxacin HCl [Cipro] 250 mg tablet 250 mg PO BID Qty: 14 0RF lidocaine 4 % adhesive patch,medicated 1 patch topical DAILY PRN (Reason: pain) Qty: 5 0RF irbesartan 300 mg tablet 300 mg PO DAILY allopurinol 300 mg tablet 300 mg PO DAILY doxazosin 2 mg tablet 2 mg PO BEDTIME finasteride 5 mg tablet 5 mg PO DAILY amlodipine 5 mg tablet 5 mg PO DAILY Referrals: Gorge Mahmood MD [Primary Care Provider, Medical] - 10 days Clinical Impression: Abdominal cramping; Loose bowel movement Print Language: Khmer
[2024-09-22 12:27] VITALS: BP 128/60; PULSE 70; RESP 16; TEMP 37.1; O2SAT 95
== END 2024-09-22 12:28 | disposition home or self-care (01) ==
PROVIDERS: Emergency Provider Emergency Medicine; PCP Internal Medicine
DX: R10.2 Pelvic and perineal pain (principal); R25.2 Cramp and spasm; R06.02 Shortness of breath; I48.92 Unspecified atrial flutter; Z79.899 Other long term (current) drug therapy; Z03.818 Encounter for observation for suspected exposure to other biological agents ruled out
CPT/HCPCS: 36415; 71046; 80048; 83880; 84484; 85025; 85610; 87637; 93005; 99283; 99284

== ENCOUNTER → 2024-09-22 09:15 | Outpatient (BNV) | payer MEDICARE, SELFPAY | PROVIDERS: Emergency Provider Emergency Medicine; PCP Internal Medicine; Visit Provider Internal Medicine Cardiovascular Disease | DX: I48.92 Unspecified atrial flutter (principal); I44.2 Atrioventricular block, complete | CPT/HCPCS: 93010 ==

== ENCOUNTER → 2024-09-22 09:15 | Outpatient (BNV) | payer MEDICARE, SELFPAY | PROVIDERS: PCP Internal Medicine; Visit Provider Radiology Diagnostic Radiology | DX: R06.02 Shortness of breath (principal) | CPT/HCPCS: 71046 ==

== ENCOUNTER 2024-11-21 06:22 | Emergency (ER) | payer MEDICARE, SELFPAY ==
--- OUTSIDE RECORDS SUMMARY | 2024-02-25 05:30 | XMS_ITS ---
Author Organization [facility] Address [address] [place] [address] Care Team Providers Care Retail And Restaurant Associate Name Role Phone Gorge Mahmood MD Primary Care Provider Nida Carnes Unavailable [phone] Camacho Medications Medication [...] ot-Taking Encounters Encounter Location Date Provider Diagnosis [address] [address] 02/25/2024 Nida Lilly Plan Of Treatment Next Appt Details Provider Name:Nida serrano, 01/26/2025 09:15:00 AM, [address] [place], [address], Progress Notes * Chilango CASTANEDADOB: [birth year] (84 yo M)Acc No.[id number]:02/25/2024 Progress Note Patient: Ziyad Chilango VILLA Provider: Demario Lilly DPM :1940 A ge:83 Y S ex:Male Date:02/25/2024 Address:[address], [place] Pcp:Gorge Mahmood MD Subjective: * Chief Complaints: * [address] Camahco. * HPI: A t Risk footcare: Pt [...] 0 02/25/2024 Generated for Danial montez/[place] on: 06:39 AM EDT History and Physical Notes * HPI (History of Present Illness) Category Sub-Category Detail Notes Category Not es At Risk footcare Pt States Last PCP Visit: Date:
--- OUTSIDE RECORDS SUMMARY | 2024-09-11 06:07 | XMS_ITS ---
Author Organization Gorge Mahmood MD Address [address] [place] [phone] Care Team Providers Care Director Of Bands Name Role Phone Gorge Mahmood Primary Care Provider REASON FOR VISIT ER Encounters Encounter Location Date Provider Diagnosis Gorge Mahmood MD [address] [facility] [address] [place] [phone] 09/11/2024 Gorge Mahmood Plan Of Treatment Next Appt Details Provider Name:Gorge anaya, 12/25/2024 09:00:00 AM, [address] [place] [address], Suite [facility], [place], [place], [phone], Provider Name:Gorge anaya, 03/30/2025 07:30:00 AM, [address] [place] [address], Suite [facility], [place], [place], [phone], Provider Name:Gorge anaya, 04/06/2025 08:30:00 AM, [address], [address], [place], [phone], Progress Notes * Chilango CASTANEDA GDOB: [birth year] (84 yo M)Acc No.[id number]:09/11/2024 Patient: Chilango SARABIA :1940 A ge:84 Y S ex:Male Address:[address] [place] [address] Jorge [facility] [place] [address] * true * Date: Generated for Danial montez/[place]/eTransmitting on: 06:40 AM EDT
--- OUTSIDE RECORDS SUMMARY | 2024-09-18 04:45 | XMS_ITS ---
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, I48.0 Paroxysmal atrial fibrillation,c/o bilateral leg edema Medications Medication SIG (Take, Route, Frequency, Duration) Notes Start Date End Date Status Cortisporin 0.5-0.5-09565 1 application to affected area Externally Twice [...] DAY for 30 Active Furosemide 40 MG [id number] alternating with 2 tablets Orally Once a [...] Status Risk Notes Problem Diverticulitis of colon (267417064) Diverticulitis large intestine (K57.32) Active confirmed Vital Signs Blood pressure systolic 118 mm Hg 09/19/19 25 Blood pressure diastolic 60 mm Hg 025 Height 68.25 in 09/18/2024 Weight 201 lbs 09/18/2024 BMI 30.34 kg/m2 09/18/2024 weight is down 3 pounds [facility] e 08-15-24 Encounters Encounter Location Date Provider Diagnosis Gorge Mahmood MD [address] [place], [place] [phone] 09/18/2024 Gorge Mahmood Leg edema R60.0 ; [...] Reason: Provider Name:Gorge anaya, 12/25/2024 09:00:00 AM, [address] [place] [address], [address] [place] [address], [phone], Provider Name:Gorge anaya, 03/30/2025 07:30:00 AM, [address] [place] [address], [address] [facility], [place], [place], [phone], Provider Name:Gorge anaya, 04/06/2025 08:30:00 AM, [address] [place] [address], [place] [address], [place], [place], [phone], Progress Notes * Chilango CASTANEDA GDOB: [birth year] (84 yo M)Acc No.[id number]:09/18/2024 Progress Notes Patient: Chilango SARABIA Provider: Alexys Mahmood MD :1940 A ge:84 Y S ex:Male Date:09/18/2024 Address:[address] [place], [place] [id number] Subjective: * Chief [facility]s: * [facility] Risk Codes needed: 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
--- OUTSIDE RECORDS SUMMARY | 2024-09-25 04:47 | XMS_ITS ---
Author Organization Gorge Mahmood MD Address [address] [place] [phone] Care Team Providers Care Grocery Clerk Marking Name Role Phone Gorge Mahmood Primary Care Provider [phone] REASON FOR VISIT Diarrhea x 3 days Encounters Encounter Location Date Provider Diagnosis Gorge Mahmood MD [address] [place] [phone] 09/25/2024 Gorge Mahmood Plan Of Treatment Next Appt Details Provider Name:Gorge anaya, 12/25/2024 09:00:00 AM, [address] [place] [address], Suite [facility], [place], [place], [phone], Provider Name:Gorge anaya, 03/30/2025 07:30:00 AM, [address] [place] [address], Suite [facility], [place], [place], [phone], Provider Name:Gorge anaya, 04/06/2025 08:30:00 AM, [address], [address], [place], [phone], Progress Notes * Chilango CASTANEDA GDOB: [birth year] (84 yo M)Acc No.[id number]:09/25/2024 Patient: Ziyad Chilango VILLA Alexys :1940 A ge:84 Y S ex:Male Address:[address] [place] [address] [place] [address] * true * Date: Generated for Danial montez/Africa/eTransmitting on: 06:39 AM EDT
--- OUTSIDE RECORDS SUMMARY | 2024-09-25 05:51 | XMS_ITS ---
Author Organization Gorge Mahmood MD Address [address] [place] [phone] Care Team Providers Care Market Research Associate Name Role Phone Gorge Mahmood Primary Care Provider [phone] REASON FOR VISIT ER visit rec'd Encounters Encounter Location Date Provider Diagnosis Gorge Mahmodo MD 10 [facility] [address] [place] [phone] 09/25/2024 Gorge Mahmood Plan Of Treatment Next Appt Details Provider Name:Gorge anaya, 12/25/2024 09:00:00 AM, [address] [place] [address], Suite [facility], [place], [place], [phone], Provider Name:Gorge anaya, 03/30/2025 07:30:00 AM, [address] [place] [address], Suite [facility], [place], [place], [phone], Provider Name:Goreg anaya, 04/06/2025 08:30:00 AM, [address], [address], [place], [phone], Progress Notes * Chilango CASTANEDA GDOB: [birth year] (84 yo M)Acc No.[id number]:09/25/2024 Patient: Ziyad Chilango VILLA Alexys :1940 A ge:84 Y S ex:Male Address:[address] [place] [address] [place] [address] * true * Date: Generated for Danial montez/Africa/eTransmitting on: 06:39 AM EDT
--- OUTSIDE RECORDS SUMMARY | 2024-09-25 08:45 | XMS_ITS ---
Author Organization Gorge Mahmood MD Address [address] [place], [place] [phone] Care Team Providers Care Product Marketing Coordinator Name Role Phone Gorge Mahmood Primary Care Provider [phone] Allergies Allergen (clinical drug ingredient) Drug/Non Drug Allergy documented on EMR Reaction Allergy Type Onset Date Status sulfamethoxazole / trimethoprim Sulfamethoxazole- Trimethoprim swelling and redness Drug Allergy Active penicillin (uncoded) rash Allergy Active REASON FOR VISIT Post ER Visit diarrhea, Audio [phone] Medications Medication SIG (Take, Route, Frequency, Duration) [...] *AVOID FACE/GROIN* External for 25 Not-Taking Cortisporin 0.5-0.5-57015 1 application to affected area Externally Twice [...] Patient Request 08/28/2024 Not-Taking Furosemide 40 MG [id number] alternating with 2 tablets Orally Once a [...] Location Date Provider Diagnosis Gorge Mahmood MD [address] [place] [address] Drive [address] [place] [phone] 09/25/2024 Gorge Mahmood Diarrhea R19.7 Assessments Encounter Date Diagnosis (ICD Code) Assessment Notes Treatment Notes Treatment Clinical Notes Section Notes 09/25/2024 Diarrhea (ICD-10 - R19.7) [place] [facility] [place] Plan Of Treatment Treatment Notes Assessment Notes Diarrhea [place] [facility] [place] reg Pending Test Test Name Order Date CLOSTRIDIUM DIFF TOXIN A&B (C DIFF) 09/08 Next Appt Details Provider Name:Gorge anaya, 12/25/2024 09:00:00 AM, [address], [address], [place], [place], [phone], Provider Name:Gorge Boothe ier, 03/30/2025 07:30:00 AM, [address], [address], [place], [phone], Provider Name:Gorge Boothe ier, 04/06/2025 08:30:00 AM, [address], [address], [place], [place], [phone], Progress Notes * Chilango CASTANEDA GDOB: [birth year] (84 yo M)Acc No.[id number]:09/25/2024 Patient: Chilango SARABIA Provider: Alexys Mahmood MD :1940 A ge:84 Y S ex:Male Date:09/25/2024 Address:[address] [place], [place] [phone] Subjective: * Chief Complaints: * P ost ER Visit diarrheaAudio [phone] * HPI: S ymptom(s): Telehealth L ocation of provider rendering services: [address], [address], L ocation of patient: [...] Once a day Furosemide 40 MG Tablet [id number] alternating with 2 tablets Orally Once a [...] a day Taking Furosemide 40 MG Tablet [id number] alternating with 2 tablets Orally Once a [...] *APPLY MOISTURIZER AFTER *AVOID FACE/GROIN* External Cortisporin 0.5-0.5-73756 Cream 1 application to affected area Externally [...] MOISTURIZER AFTER *AVOID FACE/GROIN* External Not-Taking/PRN Cortisporin 0.5-0.5-84515 Cream 1 application to affected area Externally [...] 0 09/25/2024 Generated for Danial montez/[place] on: 06:40 AM EDT History and Physical Notes * HPI (History of Present Illness) Category Sub-Category Detail Notes Category Not es Symptom(s) Telehealth Location of [facility] rendering services:: [address], [...]
--- NOTE | ~2024-11-21 | CT_ITS ---
CLINICAL HISTORY: dizziness, right weakness CT head without contrast Comparison: None provided Findings: No intra-axial mass, midline shift, hydrocephalus, or acute hemorrhage. No significant atrophy-like change or white matter disease. The visualized paranasal sinuses and mastoid air cells are normal. The orbits are within normal limits. There is no acute fracture. IMPRESSION: 1. No acute intracranial findings. This document has been electronically signed by: Lilo Buck MD on 11/21/2024 07:06:09
--- NOTE | ~2024-11-21 | CT_ITS ---
CLINICAL HISTORY: dizziness, ? right weakness CT angiography head and neck with contrast. 3D Postprocessing. Comparison: CT/SR - CT HEAD FOR STROKE - 11/21/24 06:37 EDT Findings: Aortic arch and cervical great vessels are patent with no aneurysm, dissection, hemodynamically significant stenoses, or occlusion. Eccentric plaque of the right carotid bulb not causing significant luminal narrowing. Dominant right vertebral artery. Intracranial arteries are patent. No aneurysm, dissection, hemodynamically significant stenoses, or occlusion. No abnormal intracranial enhancement. The visualized thyroid gland is unremarkable. No cervical mass or fluid collection. Lung apices clear. No acute fracture. IMPRESSION: Patent head and neck CTA. Calcified eccentric plaquing at the right carotid bulb not causing significant luminal narrowing. This document has been electronically signed by: Lilo Buck MD on 11/21/2024 09:04:54
[2024-11-21 06:28] VITALS: BP 177/87; PULSE 72; RESP 20; TEMP 36.6; O2SAT 97; BMI 28.8
--- NOTE | 2024-11-21 06:32 | ECG_ITS ---
Test Reason : dizziness Blood Pressure : */* mmHG Vent. Rate : 70 BPM Atrial Rate : 70 BPM P-R Int : 216 ms QRS Dur : 94 ms QT Int : 462 ms P-R-T Axes : 95 -40 -6 degrees QTcB Int : 498 ms Atrial flutter 3:1 AV block Left axis deviation Pulmonary disease pattern Septal infarct Inferior infarct Abnormal ECG When compared with ECG of 22-Sep-2024 09:26, No significant changes seen Referred By: Fer Dent Electronically Signed By: Coy Dumont
--- NOTE | 2024-11-21 06:33 | ED.GENADULT ---
HPI - General Adult General Chief complaint: Dizziness Stated complaint: stroke symptoms? Time Seen by Provider: 11/21/24 06:27 History of Present Illness ED Provider: Jailene LUCERO narrative: The patient is an 84-year-old male with a history of atrial fibrillation on rivaroxaban. He also has a remote history of a stroke. He was feeling well yesterday. He normally wakes up at 04:30 in the mornings. This morning he woke up at 03:30. He got out of bed but felt extremely dizzy and had difficulty walking. He says the room was spinning and he had to hold onto things. He was able to tell his daughter that he was having difficulty. His daughter thought he had a right facial droop. She drove him to the emergency room because she was concerned he was having a stroke. The patient is having no headache. There is no report of any speech difficulty. The patient does not feel that he has any weakness in his extremities. No chest pain or shortness of breath. No fever, sweats, chills. Related Data Home Medications ?Medication ?Instructions ?Recorded ?Confirmed allopurinol 300 mg tablet 300 mg PO DAILY 03/05/20 06/27/24 irbesartan 300 mg tablet 300 mg PO DAILY 03/05/20 06/27/24 doxazosin 2 mg tablet 2 mg PO BEDTIME 02/24/22 06/27/24 finasteride 5 mg tablet 5 mg PO DAILY 02/24/22 06/27/24 amlodipine 5 mg tablet 5 mg PO DAILY 01/06/23 06/27/24 Previous Rx's ?Medication ?Instructions ?Recorded amiodarone 200 mg tablet 200 mg PO DAILY #90 tabs 05/15/24 furosemide 40 mg tablet 80 mg (2 x 40 mg) PO DAILY #180 05/15/24 tabs ciprofloxacin HCl 250 mg tablet 250 mg PO BID #14 tabs 09/09/24 (Cipro) lidocaine 4 % topical patch 1 patch topical DAILY PRN pain #5 09/09/24 ea metronidazole 250 mg tablet 250 mg PO Q12H #14 tabs 09/09/24 dicyclomine 20 mg tablet 20 mg PO QID abdominal pain #14 09/22/24 tabs rivaroxaban 20 mg tablet (Xarelto) 20 mg PO QPM #90 tabs 10/23/24 meclizine 25 mg tablet 25 mg PO QID PRN dizziness #7 tabs 11/21/24 Allergies Allergy/AdvReac Type Severity Reaction Status Date / Time Penicillins (PCN) Allergy Unknown RASH Verified 11/21/24 06:30 Sulfamethoxazole-TMP DS Allergy Unknown rash Uncoded 09/22/24 09:12 Review of Systems Review of Systems: Yes all other systems are reviewed and are negative [facility] Past Medical History Medical History Persistent atrial fibrillation Diastolic dysfunction Localized edema Essential hypertension Nonischemic cardiomyopathy Current use of half-way anticoagulation Surgical History History of back surgery History of cardioversion (~2015) Family History Family History Father CHF (congestive heart failure) Mother Cancer Social History Social History Alcohol intake: never Patient Tobacco Use Status: Never used Tobacco Smoked in Last 30 Days: No Use of substances other than those prescribed or required for medical reasons: No Advance Directives: No Advance Directives Information Provided: Yes Physical Exam ED Vital Signs: Vital Signs - 24 hr 11/21/24 06:28 11/21/24 07:32 11/21/24 07:34 Temperature 97.9 F Pulse Rate 72 70 73 Pulse Rate [Left Apical] Respiratory Rate 20 Blood Pressure 177/87 H 151/79 H 154/82 H Pulse Oximetry 97 Oxygen Delivery Method Room Air 11/21/24 07:34 11/21/24 07:49 11/21/24 10:19 Temperature Pulse Rate 72 73 Pulse Rate [Left Apical] 73 Respiratory Rate 18 Blood Pressure 157/83 H 145/74 H Pulse Oximetry 97 Oxygen Delivery Method Room Air 11/21/24 12:07 Temperature 0 F L Pulse Rate 73 Pulse Rate [Left Apical] Respiratory Rate 18 Blood Pressure 145/74 H Pulse Oximetry 97 Oxygen Delivery Method Room Air BMI result Body Mass Index 28.8 Const Other: The patient is an 84-year-old man who was awake and alert, pleasant and cooperative. He does not appear acutely ill although he seems somewhat apprehensive. No obvious focal neurological deficit was apparent. HENMT Other: When I looked at the patient's face I thought that perhaps the left corner of his mouth might be slightly droopy although with active motion there was no asymmetry to the face. The daughter however felt that it was the right side of his mouth that looked slightly droopy. Overall I was not convinced that there was an objective sign of facial asymmetry or weakness. Mucous membranes are moist. Tongue is midline. Eyes Other: Pupils are round equal, conjunctivae are clear, extraocular movements intact. Lateral gaze is intact bilaterally. There may be some nystagmus with rightward gaze but this is a questionable finding. No upward nystagmus. Visual bhatia are intact to confrontation. Neck Neck: Yes normal visual inspection, Yes full ROM and Yes no JVD Resp Effort & Inspection: normal respiratory effort Auscultation: clear to auscultation bilaterally Cardio Rate: regular rate Rhythm: regular rhythm Heart sounds: S1 normal heart sound present and S2 normal heart sound present GI Other: Abdomen is soft and nontender Skin Other: The skin is dry and unremarkable Neuro Other: The patient is awake and alert with a normal mental status. Normal orientation. The patient has intact extraocular movements although there may be some nystagmus with rightward gaze (this is an equivocal finding). No vertical nystagmus. Visual bhatia are intact to confrontation. The patient's daughter felt there might be some droop of the right side of the mouth but I did not appreciate this at all. Certainly with active motion the mouth seemed symmetrical. Tongue is midline. Speech is normal. Strength is 5/5 in all 4 extremities with no pronator drift. Finger-nose is normal. Heel-york is normal. When I examined the patient's gait it seemed normal. Extrem Other: There is no calf swelling or tenderness. No asymmetry. No peripheral edema. Medications Administered Discontinued Medications Generic Name Dose Route Start Last Admin Trade Name Freq PRN Reason Stop Dose Admin Lactated Ringer's 500 mls @ 999 mls/hr 11/21/24 09:45 11/21/24 10:49 Lr IV 11/21/24 10:15 Infused .Q31M MARY Infusion Iohexol 70 ml 11/21/24 06:48 11/21/24 06:48 Iohexol 350 Mg/Ml 100 Ml Infus..Btl IV 11/21/24 06:49 70 ml ONCE ONE Administration Meclizine HCl 25 mg 11/21/24 09:35 11/21/24 10:18 Meclizine Hcl 25 Mg Tablet PO 11/21/24 09:36 25 mg ONCE ONE Administration Medical Decision Making Medical Decision Making [facility] Narrative: The patient is a very pleasant 84-year-old male with a history of chronic atrial fibrillation on rivaroxaban who awoke this morning at around 03:30 with a sensation of room spinning dizziness that made walking difficult. Ultimately he was driven to the hospital by his daughter who felt that there might be some drooping of the right side of his mouth. I do not appreciate any drooping of the right side of the mouth or the face. I felt that his neurological exam was quite normal with the an NIH stroke scale of 0 although he had symptoms of room spinning dizziness. A noncontrast head CT is negative. Given that he is on rivaroxaban I think an ischemic stroke is unlikely. Additionally he had a CT angiogram of the head and neck that was unremarkable. The patient was given IV fluids and a dose of meclizine. He felt better. His dizziness resolved. He ambulated well. He said that he was ambulating at his baseline. I think he may be discharged with a prescription for meclizine and instructions to follow up with his regular doctor. Lab Data 11/21/24 06:35 11/21/24 06:35 Labs: Lab Results 11/21/24 11/21/24 Range/Units 06:35 06:37 WBC 5.0 (4.8-10.8) X10*3/uL RBC 4.20 L (4.60-5.80) X10*6/uL Hgb 13.8 L (14.0-18.0) g/dl Hct 41.2 L (42.0-52.0) % MCV 98.1 H (80.0-98.0) fL MCH 32.9 (27.0-33.0) pg MCHC 33.5 (31.0-36.0) g/dl RDW 13.3 (11.0-16.0) % Plt Count 117 L (160-400) X10*3/uL MPV 10.3 (9.4-12.4) fL Immature Gran % (Auto) 0.4 (0.0-0.4) % Neut % (Auto) 55.1 (45-73) % Lymph % (Auto) 35.3 (20-40) % [place] % (Auto) 7.2 (2-11) % Eos % (Auto) 1.6 (0-4) % Baso % (Auto) 0.4 (0-2) % Lymph # (Auto) 1.8 (1.2-4.9) X10*3/uL [place] # (Auto) 0.4 (0.1-1.2) X10*3/uL Eos # (Auto) 0.1 (0.0-0.4) X10*3/uL Baso # (Auto) 0.0 (0.0-0.2) X10*3/uL Abs Immat Gran (auto) 0.02 (0.00-0.03) X10*3/uL Absolute Neuts (auto) 2.8 (2.0-8.3) x10*3/uL Absolute Nucleated RBC 0.000 (0.0-0.012) X10*3/uL Nucleated RBC % (auto) 0.0 (0.0-0.2) /100WBC PT 18.0 H D (10.9-12.4) SEC INR 1.6 H (0.9-1.1) APTT 32.1 (26.7-34.1) SEC Sodium 143 (135-145) mmol/L Potassium 3.6 (3.3-5.1) mmol/L Chloride 111 H (96-108) mmol/L Carbon Dioxide 26 (22-29) mmol/L Anion Gap 10 L (12-20) BUN 22 H (9-16) mg/dL Creatinine 1.02 (0.5-1.4) mg/dL Estim Creat Clear Calc 57.2 Estimated GFR > 60 POC Glucose 103 (60-115) mg/dL Random Glucose 100 (60-115) mg/dL Calcium 8.4 (8.4-10.2) mg/dL Troponin I High Sens 8.1 D (<3.5-35.0) ng/L NT-Pro-B Natriuret Pep 471.2 H (<300) pg/mL Triglycerides 71 (<150) mg/dL Cholesterol 149 (<200) mg/dL LDL Cholesterol, Calc 84 (<100) mg/dL HDL Cholesterol 51 (>40) mg/dL Discharge Plan Discharge Clinical Impression: Dizziness, Chronic atrial flutter, Chronic anticoagulation Patient Disposition: Home, Self-Care Additional Instructions: I believe that the dizziness you experienced this morning is much more likely to be a vertigo syndrome related to an inner ear problem than a stroke. Your workup in the emergency room was quite reassuring. Please continue all of your regular medications. I have sent a prescription for the medication meclizine to your pharmacy. This is medication that can sometimes help with dizziness. I would use this if you have ongoing symptoms. I would try to use this as little as possible. Please keep your appointment tomorrow with your natural resources technician. Also, please call your primary care doctor today to make a follow up appointment to discuss this dizziness syndrome further. Return to the emergency room if significantly worse. Prescriptions: New meclizine 25 mg tablet 25 mg PO QID PRN (Reason: dizziness) Qty: 7 0RF No Action furosemide 40 mg tablet 80 mg PO DAILY Qty: 180 3RF amiodarone 200 mg tablet 200 mg PO DAILY Qty: 90 3RF Xarelto 20 mg tablet 20 mg PO QPM Qty: 90 3RF Rx Instructions: must administer with evening meal dicyclomine 20 mg tablet 20 mg PO QID Qty: 14 0RF Rx Instructions: Take 3 to 4 times a day 20 30 minutes before your meals metronidazole 250 mg tablet 250 mg PO Q12H Qty: 14 0RF ciprofloxacin HCl [Cipro] 250 mg tablet 250 mg PO BID Qty: 14 0RF lidocaine 4 % adhesive patch,medicated 1 patch topical DAILY PRN (Reason: pain) Qty: 5 0RF irbesartan 300 mg tablet 300 mg PO DAILY allopurinol 300 mg tablet 300 mg PO DAILY doxazosin 2 mg tablet 2 mg PO BEDTIME finasteride 5 mg tablet 5 mg PO DAILY amlodipine 5 mg tablet 5 mg PO DAILY Referrals: Gorge Mahmood MD [Primary Care Provider, Medical] Alvaro Marinelli MD [Physician, Cardiology] Interventions: ED Discharge Assessment Last Done: 11/21/24 12:07 Discharge Date/Time: 11/21/24 12:08 Print Language: Montserratian
--- OUTSIDE RECORDS SUMMARY | 2024-11-21 06:39 | XMS_ITS | Patient Health Record ---
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 Name Role Phone Gorge Mahmood MD Primary Care Provider Nida Carnes Unavailable [phone] Allergies Allergen (clinical drug ingredient) Drug/Non Drug Allergy documented on EMR Reaction Allergy Type Onset Date Status Penicillin rash Drug Allergy Active Reason For Referral No Information Medications Medication SIG (Take, Route, Frequency, Duration) Notes Start Date End Date Status Irbesartan 300 MG 1 tablet Orally Once a day Active Finasteride 5 MG 1 tablet Orally Once a day Active Amlodipine & Diet Manage Prod 5 mg Active Furosemide 40mg Active Amiodarone HCl 200 MG 1 tablet Orally On ce a day Not-Taking Metoprolol Succinate 50 MG 1 capsule Orally Once a day Not-Taking Losartan Potassium N ot-Taking Doxazosin Mesylate 2 MG 1 tablet Orally Once a day; Duration: 30 day(s) Active Allopurinol 300 MG 1 tablet Orally Once a day; Duration: 30 day(s) Active Xarelto 20 MG 1 tablet Orally Once a day Active Immunizations Vaccine [...] Problem Status W/U Status Risk Notes Problem Bilateral atherosclerosis of arteries of lower limbs (disorder) (99257863038893434 ) Atherosclerosis of paimiut artery of both lower extremities, with unspecified presence of clinical manifestation (I70.203) Active confirmed Vital Signs Blood pressure diastolic 80 mm Hg 10/25/2024 Height 5 ft 9 in in 10/25/2024 Blood pressure systolic 150 mm Hg 10/25/2024 Weight 195 lbs 10/25/2024 BMI 28.79 kg/m2 10/25/2024 Encounters Encounter Location Date Provider Diagnosis [address] [address] 12/03/2023 Nida Perica Pain in left foot M79.672 ; Metatarsalgia, left foot M77.42 ; Atherosclerosis of paimiut artery of both lower extremities, with unspecified presence of clinical manifestation I70.203 ; Tinea unguium B35.1 ; Pain in right toe(s) M79.674 ; Pain in left toe(s) M79.675 and Pain in left ankle and joints of left foot M25.[address] [address] 04/26/2024 Nida Perica Pain in left foot M79.672 ; Metatarsalgia, left foot M77.42 ; Atherosclerosis of paimiut artery of both lower extremities, with unspecified presence of clinical manifestation I70.203 ; Tinea unguium B35.1 ; Pain in right toe(s) M79.674 ; Pain in left toe(s) M79.675 and Pain in left ankle and joints of left foot M25.[address] [address] 07/26/2024 Nida Perica Metatarsalgia, left foot M77.42 ; Subungual hematoma of left foot, initial encounter S90.222A ; Pain in left foot M79.672 ; Atherosclerosis of paimiut artery of both lower extremities, with unspecified presence of clinical manifestation I70.203 ; Tinea unguium B35.1 ; Pain in right toe(s) M79.674 ; Pain in left toe(s) M79.675 and Pain in left ankle and joints of left foot M25.572 [facility] [address] [address] 10/25/2024 Nida Perica Pain in left toe(s) M79.675 ; Tinea unguium B35.1 ; Pain in right toe(s) M79.674 and Atherosclerosis of paimiut artery of both lower extremities, with unspecified presence of clinical manifestation I70.[address] [address] 07/26/2024 Nida Bronsona Assessments Encounter Date Diagnosis (ICD Code) Assessment Notes Treatment Notes Treatment Clinical Notes Section Notes 12/03/2023 Pain in left foot (ICD-10 - M79.672) 04/26/2024 Pain in left foot (ICD-10 - M79.672) 07/26/2024 Metatarsalgia, left foot (ICD-10 - M77.42) 07/26/2024 Subungual hematoma of left foot, initial encounter (ICD-10 - S90.222A) 10/25/2024 Tinea unguium (ICD-10 - B35.1) 10/25/2024 Pain in left toe(s) (ICD-10 - M79.675) 10/25/2024 Pain in right toe(s) (ICD-10 - M79.674) 07/26/2024 Pain in left foot (ICD-10 - M79.672) 04/26/2024 Metatarsalgia, left foot (ICD-10 - M77.42) 12/03/2023 Metatarsalgia, left foot (ICD-10 - M77.42) 12/03/2023 Atherosclerosis of paimiut artery of both lower extremities, with unspecified presence of clinical manifestation (ICD-10 - I70.203) 07/26/2024 Atherosclerosis of paimiut artery of both lower extremities, with unspecified presence of clinical manifestation (ICD-10 - I70.203) 10/25/2024 Atherosclerosis of paimiut artery of both lower extremities, with unspecified presence of clinical manifestation (ICD-10 - I70.203) 04/26/2024 Atherosclerosis of paimiut artery of both lower extremities, with unspecified [...] Provider Name:Nida serrano, 01/26/2025 09:15:00 AM, [address] [place], [address], Insurance Providers Payer Name Payer Address Payer Phone Subscriber Number Group Number Insured Name Patient Relationship to Insured Coverage Start Date Coverage End Date [employer] [address] [place] [address] [id number] Chilango Castaneda Self - patient is the insured Medical (General) History Medical History History ICD Code Back,Hip,and Knee pain Gout Heart disease High blood pressure Psoriasis/eczema Surgical History Surgery Date(Month/Year) spine surgery 2021 appendectomy
--- OUTSIDE RECORDS SUMMARY | 2024-11-21 06:39 | XMS_ITS | Patient Health Record ---
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 Role Phone Gorge Mahmood Primary Care Provider Allergies Allergen (clinical drug ingredient) Drug/Non Drug Allergy documented on EMR Reaction Allergy Type Onset Date Status sulfamethoxazole / trimethoprim Sulfamethoxazole- Trimethoprim swelling and redness Drug Allergy Active penicillin (uncoded) rash Allergy Active Results Component Value Reference Range Notes Complete Blood Count Auto Di ff Reviewed date:03/30/2024 09:56:33 AM Interpretation: Performing Lab:[facility], [address] [place] [address] Notes/Report: White Blood Count 5.6 4.8-10.8 X10*3/uL [...] NRBC Abs Auto 0.000 0.0-0.012 X10*3/uL Comprehensive [place]. Panel Fa st Reviewed date:03/28/2024 05:01:16 PM Interpretation: Performing Lab:[facility], [address] [place] [address] Notes/Report: Sodium 141 135-145 mmol/L Potassium 4.0 [...] Panel Reviewed date:03/28/2024 12:36:21 PM Interpretation: Performing Lab:[facility], [address] [place] [address] Notes/Report: Triglycerides 72 <150 mg/dL Desirable Triglyceride: [...] (Free>4and<10) Reviewed date:03/28/2024 12:38:01 PM Interpretation: Performing Lab:[facility], [address] [place] [address] Notes/Report: PSA,Total (Free>4and<10) 1.15 0.00-4.00 ng/mL A [...] Random Reviewed date:03/28/2024 12:37:41 PM Interpretation: Performing Lab:[facility], [address] [place] [address] Notes/Report: Creatinine Urine 133.89 Microalbumin Urine < 5.0 Microalbum/Creatinine Ratio Ur TNP <30 ug/mg cr Unable to calculate albumin/creatinine ratio due to low microalbumin or creatinine result. Hemoglobin A1c Reviewed date:03/28/2024 12:44:45 PM Interpretation: Performing Lab:[facility], [address] [place] [address] Notes/Report: Hemoglobin A1c % 5.1 <6.0 % [...] average glucose, using the formula of the A2S-Dgmjnce Average Glucose study (ADAG), Diabetes Care, Vol.31,#8, Sep. 2007 UA ClnCatch+Micro w/rflx Cul t Reviewed date:03/28/2024 05:01:31 PM Interpretation: Performing Lab:[address] [address] Notes/Report: [id number] Urine, Clean Catch Color Urine Yellow Appearance Urine Clear PH 6.0 5.0-9.0 Glucose Urine UA Negative Negative mg/dL Urine Blood Negative Negative Specific [place] - Urine 1.020 1.005-1.025 Urine Protein Negative [...] ff Reviewed date:06/20/2024 12:51:23 PM Interpretation: Performing Lab:[facility], [address] [place] [address] Notes/Report: White Blood Count 7.8 4.8-10.8 X10*3/uL [...] Notes/Report: Negative Occult Blood, Stool, Guaiac Neg Basic Metabolic Panel Reviewed date:02/25/2024 02:48:48 PM Interpretation: Performing Lab:[facility], [address] [place] [phone] Notes/Report: Sodium 142 135-145 mmol/L Potassium 4.1 [...] Peptide Reviewed date:02/23/2024 10:11:20 AM Interpretation: Performing Lab:[facility], [address] [place] [address] Notes/Report: B Type Natriuretic Peptide 126 <100 pg/mL For those patients who are being treated with Natrecor (nesiritide, recombinant BNP), BNP testing should be performed at least two hours post treatment in order to ensure that only endogenous levels of BNP are detected. TSH reflex Free T4 Reviewed date:02/24/2024 05:28:58 PM Interpretation: Performing Lab:[facility], [address] [place] [address] Notes/Report: TSH reflex Free T4 1.03 0.32-4.0 uIU/mL Complete Blood Count Auto Di ff Reviewed date:09/10/2024 01:45:04 PM Interpretation: Performing Lab:[address] [address] Notes/Report: White Blood Count 9.0 4.8-10.8 X10*3/uL [...] Panel Reviewed date:09/10/2024 01:45:24 PM Interpretation: Performing Lab:[facility], [address] [place] [phone] Notes/Report: Sodium 140 135-145 mmol/L Potassium 3.3 [...] Lipase Reviewed date:09/10/2024 01:45:34 PM Interpretation: Performing Lab:[facility], [address] [place] [address] Notes/Report: Lipase 10 8-78 U/L CT abdomen pelvis wo con Reviewed date:09/10/2024 01:44:11 PM Interpretation: Performing Lab: Notes/Report: [facility] [address] 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 Prostatomegaly noted. Mildly distended seng dder with scattered diverticuli. Mild mural thickening [...] in OV> 09/09/241738 DD/ 37 TD/TT: 09/09/241737 Sand Slinger Operator: Complete Blood Count Auto Di ff Reviewed date:09/22/2024 12:42:05 PM Interpretation: Performing Lab:[address] [address] Notes/Report: White Blood Count 4.6 4.8-10.8 X10*3/uL [...] Auto 0.000 0.0-0.012 X10*3/uL Prothrombin Time INR Reviewed date:09/22/2024 12:32:45 PM Interpretation: Performing Lab:[facility], [address] [place] [address] Notes/Report: Prothrombin Time 28.3 10.9-12.4 [employer] [...] valves: 2.5 - 3.5 Basic Metabolic Panel Reviewed date:09/22/2024 12:32:27 PM Interpretation: Performing Lab:[facility], [address] [place] [address] Notes/Report: Sodium 143 135-145 mmol/L Potassium 3.3 [...] Calcium 8.3 8.4-10.2 mg/dL Troponin-I High Sensitivity Reviewed date:09/22/2024 12:32:03 PM Interpretation: Performing Lab:[facility], [address] [place] [phone] Notes/Report: Troponin-I High Sensitivity 16.5 <3.5-35.0 ng/L The [place] high sensitivity Troponin-I results should be used in conjunction with other diagnostic information such as ECG, clinical observations and information, and patient symptoms to aid in the diagnosis of [place]. B Type Natriuretic Peptide Reviewed date:09/22/2024 12:32:35 PM Interpretation: Performing Lab:[facility], [address] [place] [address] Notes/Report: B Type Natriuretic Peptide 64 <100 pg/mL SARS-CoV2/FLU/RSV Reviewed date:09/22/2024 12:30:53 PM Interpretation: Performing Lab:[facility], [address] [place] [address] Notes/Report: Influenza A PCR NEGATIVE Negative Influenza [...] by authorized laboratories. Testing performed on the [employer] GeneXpert utilizing real-time RT-PCR. All SARS CoV2 and positive influenza A/B results are reported to [facility]. XR chest 2V Reviewed date:09/22/2024 12:31:45 PM Interpretation: Performing Lab: Notes/Report: [address] [address] XRay Report Signed Patient: Chilango Castaneda MR#: [id number] : 1940 Acct:[id number] Age/Sex: 84 / M ADM Date: 09/22/24 Loc: .ED Attending Dr: Ordering Physician: Generic ED Physician Date of Service: 09/22/24 Procedure(s): XR chest 2V Accession Number(s): [id number] cc: Gorge Mahmood MD; Generic ED Physician [...] in OV> 09/22/24940 DD/ 7 TD/TT: 09/22/24932 Sand Slinger Operator: [place] [address] XRay Report Signed Patient: Cynthia Castaneda MR#: [id number] : 1940 Acct:[id number] Age/Sex: 84 / M ADM Date: 09/22/24 Loc: .ED Attending Dr: Ordering Physician: Generic ED Physician Date of Service: 09/22/24 Procedure(s): XR chest 2V Accession Number(s): [id number] cc: Gorge Mahmood MD; Generic ED Physician [...] in OV> 09/22/24940 DD/ 7 TD/TT: 09/22/24932 Sand Slinger Operator: Reason For Referral No Information Medications Medication SIG (Take, Route, Frequency, Duration) Notes Start Date End Date Status oxyCODONE HCl 5 MG 1 tablet as needed Orally every 12 hours as needed. do not drive for 7 days Partial Fill upon Patient Request 08/28/2024 Not-Taking Dicyclomine HCl 20 MG 1 tablet Orally Three times a day Active Furosemide 40 MG s5xeode alternating with 2 tablets Orally Once a day Active amLODIPine Besylate 5 MG TAKE 1 TABLET BY MOUTH EVERY DAY for 30 Active Ibuprofen 800 MG 1 tablet Orally Three times a day for 30 day(s) 10/27/2011 Not-Taking Allopurinol 300 MG TAKE 1 TABLET [...] a day for 3 days 11/13/2019 Not-Taking Irbesartan 300 MG TAKE 1 TABLET BY MOUTH EVERY DAY for 30 Active Tylenol 8 Hour 650 MG 2 tablets as needed Orally every 8 hrs Active Triamcinolone Acetonide 0.1 % APPLY TWICE DAILY TO TRUNK,ARMS,AND LEGS *APPLY MOISTURIZER AFTER *AVOID FACE/GROIN* External for 25 Not-Taking Doxazosin Mesylate 2 MG 1 tablet Orally Once a day for 30 day(s) Active Cortisporin 0.5-0.5-65660 1 application to affected area Externally Twice a day for 30 days 01/10/2015 Not-Taking Cyclobenzaprine HCl 5 MG 1 tab Orally twice a day for 10 days 08/28/2024 Not-Taking Colace 100 MG 1 capsule as [...] Influenza High Dose Unknown 10/30/2019 [facility]ered [facility] Fluarix Quadrivalent Unknown 10/30/[address] [facility] [...] Status W/U Status Risk Notes Problem Sciatica (36907545) Sciatica (M54.30) Active confirmed Problem Diverticulitis of colon (684055214) Diverticulitis large intestine (K57.32) Active confirmed Problem 316753683 Thrombocytopenia (D69.6) Active confirmed Problem Constipation (28629834) Constipation (K59.00) Active confirmed Problem 798509265 Body mass index (BMI) 33.0-33.9, adult (Z68.33) Active confirmed Problem 241766160 Tubular adenoma of colon (D12.6) Active confirmed Problem 281278758 Gastroesophageal reflux disease without esophagitis (K21.9) Active confirmed Problem 03252040 Essential hypertension (I10) Active confirmed Problem 1389735 Psoriasis (L40.9) Active confirmed Problem 9989188 Prediabetes (R73.09) Active confirmed Problem 339477872 History of gout (Z87.39) Active confirmed Problem 576091295059550 Carpal tunnel syndrome of right wrist (G56.01) Active confirmed Problem 15775692 Sciatica of left side (M54.32) Active confirmed Problem 590533800 History of atria l fibrillation (Z86.79) Active confirmed Problem 731633119 Elevated PSA (R97.20) Active confirmed Problem 468380707 BMI 33.0-33.9,ad ult (Z68.33) Active confirmed Problem 812375060 Temporary low platelet count (D69.6) Active confirmed Problem 011956042 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) Active confirmed Problem 477459350 PVC's (premature ventricular contractions) (I49.3) Active confirmed Problem 860413818 History of basal cell carcinoma (Z85.828) Active confirmed Vital Signs Blood pressure diastolic 60 mm Hg 09/18/2024 jody ght is down 3 pounds since 08-15-24 Height 68.25 in 09/25/2024 weight is 200 a t home BP not taken Blood pressure systolic 118 mm Hg 09/18/2024 jodyg ht is down 3 pounds since 08-15-24 Weight 200 lbs 09/25/2024 weight is 200 a t home BP not taken BMI 30.18 kg/m2 09/25/2024 weight is 200 a t home BP not taken Encounters Encounter Location Date Provider Diagnosis Gorge Mahmood MD [address] [place] [id number] 03/28/2024 Gorge Mahmood Blood tests for rout ine general physical examination Z00.00 ; Thrombocytopenia D69.6 ; Prediabetes R73.09 and Elevated PSA R97.20 Gorge Mahmood MD [address] [place] [id number] 06/20/2024 Gorge Mahmood Thrombocytopenia, unspecified D69.6 Gorge Mahmood MD [address] [place] [address] [id number] 11/29/2023 Gorge Mahmood Encounter for administration of vaccine Z23 Gorge Mahmood MD [address] [place] [address] [id number] 04/04/2024 Gorge Mahmood Thrombocytopenia D69 .6 ; Annual physical exam Z00.00 ; Essential hypertension I10 ; History of atrial fibrillation Z86.79 ; Elevated PSA R97.20 ; Colon cancer screening Z12.11 and Depression screening Z13.31 Gorge Mahmood MD [address] [place] [address] [id number] 08/28/2024 Gorge Bombardier Sciatica M54.30 and Leg edema R60.0 Gorge Mahmood MD [address] [place] [address] [id number] 09/04/2024 Gorge Rgardier Sciatica M54.30 and Constipation K59.00 Gorge Mahmood MD [address] [place] [address] [id number] 09/18/2024 Gorge Mahmood Leg edema R60.0 ; Diverticulitis large intestine K57.32 and Sciatica M54.30 Gorge Mahmood MD [address] [place] [address] [id number] 09/25/2024 Gorge Mahmood Diarrhea R19.7 Gorge Mahmood MD [address] [place] [address] [id number] 04/24/2024 Gorge Mahmood MD [address] [place] [address] [id number] 08/28/2024 Gorge Mahmood Sciatica M54.30 Gorge Mahmood MD [address] [place] [address] [id number] 08/31/2024 Gorge Mahmood MD [address] [place] [address] [id number] 09/07/2024 Gorge Mahmood MD [address] [place] [address] [id number] 09/11/2024 Gorge Mahmood MD [address] [place] [address] [id number] 09/25/2024 Gorge Mahmood MD [address] [place] [address] [id number] 09/25/2024 Gorge Mahmood Assessments Encounter Date Diagnosis (ICD Code) Assessment Notes Treatment Notes Treatment Clinical Notes Section Notes 03/28/2024 Blood tests for routine general physical examination (ICD-10 - Z00.00) 06/20/2024 Thrombocytopenia, unspecified (ICD-10 - D69.6) 11/29/2023 Encounter for administration of vaccine (ICD-10 [...] months/ order will be faxed over to [facility] cs dept after [place] 09/04/2024 Constipation (ICD-10 - K59.00) not taking any more oxycodone but will try dulcolax 09/18/2024 Leg edema (ICD-10 - R60.0) will stop the amlodipine. bp is fine, will continue to monitor 09/18/2024 Diverticulitis large intestine (ICD-10 - K57.32) doing well 09/25/2024 Diarrhea (ICD-10 - R19.7) order faxed to [facility] patient reg 08/28/2024 Sciatica (ICD-10 - M54.30) 03/28/2024 Thrombocytopenia (ICD-10 - D69.6) 04/04/2024 Essential hypertension (ICD-10 - I10) stable, will continue current regiment 09/18/2024 Sciatica (ICD-10 - M54.30) a little better. send back to pain maneagement/ patient will be calling to make his own appt 03/28/2024 Prediabetes (ICD-10 - R73.09) 04/04/2024 History [...] (EKG) 03/09/2019 Occult Blood, Stool, Guaiac 04/04/2024 CLOSTRIDIUM DIFF TOXIN A&B (C DIFF) 09/08 CT LUMBAR SPINE NO CONTRAST 11/13/2019 MRI LUMBAR SPINE NO CONTRAST 01/09/2021 CT lumbar spine wo con 09/04/2024 Next Appt Details Provider Name:Gorge Boothe ier, 12/25/2024 09:00:00 AM, [address] [facility], [address], [place], [place], [id number], Provider Name:Gorge Boothe ier, 03/30/2025 07:30:00 AM, [address], [address], [place], [place], [id number], Provider Name:Gorge Boothe ier, 04/06/2025 08:30:00 AM, [address], [address], [place], [place], [id number], Insurance Providers Payer Name Payer Address Payer Phone Subscriber Number Group Number Insured Name Patient Relationship to Insured Coverage Start Date Coverage End Date [employer] PLAN [address] [place] [phone] [id number] Chilango Castaneda Self - patient is the insured MEDICARE [facility] [address] [place] [address] [id number] Chilango Castaneda Self - patient is the insured Medical (General) History Medical History History ICD Code Gout hypertension, benign psoriasis tia prostatism Colonoscopy ; colonos copy 06/04/14 - no need for further testing per Dr. Ely CREATININE CLEARANCE 54 Surgical History Surgery Date(Month/Year) DC Cardioversion 02/2015
--- OUTSIDE RECORDS SUMMARY | 2024-11-21 06:39 | XMS_ITS | Patient Health Record ---
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 Name Role Phone Gorge Mahmood MD Primary Care Provider Bennie Jenkins [phone] Allergies Allergen (clinical drug ingredient) Drug/Non Drug [...] 1 kit as directed Oral ly as directed; Duration: 1 dose 03/24/2014 Activ e Problems Problem Type SNOMED Code ICD Code Onset Dates Problem Status W/U Status Risk Notes Problem Pre-surgery evaluation (013852960) Other specified pre-operative examination (V72.83) Active confirmed Problem Colon cancer screening (223325103) Colon cancer screening (V76.51) Active confirmed Problem History of adenomatous polyp of colon (225249313) History of adenomatous polyp of colon (V12.72) Active confirmed Plan Of Treatment Future Test Test Name Order Date COLONOSCOPY 03/22/2014 Insurance Providers Payer Name Payer Address Payer Phone Subscriber Number Group Number Insured Name Patient Relationship to Insured Coverage Start Date Coverage End Date [facility] [address] [facility] [place] [phone] [id number] BREANA SINGH Self - patient is the insured Medical (General) History Medical History History ICD Code Tubular adenomas removed in 1993 and 2003--he had a negative colonoscopy in January of 2009, other than the finding of some diverticulosis and internal hemorrhoids hypertension Gout psoriasis TIA in the Denies [place],DM,CVA,Lung disease,renal dise ase Surgical History Surgery Date(Month/Year) appendectomy
--- OUTSIDE RECORDS SUMMARY | 2024-11-21 06:40 | XMS_ITS | Data Portability ---
Author Organization [facility], PAIN OFFICE Address [address] [facility] [address] [place] [address] Care Team Providers Care Human Intelligence Name Role Phone JACKIE VIGIL Primary Care Provider JIM NOLASCO Referring Provider [phone] Assessment Encounter Date Assessment Date Assessment LastModified [...] rate is 37-44/min. 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 [email or web address] Not available 07/21/2023 [...] Organization Details Last Modified Time Details Appointments None record ed. Lab None record ed. Referral None record ed. Procedures None record ed. Surgeries None record ed. Imaging None record ed. Medication Orders None record ed. Patient TargetsNo targets recorded. Patient InstructionsNo instructions recorded. Reason for Referral None Reported. Problems Name Problem SNOMED Code Status Onset Date Resolution Date Notes Provider Name and Address Organization Details Recorded Time Spinal stenosis of lumbar region 42664220 Active Gelacio dao MD [address] , [address], [place], [address], [place] [facility] 0 12:43:58 Lumbosacral spondylosis without myelopathy 22254519 Active Gelacio dao MD [address] , [address], [place], [address], [place] [facility] 0 12:43:52 Lumbosacral radiculopathy 8803942 Active Gelacio dao MD [address] , [address], [place], [address], [place] [facility] 0 12:43:45 Degeneration of lumbar intervertebral disc 41607231 Active Gelacio dao MD [address] , [address], [place], [address], [place] [facility] 0 12:43:39 Problem Notes None recorded. Procedures Surgical History Date Name Laterality Status Provider Name and Address Organization Details Recorded Time 06/07/19 25 Lumbar Epidural steroid injection under fluoroscopic guidance completed Gelacio Brandon MD [address] , [address], [place], [address], [place] [facility] 06/06/2024 14:44:29 03/07/19 25 Lumbar Epidural steroid injection under fluoroscopic guidance completed Gelacio Brandon MD [address] , [address], [place], [address], [place] [facility] 03/07/2024 14:42:43 10/27/19 24 Sacroiliac Joint Steroid Injections, using Fluoroscopy completed Gelacio Brandon MD [address] , [address], [place], [address], [place] [facility] 10/27/2023 14:28:18 07/21/19 24 Sacroiliac Joint Steroid Injections, using Fluoroscopy completed Gelacio Brandon MD [address] , [address], [place], [address], [place] [facility] 07/21/2023 14:04:50 04/06/19 24 Sacroiliac Joint Steroid Injections, using Fluoroscopy completed Gelacio Brandon MD [address] , [address], [place], [address], [place] [facility] 04/06/2023 14:20:11 01/13/20 23 Sacroiliac Joint Steroid Injections, using Fluoroscopy completed Gelacio Brandon MD [address] , [address], [place], [address], [place] [facility] 01/12/2023 16:28:52 11/18/19 23 Lumbar Epidural steroid injection under fluoroscopic guidance completed Gelacio Brandon MD [address] , [address], [place], [address], [place] [facility] 11/17/2022 14:51:27 08/13/19 23 Lumbar Epidural steroid injection under fluoroscopic guidance completed Gelacio Brandon MD [address] , [address], [place], [address], [place] [facility] 08/12/2022 14:25:49 08/09/19 22 Back Surgery completed Gelacio Brandon MD [address] , [address], [place], [address], [place] [facility] 07/20/2022 14:13:28 06/11/19 22 Lumbar Epidural steroid injection under fluoroscopic guidance completed Gelacio Brandon MD [address] , [address], [place], [address], [place] [facility] 2021 14:03:14 04/23/19 22 Lumbar median branch block under fluroscopic guidance completed Gelacio Brandon MD [address] , [address], [place], [address], [place] [facility] 04/22/2021 10:48:55 02/06/20 21 Lumbar Epidural steroid injection under fluoroscopic guidance completed Gelacio Brandon MD [address] , [address], [place], [address], [place] [facility] 02/05/2021 14:32:09 10/24/19 21 Lumbar Epidural steroid injection under fluoroscopic guidance completed Gelacio Brandon MD [address] [facility] , [address], [place], [address], [place] [facility] 10/23/2020 09:22:59 07/18/19 21 Lumbar Epidural steroid injection under fluoroscopic guidance completed Gelacio Brandon MD [address] , [address], [place], [address], [place] [facility] 07/17/2020 10:24:07 04/17/19 21 Lumbar Epidural steroid injection under fluoroscopic guidance completed Gelacio Brandon MD [address] [facility] , [address], [place], [address], [place] [facility] 04/16/2020 09:56:53 01/16/20 20 Lumbar Epidural steroid injection under fluoroscopic guidance completed Gelacio Brandon MD [address] [facility] , [address], [place], [address], [place] [facility] 01/16/2020 16:07:28 Imaging Results None recorded. Procedure Notes None recorded. Medical Equipment None Reported. Allergies Allergen ID Allergen Name Allergen Category Reaction Reaction Severity Criticality Documentation Date Start Date Code Code System Note Provider Name and Address Organization Details Recorded Time 58246 Product containin g penicilli n (product) medicatio n rash Not available Not available 12/22/2019 09155 8001 SNOMED Gelacio dao MD [address] , [address], [place], [address], [place] [facility] 0 10:42:41 Medications Name Sig [...] completed Not Available Not Available Not Available metronida zole 250 mg tablet TAKE 1 TABLET BY MOUTH EVERY 12 HRS active Not Available Not Available No t Available clobetaso l 0.05 % topical cream APPLY TO AFFECTED AREA OF ECZEMA TWICE A DAY active Not Available Not Available No t Available ciproflox acin 250 mg tablet TAKE 1 TABLET BY MOUTH TWICE A DAY active Not Available Not Available No t Available amlodipin e 5 mg tablet TAKE 1 TABLET BY MOUTH EVERY DAY active Not Available Not Available No t Available triamcino lone acetonide 0.1 % topical cream 07/17 completed Not Available Not Available Not Available baclofen 10 mg tablet TAKE 1 TABLET BY MOUTH TWICE A DAY NEEDED FOR PAIN FOR 7 DAYS active Not Available Not Available No t Available amlodipin e 10 mg tablet TAKE [...] HTN Not Available Not Available Not Available docusate sodium 100 mg capsule TAKE 1 CAPSULE BY MOUTH TWICE A DAY FOR 10 DAYS active Not Available Not Available No t Available gabapenti n 300 mg capsule Take [...] Not Available Not Available No t Available oxycodone 5 mg tablet 1 TABLET NEEDED ORALLY EVERY [address]. [address] NOT [address]IVE 7 DAYS active Not Available Not Available No t Available cyclobenz aprine 5 mg tablet TAKE 1 TABLET BY MOUTH TWICE A DAY FOR 10 DAYS active Not Available Not Available No t Available nitrofura ntoin monohydra te/macroc rystals 100 [...] in Arterial blood by Pulse oximetry Systolic And Diastolic Provider Name and Address Organization Details Last Updated DateTime 5 177.8 cm 77 /min 95 % 95 % 134/67 mm[Hg] Destiny Nicholson [facility] 5 14:21:39 Date Recorded Body height Oxygen saturation Oxygen saturation in Arterial blood by Pulse oximetry Heart rate Systolic And Diastolic Provider Name and Address Organization Details Last Updated DateTime 4 177.8 cm 97 % 97 % 64 /min 122/56 mm[Hg] Destiny Nicholson [facility] 4 13:54:33 Date Recorded Body height Heart rate Oxygen saturation Oxygen saturation in Arterial blood by Pulse oximetry Systolic And Diastolic Provider Name and Address Organization Details Last Updated DateTime 5 177.8 cm 79 /min 98 % 98 % 118/61 mm[Hg] Destiny Nicholson [place] [facility] 5 14:22:15 Date Recorded Body height Pain severity - 0-10 verbal numeric rating [Score] - Reported Oxygen saturation Oxygen saturation in Arterial blood by Pulse oximetry Heart rate Systolic And Diastolic Provider Name and Address Organization Details Last Updated DateTime 4 177.8 cm 10 97 % 97 % 42 /min 138/58 mm[Hg] Maricel navas [place] [facility] 4 13:32:24 Date Recorded Body height Heart rate Oxygen saturation Oxygen saturation in Arterial blood by Pulse oximetry Pain severity - 0-10 verbal numeric rating [Score] - Reported Systolic And Diastolic Provider Name and Address Organization Details Last Updated DateTime 4 177.8 cm 74 /min 99 % 99 % 9 113/66 mm[Hg] Anika Menesesbong [place] [facility] 4 14:06:34 Social History Question Answer Notes LastModified by [employer] Details LastModified Time Tobacco Smoking Status Never Smoker Gelacio Brandon MD [address] [place] [address] , [address], [place], [address] [place] [facility] 12/22/2019 10:48:57 Which Illicit Or Recreational Drugs Have You Used? None Information not available 12/22/2019 Education 2 Year College Information not available 12/22/2019 Live Alone Or With Others? With Others Information not available 12/22/2019 Marital Status Informati on not available 12/22/2019 Sex: Unknown Functional Status Question Answer Note LastModified by [employer] Details LastModified Time What is your level [...] Diagnosis SNOMED-CT Code Diagnosis ICD10 Code Diagnosis IMO Codes Diagnosis Note [id number] Gelacio Brandon MD [facility] [address] [place] [address] 12/22/2019 10:26:41 12/22/2019 12:54:56 Spinal stenosis of lumbar region 94188791 M48.061 Lumbosacra l spondylosis without myelopathy 69315354 M47.817 Lumbosacra l radiculopathy 7060385 M54.17 Degenerati on of lumbar intervertebral disc 43257580 M51.36 01966 Gelacio Brandon MD [facility] [address] [place] [address] 01/16/2020 15:30:08 01/16/2020 16:18:00 Spinal stenosis of lumbar region 27591705 M48.061 Lumbosacra l spondylosis without myelopathy 53173641 M47.817 Lumbosacra l radiculopathy 7096480 M54.17 Degenerati on of lumbar intervertebral disc 23695899 M51.36 96641 Gelacio Brandon MD [facility] [address] [place] [address] 02/15/2020 08:55:41 02/15/2020 09:35:48 Spinal stenosis of lumbar region 27297111 M48.061 Lumbosacra l spondylosis without myelopathy 30770987 M47.817 Lumbosacra l radiculopathy 1519303 M54.17 Degenerati on of lumbar intervertebral disc 56988461 M51.36 38664 Gelacio Brandon MD [facility] [address] [place] [address] 04/16/2020 08:51:32 04/16/2020 10:00:18 Spinal stenosis of lumbar region 87303673 M48.061 Lumbosacra l spondylosis without myelopathy 32720345 M47.817 Lumbosacra l radiculopathy 3652108 M54.17 Degenerati on of lumbar intervertebral disc 48911823 M51.36 75986 Gelacio Brandon MD PAIN OFFICE [address] [place] [address] 07/17/2020 08:52:47 07/17/2020 11:00:32 Spinal stenosis of lumbar region 88491638 M48.061 Lumbosacra l spondylosis without myelopathy 79929110 M47.817 Lumbosacra l radiculopathy 4389290 M54.17 Degenerati on of lumbar intervertebral disc 87228244 M51.36 35024 Gelacio Brandon MD PAIN OFFICE [address] [place] [address] 08/16/2020 09:32:35 08/16/2020 09:41:40 Spinal stenosis of lumbar region 78553665 M48.061 Lumbosacra l spondylosis without myelopathy 07960977 M47.817 Lumbosacra l radiculopathy 1467593 M54.17 Degenerati on of lumbar intervertebral disc 00800611 M51.36 72861 Gelacio Brandon MD PAIN OFFICE [address] [facility] [address] 10/23/2020 08:52:07 10/23/2020 11:25:37 Spinal stenosis of lumbar region 35934462 M48.061 Lumbosacra l spondylosis without myelopathy 96314198 M47.817 Lumbosacra l radiculopathy 4730824 M54.17 Degenerati on of lumbar intervertebral disc 35501990 M51.36 99796 Gelacio Brandon MD PAIN OFFICE [address] [place] [address] 02/05/2021 12:44:25 02/05/2021 14:38:17 Spinal stenosis of lumbar region 23682798 M48.061 Lumbosacra l spondylosis without myelopathy 94809469 M47.817 Lumbosacra l radiculopathy 2342852 M54.17 Degenerati on of lumbar intervertebral disc 02128310 M51.36 92997 Gelacio Brandon MD PAIN OFFICE [address] [place] [address] 04/22/2021 10:15:07 04/22/2021 11:14:54 Spinal stenosis of lumbar region 31265130 M48.061 Lumbosacra l spondylosis without myelopathy 55219755 M47.817 Lumbosacra l radiculopathy 5384858 M54.17 Degenerati on of lumbar intervertebral disc 08585487 M51.36 06604 Gelacio Brandon MD PAIN OFFICE [address] [place] [address] 2021 13:12:15 2021 15:44:49 Spinal stenosis of lumbar region 31024339 M48.061 Lumbosacra l spondylosis without myelopathy 87176823 M47.817 Lumbosacra l radiculopathy 9851896 M54.17 Degenerati on of lumbar intervertebral disc 43339344 M51.36 99720 Gelacio Brandon MD PAIN OFFICE [address] [place] [address] 07/20/2022 13:52:43 07/21/2022 11:02:56 Spinal stenosis of lumbar region 71251256 M48.061 Lumbosacra l spondylosis without myelopathy 41911991 M47.817 Lumbosacra l radiculopathy 6291689 M54.17 Degenerati on of lumbar intervertebral disc 59211686 M51.36 Lumbar post-laminectomy syndrome 903522804 M96.1 74800 Gelacio Brandon MD PAIN OFFICE [address] [place] [address] 08/12/2022 13:41:25 08/12/2022 16:11:11 Spinal stenosis of lumbar region 20349568 M48.061 Lumbosacra l spondylosis without myelopathy 14220050 M47.817 Lumbosacra l radiculopathy 5480183 M54.17 Degenerati on of lumbar intervertebral disc 00963807 M51.36 Lumbar post-laminectomy syndrome 148139631 M96.1 08273 Gelacio Brandon MD [facility] [address] [place] [address] 11/17/2022 14:12:49 11/17/2022 15:29:44 Spinal stenosis of lumbar region 75227863 M48.061 Lumbosacra l spondylosis without myelopathy 23070340 M47.817 Lumbosacra l radiculopathy 3026754 M54.17 Degenerati on of lumbar intervertebral disc 74832446 M51.36 Lumbar post-laminectomy syndrome 045049435 M96.1 75174 Gelacio Brandon MD [facility] [address] [place] [address] 01/12/2023 14:15:32 01/12/2023 16:57:12 Lumbar post-laminectomy syndrome 417381715 M96.1 Inflammati on of sacroiliac joint 78703083 M46.1 39137 Gelacio Brandon MD PAIN OFFICE [address] [place] [address] 04/06/2023 13:47:13 04/06/2023 16:05:21 Lumbar post-laminectomy syndrome 884810828 M96.1 Inflammati on of sacroiliac joint 16402718 M46.1 58781 Gelacio Brandon MD [facility] [address] [place] [address] 07/21/2023 13:12:16 07/21/2023 15:50:06 Lumbar post-laminectomy syndrome 929511850 M96.1 Inflammati on of sacroiliac joint 60770181 M46.1 13065 Gelacio Brandon MD [facility] [address] [place] [address] 10/27/2023 13:52:49 10/27/2023 16:08:33 Lumbar post-laminectomy syndrome 653242457 M96.1 Inflammati on of sacroiliac joint 92917095 M46.1 67928 Gelacio Brandon MD [facility] [address] [place] [address] 03/07/2024 14:14:46 03/07/2024 14:54:15 Spinal stenosis of lumbar region 44076886 M48.061 M48.062 Lumbosacra l spondylosis without myelopathy 77842451 M47.817 Lumbosacra l radiculopathy 9358841 M54.17 Degenerati on of lumbar intervertebral disc 17891854 M51.362 Lumbar post-laminectomy syndrome 418795779 M96.1 62959 Gelacio Brandon MD [facility] [address] [address] 06/06/2024 14:13:47 06/06/2024 16:27:34 Spinal stenosis of lumbar region 65433344 M48.061 M48.062 Lumbosacra l spondylosis without myelopathy 00920864 M47.817 Lumbosacra l radiculopathy 8083314 M54.17 Degenerati on of lumbar intervertebral disc 53707842 M51.362 Lumbar post-laminectomy syndrome 200241254 M96.1 Health Concerns Section Related Observation LastModified by Organization Detai ls LastModified Time None Recorded Concern Status LastModified by Organization Details LastModified Time None Recorded Advance Directives Directive None Recorded Payers Insurance Date Sequence Insurance Name Policy Number Policy Jhaveri Covered Member ID Jhaveri Member ID Guarantor Name 09/24/2024 1 [facility] MED[employer] [facility]V[employer]AGE [employer]AN (MEDICARE REPLACEMENT HMO) [id number] Chilango Castaneda [id number] Chilango Castaneda 10/27/2023 1 [facility] (PPO) [id number] Chilango Castaneda [id number] Chilango Castaneda Notes Date Note Type Note Provider Name and Address Organization Details Recorded Time 04/06/2023 text/html He is here for a left sacroiliac joint injection under fluoroscopic guidance. He had one month of 90% pain relief with last injection with a slow return of pain. 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 He had one month of 90% pain relief with last injection with a slow return of pain. 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 He has stopped Xarelto three days prior to the procedure Gelacio Brandon MD [address] , [address], [place], [address], [place] [facility] 03/07/2024 15:19:39 06/06/2024 text/html He is here today for a lumbar epidural steroid injection under fluoroscopic guidance. He has stopped Xarelto three days prior to the procedure Gelacio Brandon MD [address] , [address], [place], [address], [place] [facility] 06/07/2024 15:44:23
[2024-11-21 06:41] LABS: Glucose, Whole Blood 103 mg/dL (60-115)
[2024-11-21 06:43] LABS: MANUAL DIFF FLAG NO
--- NOTE | 2024-11-21 06:45 | PC.NURSE ---
patient brought to ed18 from via wheelchair reporting woke up approx 0330 with dizziness, was holding onto ch to walk. went back to bed and felt he could not get up. reached out to daughter who brought him here as she noticed a R. sided facial droop. MD randolph to bedside to evaluate, no deficits/facial droop noted. iv placed to R. forearm and patient taken to CT for stroke protocol. poc glucose obtained, no INR per MD. pt is on xarelto.
[2024-11-21 06:46] LABS: Hematocrit 41.2 % (42.0-52.0); Hemoglobin 13.8 g/dl (14.0-18.0); Imm Gran Abs Auto 0.02 X10*3/uL (0.00-0.03); Imm Gran Pct Auto 0.4 % (0.0-0.4); Lymphocytes Absolute Auto 1.8 X10*3/uL (1.2-4.9); Mean Corpuscular HGB Conc 33.5 g/dl (31.0-36.0); Mean Corpuscular Hemoglobin 32.9 pg (27.0-33.0); Mean Corpuscular Volume 98.1 fL (80.0-98.0); NRBC Abs Auto 0.000 X10*3/uL (0.0-0.012); NRBC Pct Auto 0.0 /100WBC (0.0-0.2); Platelet Count 117 X10*3/uL (160-400); Red Blood Count 4.20 X10*6/uL (4.60-5.80); White Blood Count 5.0 X10*3/uL (4.8-10.8)
[2024-11-21] MEDS: iohexoL 350 MG/ML 100 ML INFUS..BTL 70 ML IV (06:48)
[2024-11-21 06:51] LABS: INTERNATIONAL NORM RATIO 1.6 (0.9-1.1); Prothrombin Time 18.0 SEC (10.9-12.4)
[2024-11-21 06:54] LABS: Partial Thromboplastin Time 32.1 SEC (26.7-34.1)
[2024-11-21 06:57] LABS: Anion Gap 10 (12-20); Blood Urea Nitrogen 22 mg/dL (9-16); Calcium 8.4 mg/dL (8.4-10.2); Carbon Dioxide 26 mmol/L (22-29); Chloride 111 mmol/L (96-108); Cholesterol 149 mg/dL (<200); Creatinine Clr Calc Pharmacy 57.2; Estimated Glomerular Filt Rate > 60; HDL Cholesterol 51 mg/dL (>40); Potassium 3.6 mmol/L (3.3-5.1); Sodium 143 mmol/L (135-145); Triglycerides 71 mg/dL (<150)
[2024-11-21 07:02] LABS: Troponin-I High Sensitivity 8.1 ng/L (<3.5-35.0)
[2024-11-21 07:32] VITALS: BP 151/79; PULSE 70
[2024-11-21 07:34] VITALS: BP 154/82; BP 157/83; PULSE 72; PULSE 73
[2024-11-21 07:49] VITALS: PULSE 73
--- NOTE | 2024-11-21 07:51 | PC.NURSE ---
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 CT previously obtained. Orthostats performed by this nurse- pt had dizziness upon position changes. pt has equal strength to upper/lower extremities, facial droop not noted by this nurse, pt speaking in full sentences, passed nursing swallow. pt rr equal/non labored/lungs clear, 2-3+ BLE edema, denies pain/discomfort, family at bedside, call deleon within reach, plan of care ongoing
[2024-11-21 07:58] LABS: NT Pro B Type Natriuretic Pept 471.2 pg/mL (<300)
[2024-11-21] MEDS: Lactated Ringers 500 ML 999 ML IV (10:18)
[2024-11-21 10:19] VITALS: BP 145/74; PULSE 73; RESP 18; O2SAT 97
--- NOTE | 2024-11-21 10:20 | PC.NURSE ---
pt medicated per order
[2024-11-21 10:43] LABS: Stroke Lab Use COMPLETE
[2024-11-21 12:07] VITALS: BP 145/74; PULSE 73; RESP 18; TEMP -17.7; TEMP 0; O2SAT 97
== END 2024-11-21 12:08 | disposition home or self-care (01) ==
PROVIDERS: Emergency Provider Emergency Medicine; PCP Internal Medicine
DX: R42 Dizziness and giddiness (principal); I48.92 Unspecified atrial flutter; Z79.01 Long term (current) use of anticoagulants; I10 Essential (primary) hypertension; R53.1 Weakness; I44.30 Unspecified atrioventricular block
CPT/HCPCS: 36415; 70450; 70496; 70498; 80048; 80061; 82947; 83880; 84484; 85025; 85610; 85730; 93005; 96360; 99285; J7120; Q9967

== ENCOUNTER → 2024-11-21 06:32 | Outpatient (BNV) | payer MEDICARE, SELFPAY | PROVIDERS: Emergency Provider Emergency Medicine; PCP Internal Medicine; Visit Provider Internal Medicine Cardiovascular Disease | DX: I48.92 Unspecified atrial flutter (principal); I44.2 Atrioventricular block, complete | CPT/HCPCS: 93010 ==

== ENCOUNTER → 2024-11-21 06:32 | Outpatient (BNV) | payer MEDICARE, SELFPAY | PROVIDERS: Emergency Provider Emergency Medicine; PCP Internal Medicine; Visit Provider Radiology Diagnostic Radiology | DX: R42 Dizziness and giddiness (principal); R26.9 Unspecified abnormalities of gait and mobility | CPT/HCPCS: 70450; 70496; 70498 ==

== ENCOUNTER 2024-11-22 08:16 | Outpatient (AMB) | payer MEDICARE, SELFPAY ==
--- OUTSIDE RECORDS SUMMARY | 2024-02-25 05:30 | XMS_ITS ---
Author Organization [facility] Address [address] [place] [address] Care Team Providers Care Library Acquisitions Technician Name Role Phone Gorge Mahmood MD Primary Care Provider Nida Carnes Unavailable [phone] Camacho Medications Medication [...] ot-Taking Encounters Encounter Location Date Provider Diagnosis [address] [address] 02/25/2024 Nida Lilly Plan Of Treatment Next Appt Details Provider Name:Nida serrano, 01/26/2025 09:15:00 AM, [address] [place], [address], Progress Notes * Chilango CASTANEDADOB: [birth year] (84 yo M)Acc No.[id number]:02/25/2024 Progress Note Patient: Ziyad Chilango VILLA Provider: Demario Lilly DPM :1940 A ge:83 Y S ex:Male Date:02/25/2024 Address:[address] [place], [place] Pcp:Gorge Mahmood MD Subjective: * Chief Complaints: * [address] Camacho. * HPI: A t Risk footcare: Pt States Last PCP Visit: D ate 1 * Medical History: * Medications: T [...] 0 02/25/2024 Generated for Danial montez/[place] on: 08:34 AM EDT History and Physical Notes * HPI (History of Present Illness) Category Sub-Category Detail Notes Category Not es At Risk footcare Pt States Last PCP Visit: Date:
--- OUTSIDE RECORDS SUMMARY | 2024-09-11 06:07 | XMS_ITS ---
Author Organization Gorge Mahmood MD Address [address] [place] [phone] Care Team Providers Care Spray Machine Operator Name Role Phone Gorge Mahmood Primary Care Provider REASON FOR VISIT ER Encounters Encounter Location Date Provider Diagnosis Gorge Mahmood MD [address] [facility] [address] [place] [phone] 09/11/2024 Gorge Mahmood Plan Of Treatment Next Appt Details Provider Name:Gorge anaya, 12/25/2024 09:00:00 AM, [address] [place] [address], Suite [facility], [place], [place], [phone], Provider Name:Gorge anaya, 03/30/2025 07:30:00 AM, [address] [place] [address], Suite [facility], [place], [place], [phone], Provider Name:Gorge anaya, 04/06/2025 08:30:00 AM, [address], [address], [place], [phone], Progress Notes * Chilango CASTANEDA GDOB: [birth year] (84 yo M)Acc No.[id number]:09/11/2024 Patient: Chilango SARABIA :1940 A ge:84 Y S ex:Male Address:[address] [place] [address] Jorge [facility] [address] * true * Date: Generated for Danial montez/[place]/eTransmitting on: 08:34 AM EDT
--- OUTSIDE RECORDS SUMMARY | 2024-09-18 04:45 | XMS_ITS ---
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, I48.0 Paroxysmal atrial fibrillation,c/o bilateral leg edema Medications Medication SIG (Take, Route, Frequency, Duration) Notes Start Date End Date Status Cortisporin 0.5-0.5-24487 1 application to affected area Externally Twice [...] DAY for 30 Active Furosemide 40 MG [id number] alternating with 2 tablets Orally Once a [...] Status Risk Notes Problem Diverticulitis of colon (117030127) Diverticulitis large intestine (K57.32) Active confirmed Vital Signs Blood pressure systolic 118 mm Hg 09/19/19 25 Blood pressure diastolic 60 mm Hg 025 Height 68.25 in 09/18/2024 Weight 201 lbs 09/18/2024 BMI 30.34 kg/m2 09/18/2024 weight is down 3 pounds [facility] e 08-15-24 Encounters Encounter Location Date Provider Diagnosis Gorge Mahmood MD [address] [place], [place] [phone] 09/18/2024 Gorge Mahmood Leg edema R60.0 ; [...] sep appt,3 Months, Reason: Provider Name:Gorge anaya, 12/25/2024 09:00:00 AM, [address] [place] [address], [address] [place] [address], [phone], Provider Name:Gorge anaya, 03/30/2025 07:30:00 AM, [address] [place] [address], Suite [facility], [place], [place], [phone], Provider Name:Gorge anaya, 04/06/2025 08:30:00 AM, [address] [place] [address], [place] [address], [place], [place], [phone], Progress Notes * Chilango CASTANEDA GDOB: [birth year] (84 yo M)Acc No.[id number]:09/18/2024 Progress Notes Patient: Chilango SARABIA Provider: Alexys Mahmood MD :1940 A ge:84 Y S ex:Male Date:09/18/2024 Address:[address] [place], [place] [id number] Subjective: * Chief [facility]s: * [facility] Codes needed: 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
--- OUTSIDE RECORDS SUMMARY | 2024-09-25 04:47 | XMS_ITS ---
Author Organization Gorge Mahmood MD Address [address] [place] [phone] Care Team Providers Care Debt Management Counselor Name Role Phone Gorge Mahmood Primary Care Provider [phone] REASON FOR VISIT Diarrhea x 3 days Encounters Encounter Location Date Provider Diagnosis Gorge Mahmood MD [address] [place] [phone] 09/25/2024 Gorge Mahmood Plan Of Treatment Next Appt Details Provider Name:Gorge anaya, 12/25/2024 09:00:00 AM, [address] [place] [address], Suite [facility], [place], [place], [phone], Provider Name:Gorge anaya, 03/30/2025 07:30:00 AM, [address] [place] [address], [address] [facility], [place], [place], [phone], Provider Name:Gorge anaya, 04/06/2025 08:30:00 AM, [address], [address], [place], [phone], Progress Notes * Chilango CASTANEDA GDOB: [birth year] (84 yo M)Acc No.[id number]:09/25/2024 Patient: Ziyad Chilango VILLA Alexys :1940 A ge:84 Y S ex:Male Address:[address] [place] [address] [place] [address] * true * Date: Generated for Danial montez/Africa/eTransmitting on: 08:33 AM EDT
--- OUTSIDE RECORDS SUMMARY | 2024-09-25 05:51 | XMS_ITS ---
Author Organization Gorge Mahmood MD Address [address] [place] [phone] Care Team Providers Care Clinical Research Associate Name Role Phone Gorge Mahmood Primary Care Provider [phone] REASON FOR VISIT ER visit rec'd Encounters Encounter Location Date Provider Diagnosis Gorge Mahmood MD [address] [facility] [address] [place] [phone] 09/25/2024 Gorge Mahmood Plan Of Treatment Next Appt Details Provider Name:Gorge anaya, 12/25/2024 09:00:00 AM, [address] [place] [address], Suite [facility], [place], [place], [phone], Provider Name:Gorge anaya, 03/30/2025 07:30:00 AM, [address] [place] [address], Suite [facility], [place], [place], [phone], Provider Name:Gorge anaya, 04/06/2025 08:30:00 AM, [address], [address], [place], [phone], Progress Notes * Chilango CASTANEDA GDOB: [birth year] (84 yo M)Acc No.[id number]:09/25/2024 Patient: Ziyad Chilango VILLA Alexys :1940 A ge:84 Y S ex:Male Address:[address] [place] [address] [place] [address] * true * Date: Generated for Danial montez/Africa/eTransmitting on: 08:33 AM EDT
--- OUTSIDE RECORDS SUMMARY | 2024-09-25 08:45 | XMS_ITS ---
Author Organization Gorge Mahmood MD Address [address] [place], [place] [phone] Care Team Providers Care Manager Recruiting Name Role Phone Gorge Mahmood Primary Care Provider [phone] Allergies Allergen (clinical drug ingredient) Drug/Non Drug Allergy documented on EMR Reaction Allergy Type Onset Date Status sulfamethoxazole / trimethoprim Sulfamethoxazole- Trimethoprim swelling and redness Drug Allergy Active penicillin (uncoded) rash Allergy Active REASON FOR VISIT Post ER Visit diarrhea, Audio [phone] Medications Medication SIG (Take, Route, Frequency, Duration) [...] *AVOID FACE/GROIN* External for 25 Not-Taking Cortisporin 0.5-0.5-77560 1 application to affected area Externally Twice [...] Patient Request 08/28/2024 Not-Taking Furosemide 40 MG r1slywr alternating with 2 tablets Orally Once a [...] Location Date Provider Diagnosis Gorge Mahmood MD [address] [place] [address] Drive [address] [place] [phone] 09/25/2024 Gorge Mahmood Diarrhea R19.7 Assessments Encounter Date Diagnosis (ICD Code) Assessment Notes Treatment Notes Treatment Clinical Notes Section Notes 09/25/2024 Diarrhea (ICD-10 - R19.7) order faxed to [facility] [place] patient reg Plan Of Treatment Treatment Notes Assessment Notes Diarrhea order faxed to [facility] [place] p atient reg Pending Test Test Name Order Date CLOSTRIDIUM DIFF TOXIN A&B (C DIFF) 09/08 Next Appt Details Provider Name:Gorge anaya, 12/25/2024 09:00:00 AM, [address], [address], [place], [place], [phone], Provider Name:Gorge Boothe ier, 03/30/2025 07:30:00 AM, [address], [address], [place], [phone], Provider Name:Gorge Boothe ier, 04/06/2025 08:30:00 AM, [address], [address], [place], [place], [phone], Progress Notes * Chilango CASTANEDA GDOB: [birth year] (84 yo M)Acc No.[id number]:09/25/2024 Patient: Chilango SARABIA Provider: Alexys Mahmood MD :1940 A ge:84 Y S ex:Male Date:09/25/2024 Address:[address] [place], [place] [phone] Subjective: * Chief Complaints: * P ost ER Visit diarrheaAudio [phone] * HPI: S ymptom(s): Telehealth L ocation [...] Once a day Furosemide 40 MG Tablet [id number] alternating with 2 tablets Orally Once a [...] a day Taking Furosemide 40 MG Tablet w5stchr alternating with 2 tablets Orally Once a [...] *APPLY MOISTURIZER AFTER *AVOID FACE/GROIN* External Cortisporin 0.5-0.5-36307 Cream 1 application to affected area Externally [...] MOISTURIZER AFTER *AVOID FACE/GROIN* External Not-Taking/PRN Cortisporin 0.5-0.5-66091 Cream 1 application to affected area Externally [...] 09/25/2024 Generated for Danial montez/[place] on: 1 08:34 AM EDT History and Physical Notes * HPI (History of Present Illness) Category Sub-Category Detail Notes Category Not es Symptom(s) Telehealth Location of [facility] rendering services:: [address], [address] [...]
--- NOTE | 2024-11-22 08:30 | A.OFFVIS_ITS ---
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 Accompanied by: Daughter Allergies Penicillins (PCN) Allergy (Unknown, Verified 11/22/24 08:35) RASH Sulfamethoxazole-TMP DS Allergy (Unknown, Uncoded 09/22/24 09:12) rash Medication List - Last Reconciled 11/22/24 by Alvaro Marinelli MD allopurinol 300 mg PO DAILY amiodarone 200 mg PO DAILY doxazosin 2 mg PO BEDTIME finasteride 5 mg PO DAILY furosemide 80 mg (2 x 40 mg) PO DAILY irbesartan 300 mg PO DAILY lidocaine 4% 1 patch topical DAILY PRN meclizine 25 mg PO QID PRN rivaroxaban (Xarelto) 20 mg PO QPM HPI Comments Details: Chilango returns for follow-up regarding various issues including atrial flutter/fibrillation, cardiomyopathy, chronic leg swelling. Overall, he is still just about the same as before. Breathing is generally controlled unless he is doing something to strenuous. Leg swelling is also about the same as before. It appears that he came to the ER as today for dizziness and underwent a stroke workup which was unremarkable. He seems better from that end. Uncertain etiology. [facility]LY [facility] Medical History Persistent atrial fibrillation Diastolic dysfunction Localized edema Essential hypertension Nonischemic cardiomyopathy Current use of correction anticoagulation Surgical History History of back surgery History of cardioversion (~2015) Family History Father CHF (congestive heart failure) Mother Cancer Social History Alcohol intake: never Patient Tobacco Use Status: Never used Tobacco Review of Systems Const Denies daytime sleepiness, Denies difficulty sleeping, Reports headache(s), Denies snoring, Denies stops breathing during sleep and Denies weakness ENT Reports headache(s) Card Denies chest pain, Denies rapid heart rate, Denies irregular heart rhythm, Denies claudication, Denies leg edema, Denies lightheadedness, Denies palpitat ions, Reports dyspnea, Denies dyspnea on exertion, Denies orthopnea, Denies paroxysmal nocturnal dyspnea and Denies slow heart rate Resp Denies cough, Reports dyspnea, Denies dyspnea on exertion and Denies snoring GI Reports no additional complaints, Denies hematochezia, Denies change in stool character and Denies dyspepsia Musc Denies abnormal gait, Denies muscle weakness and Denies numbness Neuro Denies abnormal gait, Reports headache(s), Denies numbness and Denies weakness Endo Denies palpitations Physical Exam Vital Signs: Last Vital Signs Pulse 78 11/22/24 08:31 BP 132/78 11/22/24 08:31 BMI result Body Mass Index 28.6 Const General: comfortable and no acute distress Orientation/consciousness: patient oriented x3 HEENT Other: Unremarkable Head: Yes normal to inspection Neck Neck: Yes normal visual inspection Chest Chest palpation & inspection: normal inspection of the chest Resp Auscultation: clear to auscultation bilaterally Cardio Palpation: normal PMI Heart sounds: S1 normal heart sound present, S2 normal heart sound present, no gallops, no murmurs and no rubs GI Palpation (GI): Soft to palpation Back/Spine/Pelvis Other: unremarkable Skin General skin exam: no rashes or lesions noted Neuro General: patient oriented x3 Extrem Other: 1-2+ swelling lower extremities General: Yes normal to inspection Psych Mental Status: mental status grossly normal Office Procedures EKG Details: EKG with atrial flutter with a ventricular rate of 78/Min. Low-voltage complexes. Cannot exclude old septal infarct but could be from body habitus. [id number], Complete Assessment & Plan Assessment & Plan (1) Persistent atrial fibrillation: Code(s): I48.19 - Other persistent atrial fibrillation Category: Medical Plan: Failed Multaq. Was maintained on beta-blockers but then had a very high PVC burden for which amiodarone was started. In the last Holter from 2023, underlying rhythm is atrial flutter. In a subsequent EKG, he was in sinus bradycardia. Today, he is in atrial flutter with controlled rate. Suspect he may be just in chronic persistent atrial flutter. We can probably stop the amiodarone and just watch him off medications. Recheck Holter in about 3 months or so when the amiodarone is likely office system. Continue anticoagulation. At his age, he is not really a good ablation candidate. (2) PVC (premature ventricular contraction): Code(s): I49.3 - Ventricular premature depolarization Category: Medical Plan: In a prior Holter, PVC burden of almost 29%. He was started on amiodarone. However, in the subsequent Holter, seems much improved. Considering long-term side effects, we can stop the amiodarone and watch him without it. Recheck Holter in 3 months as above. (3) Nonischemic cardiomyopathy: Code(s): I42.8 - Other cardiomyopathies Category: Medical Plan: In the last echocardiogram, LVEF is 55-60%. Prior to that, variable readings. It was 44% but before that in the normal range. Several years ago, in the 30s. Could be cardiomyopathy related to atrial fibrillation/tachycardia mediated. Improvement could be because of better rate control. In the perfusion imaging study, small fixed inferior apical/apical defect thought to be from nontransmural infarct. Recent checks of BNP as well as NT pro BNP are not overtly concerning for CHF. He can continue the Lasix but adjust the dose as needed for his leg swelling. (4) Essential hypertension: Code(s): I10 - Essential (primary) hypertension Category: Medical Plan: Stable. No changes. (5) Localized edema: Code(s): R60.0 - Localized edema Category: Medical Plan: Suspect mostly venous insufficiency has a generally disappears in the morning when he gets up and gets worse during the day. Less likely congestive heart failure as a recent BNP as well as NT pro BNP were within range. He is not able to wear compression stockings as he is getting a rash. Try feet elevation as much able. We discussed about pursuing this further with the venous ultrasound/vascular referral but then decided to hold off on just try conservative care as above. Plan Discussion Notes During the discussion, I explained the potential side effects of long-term amiodarone use, including thyroid and lung issues, and the decision to discontinue it and monitor the heart rhythm with a Holter monitor in 3 months. We discussed the management of peripheral edema through leg elevation and the use of compression stockings, with a possible referral to a vascular specialist for further evaluation. I also explained that recent lab tests did not indicate acute exacerbation of congestive heart failure, and the current medication regimen with furosemide would continue, with adjustments based on symptoms. Patient was informed and verbally consented to the use of an ambient scribe for clinic note documentation during this visit. Orders: Orders ECG 7 day holter monitor 3 Months I48.19 - Other persistent atrial fibrillation Medications: Discontinued amiodarone Discontinued Reason: Doctor's Order 200 mg PO DAILY 90 tabs 3RF Patient Instructions: - Elevate your legs as much as possible to reduce swelling. - Monitor for symptoms of shortness of breath or increased swelling and adjust furosemide dosage as advised. - Follow up with a Holter monitor test in February to assess heart rhythm. Coding Level of Care Code Est Pt Level 4 (32709) Complex EM visit Add On G2211 Diagnoses Persistent atrial fibrillation I48.19 PVC (premature ventricular contraction) I49.3 Nonischemic cardiomyopathy I42.8 Essential hypertension I10 Localized edema R60.0 CPT Codes EKG - CPT: 69600-Mesyvhnlimbrilnae, Complete ([id number])
[2024-11-22 08:31] VITALS: BP 132/78; PULSE 78; BMI 28.6
--- OUTSIDE RECORDS SUMMARY | 2024-11-22 08:33 | XMS_ITS | Patient Health Record ---
Author Organization [facility] [place] [facility] [place] Address [address] [place] [address] Care Team Providers Care Helpdesk Manager Name Role Phone Gorge Mahmood MD Primary Care Provider Nida Carnes Unavailable [phone] Allergies Allergen (clinical drug ingredient) Drug/Non Drug [...] atherosclerosis of arteries of lower limbs (disorder) ([id number] ) Atherosclerosis of [place] artery of both lower extremities, with unspecified presence of clinical manifestation (I70.203) Active confirmed Vital Signs Blood pressure diastolic 80 mm Hg 10/25/2024 Height 5 ft 9 in in 10/25/2024 Blood pressure systolic 150 mm Hg 10/25/2024 Weight 195 lbs 10/25/2024 BMI 28.79 kg/m2 10/25/2024 Encounters Encounter Location Date Provider Diagnosis [address] [address] 12/03/2023 Nida Perica Pain in left foot M79.672 ; Metatarsalgia, left foot M77.42 ; Atherosclerosis of [place] artery of both lower extremities, with unspecified presence of clinical manifestation I70.203 ; Tinea unguium B35.1 ; Pain in right toe(s) M79.674 ; Pain in left toe(s) M79.675 and Pain in left ankle and joints of left foot M25.[address] [address] 04/26/2024 Nida Perica Pain in left foot M79.672 ; Metatarsalgia, left foot M77.42 ; Atherosclerosis of [place] artery of both lower extremities, with unspecified presence of clinical manifestation I70.203 ; Tinea unguium B35.1 ; Pain in right toe(s) M79.674 ; Pain in left toe(s) M79.675 and Pain in left ankle and joints of left foot M25.[address] [address] 07/26/2024 Nida Perica Metatarsalgia, left foot M77.42 ; Subungual hematoma of left foot, initial encounter S90.222A ; Pain in left foot M79.672 ; Atherosclerosis of [place] artery of both lower extremities, with unspecified presence of clinical manifestation I70.203 ; Tinea unguium B35.1 ; Pain in right toe(s) M79.674 ; Pain in left toe(s) M79.675 and Pain in left ankle and joints of left foot M25.572 [facility] [address] [address] 10/25/2024 Nida Perica Pain in left toe(s) M79.675 ; Tinea unguium B35.1 ; Pain in right toe(s) M79.674 and Atherosclerosis of [place] artery of both lower extremities, with unspecified presence of clinical manifestation I70.[address] [address] 07/26/2024 Nida Bronsona Assessments Encounter Date Diagnosis [...] foot (ICD-10 - M77.42) 12/03/2023 Atherosclerosis of [place] artery of both lower extremities, with unspecified presence of clinical manifestation (ICD-10 - I70.203) 07/26/2024 Atherosclerosis of [place] artery of both lower extremities, with unspecified presence of clinical manifestation (ICD-10 - I70.203) 10/25/2024 Atherosclerosis of [place] artery of both lower extremities, with unspecified presence of clinical manifestation (ICD-10 - I70.203) 04/26/2024 Atherosclerosis of [place] artery of both lower extremities, with unspecified [...] Provider Name:Nida serrano, 01/26/2025 09:15:00 AM, [address] [place], [address], Insurance Providers Payer Name Payer Address Payer Phone Subscriber Number Group Number Insured Name Patient Relationship to Insured Coverage Start Date Coverage End Date [employer] [place] [employer] [address] [place] [address] [phone] [id number] Chilango Castaneda Self - patient is the insured Medical (General) History Medical History History ICD Code Back,Hip,and Knee pain Gout Heart disease High blood pressure Psoriasis/eczema Surgical History Surgery Date(Month/Year) spine surgery 2021 appendectomy
--- OUTSIDE RECORDS SUMMARY | 2024-11-22 08:34 | XMS_ITS | Patient Health Record ---
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 Name Role Phone Gorge Mahmood Primary Care Provider Allergies Allergen (clinical drug ingredient) Drug/Non Drug Allergy documented on EMR Reaction Allergy Type Onset Date Status sulfamethoxazole / trimethoprim Sulfamethoxazole- Trimethoprim swelling and redness Drug Allergy Active penicillin (uncoded) rash Allergy Active Results Component Value Reference Range Notes Complete Blood Count Auto Di ff Reviewed date:03/30/2024 09:56:33 AM Interpretation: Performing Lab:[facility], [address] [place] [phone] Notes/Report: White Blood Count 5.6 4.8-10.8 X10*3/uL [...] NRBC Abs Auto 0.000 0.0-0.012 X10*3/uL Comprehensive [place]. Panel Fa st Reviewed date:03/28/2024 05:01:16 PM Interpretation: Performing Lab:[facility], [address] [place] [phone] Notes/Report: Sodium 141 135-145 mmol/L Potassium 4.0 [...] Panel Reviewed date:03/28/2024 12:36:21 PM Interpretation: Performing Lab:[facility], [address] [place] [phone] Notes/Report: Triglycerides 72 <150 mg/dL Desirable Triglyceride: [...] (Free>4and<10) Reviewed date:03/28/2024 12:38:01 PM Interpretation: Performing Lab:[facility], [address] [place] [phone] Notes/Report: PSA,Total (Free>4and<10) 1.15 0.00-4.00 ng/mL A [...] Random Reviewed date:03/28/2024 12:37:41 PM Interpretation: Performing Lab:[facility], [address] [place] [phone] Notes/Report: Creatinine Urine 133.89 Microalbumin Urine < 5.0 Microalbum/Creatinine Ratio Ur TNP <30 ug/mg cr Unable to calculate albumin/creatinine ratio due to low microalbumin or creatinine result. Hemoglobin A1c Reviewed date:03/28/2024 12:44:45 PM Interpretation: Performing Lab:[facility], [address] [place] [phone] Notes/Report: Hemoglobin A1c % 5.1 <6.0 % [...] average glucose, using the formula of the Y8V-Ydpdyso Average Glucose study (ADAG), Diabetes Care, Vol.31,#8, Sep. 2007 UA ClnCatch+Micro w/rflx Cul t Reviewed date:03/28/2024 05:01:31 PM Interpretation: Performing Lab:[address] [phone] Notes/Report: [id number] Urine, Clean Catch Color Urine Yellow Appearance Urine Clear PH 6.0 5.0-9.0 Glucose Urine UA Negative Negative mg/dL Urine Blood Negative Negative Specific [place] - Urine 1.020 1.005-1.025 Urine Protein Negative [...] ff Reviewed date:06/20/2024 12:51:23 PM Interpretation: Performing Lab:[facility], [address] [place] [phone] Notes/Report: White Blood Count 7.8 4.8-10.8 X10*3/uL [...] Panel Reviewed date:02/25/2024 02:48:48 PM Interpretation: Performing Lab:[facility], [address] [place] [phone] Notes/Report: Sodium 142 135-145 mmol/L Potassium 4.1 [...] Peptide Reviewed date:02/23/2024 10:11:20 AM Interpretation: Performing Lab:[facility], [address] [place] [phone] Notes/Report: B Type Natriuretic Peptide 126 <100 pg/mL For those patients who are being treated with Natrecor (nesiritide, recombinant BNP), BNP testing should be performed at least two hours post treatment in order to ensure that only endogenous levels of BNP are detected. TSH reflex Free T4 Reviewed date:02/24/2024 05:28:58 PM Interpretation: Performing Lab:[facility], [address] [place] [phone] Notes/Report: TSH reflex Free T4 1.03 0.32-4.0 uIU/mL Complete Blood Count Auto Di ff Reviewed date:09/10/2024 01:45:04 PM Interpretation: Performing Lab:[address] [address] Notes/Report: White Blood Count 9.0 4.8-10.8 X10*3/uL [...] Panel Reviewed date:09/10/2024 01:45:24 PM Interpretation: Performing Lab:[facility], [address] [place] [phone] Notes/Report: Sodium 140 135-145 mmol/L Potassium 3.3 [...] Lipase Reviewed date:09/10/2024 01:45:34 PM Interpretation: Performing Lab:[facility], [address] [place] [address] Notes/Report: Lipase 10 8-78 U/L CT abdomen pelvis wo con Reviewed date:09/10/2024 01:44:11 PM Interpretation: Performing Lab: Notes/Report: [facility] [address] [place] [address] CT Scan Report Signed Patient: Chilango Castaneda MR#: [id number] : 1940 Acct:[id number] Age/Sex: 84 / M ADM Date: 09/09/24 Loc: HO.ED Attending Dr: Ordering Physician: Adi Pulido MD Date of Service: 09/09/24 Procedure(s): CT abdomen pelvis wo IV con Accession Number(s): [id number] cc: Gorge Mahmood MD; Adi Pulido MD Report Number: [id number]: Total DLP = 526.00 mGy-cm CLINICAL HISTORY: [...] in OV> 09/09/241738 DD/ 37 TD/TT: 09/09/241737 Orthotic/Prosthetic Clinician: [address] [address] [address] Scan Report Signed Patient: Cynthia Castaneda MR#: [id number] : 1940 Acct:[id number] Age/Sex: 84 / M ADM Date: 09/09/24 Loc: HO.ED Attending Dr: Ordering Physician: Adi Pulido MD Date of Service: 09/09/24 Procedure(s): CT abd omen pelvis wo IV con Accession Number(s): [id number] cc: Gorge Mahmood MD; Adi Pulido MD [...] in OV> 09/09/241738 DD/ 37 TD/TT: 09/09/241737 Orthotic/Prosthetic Clinician: Complete Blood Count Auto Di ff Reviewed date:09/22/2024 12:42:05 PM Interpretation: Performing Lab:[address] [address] Notes/Report: White Blood Count 4.6 4.8-10.8 X10*3/uL [...] INR Reviewed date:09/22/2024 12:32:45 PM Interpretation: Performing Lab:[facility], [address] [place] [phone] Notes/Report: Prothrombin Time 28.3 10.9-12.4 SEC INTERNATIONAL [...] Panel Reviewed date:09/22/2024 12:32:27 PM Interpretation: Performing Lab:[facility], [address] [place] [phone] Notes/Report: Sodium 143 135-145 mmol/L Potassium 3.3 [...] Sensitivity Reviewed date:09/22/2024 12:32:03 PM Interpretation: Performing Lab:[facility], [address] [place] [phone] Notes/Report: Troponin-I High Sensitivity 16.5 <3.5-35.0 ng/L The [place] high sensitivity Troponin-I results should be used in conjunction with other diagnostic information such as ECG, clinical observations and information, and patient symptoms to aid in the diagnosis of [place]. B Type Natriuretic Peptide Reviewed date:09/22/2024 12:32:35 PM Interpretation: Performing Lab:[facility], [address] [place] [phone] Notes/Report: B Type Natriuretic Peptide 64 <100 pg/mL SARS-CoV2/FLU/RSV Reviewed date:09/22/2024 12:30:53 PM Interpretation: Performing Lab:[facility], [address] [place] [phone] Notes/Report: Influenza A PCR NEGATIVE Negative Influenza [...] by authorized laboratories. Testing performed on the [employer] GeneXpert utilizing real-time RT-PCR. All SARS CoV2 and positive influenza A/B results are reported to [facility]. XR chest 2V Reviewed date:09/22/2024 12:31:45 PM Interpretation: Performing Lab: Notes/Report: [address] [address] XRay Report Signed Patient: Chilango Castaneda MR#: [id number] : 1940 Acct:[id number] Age/Sex: 84 / M ADM Date: 09/22/24 Loc: .ED Attending Dr: Ordering Physician: Generic ED Physician Date of Service: 09/22/24 Procedure(s): XR chest 2V Accession Number(s): [id number] cc: Gorge Mahmood MD; Generic ED Physician [...] in OV> 09/22/24940 DD/ 7 TD/TT: 09/22/24932 Orthotic/Prosthetic Clinician: [address] [address] XRay Report Signed Patient: Cynthia Castaneda MR#: [id number] : 1940 Acct:[id number] Age/Sex: 84 / M ADM Date: 09/22/24 Loc: .ED Attending Dr: Ordering Physician: Generic ED Physician Date of Service: 09/22/24 Procedure(s): XR chest 2V Accession Number(s): [id number] cc: Gorge Mahmood MD; Generic ED Physician [...] in OV> 09/22/24940 DD/ 7 TD/TT: 09/22/24932 Orthotic/Prosthetic Clinician: Complete Blood Count Auto Di ff Reviewed date:11/21/2024 12:43:17 PM Interpretation: Performing Lab:[facility], [address] [place] [phone] Notes/Report: White Blood Count 5.0 4.8-10.8 X10*3/uL Red Blood Count 4.20 4.60-5.80 X10*6/uL Hemoglobin 13.8 14.0-18.0 g/dl Hematocrit 41.2 42.0-52.0 % Mean Corpuscular Volume 98.1 80.0-98.0 fL Mean Corpuscular Hemoglobin 32.9 27.0-33.0 pg Mean Corpuscular HGB Conc 33.5 31.0-36.0 g/dl Red Cell Distribution Width 13.3 11.0-16.0 % Platelet Count 117 160-400 X10*3/uL Mean Platelet Volume 10.3 9.4-12.4 fL Neutrophils Percent Auto 55.1 45-73 % Imm Gran Pct Auto 0.4 0.0-0.4 % Lymphocytes Percent Auto 35.3 20-40 % Monocytes Percent Auto 7.2 2-11 % Eosinophils Percent Auto 1.6 0-4 % Basophils Percent Auto 0.4 0-2 % NRBC Pct Auto 0.0 0.0-0.2 /100WBC Neutrophils Absolute Auto 2.8 2.0-8.3 x10*3/uL Imm Gran Abs Auto 0.02 0.00-0.03 X10*3/uL Lymphocytes Absolute Auto 1.8 1.2-4.9 X10*3/uL Monocytes Absolute Auto 0.4 0.1-1.2 X10*3/uL Eosinophils Absolute Auto 0.1 0.0-0.4 X10*3/uL Basophils Absolute Auto 0.0 0.0-0.2 X10*3/uL NRBC Abs Auto 0.000 0.0-0.012 X10*3/uL Prothrombin Time INR Reviewed date:11/21/2024 12:32:34 PM Interpretation: Performing Lab:[address] [phone] Notes/Report: Prothrombin Time 18.0 10.9-12.4 SEC INTERNATIONAL NORM RATIO 1.6 0.9-1.1 INTERNATIONAL NORMALIZED RATIO (INR) REFERENCE RANGES [...] mechanical prosthetic heart valves: 2.5 - 3.5 Partial Thromboplastin Time Reviewed date:11/21/2024 12:33:18 PM Interpretation: Performing Lab:[facility], [address] [place] [phone] Notes/Report: Partial Thromboplastin Time 32.1 26.7-34.1 SEC Basic Metabolic Panel Reviewed date:11/21/2024 12:38:31 PM Interpretation: Performing Lab:[facility], [address] [place] [phone] Notes/Report: Sodium 143 135-145 mmol/L Potassium 3.6 3.3-5.1 mmol/L Chloride 111 96-108 mmol/L Carbon Dioxide 26 22-29 mmol/L Anion Gap 10 12-20 Blood Urea Nitrogen 22 9-16 mg/dL Creatinine 1.02 0.5-1.4 mg/dL Creatinine Clr Calc Pharmacy 57.2 eGFR (calculated from the MDRD study equation) and eCrCl (calculated from the Cockcroft-Gault equation) are based on different parameters and may not yield comparable results. If eCrCl result is absurd, please check patient's height/weight. Estimated Glomerular Filt Rate > 60 Chronic Kidney Disease: Estimated GFR < 60 mL/min/1.73m2 Severe Kidney Disease: Estimated GFR < 15 mL/min/1.73m2 Glucose Random 100 60-115 mg/dL Calcium 8.4 8.4-10.2 mg/dL Troponin-I High Sensitivity Reviewed date:11/21/2024 12:30:27 PM Interpretation: Performing Lab:[facility], [address] [place] [phone] Notes/Report: Troponin-I High Sensitivity 8.1 <3.5-35.0 ng/L The [place] high sensitivity Troponin-I results should be used in conjunction with other diagnostic information such as ECG, clinical observations and information, and patient symptoms to aid in the diagnosis of [place]. Lipid Panel Reviewed date:11/21/2024 12:32:43 PM Interpretation: Performing Lab:[facility], [address] [place] [phone] Notes/Report: Triglycerides 71 <150 mg/dL Desirable Triglyceride: less than 150 mg/dL Borderline High Triglyceride 150-199 mg/dL High Triglyceride: 200-499 mg/dL Very High Triglyceride: greater than or equal to 5OO mg/dL Cholesterol 149 <200 mg/dL Desirable Cholesterol: less than 200 mg/dL Borderline High Cholesterol: 200-239 mg/dL High Cholesterol: greater than 239 mg/dL LDL Cholesterol Calculated 84 <100 mg/dL Desirable LDL: less than 100 mg/dL Near Optimal/Above Optimal LDL: 110-129 mg/dL Borderline High LDL: 130-159 mg/dL High LDL: 160-189 mg/dL Very High LDL: greater than or equal to 190 mg/dL HDL Cholesterol 51 >40 mg/dL Desirable HDL: greater than 40 mg/dL Note: This HDL assay may give artificially low results in patients with liver disease. Glucose, Whole Blood Reviewed date:11/21/2024 12:32:59 PM Interpretation: Performing Lab:[facility], [address] [place] [phone] Notes/Report: Glucose, Whole Blood 103 60-115 mg/dL METER # : [id number] NT Pro B Type Natriuretic Pe pt Reviewed date:11/21/2024 12:32:26 PM Interpretation: Performing Lab:[facility], [address] [place] [phone] Notes/Report: NT Pro B Type Natriuretic Pept 471.2 <300 pg/mL Reference Range: Age Group (years) NT-proBNP (pg/ml) Interpretation All <300 Negative: HF unlikely For patients presenting to the ED with clinical suspicion of new onset or worsening HF, see below: 18 to <50 >299.9 to <450.0 Grayzone: Consider 50 to 75 >299.9 to <900.0 other causes of >75 >299.9 to <1800.0 NT-proBNP elevation 18 to <50 >449.9 Positive: HF likely 50-75 >899.9 >75 >1799.9 Note: Elevated NT-proBNP levels should be interpreted in the context of other clinical information. CT angio head neck stroke Reviewed date:11/21/2024 12:32:18 PM Interpretation: Performing Lab: Notes/Report: [address] [address] [address] Scan Report Signed Patient: Chilango Castaneda MR#: [id number] : 1940 Acct:[id number] Age/Sex: 84 / M ADM Date: 11/21/24 Loc: HO.ED Attending Dr: Ordering Physician: Fer Dent MD Date of Service: 11/21/24 Procedure(s): CT angio head neck STROKE Accession Number(s): [id number] cc: Gorge Mahmood MD; Fer Dent MD Report Number: [id number]: Total DLP = 728.00 mGy-cm Reason for Exam: dizziness, ? right weakness CLINICAL HISTORY: dizziness, ? right weakness CT angiography head and neck with contrast. 3D Postprocessing. Comparison: CT/SR - CT HEAD FOR STROKE - 11/21/24 06:37 EDT Findings: Aortic arch and cervical great vessels are patent with no aneurysm, dissection, hemodynamically significant stenoses, or occlusion. Eccentric plaque of the right carotid bulb not causing significant luminal narrowing. Dominant right vertebral artery. Intracranial arteries are patent. No aneurysm, dissection, hemodynamically significant stenoses, or occlusion. No abnormal intracranial enhancement. The visualized thyroid gland is unremarkable. No cervical mass or fluid collection. Lung apices clear. No acute fracture. IMPRESSION: Patent head and neck CTA. Calcified eccentric plaquing at the right carotid bulb not causing significant luminal narrowing. This document has been electronically signed by: Lilo Buck MD on 11/21/2024 09:04:54 Dictated By: Lilo Buck MD Signed By: <Electronically signed by Lilo Buck MD in OV> 11/21/24905 DD/ 3 TD/TT: 11/21/24903 Orthotic/Prosthetic Clinician: [address] [address] [address] Scan Report Signed Patient: Cynthia Castaneda MR#: [id number] : 1940 Acct:[id number] Age/Sex: 84 / M ADM Date: 11/21/24 Loc: .ED Attending Dr: Ordering Physician: Fer Dent MD Date of Service: 11/21/24 Procedure(s): CT ang io head neck STROKE Accession Number(s): [id number] cc: Gorge Mahmood MD; Fer Dent MD Report Number: [id number]: Total DLP = 728.00 mGy-cm Reason for Exam: dizziness, ? right weakness CLINICAL HISTORY: dizziness, ? right weakness CT angiography head and neck with contrast. 3D Postprocessing. Comparison: CT/SR - CT HEAD FOR STROKE - 11/21/24 06:37 EDT Findings: Aortic arch and cerv ical great vessels are patent with no aneurysm, dissection, hemodynamically significant stenoses, or occlusion. Eccentric plaque of the right carotid bulb not causing significant luminal narrowing. Dominant right vertebral artery. Intracranial arterie s are patent. No aneurysm, dissection, hemodynamically significant stenoses , or occlusion. No abnormal intracra nial enhancement. The visualized thyro id gland is unremarkable. No cervical mass or fluid collection. Lung apices clear. No acute fracture. IMPRESSION: Patent head and neck CTA. Calcified eccentric plaquing at the right carotid bulb not causing significant luminal narrowing. This document has be en electronically signed by: Lilo Buck MD on 11/21/2024 09:04:54 Dictated By: Lilo Buck MD Signed By: <Electronically signed by Lilo Buck MD in OV> 11/21/24905 DD/ 3 TD/TT: 11/21/24903 Orthotic/Prosthetic Clinician: CT head for stroke Reviewed date:11/21/2024 10:59:45 AM Interpretation: Performing Lab: Notes/Report: [address] [address] [address] Scan Report Signed with Addenda Patient: Chilango Castaneda MR#: [id number] : 1940 Acct:[id number] Age/Sex: 84 / M ADM Date: 11/21/24 Loc: .ED Attending Dr: Ordering Physician: Fer Dent MD Date of Service: 11/21/24 Procedure(s): CT head for STROKE Accession Number(s): [id number] cc: Gorge Mahmood MD; Fer Dent MD Report Number: [id number]: Total DLP = 703.00 mGy-cm Reason for Exam: dizziness, right weakness ADDENDUM This document has been electronically signed by: Lilo Buck MD on 11/21/2024 07:06:09 ADDENDUM: This report was discussed with PREM Oliva on Nov 21, 2024 07:07:00 EDT. This document has been electronically signed by: Miranda Fitzpatrick on 11/21/2024 07:08:24 Addendum Dictated By: Lilo Buck MD Addendum Signed By: <Electronically signed by Lilo Buck MD in OV> 11/21/24708 Addendum Cosigned By: DD/ TD/TT: 11/21/24 CLINICAL HISTORY: dizziness, right weakness CT head without contrast Comparison: None provided Findings: No intra-axial mass, midline shift, hydrocephalus, or acute hemorrhage. No significant atrophy-like change or white matter disease. The visualized paranasal sinuses and mastoid air cells are normal. The orbits are within normal limits. There is no acute fracture. IMPRESSION: 1. No acute intracranial findings. This document has been electronically signed by: Lilo Buck MD on 11/21/2024 07:06:09 Dictated By: Lilo Buck MD Signed By: <Electronically signed by Lilo Buck MD in OV> 11/21/24 07 DD/ 5 TD/TT: 11/21/24705 Orthotic/Prosthetic Clinician: [place] [address] [place] Scan Report Signed with Addenda Patient: Cynthia Castaneda MR#: [id number] : 1940 Acct:[id number] Age/Sex: 84 / M ADM Date: 11/21/24 Loc: HO.ED Attending Dr: Ordering Physician: Fer Dent MD Date of Service: 11/21/24 Procedure(s): CT hea d for STROKE Accession Number(s): [id number] cc: Gorge Mahmood MD; Fer Dent MD Report Number: [id number]: Total DLP = 703.00 mGy-cm Reason for Exam: dizziness, right weakness ADDENDUM This document has be en electronically signed by: Lilo Buck MD on 11/21/2024 07:06:09 ADDENDUM: This report was disc ussed with PREM Oliva on Nov 21, 2024 07:07:00 EDT. This document has be en electronically signed by: Miranda Fitzpatrick on 11/21/2024 07:08:24 Addendum Dictated By : Lilo Buck MD Addendum Signed By: <Electronically signed by Lilo Buck MD in OV> 11/21/24708 Addendum Cosigned By: DD/ TD/TT: 11/21/24 CLINICAL HISTORY: dizziness, right weakness CT head without contrast Comparison: None provided Findings: No intra-axial mass, midline shift, hydrocephalus, or acute hemorrhage. No significant atrophy-like change or white matter disease. The visualized paran karen sinuses and mastoid air cells are normal. The orbits are withi n normal limits. There is no acute fracture. IMPRESSION: 1. No acute intracra nial findings. This document has be en electronically signed by: Lilo Buck MD on 11/21/2024 07:06:09 Dictated By: Lilo Buck MD Signed By: <Electronically signed by Lilo Buck MD in OV> 11/21/24706 DD/ 5 TD/TT: 11/21/24705 Orthotic/Prosthetic Clinician: Reason For Referral No Information Medications Medication SIG (Take, Route, Frequency, Duration) Notes Start Date End Date Status oxyCODONE HCl 5 MG 1 tablet as needed Orally every 12 hours as needed. do not drive for 7 days Partial Fill upon Patient Request 08/28/2024 Not-Taking Dicyclomine HCl 20 MG 1 tablet Orally Three times a day Active Furosemide 40 MG [id number] alternating with 2 tablets Orally Once a [...] a day for 30 day(s) Active Cortisporin 0.5-0.5-60947 1 application to affected area Externally Twice [...] Status W/U Status Risk Notes Problem Sciatica (76769579) Sciatica (M54.30) Active confirmed Problem Diverticulitis of colon (630884923) Diverticulitis large intestine (K57.32) Active confirmed Problem 807678076 Thrombocytopenia (D69.6) Active confirmed Problem Constipation (62853697) Constipation (K59.00) Active confirmed Problem 593711195 Body mass index (BMI) 33.0-33.9, adult (Z68.33) Active confirmed Problem 423999810 Tubular adenoma of colon (D12.6) Active confirmed Problem 738947087 Gastroesophageal reflux disease without esophagitis (K21.9) Active confirmed Problem 46523763 Essential hypertension (I10) Active confirmed Problem 5542558 Psoriasis (L40.9) Active confirmed Problem 2446337 Prediabetes (R73.09) Active confirmed Problem 042013251 History of gout (Z87.39) Active confirmed Problem 166581632622974 Carpal tunnel syndrome of right wrist (G56.01) Active confirmed Problem 65866652 Sciatica of left side (M54.32) Active confirmed Problem 926643841 History of atria l fibrillation (Z86.79) Active confirmed Problem 193437706 Elevated PSA (R97.20) Active confirmed Problem 697842932 BMI 33.0-33.9,ad ult (Z68.33) Active confirmed Problem 773452877 Temporary low platelet count (D69.6) Active confirmed Problem 772995959 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) Active confirmed Problem 921449744 PVC's (premature ventricular contractions) (I49.3) Active confirmed Problem 089257446 History of basal cell carcinoma (Z85.828) Active confirmed Vital Signs Blood pressure diastolic 60 mm Hg 09/18/2024 jody ght is down 3 pounds since 08-15-24 Height 68.25 in 09/25/2024 weight is 200 a t home BP not taken Blood pressure systolic 118 mm Hg 09/18/2024 jose roberto ht is down 3 pounds since 08-15-24 Weight 200 lbs 09/25/2024 weight is 200 a t home BP not taken BMI 30.18 kg/m2 09/25/2024 weight is 200 a t home BP not taken Encounters Encounter Location Date Provider Diagnosis Gorge Mahmood MD [address] [place] [id number] 03/28/2024 Gorge Mahmood Blood tests for rout ine general physical examination Z00.00 ; Thrombocytopenia D69.6 ; Prediabetes R73.09 and Elevated PSA R97.20 Gorge Mahmood MD [address] [id number] 06/20/2024 Gorge Mahmood Thrombocytopenia, unspecified D69.6 Gorge Mahmood MD [address] [place] [id number] 11/29/2023 Gorge Mahmood Encounter for administration of vaccine Z23 Gorge Mahmood MD [address] [id number] 04/04/2024 Gorge Mahmood Thrombocytopenia D69 .6 ; Annual physical exam Z00.00 ; Essential hypertension I10 ; History of atrial fibrillation Z86.79 ; Elevated PSA R97.20 ; Colon cancer screening Z12.11 and Depression screening Z13.31 Gorge Mahmood MD [address] [place] [id number] 08/28/2024 oGrge Mahmood Sciatica M54.30 and Leg edema R60.0 Gorge Mahmood MD [address] [place] [id number] 09/04/2024 Gorge Mahmood Sciatica M54.30 and Constipation K59.00 Gorge Mahmood MD [address] [id number] 09/18/2024 Gorge Mahmood Leg edema R60.0 ; Diverticulitis large intestine K57.32 and Sciatica M54.30 Gorge Mahmood MD [address] [place] [id number] 09/25/2024 Gorge Mahmood Diarrhea R19.7 Gorge Mahmood MD [address] [place] [id number] 04/24/2024 Gorge Mahmood MD [address] [place] [id number] 08/28/2024 Gorge Mahmood Sciatica M54.30 Gorge Mahmood MD [address] [place] [id number] 08/31/2024 Gorge Mahmood MD [address] [place] [id number] 09/07/2024 Gorge Mahmood MD [address] [place] [id number] 09/11/2024 Gorge Mahmood MD [address] [place] [id number] 09/25/2024 Gorge Mahmood MD [address] [place] [address] [id number] 09/25/2024 Gorge Mahmood Assessments Encounter Date Diagnosis [...] months/ order will be faxed over to [facility] [place] after PA 09/04/2024 Constipation (ICD-10 - K59.00) not taking any more oxycodone but will try dulcolax 09/18/2024 Leg edema (ICD-10 - R60.0) will stop the amlodipine. bp is fine, will continue to monitor 09/18/2024 Diverticulitis large intestine (ICD-10 - K57.32) doing well 09/25/2024 Diarrhea (ICD-10 - R19.7) order faxed to [facility] [place] patient reg 08/28/2024 Sciatica (ICD-10 - M54.30) [...] 09/04/2024 Next Appt Details Provider Name:Gorge anaya, 12/25/2024 09:00:00 AM, [address] [place] [address], [address], [place], [place], [phone], Provider Name:Gorge anaya, 03/30/2025 07:30:00 AM, [address], [address], [place], [place], [phone], Provider Name:Gorge Boothe ier, 04/06/2025 08:30:00 AM, [address], [address], [place], [place], [phone], Insurance Providers Payer Name Payer Address Payer Phone Subscriber Number Group Number Insured Name Patient Relationship to Insured Coverage Start Date Coverage End Date [employer] PLAN [address] [place] [phone] [id number] Chilango Castaneda Self - patient is the insured MEDICARE NH[facility] [place] [address] [id number] Chilango Castaneda Self - patient is the insured Medical (General) History Medical History History ICD Code Gout hypertension, benign psoriasis tia prostatism Colonoscopy ; colonos copy 06/04/14 - no need for further testing per Dr. Ely CREATININE CLEARANCE 54 Surgical History Surgery Date(Month/Year) DC Cardioversion 02/2015
--- OUTSIDE RECORDS SUMMARY | 2024-11-22 08:34 | XMS_ITS | Patient Health Record ---
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 Role Phone Gorge Mahmood MD Primary Care Provider Bennie Jenkins [phone] Allergies Allergen (clinical drug ingredient) Drug/Non Drug [...] W/U Status Risk Notes Problem Pre-surgery evaluation (616044503) Other specified pre-operative examination (V72.83) Active confirmed Problem Colon cancer screening (828740056) Colon cancer screening (V76.51) Active confirmed Problem History of adenomatous polyp of colon (140590603) History of adenomatous polyp of colon (V12.72) Active confirmed Plan Of Treatment Future Test Test Name Order Date COLONOSCOPY 03/22/2014 Insurance Providers Payer Name Payer Address Payer Phone Subscriber Number Group Number Insured Name Patient Relationship to Insured Coverage Start Date Coverage End Date [facility] [address] [facility] [place] [phone] [id number] BREANA SINGH Self - patient is the insured Medical (General) History Medical History History ICD Code Tubular adenomas removed in 1993 and 2003--he had a negative colonoscopy in January of 2009, other than the finding of some diverticulosis and internal hemorrhoids hypertension Gout psoriasis TIA in the Denies AR,DM,CVA,Lung disease,renal dise ase Surgical History Surgery Date(Month/Year) appendectomy
--- OUTSIDE RECORDS SUMMARY | 2024-11-22 08:34 | XMS_ITS | Data Portability ---
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 He is seeing his regulatory affairs consultant in two weeks. [email or web address] Not available 07/21/2023 [...] Recorded Time Spinal stenosis of lumbar region 16521810 Active Gelacio dao MD [address] , [address], [place], [address], [place] [facility] 0 12:43:58 Lumbosacral spondylosis without myelopathy 58547251 Active Gelacio dao MD [address] , [address], [place], [address], [place] [facility] 0 12:43:52 Lumbosacral radiculopathy 4737557 Active Gelacio dao MD [address] , [address], [place], [address], [place] [facility] 0 12:43:45 Degeneration of lumbar intervertebral disc 43239651 Active Gelacio dao MD [address] , [address], [place], [address], [place] [facility] 0 12:43:39 Problem Notes None recorded. Procedures Surgical History Date Name Laterality Status Provider Name and Address Organization Details Recorded Time 06/07/19 25 Lumbar Epidural steroid injection under fluoroscopic guidance completed Gelacio Brandon MD [address] , [address], [place], [address], [place] [facility] 06/06/2024 14:44:29 03/07/19 25 Lumbar Epidural steroid injection under fluoroscopic guidance completed Gelacio Brandon MD [address] , [address], [place], [address], [place] [facility] 03/07/2024 14:42:43 10/27/19 24 Sacroiliac Joint Steroid Injections, using Fluoroscopy completed Gelacio Brandon MD [address] , [address], [place], [address], [place] [facility] 10/27/2023 14:28:18 07/21/19 24 Sacroiliac Joint Steroid Injections, using Fluoroscopy completed Gelacio Brandon MD [address] , [address], [place], [address], [place] [facility] 07/21/2023 14:04:50 04/06/19 24 Sacroiliac Joint Steroid Injections, using Fluoroscopy completed Gelacio Brandon MD [address] , [address], [place], [address], [place] [facility] 04/06/2023 14:20:11 01/13/20 23 Sacroiliac Joint Steroid Injections, using Fluoroscopy completed Gelacio Brandon MD [address] , [address], [place], [address], [place] [facility] 01/12/2023 16:28:52 11/18/19 23 Lumbar Epidural steroid injection under fluoroscopic guidance completed Gelacio Brandon MD [address] , [address], [place], [address], [place] [facility] 11/17/2022 14:51:27 08/13/19 23 Lumbar Epidural steroid injection under fluoroscopic guidance completed Gelacio Brandon MD [address] , [address], [place], [address], [place] [facility] 08/12/2022 14:25:49 08/09/19 22 Back Surgery completed Gelacio Brandon MD [address] , [address], [place], [address], [place] [facility] 07/20/2022 14:13:28 06/11/19 22 Lumbar Epidural steroid injection under fluoroscopic guidance completed Gelacio Brandon MD [address] , [address], [place], [address], [place] [facility] 2021 14:03:14 04/23/19 22 Lumbar median branch block under fluroscopic guidance completed Gelacio Brandon MD [address] , [address], [place], [address], [place] [facility] 04/22/2021 10:48:55 02/06/20 21 Lumbar Epidural steroid injection under fluoroscopic guidance completed Gelacio Brandon MD [address] , [address], [place], [address], [place] [facility] 02/05/2021 14:32:09 10/24/19 21 Lumbar Epidural steroid injection under fluoroscopic guidance completed Gelacio Brandon MD [address] [facility] , [address], [place], [address], [place] [facility] 10/23/2020 09:22:59 07/18/19 21 Lumbar Epidural steroid injection under fluoroscopic guidance completed Gelacio Brandon MD [address] , [address], [place], [address], [place] [facility] 07/17/2020 10:24:07 04/17/19 21 Lumbar Epidural steroid injection under fluoroscopic guidance completed Gelacio Brandon MD [address] [facility] , [address], [place], [address], [place] [facility] 04/16/2020 09:56:53 01/16/20 20 Lumbar Epidural steroid injection under fluoroscopic guidance completed Gelacio Brandon MD [address] [facility] , [address], [place], [address], [place] [facility] 01/16/2020 16:07:28 Imaging Results None recorded. Procedure Notes None recorded. Medical Equipment None Reported. Allergies Allergen ID Allergen Name Allergen Category Reaction Reaction Severity Criticality Documentation Date Start Date Code Code System Note Provider Name and Address Organization Details Recorded Time 90147 Product containin g penicilli n (product) medicatio n rash Not available Not available 12/22/2019 22740 8001 SNOMED Gelacio dao MD [address] , [address], [place], [address], [place] [facility] [...] Social History Question Answer Notes LastModified by Praccel Details LastModified Time Tobacco Smoking Status Never Smoker Gelacio Brandon MD [address] [place] [address] , [address], [place], [address] [place] [facility] 12/22/2019 10:48:57 Which Illicit Or Recreational Drugs Have You Used? None Information not available 12/22/2019 Education 2 Year College Information not available 12/22/2019 Live Alone Or With Others? With Others Information not available 12/22/2019 Marital Status Informati on not available 12/22/2019 Sex: Unknown Functional Status Question Answer Note LastModified by Praccel Details LastModified Time What is your level [...] ICD10 Code Diagnosis IMO Codes Diagnosis Note 17332 Gelacio Brandon MD [facility] [address] [place] [address] 12/22/2019 10:26:41 12/22/2019 12:54:56 Spinal stenosis of lumbar region 98588467 M48.061 Lumbosacra l spondylosis without myelopathy 51767048 M47.817 Lumbosacra l radiculopathy 6921595 M54.17 Degenerati on of lumbar intervertebral disc 20483363 M51.36 14106 Gelacio Brandon MD [facility] [address] [place] [address] 01/16/2020 15:30:08 01/16/2020 16:18:00 Spinal stenosis of lumbar region 30000569 M48.061 Lumbosacra l spondylosis without myelopathy 19833789 M47.817 Lumbosacra l radiculopathy 6781454 M54.17 Degenerati on of lumbar intervertebral disc 53523029 M51.36 00057 Gelacio Brandon MD [facility] [address] [place] [address] 02/15/2020 08:55:41 02/15/2020 09:35:48 Spinal stenosis of lumbar region 02087268 M48.061 Lumbosacra l spondylosis without myelopathy 52830465 M47.817 Lumbosacra l radiculopathy 6876507 M54.17 Degenerati on of lumbar intervertebral disc 03865023 M51.36 58401 Gelacio Brandon MD [facility] [address] [place] [address] 04/16/2020 08:51:32 04/16/2020 10:00:18 Spinal stenosis of lumbar region 21741953 M48.061 Lumbosacra l spondylosis without myelopathy 90776207 M47.817 Lumbosacra l radiculopathy 7555152 M54.17 Degenerati on of lumbar intervertebral disc 72859974 M51.36 04194 Gelacio Brandon MD PAIN OFFICE [address] [facility] [place] [address] 07/17/2020 08:52:47 07/17/2020 11:00:32 Spinal stenosis of lumbar region 30544190 M48.061 Lumbosacra l spondylosis without myelopathy 29789199 M47.817 Lumbosacra l radiculopathy 9240648 M54.17 Degenerati on of lumbar intervertebral disc 07221522 M51.36 43038 Gelacio Brandon MD PAIN OFFICE [address] [facility] [place] [address] 08/16/2020 09:32:35 08/16/2020 09:41:40 Spinal stenosis of lumbar region 45649561 M48.061 Lumbosacra l spondylosis without myelopathy 17889346 M47.817 Lumbosacra l radiculopathy 3738583 M54.17 Degenerati on of lumbar intervertebral disc 27972468 M51.36 43696 Gelacio Brandon MD PAIN OFFICE [address] [facility] [place] [address] 10/23/2020 08:52:07 10/23/2020 11:25:37 Spinal stenosis of lumbar region 92526749 M48.061 Lumbosacra l spondylosis without myelopathy 84644183 M47.817 Lumbosacra l radiculopathy 7356968 M54.17 Degenerati on of lumbar intervertebral disc 03102667 M51.36 38290 Gelacio Brandon MD PAIN OFFICE [address] [facility] [place] [address] 02/05/2021 12:44:25 02/05/2021 14:38:17 Spinal stenosis of lumbar region 17492044 M48.061 Lumbosacra l spondylosis without myelopathy 40574276 M47.817 Lumbosacra l radiculopathy 7580753 M54.17 Degenerati on of lumbar intervertebral disc 01212446 M51.36 47309 Gelacio Brandon MD PAIN OFFICE [address] [place] [address] 04/22/2021 10:15:07 04/22/2021 11:14:54 Spinal stenosis of lumbar region 48047897 M48.061 Lumbosacra l spondylosis without myelopathy 23566462 M47.817 Lumbosacra l radiculopathy 8526963 M54.17 Degenerati on of lumbar intervertebral disc 18532092 M51.36 98837 Gelacio Brandon MD PAIN OFFICE [address] [place] [address] 2021 13:12:15 2021 15:44:49 Spinal stenosis of lumbar region 24284127 M48.061 Lumbosacra l spondylosis without myelopathy 41099678 M47.817 Lumbosacra l radiculopathy 8187699 M54.17 Degenerati on of lumbar intervertebral disc 93951631 M51.36 96755 Gelacio Brandon MD PAIN OFFICE [address] [place] [address] 07/20/2022 13:52:43 07/21/2022 11:02:56 Spinal stenosis of lumbar region 29999879 M48.061 Lumbosacra l spondylosis without myelopathy 00234127 M47.817 Lumbosacra l radiculopathy 3977230 M54.17 Degenerati on of lumbar intervertebral disc 03935866 M51.36 Lumbar post-laminectomy syndrome 951838458 M96.1 15455 Gelacio Brandon MD PAIN OFFICE [address] [place] [address] 08/12/2022 13:41:25 08/12/2022 16:11:11 Spinal stenosis of lumbar region 12239711 M48.061 Lumbosacra l spondylosis without myelopathy 88980494 M47.817 Lumbosacra l radiculopathy 3299971 M54.17 Degenerati on of lumbar intervertebral disc 85864388 M51.36 Lumbar post-laminectomy syndrome 703880337 M96.1 70069 Gelacio Brandon MD [facility] [address] [place] [address] 11/17/2022 14:12:49 11/17/2022 15:29:44 Spinal stenosis of lumbar region 76682843 M48.061 Lumbosacra l spondylosis without myelopathy 24731887 M47.817 Lumbosacra l radiculopathy 2678078 M54.17 Degenerati on of lumbar intervertebral disc 01267326 M51.36 Lumbar post-laminectomy syndrome 045339968 M96.1 56590 Gelacio Brandon MD [facility] [address] [place] [address] 01/12/2023 14:15:32 01/12/2023 16:57:12 Lumbar post-laminectomy syndrome 194479695 M96.1 Inflammati on of sacroiliac joint 44441421 M46.1 62866 Gelacio Brandon MD PAIN OFFICE [address] [place] [address] 04/06/2023 13:47:13 04/06/2023 16:05:21 Lumbar post-laminectomy syndrome 716675483 M96.1 Inflammati on of sacroiliac joint 41741438 M46.1 65435 Gelacio Brandon MD [facility] [address] [place] [address] 07/21/2023 13:12:16 07/21/2023 15:50:06 Lumbar post-laminectomy syndrome 611866803 M96.1 Inflammati on of sacroiliac joint 91950444 M46.1 04798 Gelacio Brandon MD [facility] [address] [place] [address] 10/27/2023 13:52:49 10/27/2023 16:08:33 Lumbar post-laminectomy syndrome 951533692 M96.1 Inflammati on of sacroiliac joint 72506512 M46.1 77784 Gelacio Brandon MD [facility] [address] [facility] [place] [address] 03/07/2024 14:14:46 03/07/2024 14:54:15 Spinal stenosis of lumbar region 43035246 M48.061 M48.062 Lumbosacra l spondylosis without myelopathy 89963464 M47.817 Lumbosacra l radiculopathy 6509443 M54.17 Degenerati on of lumbar intervertebral disc 06048063 M51.362 Lumbar post-laminectomy syndrome 782800201 M96.1 76117 Gelacio Brandon MD [facility] [address] [address] 06/06/2024 14:13:47 06/06/2024 16:27:34 Spinal stenosis of lumbar region 08117395 M48.061 M48.062 Lumbosacra l spondylosis without myelopathy 84793752 M47.817 Lumbosacra l radiculopathy 7478406 M54.17 Degenerati on of lumbar intervertebral disc 63908003 M51.362 Lumbar post-laminectomy syndrome 686905179 M96.1 Health Concerns Section Related Observation LastModified by Organization Detai ls LastModified Time None Recorded Concern Status LastModified by Organization Details LastModified Time None Recorded Advance Directives Directive None Recorded Payers Insurance Date Sequence Insurance Name Policy Number Policy Jhaveri Covered Member ID Jhaveri Member ID Guarantor Name 09/24/2024 1 [facility] MEDICARE ADVANTAGE PLAN (MEDICARE REPLACEMENT HMO) [id number] Chilango Castaneda [id number] Chilango Castaneda 10/27/2023 1 [facility] (PPO) [id number] Chilango Castaneda [id number] Chilango Castaneda Notes Date Note Type Note Provider Name and Address Organization Details Recorded Time 04/06/2023 text/html He is here for a left sacroiliac joint injection under fluoroscopic guidance. He had one month of 90% pain relief with last injection with a slow return of pain. 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 He had one month of 90% pain relief with last injection with a slow return of pain. 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 He has stopped Xarelto three days prior to the procedure Gelacio Brandon MD [address] , [address], [place], [address], [place] [facility] 03/07/2024 15:19:39 06/06/2024 text/html He is here today for a lumbar epidural steroid injection under fluoroscopic guidance. He has stopped Xarelto three days prior to the procedure Gelacio Brandon MD [address] , [address], [place], [address], [place] [facility] 06/07/2024 15:44:23
== END 2024-11-22 09:06 | disposition home or self-care (01) ==
LOC: HO.HCS 08:16
PROVIDERS: PCP Internal Medicine; Visit Provider Internal Medicine
DX: I48.19 Other persistent atrial fibrillation (principal); I49.3 Ventricular premature depolarization; I42.8 Other cardiomyopathies; I10 Essential (primary) hypertension; R60.0 Localized edema
CPT/HCPCS: 93010; 99214; G2211

== ENCOUNTER → 2024-11-22 08:16 | Outpatient (BNVA) | payer MEDICARE, SELFPAY | PROVIDERS: PCP Internal Medicine; Visit Provider Internal Medicine | DX: I48.19 Other persistent atrial fibrillation (principal); I49.3 Ventricular premature depolarization; I42.8 Other cardiomyopathies; I10 Essential (primary) hypertension; R60.0 Localized edema | CPT/HCPCS: 93005; 99212 ==

== ENCOUNTER → 2025-01-22 12:35 | Outpatient (REF) | payer MEDICARE, SELFPAY ==
--- OUTSIDE RECORDS SUMMARY | 2024-02-25 04:30 | XMS_ITS ---
Author Organization [facility] Address [address] [place] [address] Care Team Providers Care Engineering Technical Specialist Name Role Phone Gorge Mahmood MD Primary Care Provider Nida Carnes Unavailable [phone] Camacho Medications Medication SIG (Take, Route, Frequency, Duration) Notes Start Date End Date Status Finasteride 5 MG 1 tablet Orally Once a day Active Amlodipine & Diet Manage Prod 5 mg Active Doxazosin Mesylate 2 MG 1 tablet Orally Once a day; Duration: 30 day(s) Active Allopurinol 300 MG 1 tablet Orally Once a day; Duration: 30 day(s) Active Xarelto 20 MG 1 tablet Orally Once a day Active Metoprolol Succinate 50 MG 1 capsule Orally Once a day Not-Taking Irbesartan 300 MG 1 tablet Orally Once a day Active Amiodarone HCl 200 MG 1 tablet Orally On ce a day Active Furosemide 40mg Active Losartan Potassium N ot-Taking Encounters Encounter Location Date Provider Diagnosis [address] [address] 02/25/2024 Nida Lilly Plan Of Treatment Next Appt Details Provider Name:Nida serrano, 01/26/2025 09:15:00 AM, [address] [place], [address], Progress Notes * Chilango CASTANEDADOB: [birth year] (84 yo M)Acc No.[id number]:02/25/2024 Progress Note Patient: Ziyad Chilango VILLA Provider: Demario Lilly DPM :1940 A ge:83 Y S ex:Male Date:02/25/2024 Address:[place], [id number] Pcp:Gorge Mahmood MD Subjective: * Chief Complaints: * [address] Camacho. * HPI: A t Risk footcare: Pt States Last PCP Visit: D ate: 1 * Medical History: * Medications: T aking Irbesartan 300 MG Tablet 1 tablet Orally Once a day , Taking Amiodarone HCl 200 MG Tablet 1 tablet Orally Once a day , Taking Finasteride 5 MG Tablet 1 tablet Orally Once a day , Taking Amlodipine & Diet Manage Prod , Notes to Pharmacist: 5 mg, Taking Doxazosin Mesylate 2 MG Tablet 1 tablet Orally Once a day , Taking Allopurinol 300 MG Tablet 1 tablet Orally Once a day , Taking Xarelto 20 MG Tablet 1 tablet Orally Once a day , Taking Furosemide , Notes to Pharmacist: 40mg, Not-Taking/PRN Metoprolol Succinate 50 MG Capsule ER 24 Hour Sprinkle 1 capsule Orally Once a day , Not-Taking/PRN Losartan Potassium Objective: * Vitals: Assessment: Plan: * Treatment: * Images: * The named appointment provid er may or may not be the originator of this progress note, and it is not deemed complete until electronically signed by the appointment provider. Sign off status: Pending * Provider: Demario Lilly DPM Date: 0 02/25/2024 Generated for Danial montez/[place] on: 03/25/2024 06:05 PM EST History and Physical Notes * HPI (History of Present Illness) Category Sub-Category Detail Notes Category Not es At Risk footcare Pt States Last PCP Visit: Date:: 11/09/19 24
--- OUTSIDE RECORDS SUMMARY | 2024-08-28 10:06 | XMS_ITS ---
Author Organization Gorge Mahmood MD Address [address] [place] [phone] Care Team Providers Care Multimedia Manager Name Role Phone Gorge Mahmood Primary Care Provider REASON FOR VISIT med issue Medications Medication SIG (Take, Route, Frequency, Duration) Notes Start Date End Date Status Cyclobenzaprine HCl 5 MG 1 tab Orally tw ice a day for 10 days 08/28/2024 Active Encounters Encounter Location Date Provider Diagnosis Gorge Mahmood MD [address] [place], [place] [phone] 08/28/2024 Gorge Mahmood Sciatica M54.30 Assessments Encounter Date Diagnosis (ICD Code) Assessment Notes Treatment Notes Treatment Clinical Notes Section Notes 08/28/2024 Sciatica (ICD-10 - M54.30) Plan Of Treatment Medication Medication Name Sig Start Date Stop Date Notes Cyclobenzaprine HCl 5 MG 1 tab Orally tw ice a day for 10 days 08/28/2024 Next Appt Details Provider Name:Gorge anaya, 03/30/2025 07:30:00 AM, [address], [address], [place], [place], [phone], Provider Name:Gorge Boothe jaclyn, 04/06/2025 08:30:00 AM, [address], [address], [place], [place], [phone], Progress Notes * Chilango CASTANEDA GDOB: [birth year] (84 yo M)Acc No.[id number]:08/28/2024 Patient: Ziyad Chilango VILLA :1940 A ge:84 Y S ex:Male Address:[address] [place] [address] * Refills Continue Cyclobenzaprine HCl Tablet, 5 MG, Orally, 20 Tablet, 1 tab, twice a day, 10 days * true * Date: Generated for Danial montez/Africa/Annabellesmitting on: 1 03/25/2024 06:08 PM EST
--- OUTSIDE RECORDS SUMMARY | 2024-08-31 03:18 | XMS_ITS ---
Author Organization Gorge Mahmood MD Address [address] [place] [phone] Care Team Providers Care Bryologist Name Role Phone Gorge Mahmood Primary Care Provider [phone] REASON FOR VISIT Urgent Care Encounters Encounter Location Date Provider Diagnosis Gorge Mahmood MD [address] [place] [phone] 08/31/2024 Gorge Mahmood Plan Of Treatment Next Appt Details Provider Name:Gorge anaya, 03/30/2025 07:30:00 AM, [address] [place] [address], Suite [facility], [place], [place], [phone], Provider Name:Gorge anaya, 04/06/2025 08:30:00 AM, [address] [place] [address], Suite [facility], [place], [place], [phone], Progress Notes * Chilango CASTANEDA GDOB: [birth year] (84 yo M)Acc No.[id number]:08/31/2024 Patient: Chilango SARABIA :1940 A ge:84 Y S ex:Male Address:[address] [place] [address] [place] [address] * true * Date: Generated for Danial montez/Africa/Annabellesmitting on: 03/25/2024 06:09 PM EST
--- OUTSIDE RECORDS SUMMARY | 2024-09-04 04:15 | XMS_ITS ---
Author Organization Gorge Mahmood MD Address [address] [place], [place] [phone] Care Team Providers Care Mail Handler Sorter Name Role Phone Gorge Mahmood Primary Care Provider [phone] Allergies Allergen (clinical drug ingredient) Drug/Non Drug Allergy documented on EMR Reaction Allergy Type Onset Date Status sulfamethoxazole / trimethoprim Sulfamethoxazole- Trimethoprim swelling and redness Drug Allergy Active penicillin (uncoded) rash Allergy Active REASON FOR VISIT 1 week f/u bck pain and F/U Urgent Care visit for Constipation Medications Medication SIG (Take, Route, Frequency, Duration) Notes Start Date End Date Status Furosemide 40 MG [id number] alternating with 2 tablets Orally Once a day Active Finasteride 5 MG 1 tablet Orally Once a day Active Xarelto 20 MG 1 tablet with food Orally Once a day 01/10/2015 Active Allopurinol 300 MG TAKE 1 TABLET BY MOUTH EVERY DAY for 90 Active Amiodarone HCl 200 MG 1 tablet Orally Once a day Active dexAMETHasone 2 MG TAKE 1 TABLET BY MOUTH THREE TIMES A DAY FOR 5 DAYS Oral Three times a day for 3 days 11/13/2019 Not-Taking Ibuprofen 800 MG 1 tablet Orally Three times a day for 30 day(s) 10/27/2011 Not-Taking Colace 100 MG 1 capsule as needed Orally Once a day Active Tylenol 8 Hour 650 MG 2 tablets as needed Orally every 8 hrs Active Doxazosin Mesylate 2 MG 1 tablet Orally Once a day for 30 day(s) Active Cyclobenzaprine HCl 5 MG 1 tab Orally twice a day for 10 days 08/28/2024 Not-Taking Cyclobenzaprine HCl 5 MG 1 tablet at bedtime as needed Orally twice a day for 10 days 11/13/2019 Not-Taking Irbesartan 300 MG TAKE 1 TABLET BY MOUTH EVERY DAY for 30 Not-Taking Triamcinolone Acetonide 0.1 % APPLY TWICE DAILY TO TRUNK,ARMS,AND LEGS *APPLY MOISTURIZER AFTER *AVOID FACE/GROIN* External for 25 Not-Taking Cortisporin 0.5-0.5-72607 1 application to affected area Externally Twice a day for 30 days 01/10/2015 Not-Taking amLODIPine Besylate 5 MG TAKE 1 TABLET BY MOUTH EVERY DAY for 30 Active oxyCODONE HCl 5 MG 1 tablet as needed Orally every 12 hours as needed. do not drive for 7 days Partial Fill upon Patient Request 08/28/2024 Not-Taking Problems Problem Type SNOMED Code ICD Code Onset Dates Problem Status W/U Status Risk Notes Problem Constipation (37578441) Constipation (K59.00) Active confirmed Vital Signs Blood pressure systolic 122 mm Hg 09/05/19 25 Blood pressure diastolic 64 mm Hg 025 Height 68.25 in 09/04/2024 Weight 204 lbs 09/04/2024 BMI 30.79 kg/m2 09/04/2024 Encounters Encounter Location Date Provider Diagnosis Gorge Mahmood MD [address] [place], [place] [phone] 09/04/2024 Gorge Mahmood Sciatica M54.30 and Constipation K59.00 Assessments Encounter Date Diagnosis (ICD Code) Assessment Notes Treatment Notes Treatment Clinical Notes Section Notes 09/04/2024 Sciatica (ICD-10 - M54.30) still having a lot of pain. getting injections of spine every 3 months/ order will be faxed over to [facility] [place] dept after PA 09/04/2024 Constipation (ICD-10 - K59.00) not taking any more oxycodone but will try dulcolax Plan Of Treatment Treatment Notes Assessment Notes Sciatica still having a lot o f pain. getting injections of spine every 3 months/ order will be faxed over to [facility] dept after PA Constipation not taking any more oxycodone but will try dulcolax Pending Test Test Name Order Date CT lumbar spine wo con 09/04/2024 Next Appt Details Follow Up: after ct scan, Re ason: Provider Name:Gorge Boothe ier, 03/30/2025 07:30:00 AM, [address], [address], [place], [place], [phone], Provider Name:Gorge Boothe ier, 04/06/2025 08:30:00 AM, [address], [address], [place], [place], [phone], Progress Notes * Chilango CASTANEDA GDOB: [birth year] (84 yo M)Acc No.[id number]:09/04/2024 Progress Notes Patient: Ziyad VILLA Chilango Alexys Provider: Alexys Mahmood MD :1940 A ge:84 Y S ex:Male Date:09/04/2024 Address:[address] [place], [place] [phone] Subjective: * Chief Complaints: * 1 week f/u bck pain and F/U Urgent Care visit for Constipation * HPI: S ymptom(s): patient is a 84 yo male here fornone week follow up visit. went to urgent care for constipatiion put him on colace. not taking any oxycodone. pain in back goes down leg. feel as though he is losing strength in arms. * ROS: G eneral/Constitutional: Denies C hills. D enies F atigue. D enies F ever. D enies H eadache. E NT: Denies S ore throat. R espiratory: Denies C ough. D enies S hortness of breath at rest. D enies S hortness of breath with exertion. G astrointestinal: Denies D iarrhea. D enies N ausea. M usculoskeletal: Patient complaining of t roulble getting up out of chair. goes every 3 months for injection. * Medical History: * Surgical History: * Hospitalization/Major Diagno stic Procedure: * Medications: T akingColace 100 MG Capsule 1 capsule as needed Orally Once a day Tylenol 8 Hour 650 MG Tablet Extended Release 2 tablets as needed Orally every 8 hrs Doxazosin Mesylate 2 MG Tablet 1 tablet Orally Once a day Finasteride 5 MG Tablet 1 tablet Orally Once a day Xarelto 20 MG Tablet 1 tablet with food Orally Once a day Allopurinol 300 MG Tablet TAKE 1 TABLET BY MOUTH EVERY DAY Amiodarone HCl 200 MG Tablet 1 tablet Orally Once a day Furosemide 40 MG Tablet [id number] alternating with 2 tablets Orally Once a day amLODIPine Besylate 5 MG Tablet TAKE 1 TABLET BY MOUTH EVERY DAY Taking Colace 100 MG Capsule 1 capsule as needed Orally Once a day Taking Tylenol 8 Hour 650 MG Tablet Extended Release 2 tablets as needed Orally every 8 hrs Taking Doxazosin Mesylate 2 MG Tablet 1 [...] a day Taking Furosemide 40 MG Tablet [id number] alternating with 2 tablets Orally Once a day Taking amLODIPine Besylate 5 MG Tablet TAKE 1 TABLET BY MOUTH EVERY DAY Not-Taking/PRNoxyCODONE HCl 5 MG Tablet 1 tablet as needed Orally every 12 hours as needed. do not drive , Notes to Pharmacist: Partial Fill upon Patient RequestCyclobenzaprine HCl 5 MG Tablet 1 tab Orally twice a day Irbesartan 300 MG Tablet TAKE 1 TABLET BY MOUTH EVERY DAY Triamcinolone Acetonide 0.1 % Cream APPLY TWICE DAILY TO TRUNK,ARMS,AND LEGS *APPLY MOISTURIZER AFTER *AVOID FACE/GROIN* External Cortisporin 0.5-0.5-93534 Cream 1 application to affected area Externally Twice a day Cyclobenzaprine HCl 5 MG Tablet 1 tablet at bedtime as needed Orally twice a day dexAMETHasone 2 MG Tablet TAKE 1 TABLET BY MOUTH THREE TIMES A DAY FOR 5 DAYS Oral Three times a day Ibuprofen 800 MG Tablet 1 tablet Orally Three times a day Medication List reviewed and reconciled with the patientNot-Taking/PRN oxyCODONE HCl 5 MG Tablet 1 tablet as needed Orally every 12 hours as needed. do not drive , Notes to Pharmacist: Partial Fill upon Patient RequestNot-Taking/PRN Cyclobenzaprine HCl 5 MG Tablet 1 tab Orally twice a day Not-Taking/PRN Irbesartan 300 MG Tablet TAKE 1 TABLET BY MOUTH EVERY DAY Not-Taking/PRN Triamcinolone Acetonide 0.1 % Cream APPLY TWICE DAILY TO TRUNK,ARMS,AND LEGS *APPLY MOISTURIZER AFTER *AVOID FACE/GROIN* External Not-Taking/PRN Cortisporin 0.5-0.5-87760 Cream 1 application to affected area Externally Twice a day Not-Taking/PRN Cyclobenzaprine HCl 5 MG Tablet 1 tablet at bedtime as needed Orally twice a day Not-Taking/PRN dexAMETHasone 2 MG Tablet TAKE 1 TABLET BY MOUTH THREE TIMES A DAY FOR 5 DAYS Oral Three times a day Not- Taking/PRN Ibuprofen 800 MG Tablet 1 tablet Orally Three times a day Medication List reviewed and reconciled with the patient * Allergies: p enicillin: rashSulfamethoxazole-Trimethoprim: swelling and rednessyes[Allergies Verified] Objective: * Vitals: H t: 68.25, Wt: 204, BMI:30.79, BP:122/64, Wt-k.53. * Examination: G eneral Examination: GENERAL APPEARANCE: a lert, well hydrated, in no distress.? HEAD: n ormocephalic. SKIN: g ood turgor. HEART: r egular rate and rhythm, no murmurs, rubs, gallops.? LUNGS: n o wheezes, rales, rhonchi, good air movement, clear to auscultation bilaterally. NEUROLOGIC: n ormal dorsiflexion. Assessment: * Assessment: 1. C onstipation - K59.00 (Primary) 2 . S ciatica - M54.30 Plan: * Treatment: 2. S elena I ing: CT lumbar spine wo con Notes: still having a lot of pain. getting injections of spine every 3 months/ order will be faxed over to [facility] [place] dept after PA * Procedure Codes: * Follow Up: a fter ct scan * * Sign off status: Completed true * Provider: Alexys Mahmood MD Date: 0 09/04/2024 Generated for Danial montez/[place] on: 1 03/25/2024 06:05 PM EST History and Physical Notes * HPI (History of Present Illness) Category Sub-Category Detail Notes Category Not es Symptom(s) patient is a 84 yo male here fornone week follow up visit. went to urgent care for constipatiion put him on colace. not taking any oxycodone. pain in back goes down leg. feel as though he is losing strength in arms Examination Category Sub-Category Detail Notes Category Not es General Examination GENERAL APPEARANCE: alert, w ell hydrated, in no distress HEAD: normocephalic HEART: regular rate and rhy thm, no murmurs, rubs, gallops LUNGS: no wheezes, rales, r honchi, good air movement, clear to auscultation bilaterally NEUROLOGIC: normal dorsiflexion SKIN: good turgor
--- OUTSIDE RECORDS SUMMARY | 2024-09-07 06:26 | XMS_ITS ---
Author Organization Gorge Mahmood MD Address [address] [place] [phone] Care Team Providers Care Red Hat Engineer Name Role Phone Gorge Mahmood Primary Care Provider REASON FOR VISIT CT Lumbar Encounters Encounter Location Date Provider Diagnosis Gorge Mahmood MD [address] [place] [phone] 09/07/2024 Gorge Mahmood Plan Of Treatment Next Appt Details Provider Name:Gorge anaya, 03/30/2025 07:30:00 AM, [address] [place] [address], Suite [facility], [place], [place], [phone], Provider Name:Gorge anaya, 04/06/2025 08:30:00 AM, [address] [place] [address], Suite [facility], [place], [place], [phone], Progress Notes * Chilango CASTANEDA GDOB: [birth year] (84 yo M)Acc No.[id number]:09/07/2024 Patient: Chilango SARABIA :1940 A ge:84 Y S ex:Male Address:[address] [place] [address] [place] [address] * true * Date: Generated for Danial montez/[place]/Annabellesmitting on: 03/25/2024 06:07 PM EST
--- OUTSIDE RECORDS SUMMARY | 2024-09-11 05:07 | XMS_ITS ---
Author Organization Gorge Mahmood MD Address [address] [place] [phone] Care Team Providers Care Store Associate Name Role Phone Gorge Mahmood Primary Care Provider [phone] REASON FOR VISIT ER Encounters Encounter Location Date Provider Diagnosis Gorge Mahmood MD [address] [place] [phone] 09/11/2024 Gorge Mahmood Plan Of Treatment Next Appt Details Provider Name:Gorge anaya, 03/30/2025 07:30:00 AM, [address] [place] [address], Suite [facility], [place], [place], [phone], Provider Name:Gorge anaya, 04/06/2025 08:30:00 AM, [address] [place] [address], Suite [facility], [place], [place], [phone], Progress Notes * Chilango CASTANEDA GDOB: [birth year] (84 yo M)Acc No.[id number]:09/11/2024 Patient: Chilango SARABIA :1940 A ge:84 Y S ex:Male Address:[address] [place] [address] [place] [address] * true * Date: Generated for Danial montez/Af[place]/Sonyaitting on: 03/25/2024 06:07 PM EST
--- OUTSIDE RECORDS SUMMARY | 2024-09-18 03:45 | XMS_ITS ---
Author Organization Gorge Mahmood MD Address [address] [place], [place] [phone] Care Team Providers Care Online Advertising Director Name Role Phone Gorge Mahmood Primary Care Provider Allergies Allergen (clinical drug ingredient) Drug/Non Drug Allergy documented on EMR Reaction Allergy Type Onset Date Status sulfamethoxazole / trimethoprim Sulfamethoxazole- Trimethoprim swelling and redness Drug Allergy Active penicillin (uncoded) rash Allergy Active REASON FOR VISIT 6 month, 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, I48.0 Paroxysmal atrial fibrillation,c/o bilateral leg edema Medications Medication SIG (Take, Route, Frequency, Duration) Notes Start Date End Date Status Cortisporin 0.5-0.5-61554 1 application to affected area Externally Twice a day for 30 days 01/10/2015 Not-Taking Triamcinolone Acetonide 0.1 % APPLY TWICE DAILY TO TRUNK,ARMS,AND LEGS *APPLY MOISTURIZER AFTER *AVOID FACE/GROIN* External for 25 Not-Taking Ibuprofen 800 MG 1 tablet Orally Three times a day for 30 day(s) 10/27/2011 Not-Taking dexAMETHasone 2 MG TAKE 1 TABLET BY MOUTH THREE TIMES A DAY FOR 5 DAYS Oral Three times a day for 3 days 11/13/2019 Not-Taking Cyclobenzaprine HCl 5 MG 1 tablet at bedtime as needed Orally twice a day for 10 days 11/13/2019 Not-Taking Cyclobenzaprine HCl 5 MG 1 tab Orally twice a day for 10 days 08/28/2024 Not-Taking oxyCODONE HCl 5 MG 1 tablet as needed Orally every 12 hours as needed. do not drive for 7 days Partial Fill upon Patient Request 08/28/2024 Not-Taking Irbesartan 300 MG TAKE 1 TABLET BY MOUTH EVERY DAY for 30 Not-Taking amLODIPine Besylate 5 MG TAKE 1 TABLET BY MOUTH EVERY DAY for 30 Active Furosemide 40 MG [id number] alternating with 2 tablets Orally Once a day Active Amiodarone HCl 200 MG 1 tablet Orally Once a day Active Allopurinol 300 MG TAKE 1 TABLET BY MOUTH EVERY DAY for 90 Active Doxazosin Mesylate 2 MG 1 tablet Orally Once a day for 30 day(s) Active Xarelto 20 MG 1 tablet with food Orally Once a day 01/10/2015 Active Finasteride 5 MG 1 tablet Orally Once a day Active Colace 100 MG 1 capsule as needed Orally Once a day Active Tylenol 8 Hour 650 MG 2 tablets as needed Orally every 8 hrs Active Problems Problem Type SNOMED Code ICD Code Onset Dates Problem Status W/U Status Risk Notes Problem Diverticulitis of colon (139758375) Diverticulitis large intestine (K57.32) Active confirmed Vital Signs Blood pressure systolic 118 mm Hg 09/19/19 25 Blood pressure diastolic 60 mm Hg 025 Height 68.25 in 09/18/2024 Weight 201 lbs 09/18/2024 BMI 30.34 kg/m2 09/18/2024 weight is down 3 pounds [facility] e 08-15-24 Encounters Encounter Location Date Provider Diagnosis Gorge Mahmood MD [address] [place], [place] [phone] 09/18/2024 Gorge Mahmood Leg edema R60.0 ; Diverticulitis large intestine K57.32 and Sciatica M54.30 Assessments Encounter Date Diagnosis (ICD Code) Assessment Notes Treatment Notes Treatment Clinical Notes Section Notes 09/18/2024 Leg edema (ICD-10 - R60.0) will stop the amlodipine. bp is fine, will continue to monitor 09/18/2024 Diverticulitis large intestine (ICD-10 - K57.32) doing well 09/18/2024 Sciatica (ICD-10 - M54.30) a little better. send back to pain maneagement/ patient will be calling to make his own appt Plan Of Treatment Treatment Notes Assessment Notes Leg edema will stop the amlodi pine. bp is fine, will continue to monitor Diverticulitis large intestine doing wel l Sciatica a little better. sen d back to pain maneagement/ patient will be calling to make his own appt Next Appt Details Follow Up: cancel sep appt,3 Months, Reason: Provider Name:Gorge anaya, 03/30/2025 07:30:00 AM, [address] [place] [address], [address], [place], [place], [phone], Provider Name:Gorge anaya, 04/06/2025 08:30:00 AM, [address] [place] [address], [address], [place], [place], [phone], Progress Notes * Chilango CASTANEDA GDOB: [birth year] (84 yo M)Acc No.[id number]:09/18/2024 Progress Notes Patient: Chilango SARABIA Provider: Alexys Mahmood MD :1940 A ge:84 Y S ex:Male Date:09/18/2024 Address:[address] [place], [place] [phone] Subjective: * Chief Complaints: * 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 * ROS: G eneral/Constitutional: Denies C hills. D enies F atigue. D enies F ever. D enies H eadache. E NT: Patient denies d ecreased sense of smell, any loss of taste, sore throat. D enies S ore throat. R espiratory: Denies C ough. D enies S hortness of breath at rest. D enies S hortness of breath with exertion. C ardiovascular: Denies C hest pain at rest. D enies C hest pain with exertion. D enies D izziness. A dmits F luid accumulation in the legs. D enies?Shortness of breath. G astrointestinal: Patient complaining of c /o left groin pain. D enies?Diarrhea. D enies N ausea. M usculoskeletal: Patient denies m uscle aches. P eripheral Vascular: Patient denies r ed and blue toes. * Medical History: * Surgical History: * [...] Once a day Furosemide 40 MG Tablet [id number] alternating with 2 tablets Orally Once a [...] a day Taking Furosemide 40 MG Tablet [id number] alternating with 2 tablets Orally Once a [...] *APPLY MOISTURIZER AFTER *AVOID FACE/GROIN* External Cortisporin 0.5-0.5-44520 Cream 1 application to affected area Externally [...] MOISTURIZER AFTER *AVOID FACE/GROIN* External Not-Taking/PRN Cortisporin 0.5-0.5-07336 Cream 1 application to affected area Externally [...] Objective: * Vitals: H t: 68.25, Wt: 201, BMI:30.34, BP:118/60, Wt-k.17. weight is down 3 pounds since 08-15-24. * Examination: G eneral Examination: GENERAL APPEARANCE: a lert, well hydrated, in no distress.? HEAD: n ormocephalic. SKIN: g ood turgor. HEART: r egular rate and rhythm, no murmurs, rubs, gallops.? LUNGS: n o wheezes, rales, rhonchi, good air movement, clear to auscultation bilaterally. ABDOMEN: s oft, nontender, nondistended. ? Assessment: * Assessment: 1. L eg edema - R60.0 (Primary) 2 . D iverticulitis large intestine - K57.32 3 . S ciatica - M54.30 Plan: * Treatment: 2. D iverticulitis large intestine Notes: doing well 3. S ciatica Notes: a little better. send back to pain maneagement/ patient will be calling to make his own appt * Procedure Codes: * Follow Up: rojelio reddy appt,3 Months * * Sign off status: Completed true * Provider: Alexys Mahmood MD Date: 0 09/18/2024 Generated for Danial montez/[place]/eTransmitting on: 1 03/25/2024 06:08 PM EST History and Physical Notes * HPI (History of Present Illness) Category Sub-Category Detail Notes Category Not es Symptom(s) patient is a 84 yo male here for 6 month follow up visit Examination Category Sub-Category Detail Notes Category Not es General Examination GENERAL APPEARANCE: alert, w ell hydrated, in no distress HEAD: normocephalic HEART: regular rate and rhy thm, no murmurs, rubs, gallops LUNGS: no wheezes, rales, r honchi, good air movement, clear to auscultation bilaterally ABDOMEN: soft, nontender, non distended SKIN: good turgor
--- OUTSIDE RECORDS SUMMARY | 2024-09-25 03:47 | XMS_ITS ---
Author Organization Gorge Mahmood MD Address [address] [place] [phone] Care Team Providers Care Tissue Technician Name Role Phone Gorge Mahmood Primary Care Provider REASON FOR VISIT Diarrhea x 3 days Encounters Encounter Location Date Provider Diagnosis Gorge Mahmood MD [address] [place] [phone] 09/25/2024 Gorge Mahmood Plan Of Treatment Next Appt Details Provider Name:Gorge anaya, 03/30/2025 07:30:00 AM, [address] [place] [address], Suite [facility], [place], [place], [phone], Provider Name:Gorge anaya, 04/06/2025 08:30:00 AM, [address] [place] [address], Suite [facility], [place], [place], [phone], Progress Notes * Chilango CASTANEDA GDOB: [birth year] (84 yo M)Acc No.[id number]:09/25/2024 Patient: Chilango SARABIA :1940 A ge:84 Y S ex:Male Address:[address] [place] [address] Jorge [facility] [place] [address] * true * Date: Generated for Danial montez/Af[place]/Sonyaitting on: 03/25/2024 06:06 PM EST
--- OUTSIDE RECORDS SUMMARY | 2024-09-25 04:51 | XMS_ITS ---
Author Organization Gorge Mahmood MD Address [address] [place] [phone] Care Team Providers Care Car Inspector Name Role Phone Gorge Mahmood Primary Care Provider REASON FOR VISIT ER visit rec'd Encounters Encounter Location Date Provider Diagnosis Gorge Mahmood MD [address] [place] [phone] 09/25/2024 Gorge Mahmood Plan Of Treatment Next Appt Details Provider Name:Gorge anaya, 03/30/2025 07:30:00 AM, [address] [place] [address], Suite [facility], [place], [place], [phone], Provider Name:Gorge anaya, 04/06/2025 08:30:00 AM, [address] [place] [address], Suite [facility], [place], [place], [phone], Progress Notes * Chilango CASTANEDA GDOB: [birth year] (84 yo M)Acc No.[id number]:09/25/2024 Patient: Chilango SARABIA :1940 A ge:84 Y S ex:Male Address:[address] [place] [address] [place] [address] * true * Date: Generated for Danial montez/Africa/Annabellesmitting on: 03/25/2024 06:06 PM EST
--- OUTSIDE RECORDS SUMMARY | 2024-09-25 07:45 | XMS_ITS ---
Author Organization Gorge Mahmood MD Address [address] [place], [place] [id number] Care Team Providers Care Head Of Digital Advertising & Integration Name Role Phone Gorge Mahmood Primary Care Provider Allergies Allergen (clinical drug ingredient) Drug/Non Drug Allergy documented on EMR Reaction Allergy Type Onset Date Status sulfamethoxazole / trimethoprim Sulfamethoxazole- Trimethoprim swelling and redness Drug Allergy Active penicillin (uncoded) rash Allergy Active REASON FOR VISIT Post ER Visit diarrhea, Audio [phone] Medications Medication SIG (Take, Route, Frequency, Duration) Notes Start Date End Date Status Cyclobenzaprine HCl 5 MG 1 tablet at bedtime as needed Orally twice a day for 10 days 11/13/2019 Not-Taking dexAMETHasone 2 MG TAKE 1 TABLET BY MOUTH THREE TIMES A DAY FOR 5 DAYS Oral Three times a day for 3 days 11/13/2019 Not-Taking Triamcinolone Acetonide 0.1 % APPLY TWICE DAILY TO TRUNK,ARMS,AND LEGS *APPLY MOISTURIZER AFTER *AVOID FACE/GROIN* External for 25 Not-Taking Cortisporin 0.5-0.5-78009 1 application to affected area Externally Twice a day for 30 days 01/10/2015 Not-Taking Ibuprofen 800 MG 1 tablet Orally Three times a day for 30 day(s) 10/27/2011 Not-Taking Cyclobenzaprine HCl 5 MG 1 tab Orally twice a day for 10 days 08/28/2024 Not-Taking Irbesartan 300 MG TAKE 1 TABLET BY MOUTH EVERY DAY for 30 Not-Taking oxyCODONE HCl 5 MG 1 tablet as needed Orally every 12 hours as needed. do not drive for 7 days Partial Fill upon Patient Request 08/28/2024 Not-Taking Furosemide 40 MG [id number] alternating with 2 tablets Orally Once a day Active amLODIPine Besylate 5 MG TAKE 1 TABLET BY MOUTH EVERY DAY for 30 Active Finasteride 5 MG 1 tablet Orally Once a day Active Xarelto 20 MG 1 tablet with food Orally Once a day 01/10/2015 Active Doxazosin Mesylate 2 MG 1 tablet Orally Once a day for 30 day(s) Active Allopurinol 300 MG TAKE 1 TABLET BY MOUTH EVERY DAY for 90 Active Amiodarone HCl 200 MG 1 tablet Orally Once a day Active Tylenol 8 Hour 650 MG 2 tablets as needed Orally every 8 hrs Active Colace 100 MG 1 capsule as needed Orally Once a day Active Dicyclomine HCl 20 MG 1 tablet Orally Three times a day Active Vital Signs Height 68.25 in 09/25/2024 Weight 200 lbs 09/25/2024 BMI 30.18 kg/m2 09/25/2024 weight is 200 at home BP not taken Encounters Encounter Location Date Provider Diagnosis Gorge Mahmood MD [address] [place] [address] Drive [address] [place] [phone] 09/25/2024 Gorge Mahmood Diarrhea R19.7 Assessments Encounter Date Diagnosis (ICD Code) Assessment Notes Treatment Notes Treatment Clinical Notes Section Notes 09/25/2024 Diarrhea (ICD-10 - R19.7) order faxed to [facility] [place] patient reg Plan Of Treatment Treatment Notes Assessment Notes Diarrhea order faxed to [facility] [place] p atient reg Pending Test Test Name Order Date CLOSTRIDIUM DIFF TOXIN A&B (C DIFF) 09/08 Next Appt Details Provider Name:Gorge anaya, 03/30/2025 07:30:00 AM, [address], [address], [place], [place], [phone], Provider Name:Gorge Boothe ier, 04/06/2025 08:30:00 AM, [address], [address], [place], [place], [phone], Progress Notes * Chilango CASTANEDA GDOB: [birth year] (84 yo M)Acc No.[id number]:09/25/2024 Patient: Chilango SARABIA Provider: Alexys Mahmood MD :1940 A ge:84 Y S ex:Male Date:09/25/2024 Address:[place], [id number] Subjective: * Chief Complaints: * P ost ER Visit diarrheaAudio [phone] * HPI: S ymptom(s): Telehealth L ocation of provider rendering services: [address], [address], L ocation of patient: a t address listed in demographics for today's visit, P atient identification confirmed using: ALAN Yarbrough ame, T elehealth method: T elephone only. Patient not visible to care provider., C onsent: P atient verbally consented to treatment, Patient verbally consented to billing insurance company, Patient informed of any privacy concerns related to method of visit, T otal time spend talking with patient (minutes) 1 8. patient is a 84 yo male audio telehealth visit, with complaint of having diarrhea very badly. 3 days ago went to er. * ROS: G eneral/Constitutional: Denies C hills. D enies F atigue. D enies F ever. D enies H eadache. E NT: Denies S ore throat. R espiratory: Denies C ough. D enies S hortness of breath at rest. D enies S hortness of breath with exertion. G astrointestinal: Denies A bdominal pain. D enies B lood in stool.?Admits D iarrhea. D enies N ausea. D enies V omiting. * Medical History: * Surgical History: * Hospitalization/Major Diagno stic Procedure: * Medications: T akingDicyclomine HCl 20 MG Tablet 1 tablet Orally Three times a day Colace 100 MG Capsule 1 capsule as [...] Once a day Furosemide 40 MG Tablet [id number] alternating with 2 tablets Orally Once a day amLODIPine Besylate 5 MG Tablet TAKE 1 TABLET BY MOUTH EVERY DAY Taking Dicyclomine HCl 20 MG Tablet 1 tablet Orally Three times a day Taking Colace 100 MG Capsule 1 capsule [...] a day Taking Furosemide 40 MG Tablet [id number] alternating with 2 tablets Orally Once a [...] *APPLY MOISTURIZER AFTER *AVOID FACE/GROIN* External Cortisporin 0.5-0.5-12813 Cream 1 application to affected area Externally [...] MOISTURIZER AFTER *AVOID FACE/GROIN* External Not-Taking/PRN Cortisporin 0.5-0.5-45719 Cream 1 application to affected area Externally [...] Objective: * Vitals: H t: 68.25, Wt: 200, BMI:30.18, Wt-k.72. weight is 200 at home BP not taken. Assessment: * Assessment: 1. D iarrhea - R19.7 (Primary) Plan: * Treatment: * Procedure Codes: * * Sign off status: Completed true * Provider: Alexys Mahmood MD Date: 0 09/25/2024 Generated for Danial montez/[place] on: 1 03/25/2024 06:06 PM EST History and Physical Notes * HPI (History of Present Illness) Category Sub-Category Detail Notes Category Not es Symptom(s) Telehealth Location of [facility] rendering services:: [address], [address] patient is a 84 yo male audio telehealth visit, with complaint of having diarrhea very badly. 3 days ago went to er Location of patient:: at address listed in demographics for today's visit Patient identification confirmed using:: Name, Telehealth method:: Telephone only. Lorri ent not visible to care provider. Consent:: Patient verbally c onsented to treatment, Patient verbally consented to billing insurance company, Patient informed of any privacy concerns related to method of visit Total time spend talking with patient (m inutes): 18
--- OUTSIDE RECORDS SUMMARY | 2024-12-25 04:00 | XMS_ITS ---
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 [employer] Name Role Phone Gorge Mahmood Primary Care Provider Allergies Allergen (clinical drug ingredient) Drug/Non Drug Allergy documented on EMR Reaction Allergy Type Onset Date Status sulfamethoxazole / trimethoprim Sulfamethoxazole- Trimethoprim swelling and redness Drug Allergy Active penicillin (uncoded) rash Allergy Active REASON FOR VISIT 3 month Medications Medication SIG (Take, Route, Frequency, Duration) Notes Start Date End Date Status Xarelto 20 MG 1 tablet with food Orally Once a day 01/10/2015 Active Cyclobenzaprine HCl 5 MG 1 tablet at bedtime as needed Orally twice a day for 10 days 11/13/2019 Not-Taking Cortisporin 0.5-0.5-67014 1 application to affected area Externally Twice [...] TAKE 1 TABLET BY MOUTH EVERY DAY Active oxyCODONE HCl 5 MG 1 tablet as needed Orally every 12 hours as needed. do not drive for 7 days Partial Fill upon Patient Request 08/28/2024 Not-Taking Irbesartan 300 MG TAKE 1 TABLET BY MOUTH EVERY DAY Active Triamcinolone Acetonide 0.1 % APPLY TWICE DAILY TO TRUNK,ARMS,AND LEGS *APPLY MOISTURIZER AFTER *AVOID FACE/GROIN* External for 25 Not-Taking Cyclobenzaprine HCl 5 MG 1 tab Orally twice a day for 10 days 08/28/2024 Not-Taking Furosemide 40 MG [id number] alternating with 2 tablets Orally Once a day Active amLODIPine Besylate 5 MG TAKE 1 TABLET BY MOUTH EVERY DAY for 30 Not-Taking Finasteride 5 MG 1 tablet Orally Once a day Active Doxazosin Mesylate 2 MG 1 tablet Orally Once a day for 30 day(s) Active Amiodarone HCl 200 MG 1 tablet Orally Once a day Not-Taking Dicyclomine HCl 20 MG 1 tablet Orally Three times a day Not-Taking Lidocaine & Adhesive Sheets 5 % (Patch) as directed Externally Active Tylenol 8 Hour 650 MG 2 tablets as needed Orally every 8 hrs Active Colace 100 MG 1 capsule as needed Orally Once a day Not-Taking Immunizations Vaccine Route Administration Date Status Comme nts Fluarix Quadrivalent - 150 IM Intramuscular 12/25/2024 Adm inistered Vital Signs Blood pressure systolic 138 mm Hg 12/26/19 25 Blood pressure diastolic 76 mm Hg 025 Height 68.25 in 12/25/2024 Weight 191 lbs 12/25/2024 BMI 28.83 kg/m2 12/25/2024 weight is down 9 pounds [facility] e 09-25-24 Encounters Encounter Location Date Provider Diagnosis Gorge Mahmood MD [address] [place], [place] [id number] 12/25/2024 Gorge Mahmood Encounter for administration of vaccine Z23 ; Essential hypertension I10 ; History of gout Z87.39 and History of atrial fibrillation Z86.79 Assessments Encounter Date Diagnosis (ICD Code) Assessment Notes Treatment Notes Treatment Clinical Notes Section Notes 12/25/2024 Encounter for administration of vaccine (ICD-10 - Z23) 12/25/2024 Essential hypertension (ICD-10 - I10) doing well on meds 12/25/2024 History of gout (ICD-10 - Z87.39) doing well no attacks 12/25/2024 History of atrial fibrillation (ICD-10 - Z86.79) Plan Of Treatment Medication Medication Name Sig Start Date Stop Date Notes Xarelto 20 MG 1 tablet with food Orally Once a day 015 Allopurinol 300 MG TAKE 1 TABLET BY MOUTH EVERY DAY Irbesartan 300 MG TAKE 1 TABLET BY MOUTH EVERY DAY Furosemide 40 MG [id number] alternating with 2 tablets Orally Once a day Treatment Notes Assessment Notes Essential hypertension doing well on med s History of gout doing well no attack s Next Appt Details Provider Name:Gorge anaya, 03/30/2025 07:30:00 AM, [address] [place] [address], [address], [id number], Provider Name:Gorge anaya, 04/06/2025 08:30:00 AM, [address] [place] [address], [place] [address], [place], [place], [phone], Progress Notes * Chilango CASTANEDA GDOB: [birth year] (84 yo M)Acc No.[id number]:12/25/2024 Progress Notes Patient: Chilango SARABIA Provider: Alexys Mahmood MD :1940 A ge:84 Y S ex:Male Date:12/25/2024 Address:[address] [place], [place] [id number] Subjective: * Chief Complaints: * 3 month * HPI: S ymptom(s): patient is a 84yo male here for 3 month follow up visit/ has lost a little weight. still working. no gout and still with swelling in his legs. * ROS: G eneral/Constitutional: Denies C hills. D enies F atigue. D enies F ever. D enies H eadache. E NT: Denies S ore throat. R espiratory: Denies C ough. D enies S hortness of breath at rest. D enies S hortness of breath with exertion. C ardiovascular: Denies C hest pain at rest. D enies C hest pain with exertion. D enies P alpitations. A dmits S hortness of breath. G astrointestinal: Denies A bdominal pain. D enies C onstipation. D enies D iarrhea. D enies N ausea. * Medical History: * Surgical History: * Hospitalization/Major Diagno stic Procedure: * Medications: T akingLidocaine & Adhesive Sheets 5 % (Patch) Kit as directed Externally Tylenol 8 Hour 650 MG Tablet Extended Release 2 tablets as needed Orally every 8 hrs Doxazosin Mesylate 2 MG Tablet 1 tablet Orally Once a day Finasteride 5 MG Tablet 1 tablet Orally Once a day Xarelto 20 MG Tablet 1 tablet with food Orally Once a day Furosemide 40 MG Tablet [id number] alternating with 2 tablets Orally Once a day Irbesartan 300 MG Tablet TAKE 1 TABLET BY MOUTH EVERY DAY Allopurinol 300 MG Tablet TAKE 1 TABLET BY MOUTH EVERY DAY Taking Lidocaine & Adhesive Sheets 5 % (Patch) Kit as directed Externally Taking Tylenol 8 Hour 650 MG Tablet Extended Release 2 tablets as needed Orally every 8 hrs Taking Doxazosin Mesylate 2 MG Tablet 1 tablet Orally Once a day Taking Finasteride 5 MG Tablet 1 tablet Orally Once a day Taking Xarelto 20 MG Tablet 1 tablet with food Orally Once a day Taking Furosemide 40 MG Tablet [id number] alternating with 2 tablets Orally Once a day Taking Irbesartan 300 MG Tablet TAKE 1 TABLET BY MOUTH EVERY DAY Taking Allopurinol 300 MG Tablet TAKE 1 TABLET BY MOUTH EVERY DAY Not-Taking/PRNDicyclomine HCl 20 MG Tablet 1 tablet Orally Three times a day Colace 100 MG Capsule 1 capsule as needed Orally Once a day Amiodarone HCl 200 MG Tablet 1 tablet Orally Once a day amLODIPine Besylate 5 MG Tablet TAKE 1 TABLET BY MOUTH EVERY DAY oxyCODONE HCl 5 MG Tablet 1 tablet as needed Orally every 12 hours as needed. do not drive , Notes to Pharmacist: Partial Fill upon Patient RequestCyclobenzaprine HCl 5 MG Tablet 1 tab Orally twice a day Triamcinolone Acetonide 0.1 % Cream APPLY TWICE DAILY TO TRUNK,ARMS,AND LEGS *APPLY MOISTURIZER AFTER *AVOID FACE/GROIN* External Cortisporin 0.5-0.5-66754 Cream 1 application to affected area Externally [...] List reviewed and reconciled with the patientNot-Taking/PRN Dicyclomine HCl 20 MG Tablet 1 tablet Orally Three times a day Not-Taking/PRN Colace 100 MG Capsule 1 capsule as needed Orally Once a day Not-Taking/PRN Amiodarone HCl 200 MG Tablet 1 tablet Orally Once a day Not- Taking/PRN amLODIPine Besylate 5 MG Tablet TAKE 1 TABLET BY MOUTH EVERY DAY Not-Taking/PRN oxyCODONE HCl 5 MG Tablet 1 tablet as needed Orally every 12 hours as needed. do not drive , Notes to Pharmacist: Partial Fill upon Patient RequestNot-Taking/PRN Cyclobenzaprine HCl 5 MG Tablet 1 tab Orally twice a day Not-Taking/PRN Triamcinolone Acetonide 0.1 % Cream APPLY TWICE DAILY TO TRUNK,ARMS,AND LEGS *APPLY MOISTURIZER AFTER *AVOID FACE/GROIN* External Not-Taking/PRN Cortisporin 0.5-0.5-11489 Cream 1 application to affected area Externally Twice a day Not-Taking/PRN Cyclobenzaprine HCl 5 MG Tablet 1 tablet at bedtime as needed Orally twice a day Not-Taking/PRN dexAMETHasone 2 MG Tablet TAKE 1 TABLET BY MOUTH THREE TIMES A DAY FOR 5 DAYS Oral Three times a day Not-Taking/PRN Ibuprofen 800 MG Tablet 1 tablet Orally Three times a day Medication List reviewed and reconciled with the patient * Allergies: p enicillin: rashSulfamethoxazole-Trimethoprim: swelling and rednessyes[Allergies Verified] Objective: * Vitals: H t: 68.25, Wt: 191, BMI:28.83, BP:138/76, Wt-k.64. weight is down 9 pounds since 09-25-24. * Examination: G eneral Examination: GENERAL APPEARANCE: a lert, well hydrated, in no distress.? HEAD: n ormocephalic. SKIN: g ood turgor. HEART: r egular rate and rhythm, no murmurs, rubs, gallops.? LUNGS: n o wheezes, rales, rhonchi, good air movement, clear to auscultation bilaterally. EXTREMITIES: 1 + pitting edema lower extremities. ? Assessment: * Assessment: 1. E ssential hypertension - I10 (Primary) 2 . E ncounter for administration of vaccine - Z23 3 . H istory of gout - Z87.39 4 . H istory of atrial fibrillation - Z86.79 Plan: * Treatment: 2. H istory of gout Continue Allopurinol Tablet, 300 MG, TAKE 1 TABLET BY MOUTH EVERY DAY. Notes: doing well no attacks 3. H istory of atrial fibrillation Continue Xarelto Tablet, 20 MG, 1 tablet with food, Orally, Once a day. * Immunizations: Fluarix Quadrivalent - 150 : 0.5 mL (Dose No:1) (Route: Intramuscular) given by Shannan Alcaraz , Office Staff on Left Deltoid * Procedure Codes: 9 0656 FLU VACCINE NO PRESERV 3 & >G0008 ADMN FLU VAC NO FEE SCHED SAME DAY * Preventive Medicine: Immunizations: I nfluenza H ave you had a flu shot since the most recent October 09? Y es. * * Sign off status: Completed true * Provider: Alexys Mahmood MD Date: 02/25/2024 Generated for Danial montez/[place]oy[place] on: 03/25/2024 06:05 PM EST History and Physical Notes * HPI (History of Present Illness) Category Sub-Category Detail Notes Category Not es Symptom(s) patient is a 84 yo male here for 3 month follow up visit/ has lost a little weight. still working. no gout and still with swelling in his legs. Examination Category Sub-Category Detail Notes Category Not es General Examination GENERAL APPEARANCE: alert, w ell hydrated, in no distress HEAD: normocephalic HEART: regular rate and rhy thm, no murmurs, rubs, gallops LUNGS: no wheezes, rales, r honchi, good air movement, clear to auscultation bilaterally SKIN: good turgor EXTREMITIES: 1+ pitting edema low er extremities
--- OUTSIDE RECORDS SUMMARY | 2025-01-22 18:06 | XMS_ITS | Patient Health Record ---
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, with unspecified presence of clinical manifestation (I70.203) Active confirmed Vital Signs Blood pressure diastolic 80 mm Hg 10/25/2024 Height 5 ft 9 in in 10/25/2024 Blood pressure systolic 150 mm Hg 10/25/2024 Weight 195 lbs 10/25/2024 BMI 28.79 kg/m2 10/25/2024 Encounters Encounter Location Date Provider Diagnosis [address] [address] 04/26/2024 Nida Perica Pain in left foot M79.672 ; Metatarsalgia, left foot M77.42 ; Atherosclerosis of wainwright artery of both lower extremities, with unspecified presence of clinical manifestation I70.203 ; Tinea unguium B35.1 ; Pain in right toe(s) M79.674 ; Pain in left toe(s) M79.675 and Pain in left ankle and joints of left foot M25.[address] [address] 07/26/2024 Nida Perica Metatarsalgia, left foot M77.42 ; Subungual hematoma of left foot, initial encounter S90.222A ; Pain in left foot M79.672 ; Atherosclerosis of wainwright artery of both lower extremities, with unspecified presence of clinical manifestation I70.203 ; Tinea unguium B35.1 ; Pain in right toe(s) M79.674 ; Pain in left toe(s) M79.675 and Pain in left ankle and joints of left foot M25.[address] [address] 10/25/2024 Nida Perica Pain in left toe(s) M79.675 ; Tinea unguium B35.1 ; Pain in right toe(s) M79.674 and Atherosclerosis of wainwright artery of both lower extremities, with unspecified presence of clinical manifestation I70.[address] [address] 07/26/2024 Nida Perica Assessments Encounter Date Diagnosis (ICD Code) Assessment [...] 04/26/2024 Metatarsalgia, left foot (ICD-10 - M77.42) 07/26/2024 Atherosclerosis of wainwright artery of both lower extremities, with unspecified presence of clinical manifestation (ICD-10 - I70.203) 10/25/2024 Atherosclerosis of wainwright artery of both lower extremities, with unspecified presence of clinical manifestation (ICD-10 - I70.203) 04/26/2024 Atherosclerosis of wainwright artery of both lower extremities, with unspecified presence of clinical manifestation (ICD-10 - I70.203) 04/26/2024 Tinea unguium (ICD-10 - B35.1) 07/26/2024 Tinea unguium (ICD-10 - B35.1) 04/26/2024 Pain [...] Provider Name:Nida serrano, 01/26/2025 09:15:00 AM, [address] [facility], [place], [address], Insurance Providers Payer Name Payer Address Payer Phone Subscriber Number Group Number Insured Name Patient Relationship to Insured Coverage Start Date Coverage End Date [employer] [address] [place] [id number] Chilango Castaneda Self - patient is the insured 4 Medical (General) History Medical History History ICD Code Back,Hip,and Knee pain Gout Heart disease High blood pressure Psoriasis/eczema Surgical History Surgery Date(Month/Year) spine surgery 2021 appendectomy
--- OUTSIDE RECORDS SUMMARY | 2025-01-22 18:06 | XMS_ITS | Patient Health Record ---
Author Organization Gorge Mahmood MD Address [address] [place], [place] [id number] Care Team Providers Care Ships Or Barges Loader Name Role Phone Gorge Mahmood Primary Care Provider Allergies Allergen (clinical drug ingredient) Drug/Non Drug Allergy documented on EMR Reaction Allergy Type Onset Date Status sulfamethoxazole / trimethoprim Sulfamethoxazole- Trimethoprim swelling and redness Drug Allergy Active penicillin (uncoded) rash Allergy Active Results Component Value Reference Range Notes Complete Blood Count Auto Di ff Reviewed date:03/30/2024 09:56:33 AM Interpretation: Performing Lab:[facility], [address] [place] [phone] Notes/Report: White Blood Count 5.6 4.8-10.8 X10*3/uL [...] NRBC Abs Auto 0.000 0.0-0.012 X10*3/uL Comprehensive [place]. Panel Fa st Reviewed date:03/28/2024 05:01:16 PM Interpretation: Performing Lab:[facility], [address] [place] [phone] Notes/Report: Sodium 141 135-145 mmol/L Potassium 4.0 [...] Panel Reviewed date:03/28/2024 12:36:21 PM Interpretation: Performing Lab:[facility], [address] [place] [phone] Notes/Report: Triglycerides 72 <150 mg/dL Desirable Triglyceride: [...] (Free>4and<10) Reviewed date:03/28/2024 12:38:01 PM Interpretation: Performing Lab:[facility], [address] [place] [phone] Notes/Report: PSA,Total (Free>4and<10) 1.15 0.00-4.00 ng/mL A [...] Random Reviewed date:03/28/2024 12:37:41 PM Interpretation: Performing Lab:[facility], [address] [place] [phone] Notes/Report: Creatinine Urine 133.89 Microalbumin Urine < 5.0 Microalbum/Creatinine Ratio Ur TNP <30 ug/mg cr Unable to calculate albumin/creatinine ratio due to low microalbumin or creatinine result. Hemoglobin A1c Reviewed date:03/28/2024 12:44:45 PM Interpretation: Performing Lab:[facility], [address] [place] [phone] Notes/Report: Hemoglobin A1c % 5.1 <6.0 % [...] average glucose, using the formula of the B8T-Ikjpyok Average Glucose study (ADAG), Diabetes Care, Vol.31,#8, Sep. 2007 UA ClnCatch+Micro w/rflx Cul t Reviewed date:03/28/2024 05:01:31 PM Interpretation: Performing Lab:[address] [phone] Notes/Report: [id number] Urine, Clean Catch Color Urine Yellow Appearance Urine Clear PH 6.0 5.0-9.0 Glucose Urine UA Negative Negative mg/dL Urine Blood Negative Negative Specific [place] - Urine 1.020 1.005-1.025 Urine Protein Negative [...] ff Reviewed date:06/20/2024 12:51:23 PM Interpretation: Performing Lab:[facility], [address] [place] [phone] Notes/Report: White Blood Count 7.8 4.8-10.8 X10*3/uL [...] Panel Reviewed date:02/25/2024 02:48:48 PM Interpretation: Performing Lab:[facility], [address] [place] [phone] Notes/Report: Sodium 142 135-145 mmol/L Potassium 4.1 [...] Peptide Reviewed date:02/23/2024 10:11:20 AM Interpretation: Performing Lab:[facility], [address] [place] [phone] Notes/Report: B Type Natriuretic Peptide 126 <100 pg/mL For those patients who are being treated with Natrecor (nesiritide, recombinant BNP), BNP testing should be performed at least two hours post treatment in order to ensure that only endogenous levels of BNP are detected. TSH reflex Free T4 Reviewed date:02/24/2024 05:28:58 PM Interpretation: Performing Lab:[facility], [address] [place] [phone] Notes/Report: TSH reflex Free T4 1.03 0.32-4.0 uIU/mL Complete Blood Count Auto Di ff Reviewed date:09/10/2024 01:45:04 PM Interpretation: Performing Lab:[address] [address] Notes/Report: White Blood Count 9.0 4.8-10.8 X10*3/uL [...] Panel Reviewed date:09/10/2024 01:45:24 PM Interpretation: Performing Lab:[facility], [address] [place] [phone] Notes/Report: Sodium 140 135-145 mmol/L Potassium 3.3 [...] Lipase Reviewed date:09/10/2024 01:45:34 PM Interpretation: Performing Lab:[facility], [address] [place] [address] Notes/Report: Lipase 10 8-78 U/L CT abdomen pelvis wo con Reviewed date:09/10/2024 01:44:11 PM Interpretation: Performing Lab: Notes/Report: [facility] [address] [place] [address] CT Scan Report Signed Patient: Chilango Castaneda MR#: [id number] : 1940 Acct:[id number] Age/Sex: 84 / M ADM Date: 09/09/24 Loc: HO.ED Attending Dr: Ordering Physician: Adi Pulido MD Date of Service: 09/09/24 Procedure(s): CT abdomen pelvis wo IV con Accession Number(s): [id number] cc: Gorge Mahmood MD; Adi Pulido MD Report Number: [id number]: Total DLP = 526.00 mGy-cm CLINICAL HISTORY: [...] in OV> 09/09/241738 DD/ 37 TD/TT: 09/09/241737 Stratigraphy Teacher: [address] [address] [place] Scan Report Signed Patient: Cynthia Castaneda MR#: [id number] : 1940 Acct:[id number] Age/Sex: 84 / M ADM Date: 09/09/24 Loc: HO.ED Attending Dr: Ordering Physician: Adi Pulido MD Date of Service: 09/09/24 Procedure(s): CT abd omen pelvis wo IV con Accession Number(s): [id number] cc: Gorge Mahmood MD; Adi Pulido MD [...] in OV> 09/09/241738 DD/ 37 TD/TT: 09/09/241737 Stratigraphy Teacher: Complete Blood Count Auto Di ff Reviewed date:09/22/2024 12:42:05 PM Interpretation: Performing Lab:[address] [address] Notes/Report: White Blood Count 4.6 4.8-10.8 X10*3/uL [...] INR Reviewed date:09/22/2024 12:32:45 PM Interpretation: Performing Lab:[facility], [address] [place] [phone] Notes/Report: Prothrombin Time 28.3 10.9-12.4 SEC INTERNATIONAL [...] Panel Reviewed date:09/22/2024 12:32:27 PM Interpretation: Performing Lab:[facility], [address] [place] [phone] Notes/Report: Sodium 143 135-145 mmol/L Potassium 3.3 [...] Sensitivity Reviewed date:09/22/2024 12:32:03 PM Interpretation: Performing Lab:[facility], [address] [place] [phone] Notes/Report: Troponin-I High Sensitivity 16.5 <3.5-35.0 ng/L The [place] high sensitivity Troponin-I results should be used in conjunction with other diagnostic information such as ECG, clinical observations and information, and patient symptoms to aid in the diagnosis of CO. B Type Natriuretic Peptide Reviewed date:09/22/2024 12:32:35 PM Interpretation: Performing Lab:[facility], [address] [place] [phone] Notes/Report: B Type Natriuretic Peptide 64 <100 pg/mL SARS-CoV2/FLU/RSV Reviewed date:09/22/2024 12:30:53 PM Interpretation: Performing Lab:[facility], [address] [place] [phone] Notes/Report: Influenza A PCR NEGATIVE Negative Influenza [...] by authorized laboratories. Testing performed on the [employer] GeneXpert utilizing real-time RT-PCR. All SARS CoV2 and positive influenza A/B results are reported to [facility]. XR chest 2V Reviewed date:09/22/2024 12:31:45 PM Interpretation: Performing Lab: Notes/Report: [address] [address] XRay Report Signed Patient: Chilango Castaneda MR#: [id number] : 1940 Acct:[id number] Age/Sex: 84 / M ADM Date: 09/22/24 Loc: .ED Attending Dr: Ordering Physician: Generic ED Physician Date of Service: 09/22/24 Procedure(s): XR chest 2V Accession Number(s): [id number] cc: Gorge Mahmood MD; Generic ED Physician [...] in OV> 09/22/24940 DD/ 7 TD/TT: 09/22/24932 Stratigraphy Teacher: [address] [address] XRay Report Signed Patient: Cynthia Castaneda MR#: [id number] : 1940 Acct:[id number] Age/Sex: 84 / M ADM Date: 09/22/24 Loc: .ED Attending Dr: Ordering Physician: Generic ED Physician Date of Service: 09/22/24 Procedure(s): XR chest 2V Accession Number(s): [id number] cc: Gorge Mahmood MD; Generic ED Physician [...] in OV> 09/22/24940 DD/ 7 TD/TT: 09/22/24932 Stratigraphy Teacher: Complete Blood Count Auto Di ff Reviewed date:11/21/2024 12:43:17 PM Interpretation: Performing Lab:[facility], [address] [place] [phone] Notes/Report: White Blood Count 5.0 4.8-10.8 X10*3/uL [...] INR Reviewed date:11/21/2024 12:32:34 PM Interpretation: Performing Lab:[address] [address] Notes/Report: Prothrombin Time 18.0 10.9-12.4 SEC INTERNATIONAL [...] Time Reviewed date:11/21/2024 12:33:18 PM Interpretation: Performing Lab:[facility], [address] [place] [phone] Notes/Report: Partial Thromboplastin Time 32.1 26.7-34.1 SEC Basic Metabolic Panel Reviewed date:11/21/2024 12:38:31 PM Interpretation: Performing Lab:[facility], [address] [place] [phone] Notes/Report: Sodium 143 135-145 mmol/L Potassium 3.6 [...] Sensitivity Reviewed date:11/21/2024 12:30:27 PM Interpretation: Performing Lab:[facility], [address] [place] [phone] Notes/Report: Troponin-I High Sensitivity 8.1 <3.5-35.0 ng/L The [place] high sensitivity Troponin-I results should be used in conjunction with other diagnostic information such as ECG, clinical observations and information, and patient symptoms to aid in the diagnosis of CO. Lipid Panel Reviewed date:11/21/2024 12:32:43 PM Interpretation: Performing Lab:[facility], [address] [place] [phone] Notes/Report: Triglycerides 71 <150 mg/dL Desirable Triglyceride: [...] Blood Reviewed date:11/21/2024 12:32:59 PM Interpretation: Performing Lab:[facility], [address] [place] [phone] Notes/Report: Glucose, Whole Blood 103 60-115 mg/dL METER # : [id number] NT Pro B Type Natriuretic Pe pt Reviewed date:11/21/2024 12:32:26 PM Interpretation: Performing Lab:[facility], [address] [place] [phone] Notes/Report: NT Pro B Type Natriuretic Pept [...] date:11/21/2024 12:32:18 PM Interpretation: Performing Lab: Notes/Report: [address] [address] [address] Scan Report Signed Patient: Chilango Castaneda MR#: [id number] : 1940 Acct:[id number] Age/Sex: 84 / M ADM Date: 11/21/24 Loc: HO.ED Attending Dr: Ordering Physician: Fer Dent MD Date of Service: 11/21/24 Procedure(s): CT angio head neck STROKE Accession Number(s): [id number] cc: Gorge Mahmood MD; Fer Dent MD Report Number: [id number]: Total DLP = 728.00 mGy-cm Reason for [...] in OV> 11/21/24905 DD/ 3 TD/TT: 11/21/24903 Stratigraphy Teacher: [address] [address] [address] Scan Report Signed Patient: Cynthia Castaneda MR#: [id number] : 1940 Acct:[id number] Age/Sex: 84 / M ADM Date: 11/21/24 Loc: .ED Attending Dr: Ordering Physician: Fer Dent MD Date of Service: 11/21/24 Procedure(s): CT ang io head neck STROKE Accession Number(s): [id number] cc: Gorge Mahmood MD; Fer Dent MD [...] in OV> 11/21/24905 DD/ 3 TD/TT: 11/21/24903 Stratigraphy Teacher: CT head for stroke Reviewed date:11/21/2024 10:59:45 AM Interpretation: Performing Lab: Notes/Report: [address] [address] [address] Scan Report Signed with Addenda Patient: Chilango Castaneda MR#: [id number] : 1940 Acct:[id number] Age/Sex: 84 / M ADM Date: 11/21/24 Loc: .ED Attending Dr: Ordering Physician: Fer Dent MD Date of Service: 11/21/24 Procedure(s): CT head for STROKE Accession Number(s): [id number] cc: Gorge Mahmood MD; Fer Dent MD Report Number: [id number]: Total DLP = 703.00 mGy-cm Reason for [...] OV> 11/21/24 07 DD/ 5 TD/TT: 11/21/24705 Stratigraphy Teacher: [place] [address] [address] Scan Report Signed with Addenda Patient: Cynthia Castaneda MR#: [id number] : 1940 Acct:[id number] Age/Sex: 84 / M ADM Date: 11/21/24 Loc: HO.ED Attending Dr: Ordering Physician: Fer Dent MD Date of Service: 11/21/24 Procedure(s): CT hea d for STROKE Accession Number(s): [id number] cc: Gorge Mahmood MD; Fer Dent MD [...] in OV> 11/21/24706 DD/ 5 TD/TT: 11/21/24705 Stratigraphy Teacher: Reason For Referral No Information Medications Medication SIG (Take, Route, Frequency, Duration) Notes Start Date End Date Status Tylenol 8 Hour 650 MG 2 tablets as needed Orally every 8 hrs Active Triamcinolone Acetonide 0.1 % APPLY TWICE DAILY TO TRUNK,ARMS,AND LEGS *APPLY MOISTURIZER AFTER *AVOID FACE/GROIN* External for 25 Not-Taking Xarelto 20 MG 1 tablet with food Orally Once a day 01/10/2015 Active Colace 100 MG 1 capsule as needed Orally Once a day Not-Taking Cyclobenzaprine HCl 5 MG 1 tab Orally twice a day for 10 days 08/28/2024 Not-Taking Finasteride 5 MG 1 tablet Orally Once a day Active Cyclobenzaprine HCl 5 MG 1 tablet at bedtime as needed Orally twice a day for 10 days 11/13/2019 Not-Taking Doxazosin Mesylate 2 MG 1 tablet Orally Once a day for 30 day(s) Active Cortisporin 0.5-0.5-71939 1 application to affected area Externally Twice a day for 30 days 01/10/2015 Not-Taking Amiodarone HCl 200 MG 1 tablet Orally Once a day Not-Taking Ibuprofen 800 MG 1 tablet Orally Three times a day for 30 day(s) 10/27/2011 Not-Taking dexAMETHasone 2 MG TAKE 1 TABLET BY MOUTH THREE TIMES A DAY FOR 5 DAYS Oral Three times a day for 3 days 11/13/2019 Not-Taking Furosemide 40 MG r8avqet alternating with 2 tablets Orally Once a day Active amLODIPine Besylate 5 MG TAKE 1 TABLET BY MOUTH EVERY DAY for 30 Not-Taking Allopurinol 300 MG TAKE 1 TABLET BY MOUTH EVERY DAY Active Dicyclomine HCl 20 MG 1 tablet Orally Three times a day Not-Taking oxyCODONE HCl 5 MG 1 tablet as needed Orally every 12 hours as needed. do not drive for 7 days Partial Fill upon Patient Request 08/28/2024 Not-Taking Irbesartan 300 MG TAKE 1 TABLET BY MOUTH EVERY DAY Active Lidocaine & Adhesive Sheets 5 % (Patch) as directed Externally Active Immunizations Vaccine Route Administration Date Status [...] Influenza High Dose Unknown 10/30/2019 Administered [facility] Fluarix Quadrivalent Unknown 10/30/2019 Administered [facility] SARS-COV-2 Moderna Unknown 03/15/2020 Administered SARS-COV-2 Moderna Unknown 04/12/2020 Administered Influenza High Dose IM Intramuscular 11/21/2020 Administer ed SARS-COV-2 Moderna Unknown 12/05/2020 Administered Influenza High Dose IM Intramuscular 11/25/2021 Administer ed Influenza High Dose IM Intramuscular 11/02/2022 Administer ed Influenza High Dose IM Intramuscular 11/29/2023 Administer ed Fluarix Quadrivalent - 150 IM Intramuscular 12/25/2024 Administered Social History Tobacco Use: Social History [...] Status W/U Status Risk Notes Problem Sciatica (02502246) Sciatica (M54.30) Active confirmed Problem Diverticulitis of colon (377725553) Diverticulitis large intestine (K57.32) Active confirmed Problem 011644402 Thrombocytopenia (D69.6) Active confirmed Problem Constipation (55908084) Constipation (K59.00) Active confirmed Problem 709604463 Body mass index (BMI) 33.0-33.9, adult (Z68.33) Active confirmed Problem 325724337 Tubular adenoma of colon (D12.6) Active confirmed Problem 576530206 Gastroesophageal reflux disease without esophagitis (K21.9) Active confirmed Problem 14003714 Essential hypertension (I10) Active confirmed Problem 2848928 Psoriasis (L40.9) Active confirmed Problem 1208217 Prediabetes (R73.09) Active confirmed Problem 502451177 History of gout (Z87.39) Active confirmed Problem 835816081660540 Carpal tunnel syndrome of right wrist (G56.01) Active confirmed Problem 44712600 Sciatica of left side (M54.32) Active confirmed Problem 356321676 History of atria l fibrillation (Z86.79) Active confirmed Problem 522304660 Elevated PSA (R97.20) Active confirmed Problem 733271670 BMI 33.0-33.9,ad ult (Z68.33) Active confirmed Problem 879043785 Temporary low platelet count (D69.6) Active confirmed Problem 327982353 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) Active confirmed Problem 603662235 PVC's (premature ventricular contractions) (I49.3) Active confirmed Problem 730128826 History of basal cell carcinoma (Z85.828) Active confirmed Vital Signs Blood pressure diastolic 76 mm Hg 12/25/2024 jody ght is down 9 pounds since 09-25-24 Height 68.25 in 12/25/2024 weight is down 9 pounds since 09-25-24 Blood pressure systolic 138 mm Hg 12/25/2024 weig ht is down 9 pounds since 09-25-24 Weight 191 lbs 12/25/2024 weight is down 9 pounds since 09-25-24 BMI 28.83 kg/m2 12/25/2024 weight is down 9 pounds since 09-25-24 Encounters Encounter Location Date Provider Diagnosis Gorge Mahmood MD [address] [place] [id number] 03/28/2024 Gorge Mahmood Blood tests for rout ine general physical examination Z00.00 ; Thrombocytopenia D69.6 ; Prediabetes R73.09 and Elevated PSA R97.20 Gorge Mahmood MD [address] [place] [id number] 06/20/2024 Gorge Mahmood Thrombocytopenia, unspecified D69.6 Gorge Mahmood MD [address] [place] [id number] 04/04/2024 Gorge Mahmood Thrombocytopenia D69 .6 ; Annual physical exam Z00.00 ; Essential hypertension I10 ; History of atrial fibrillation Z86.79 ; Elevated PSA R97.20 ; Colon cancer screening Z12.11 and Depression screening Z13.31 Gorge Mahmood MD [address] [place] [id number] 08/28/2024 Gorge Mahmood Sciatica M54.30 and Leg edema R60.0 Gorge Mahmood MD [address] [place] [id number] 09/04/2024 Gorge Mahmood Sciatica M54.30 and Constipation K59.00 Gorge Mahmood MD [address] [place] [id number] 09/18/2024 Gorge Mahmood Leg edema R60.0 ; Diverticulitis large intestine K57.32 and Sciatica M54.30 Gorge Mahmood MD [address] [place] [address] [id number] 09/25/2024 Gorge Mahmood Diarrhea R19.7 Gorge Mahmood MD [address] [place] [address] [id number] 12/25/2024 Gorge Mahmood Encounter for administration of vaccine Z23 ; Essential hypertension I10 ; History of gout Z87.39 and History of atrial fibrillation Z86.79 Gorge Mahmood MD [address] [place] [address] [id number] 04/24/2024 Gorge Mahmood MD [address] [place] [address] [id number] 08/28/2024 Gorge Mahmood Sciatica M54.30 Gorge Mahmood MD [address] [place] [address] [id number] 08/31/2024 Gorge Mahmood MD [address] [place] [address] [id number] 09/07/2024 Gorge Mahmood MD [address] [place] [address] [id number] 09/11/2024 Gorge Mahmood MD [address] [place] [address] [id number] 09/25/2024 Gorge Mahmood MD [address] [place] [id number] 09/25/2024 Gorge Mahmood Assessments Encounter Date Diagnosis (ICD Code) Assessment Notes Treatment Notes Treatment Clinical Notes Section Notes 03/28/2024 Blood tests for routine general physical examination (ICD-10 - Z00.00) 06/20/2024 Thrombocytopenia, unspecified (ICD-10 - D69.6) 04/04/2024 Thrombocytopenia (ICD-10 - D69.6) stable, will [...] months/ order will be faxed over to [facility] [place] dept after PA 09/04/2024 Constipation (ICD-10 - K59.00) not taking any more oxycodone but will try dulcolax 09/18/2024 Leg edema (ICD-10 - R60.0) will stop the amlodipine. bp is fine, will continue to monitor 09/18/2024 Diverticulitis large intestine (ICD-10 - K57.32) doing well 09/25/2024 Diarrhea (ICD-10 - R19.7) order faxed to [facility] patient reg 12/25/2024 Encounter for administration of vaccine (ICD-10 - Z23) 12/25/2024 Essential hypertension (ICD-10 - I10) doing well on meds 08/28/2024 Sciatica (ICD-10 - M54.30) 03/28/2024 Thrombocytopenia (ICD-10 - D69.6) 04/04/2024 Essential hypertension (ICD-10 - I10) stable, will continue current regiment 09/18/2024 Sciatica (ICD-10 - M54.30) a little better. send back to pain maneagement/ patient will be calling to make his own appt 12/25/2024 History of gout (ICD-10 - Z87.39) doing well no attacks 03/28/2024 Prediabetes (ICD-10 - R73.09) 04/04/2024 History of atrial fibrillation (ICD-10 - Z86.79) is doing well. had been in afib 6 months ago, will continue current egiment anf will continue to monitor 12/25/2024 History of atrial fibrillation (ICD-10 - Z86.79) 03/28/2024 Elevated PSA (ICD-10 - R97.20) 04/04/2024 [...] Next Appt Details Provider Name:Gorge Boothe ier, 03/30/2025 07:30:00 AM, [address] [place] [address], [address], [place], [place], [id number], Provider Name:Gorge Boothe ier, 04/06/2025 08:30:00 AM, [address] [facility], [address], [place], [place], [id number], Insurance Providers Payer Name Payer Address Payer Phone Subscriber Number Group Number Insured Name Patient Relationship to Insured Coverage Start Date Coverage End Date [employer] PLAN [address] [place] [phone] [id number] Chilango Castaneda Self - patient is the insured MEDICARE [facility] [place] [address] [place] [address] [id number] Chilango Castaneda Self - patient is the insured Medical (General) History Medical History History ICD Code Gout hypertension, benign psoriasis tia prostatism Colonoscopy ; colonos copy 06/04/14 - no need for further testing per Dr. Ely CREATININE CLEARANCE 54 Surgical History Surgery Date(Month/Year) DC Cardioversion 02/2015
--- OUTSIDE RECORDS SUMMARY | 2025-01-22 18:07 | XMS_ITS | Patient Health Record ---
Author Organization [facility] Address [address] [place] [address] Care Team Providers Care Blade Aligner Name Role Phone Gorge Mahmood MD Primary Care Provider Bennie Jenkins [phone] Allergies Allergen (clinical drug ingredient) Drug/Non Drug Allergy documented on EMR Reaction Allergy Type Onset Date Status Penicillin Unknown Drug Allergy Active Reason For Referral No Information Medications Medication SIG (Take, Route, Frequency, Duration) Notes Start Date End Date Status Valsartan 320 MG Tablet 1 tablet Orally Once a day Active Allopurinol 300 MG Tablet 1 tablet Orall y Once a day Active Suprep Bowel Prep 1 kit Solution as directed Orally as directed; Duration: 1 dose 03/24/2014 Active Social History Social History Additional Details Category Social Info Options Details Miscellaneous: Marital status: Occupation: [employer] Section Notes: Nonsmoker; no alcohol Problems Problem Type SNOMED Code ICD Code Onset Dates Problem Status W/U Status Risk Notes Problem Pre-surgery evaluation (520355487) Other specified pre-operative examination (V72.83) Active confirmed Problem Colon cancer screening (387146887) Colon cancer screening (V76.51) Active confirmed Problem History of adenomatous polyp of colon (023383932) History of adenomatous polyp of colon (V12.72) Active confirmed Plan Of Treatment Future Test Test Name Order Date COLONOSCOPY 03/22/2014 Insurance Providers Payer Name Payer Address Payer Phone Subscriber Number Group Number Insured Name Patient Relationship to Insured Coverage Start Date Coverage End Date [facility] [address] [place] [phone] [id number] BREANA SINGH Self - patient is the insured Medical (General) History Medical History History ICD Code Tubular adenomas removed in 1993 and 2003--he had a negative colonoscopy in January of 2009, other than the finding of some diverticulosis and internal hemorrhoids hypertension Gout psoriasis TIA in the s Denies DE,DM,CVA,Lung disease,renal dise ase Surgical History Surgery Date(Month/Year) appendectomy
== END ==
LOC: HO.CARD 12:35
PROVIDERS: PCP Internal Medicine; Visit Provider Internal Medicine
DX: I48.19 Other persistent atrial fibrillation (principal)
CPT/HCPCS: 93242

== ENCOUNTER → 2025-01-22 12:38 | Outpatient (BNV) | payer MEDICARE, SELFPAY | PROVIDERS: PCP Internal Medicine; Visit Provider Internal Medicine | DX: I48.19 Other persistent atrial fibrillation (principal) | CPT/HCPCS: 93244 ==